=== PATIENT | female | born 1970 | race Caucasian/White ===

== ENCOUNTER → 2018-01-30 12:37 | Outpatient (CLI) | payer BC, SELFPAY ==
--- NOTE | 2018-01-30 12:37 | DT_ITS ---
This patient was seen during an EMR downtime January 27, 2018 - February 03, 2018. This patient may have a combination of paper and electronic documentation or all paper documentation. All documentation is viewable within the e-chart portion of [facility] for each patient visit.
--- NOTE | 2018-01-30 12:42 | BI_ITS ---
MAMMOGRAPHY - BILATERAL SCREENING REASON FOR EXAM: Female, 47 years old. Routine annual screening examination. PERTINENT HISTORY: Non-contributory. TECHNIQUE: Digital bilateral breast dayami (3D mammographic acquisition) in the CC and MLO projections. 2-D mediolateral oblique (MLO) and craniocaudad (CC) views of both breasts were obtained. CAD: Full Field Digital Mammography with Computer Added Detection was performed. COMPARISON: Comparison is made with prior examination dated July 10, 2014. FINDINGS: Breast Composition: The breasts are heterogeneously dense, which may obscure small masses. There are no dominant masses or suspicious calcifications. No other significant abnormalities are identified. There has been no significant change since the prior study. BI/SCREENING MAMM (CAD), BILAT IMPRESSION: Stable bilateral screening mammogram. Yearly follow-up mammogram recommended. (A) ASSESSMENT CATEGORY: BIRADS Category 2: Benign. A letter regarding these results will be sent to the patient by the facility within 30 days. Approximately 10% of breast cancers are not detected by mammography. A normal mammogram should not delay biopsy of a clinically suspicious abnormality. [id number] Electronically Signed: Curt Allan MD at 9:01 EDT Tel [phone], Service support ,
== END ==
PROVIDERS: Family Provider Internal Medicine; PCP Internal Medicine; Visit Provider Internal Medicine
DX: Z12.31 Encounter for screening mammogram for malignant neoplasm of breast (principal)
CPT/HCPCS: 77063; 77067

== ENCOUNTER 2019-02-01 21:21 | Emergency (ER) | payer MEDICAID, SELFPAY ==
[2019-02-01 21:22] VITALS: BP 107/68; PULSE 63; RESP 18; TEMP 36.7; O2SAT 99; BMI 25.2
--- NOTE | 2019-02-01 22:44 | ED.VISSUMM ---
- ER Visit Summary Date of Service: 02/01/19 Chief Complaint: Back pain History of Present Illness: The patient is a 48 F with back pain for 3 days she has a history of disc disease. She denies any bowel or bladder compromise there is no radiation. She is worried because she had prior disc disease. Physical Examination: Otherwise normal exam she is a soft nontender abdomen without any suprapubic mass. She has L3-L5 tenderness, she has loss of lordosis. She has a negative straight leg test 1+ equal bilateral patellar and Achilles reflexes. Normal plantar flexion of both feet normal dorsiflexion of both great toes Emergency Department Course and Treatment: Patient appears well, there are no red flags, I will treat symptomatically Discharge stable condition Impression: [Lumbar strain] This note was generated with [employer] dictation software. It may contain incorrect words, spelling, and punctuation that were not noted in review of the chart prior to signing ED Disposition - Plan for ED Patient: Disposition: Home or Assisted Living Instructions: ED Low Back Pain Injury Prescriptions: Naproxen [Naprosyn] 500 mg PO BID PRN #20 tab cycloBENZAPRine HCl [Flexeril] 10 mg PO TID PRN #20 tab PRN Reason: Muscle Spasm Referrals: nA Jc DO [Primary Care Provider] - 3-5 Days
[2019-02-01] MEDS: Ketorolac 30 MG/ML Syringe IM (22:56)
[2019-02-01] MEDS: Orphenadrine 60 MG/2 ML Ampul IM (22:56)
[2019-02-01 23:17] VITALS: PULSE 87; RESP 16
== END 2019-02-01 23:18 | disposition home or self-care (01) ==
PROVIDERS: Emergency Provider Emergency Medicine; Family Provider Internal Medicine; PCP Internal Medicine
DX: S39.012A Strain of muscle, fascia and tendon of lower back, initial encounter (principal); X58.XXXA Exposure to other specified factors, initial encounter; Y93.9 Activity, unspecified; Y92.9 Unspecified place or not applicable; Y99.9 Unspecified external cause status; Z79.899 Other long term (current) drug therapy
CPT/HCPCS: 96372; 99283

== ENCOUNTER → 2020-02-09 12:09 | Outpatient (CLI) | payer OTHER, MEDICAID, SELFPAY ==
--- NOTE | 2020-02-09 12:15 | BI_ITS ---
MAMMOGRAPHY - BILATERAL SCREENING REASON FOR EXAM: Female, 49 years old. Routine annual screening examination. PERTINENT HISTORY: Grandmother with breast cancer. TECHNIQUE: Digital bilateral breast alejandra (3D mammographic acquisition) in the CC and MLO projections. 2-D mediolateral oblique (MLO) and craniocaudad (CC) views of both breasts were obtained. CAD: Full Field Digital Mammography with Computer Added Detection was performed. COMPARISON: Comparison is made with prior study dated January 30, 2018 and July 10, 2014. FINDINGS: Breast Composition: The breasts are heterogeneously dense, which may obscure small masses. There are no dominant masses or suspicious calcifications. No other significant abnormalities are identified. There has been no significant change since the prior study. BI/SCREEN MAMM (CAD) W/ALEJANDRA BILAT IMPRESSION: Stable bilateral screening mammogram. Yearly follow-up mammogram recommended. (A) ASSESSMENT CATEGORY: BIRADS Category 1: Negative. A letter regarding these results will be sent to the patient by the facility within 30 days. Approximately 10% of breast cancers are not detected by mammography. A normal mammogram should not delay biopsy of a clinically suspicious abnormality. [id number] Electronically Signed: Curt Allan, at 13:46 EDT , Service support ,
== END ==
PROVIDERS: PCP Internal Medicine; Referring Provider Family Medicine; Visit Provider Family Medicine
DX: Z12.31 Encounter for screening mammogram for malignant neoplasm of breast (principal)
CPT/HCPCS: 77063; 77067

== ENCOUNTER → 2020-07-07 | Outpatient (CLI) | payer OTHER, MEDICAID, SELFPAY | END | disposition home or self-care (01) | LOC: LABSPEC 14:47 | PROVIDERS: PCP Family Medicine; Referring Provider Family Medicine; Visit Provider Family Medicine | DX: Z20.828 Contact with and (suspected) exposure to other viral communicable diseases (principal) | CPT/HCPCS: 87635; U0003 ==

== ENCOUNTER → 2020-10-27 11:58 | Outpatient (CLI) | payer OTHER, MEDICAID, SELFPAY ==
--- NOTE | 2020-10-27 12:05 | RAD_ITS ---
STUDY: X-RAY - RIGHT FOOT CLINICAL: Dorsal midfoot pain, unsure of specific injury. TECHNIQUE: 3 view(s) of the foot. COMPARISON: None. FINDINGS: Normal talus, calcaneus, and tarsal bones. Normal visualized subtalar, talonavicular, calcaneocuboid, tarsal and tarsometatarsal articulations. Normal metatarsi. Normal metatarsophalangeal joint of the great toe. Normal tibial and fibular sesamoid bones. Normal interphalangeal joint of the great toe. Normal phalanges of the great toe. Normal second through fifth metatarsophalangeal joints. Normal interphalangeal joints and phalanges of the lesser toes. The soft tissue structures are unremarkable. RAD/Foot min 3 Views IMPRESSION: Normal x-ray examination of the right foot. Electronically Signed: Maximilian De Leon MD at 12:30 EST Tel , Service support ,
== END ==
PROVIDERS: PCP Family Medicine; Referring Provider Family Medicine; Visit Provider Family Medicine
DX: M79.673 Pain in unspecified foot (principal)
CPT/HCPCS: 73630

== ENCOUNTER → 2021-01-05 14:10 | Outpatient (CLI) | payer OTHER, MEDICAID, SELFPAY ==
--- NOTE | 2021-01-05 14:16 | RAD_ITS ---
EXAM: XR CERVICAL SPINE, 4 OR 5 VIEWS : 1970 CLINICAL INDICATION: PAIN TECHNIQUE: Frontal, lateral and oblique views of the cervical spine. This report was created using [employer] report generation technology. COMPARISON: None. FINDINGS: VERTEBRAE: Unremarkable. Preserved vertebral body height. No acute fracture. No spondylolisthesis. Preservation of the normal cervical lordosis. No significant facet arthropathy. DISC SPACES: Unremarkable. Disc spaces are maintained. SOFT TISSUES: Unremarkable. No prevertebral soft tissue widening. LUNG APICES: Clear. OTHER FINDINGS: There are surgical clips in the right neck. RAD/Cerv Spine 4 or 5 Views IMPRESSION: No acute findings in the cervical spine. at 0939 Reported and signed by: Ruslan Macedo MD Electronically Signed: Ruslan Macedo MD at 9:38 EDT Tel , Service support ,
== END ==
PROVIDERS: PCP Family Medicine; Visit Provider Family Medicine
DX: M54.2 Cervicalgia (principal)
CPT/HCPCS: 72050

== ENCOUNTER 2021-03-14 13:00 | Outpatient (RCR) | payer OTHER, MEDICAID, SELFPAY ==
--- NOTE | 2021-01-16 09:47 | HP.PTEVAL ---
Patient's Visit Information KAREN BLAIR is a 50 year old F referred to Physical Therapy by Dr. Wing Johnson MD with a diagnosis of neck pain. Date of Evaluation: 01/16/21 Physical Therapist: Neil Rodriguez DPT, OCS, CSCS - Visit Plan Frequency: 2x /Week Duration: 4-6 Weeks Plan: 2x/week for 4-6 weeks for ... 1. manual mobs and A/PROM ext , postural focus and body mechanics. 2. remodelling neck streches adn strength posture adn c/s - Subjective H/o neck pain. has 5 weeks on insidious onset pain in neck. Last neck pain was 9-10 years ago. Pain is centrallya t base of necka dn sometimes to L shoulder blade. Can be worse with sitting and reading down to L elbow. No numbness ro tingling c/o. Pain is intermittent but hurts most of time. Better with sleeping and she is sleeping well. Worse with sitting and many activiites. Exercises in morning cardio and weights(ellpitcal and bike.) reads on the bike adn will get worse. 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 Not employed. Reading and it mcan make her worse. Had h/o bulging disc. - Pain neck Pain Intensity (Out of 10): 6 Pain Intensity Range: 0, 1, 10 - Objective Walks normal and moves well. I transfers. FW head posture, elevated scap. No tendernessin soft tissue of neck or shoulders. reflexes 2/3 bi adn tri B. Sensation UE WNL to gross light touch B. Strength UE 4/5 without myotomal problems. c/s ext painful at end range and 68, fexion OK, retraction with end range pain, SB and rotations fulla nd without pain.- c/s compression test. - HK, - neer. repeated protrusion. causes pain in neck. repeated retraction No pain and NE. repeated c/s ret/ext with OP: Better motion and no pain B - Goals Goal 1:: Full c/s AROM without pain. Goal Time Frame: 4-6 Weeks Goal 2:: Workout bike adn elliptical without increaed pain. Goal Time Frame: 4-6 Weeks Goal 3:: Pt feel 99% back to normal activities and pain. Goal Time Frame: 4-6 Weeks Goal 4:: I approp management of activity. Goal Time Frame: 4-6 Weeks Goal 5:: <3/10 neck oswestry Goal Time Frame: 4-6 Weeks - Rehabilitation Potential Physical Therapy Diagnosis: likely cervical derangement Rehabilitation Potential: Good - Anticipated Interventions Patient/Client Instruction: Educate patient on: Condition, Plan of Care For the Purpose of:: To decrease pain, To increase ROM, To improve muscle performance and motor function, To increase tolerance to activity/condition/position, To improve ability of physical actions for home/community/work/leisure Therapeutic Exercise to Include: Strength training, Postural training, Flexibilty training, Neuromotor development, Passive ROM, Active ROM For the Purpose of:: To decrease pain, To increase ROM, To improve muscle performance and motor function, To increase tolerance to activity/condition/position, To decrease level of supervision to perform tasks, To improve gait and locomotor functions Manual Therapy Techniques to Include: Mobilization, Passive ROM, Soft tissue mobilization For the Purpose of:: To increase ROM, To improve muscle performance and motor function, To increase tolerance to activity/condition/position Thank you for the opportunity to evaluate your patient. For Medicare and Medicare HMO plans, please review the plan of care and approve it. It will need to be FAXED BACK to us at [phone] for Medicare purposes. For Medicare only, by signing this I certify the plan of care. Please let me know if there are questions or concerns regarding this plan of care. Physician Signature: Date:
--- NOTE | 2021-02-15 13:55 | HP.PTREVAL ---
Dr. Wing Johnson MD, It has been my pleasure to treat KAREN BLAIR over the last 7 visits for neck pain. Please see the progress note below for an update on the physical therapy plan of care! Subjective: Generally in a lot less pain. I can get through workoutsbefore it starts to hurt. HEP: Posture bands and and retractions. Pain this week has been up to 7/10 transiently with activity. Did a lot of reading. 3/10 is a normal day and not constant like it used to be. Sleep is OK. Activities are normal. Objective/Function: Full cs ext but does not involve lower c/s until cued. R rotation 68 vs 78 L, no pain. Posture is still slouched adn FW head until cued. Overall patient much better. educated kelli voiding aggravating activities today as she tends to push through. Appropriate to cotninue 2 weeks toward goals with fair prognosis. Plan Plan: 2x/week for 2 weeks for. 1. Continue manual therapy especially lower c/s ext mobs, monitor HEP of home strengthening Goals Goal 1:: Full c/s AROM without pain. Goal Time Frame: 4-6 Weeks Goal Progress: Progressing Goal 2:: Workout bike adn elliptical without increaed pain. Goal Time Frame: 4-6 Weeks Goal Progress: Goal Met Goal 3:: Pt feel 99% back to normal activities and pain. Goal Time Frame: 4-6 Weeks Goal Progress: 80% Goal 4:: I approp management of activity. Goal Time Frame: 4-6 Weeks Goal Progress: Goal Met Goal 5:: <3/10 neck oswestry Goal Time Frame: 4-6 Weeks Goal Progress: Progressing Anticipated Interventions Patient/Client Instruction: Educate patient on: Condition, Plan of Care For the Purpose of:: To decrease pain, To increase ROM, To improve muscle performance and motor function, To increase tolerance to activity/condition/position, To improve ability of physical actions for home/community/work/leisure Therapeutic Exercise to Include: Strength training, Postural training, Flexibilty training, Neuromotor development, Passive ROM, Active ROM For the Purpose of:: To decrease pain, To increase ROM, To improve muscle performance and motor function, To increase tolerance to activity/condition/position, To decrease level of supervision to perform tasks, To improve gait and locomotor functions Manual Therapy Techniques to Include: Mobilization, Passive ROM, Soft tissue mobilization For the Purpose of:: To increase ROM, To improve muscle performance and motor function, To increase tolerance to activity/condition/position Please do not hesitate to contact me at [phone] by phone or if you have questions or concerns regarding this new plan of care! Sincerely, Neil Rodriguez, THAT, OCS, CSCS
--- NOTE | 2021-03-14 13:46 | HP.PTDCSUM ---
It has been my pleasure to treat KAREN BLAIR referred by Dr. Wing Johnson MD, with the diagnosis of neck pain for a total of 11 visit(s). Discharge Date: 03/14/21 Please see the following information for a summary of their discharge status. Subjective: A lot better. Does get achy at times. Sleep is OK. Activities are normal. Stretching adn strengthening. neck Pain Intensity (Out of 10): 0 % Improvement: 95 Objective/Function: Ful aROM c/s 75 rotation and 79 ext without pain. Full UE AROM with strength shoulders and elbows 4/5. Posture is improved but still tends head FW. Overall much better adn ready for d/c Goal 1:: Full c/s AROM without pain. Goal Progress: Goal Met Goal 2:: Workout bike adn elliptical without increaed pain. Goal Progress: Goal Met Goal 3:: Pt feel 99% back to normal activities and pain. Goal Progress: 95% Goal 4:: I approp management of activity. Goal Progress: Goal Met Goal 5:: <3/10 neck oswestry Goal Progress: Goal Met Plan: d/c to HEP If there are questions or concerns regarding this patient's physical therapy, please feel free to call me at [phone]. Thank you for the referral of this patient. Sincerely, Neil Rodriguez, DPT, OCS, CSCS
== END 2021-03-14 14:56 | disposition home or self-care (01) ==
LOC: PT 13:00
PROVIDERS: PCP Family Medicine; Referring Provider Family Medicine; Visit Provider Family Medicine
DX: M54.2 Cervicalgia (principal)
CPT/HCPCS: 97110; 97140; 97162; 97530

== ENCOUNTER → 2022-07-11 | Outpatient (CLI) | payer OTHER, BC, MEDICAID, SELFPAY ==
[2022-07-11 10:33] LABS: Vitamin D,25 Hydroxy 51.2 ng/mL
[2022-07-11 10:43] LABS: Anion Gap 5 (5-15); BUN 19 mg/dL (7-18); BUN/Creat Ratio 26.8 RATIO (10-20); Calcium,Total 9.5 mg/dL (8.5-10.1); Chloride 108 mmol/L (98-107); Cholesterol 188 mg/dL (200); Creatinine, Serum 0.71 mg/dL (0.55-1.02); EST Glomerular Filtration Rate 93 mL/min (>60); Est Glom Filt Rate - Afr Amer 113 mL/min (>60); Glucose 81 mg/dL (74-106); High Density Lipoprotein 84 mg/dL; Potassium 4.5 mmol/L (3.5-5.1); Sodium Level 142 mmol/L (136-145); T4 Free Direct 1.11 ng/dL (0.76-1.46); Thyroid Stim Hormone (TSH) 0.15 uIU/mL (0.358-3.74); Triglycerides 29 mg/dL; Very Low Density Lipoprotein 6 mg/dL (5-40)
== END | disposition home or self-care (01) ==
PROVIDERS: PCP Family Medicine; Referring Provider Family Medicine; Visit Provider Family Medicine
DX: E55.9 Vitamin D deficiency, unspecified (principal); Z13.1 Encounter for screening for diabetes mellitus; Z13.220 Encounter for screening for lipoid disorders; Z85.850 Personal history of malignant neoplasm of thyroid
CPT/HCPCS: 36415; 80048; 80061; 82306; 84439; 84443

== ENCOUNTER → 2022-07-23 | Outpatient (CLI) | payer BC, MEDICAID, SELFPAY ==
--- NOTE | 2022-07-23 15:27 | BI_ITS ---
MAMMOGRAPHY - BILATERAL SCREENING REASON FOR EXAM: Female, 51 years old. Routine annual screening examination. PERTINENT HISTORY: Aunt with breast cancer. TECHNIQUE: Digital bilateral breast alejandra (3D mammographic acquisition) in the CC and MLO projections. 2-D mediolateral oblique (MLO) and craniocaudad (CC) views of both breasts were obtained. CAD: Full Field Digital Mammography with Computer Added Detection was performed. COMPARISON: Comparison is made with prior examination dated 02/09/2020 and 01/30/2018. FINDINGS: Breast Composition: The breasts are extremely dense, which lowers the sensitivity of mammography. There are no dominant masses or suspicious calcifications. No other significant abnormalities are identified. There has been no significant change since the prior study. BI/SCRN MAMM (CAD)W/ALEJANDRA BILAT IMPRESSION: Stable bilateral screening mammogram. Yearly follow-up mammogram recommended. (A) ASSESSMENT CATEGORY: BIRADS Category 1: Negative. A letter regarding these results will be sent to the patient by the facility within 30 days. Approximately 10% of breast cancers are not detected by mammography. A normal mammogram should not delay biopsy of a clinically suspicious abnormality. [id number] Electronically Signed: Curt Allan MD at 8:33 EST ,
== END | disposition home or self-care (01) ==
LOC: OPBI 15:25
PROVIDERS: PCP Family Medicine; Visit Provider Family Medicine
DX: Z12.31 Encounter for screening mammogram for malignant neoplasm of breast (principal); Z80.3 Family history of malignant neoplasm of breast
CPT/HCPCS: 77063; 77067

== ENCOUNTER → 2023-07-24 | Outpatient (CLI) | payer OTHER, MEDICAID, SELFPAY ==
--- NOTE | 2023-07-24 11:52 | BI_ITS ---
MAMMOGRAPHY - BILATERAL SCREENING REASON FOR EXAM: Female, 52 years old. Routine annual screening examination. PERTINENT HISTORY: Aunt with breast cancer. TECHNIQUE: Digital bilateral breast alejandra (3D mammographic acquisition) in the CC and MLO projections. 2-D mediolateral oblique (MLO) and craniocaudad (CC) views of both breasts were obtained. CAD: Full Field Digital Mammography with Computer Added Detection was performed. COMPARISON: Comparison is made with prior study dated July 23, 2022 and February 09, 2020. FINDINGS: Breast Composition: The breasts are extremely dense, which lowers the sensitivity of mammography. There are no dominant masses or suspicious calcifications. No other significant abnormalities are identified. There has been no significant change since the prior study. BI/SCRN MAMM (CAD)W/ALEJANDRA BILAT IMPRESSION: Stable bilateral screening mammogram. Yearly follow-up mammogram recommended. (A) ASSESSMENT CATEGORY: BIRADS Category 1: Negative. A letter regarding these results will be sent to the patient by the facility within 30 days. Approximately 10% of breast cancers are not detected by mammography. A normal mammogram should not delay biopsy of a clinically suspicious abnormality. [id number] Electronically Signed: Curt Allan MD at 10:07 EST ,
== END | disposition home or self-care (01) ==
LOC: OPBI 11:51
PROVIDERS: PCP Family Medicine; Referring Provider Family Medicine; Visit Provider Family Medicine
DX: Z12.31 Encounter for screening mammogram for malignant neoplasm of breast (principal)
CPT/HCPCS: 77063; 77067

== ENCOUNTER → 2023-11-20 | Outpatient (CLI) | payer OTHER, SELFPAY ==
[2023-11-20 13:51] LABS: Absolute Lymphocyte Count 1.52 X10^3/uL (0.83-4.51); Absolute Neutrophil Count 2.9 X10^3/uL (2.0-7.7); Basophil# 0.06 X10^3/uL; Basophil% 1.3 % (0-1); Eosinophil# 0.07 X10^3/uL; Eosinophils% 1.5 % (0-5); Hematocrit 42.2 % (37-47); Hemoglobin 13.8 g/dL (12.0-15.0); Lymphocyte # 1.52 X10^3/ul (0.83-4.51); Lymphocyte % 32.1 % (19-41); Mean Corp Hgb Conc 32.7 g/dL (32-36); Mean Corpuscular Hgb 30.2 pg (27.0-32.0); Mean Corpuscular Volume 92.3 fL (81-99); Mean Platelet Vol. 10.8 fl (6.2-12.0); Monocyte# 0.21 X10^3/uL; Monocyte% 4.4 % (0-10); NRBC Flagged by Analyzer 0 % (0-5); Neutrophil # 2.87 X10^3/uL (2.7-7.7); Neutrophil % 60.5 % (47-70); Platelet Count 212 K/mm3 (150-450); RBC Distribution Width CV 11.9 % (11.6-14.6); RBC Distribution Width SD 40.4 fl (35.1-43.9); Red Blood Count 4.57 M/mm3 (4.2-5.4); White Blood Count 4.7 K/mm3 (4.4-11.0)
[2023-11-20 14:59] LABS: AST(SGOT) 25 U/L (15-37); Alanine Aminotransfer ALT/SGPT 33 U/L (13-56); Albumin, Serum 3.8 g/dL (3.2-5.0); Alkaline Phosphatase 79 U/L (45-117); Anion Gap 3 (5-15); BUN 16 mg/dL (7-18); BUN/Creat Ratio 18.9 RATIO (10-20); Chloride 109 mmol/L (98-107); Creatinine, Serum 0.85 mg/dL (0.55-1.02); EST Glomerular Filtration Rate 75 mL/min (>60); Est Glom Filt Rate - Afr Amer 91 mL/min (>60); Globulin 3.7 g/dL (2.2-4.2); Glucose 80 mg/dL (74-106); Potassium 3.6 mmol/L (3.5-5.1); Protein, Total 7.5 g/dL (6.4-8.2); Sodium Level 141 mmol/L (136-145); Thyroid Stim Hormone (TSH) 0.88 uIU/mL (0.358-3.74)
== END | disposition home or self-care (01) ==
PROVIDERS: PCP Family Medicine; Visit Provider Internal Medicine Cardiovascular Disease
DX: I47.19 Other supraventricular tachycardia (principal); R00.2 Palpitations
CPT/HCPCS: 36415; 80053; 83735; 84443; 85025

== ENCOUNTER → 2023-12-18 | Outpatient (CLI) | payer OTHER, SELFPAY ==
--- NOTE | 2023-12-18 14:51 | ECHOD_ITS ---
Reason For Study: Arrhythmia Procedure This was a 2D Doppler, Color Flow transthoracic echocardiogram. Exam performed in department. Left Ventricle Normal left ventricle. The left ventricular ejection fraction is 65 %. Normal diastololic function. Right Ventricle Normal right ventricle. A moderator band is seen in the right ventricle. Atria The left and right atria are normal. Mitral Valve Mild (1+) mitral valve insufficiency. Tricuspid Valve Mild tricuspid valve insufficiency. Right ventricular systolic pressure estimated to be 40 mmHg. Pulmonic Valve Trivial pulmonic valve insufficiency. Great Vessels Normal sized aortic root. Pericardium/Pleural No pericardial effusion. MMode/2D Measurements & Calculations LVIDd: 4.8 cm IVSd: 0.88 cm LA dimension: 3.6 cm LVIDs: 2.9 cm LVPWd: 0.78 cm RVDd: 4.2 cm FS: 38.7 % LAV(MOD-bp): 53.4 ml LVAd ap4: 28.7 cm2 SV(MOD-sp4): 58.6 ml LAV(MOD-bp) Indexed: 30.6 ml/m2 LVLd ap4: 7.5 cm LAV(MOD-sp2): 51.0 ml EDV(MOD-sp4): 88.9 ml LAV(MOD-sp4): 56.0 ml EDV(sp4-el): 92.8 ml LVAs ap4: 14.9 cm2 LVLs ap4: 5.9 cm ESV(MOD-sp4): 30.3 ml ESV(sp4-el): 31.9 ml EF(MOD-sp4): 65.9 % EF(sp4-el): 65.7 % SV(sp4-el): 60.9 ml LA A4 area: 20.0 cm2 RA A4 area: 22.3 cm2 TAPSE: 2.2 cm Time Measurements MV dec time: 0.14 sec Doppler Measurements & Calculations MV E max billy: 75.8 cm/sec Lat Peak E' Billy: 12.8 cm/sec Med Peak E' Billy: 13.0 cm/sec MV A max billy: 50.8 cm/sec E/E' lat: 5.9 E/E' med: 5.8 MV E/A: 1.5 MV V2 max: 97.6 cm/sec MV P1/2t max billy: 97.6 cm/sec Ao V2 max: 158.1 cm/sec MV max P.8 mmHg MV P1/2t: 54.0 msec Ao max P.0 mmHg MV V2 mean: 45.2 cm/sec MV dec slope: 529.6 cm/sec2 Ao V2 mean: 114.5 cm/sec MV mean P.0 mmHg Ao mean P.0 mmHg MV V2 VTI: 25.9 cm MVA(P1/2t): 4.1 cm2 Ao V2 VTI: 41.0 cm AV (velocity ratio): 0.81 LV V1 max: 143.3 cm/sec MR max billy: 459.1 cm/sec PA V2 max: 92.5 cm/sec LV V1 max P.2 mmHg MR max P.3 mmHg LV V1 mean P.5 mmHg LV V1 mean: 101.2 cm/sec LV V1 VTI: 33.2 cm TR max billy: 250.1 cm/sec TR max P.0 mmHg ECHO/Echo Complete Interpretation Summary The left ventricular ejection fraction is 65 %. Mild (1+) mitral valve insufficiency. Mild tricuspid valve insufficiency. Right ventricular systolic pressure estimated to be 40 mmHg. Ordering Physician: Linda Orr Referring Physician: Miguelito Johnson Performed By: Gordon Cornejo RCS
== END | disposition home or self-care (01) ==
PROVIDERS: PCP Family Medicine; Referring Provider Internal Medicine Cardiovascular Disease; Visit Provider Internal Medicine Cardiovascular Disease
DX: I47.19 Other supraventricular tachycardia (principal); R00.2 Palpitations
CPT/HCPCS: 93306

== ENCOUNTER 2024-03-03 19:52 | Emergency (ER) | payer OTHER, SELFPAY ==
[2024-03-03 19:53] VITALS: BP 138/83; PULSE 50; RESP 15; TEMP 36.1; O2SAT 100; BMI 26.8
--- NOTE | 2024-03-03 20:37 | EX.ED.UPPERE ---
HPI History of Present Illness HPI Narrative: 53-year-old female tripped and fell outside manage on concrete injuring her left hand primarily at the MCP of the left small and ring finger and hitting her left shoulder. No head injury. No LOC. She is not on blood thinners. She is right-hand dominant. No prior surgery to the left upper extremity. Chief Complaint: Upper Extremity Injury Informant: patient and spouse/S.O. Occured/Mechanism Mechanism/Context: Yes injury and Yes blunt trauma Onset/Context/Timing Onset: Today and Hours Context: Sudden Onset Timing: Continuous Quality of Pain: Sharp Current Severity: Moderate Maximum Severity: Moderate Associated Symptoms Associated Symptoms: Negative for Parasthesia, Weakness or Loss of Funtion Narrative Narrative: 53-year-old tripped and fell outside injuring her left hand and left shoulder. Prior similar symptoms: No Recent Illness/Hospitalization: No PFSH PFSH Medical History Cataracts, bilateral Atrial tachycardia Palpitations Home Medications ?Medication ?Instructions ?Recorded ?Last Taken ?Type levothyroxine 112 mcg tablet 100 mcg PO DAILY 07/21/15 07/26/15 History metoprolol tartrate 25 mg tablet 12.5 mg (1/2 x 25 mg) PO BID #45 12/16/23 Unknown Rx tabs flecainide 50 mg tablet 100 mg PO Q12H 03/03/24 Unknown History Allergy/AdvReac Type Severity Reaction Status Date / Time Sulfa (Sulfonamide Allergy Intermediate Rash Verified 03/03/24 19:53 Antibiotics) vancomycin Allergy RED MAN Verified 03/03/24 19:53 SYNDROME Family History Brother Heart disease aortic stenosois Father Hypertension Cancer Atrial fibrillation Mother Cancer Atrial fibrillation Surgical History S/P removal of left ovary (~2006) History of total hysterectomy History of dilation and curettage History of tubal ligation (~2001) History of thyroidectomy, total Social History Smoking Status: Never smoker alcohol intake: never substance use type: does not use caffeine: No ROS ROS ED ROS Narrative Denies recent illness. Review of Systems ROS Unobtainable: Denies due to encephalopathy Constitutional Constitutional ED: Denies chills or fever(s) Eyes Eyes: Denies blurry vision ENT ENT ED: Denies ear pain Cardiovascular Cardiovascular: Denies chest pain Respiratory/Chest Respiratory/Chest: Denies cough or dyspnea Gastrointestinal Gastrointestinal: Denies abdominal pain or constipation Genitourinary Genitourinary ED: Denies dysuria or hematuria Musculoskeletal Musculoskeletal: Denies back pain or myalgias Integumentary Denies abscess or Abrasions Neurologic Neurologic: Denies headache(s) or paresthesias Psychiatric Psychiatric: Denies anxiety or depression Endocrine Endocrinology: Denies cold intolerance Hematologic/Lymphatic Hematologic/Lymphatic: Denies easy bleeding Allergic/Immunologic Allergic/Immunologic ED: Denies mouth swelling EXAM Physical Exam Narrative Exam Narrative: Well-appearing 53-year-old female. Vital signs are stable afebrile. H EENT exam pupils round react light. Extra motions are intact. No signs of trauma to her face or scalp. Neck nontender. Trachea midline. Back and spine nontender no signs of trauma. Lungs clear. Heart regular rhythm rate about 50-60. No murmur. Chest wall and ribs nontender. Pelvic girdle intact nontender. Abdomen soft nontender. Moving all 4 extremities. She has abrasion of left shoulder but has normal range of motion left shoulder no deformity. Distal left humerus, elbow, forearm and wrist are completely nontender with normal flexion extension of the wrist. She has deformity and swelling of her left hand left small finger and ring finger MCP. She is unable to completely flex and extend her left ring and small fingers due to pain and swelling. Normal touch sensation. Skin intact and without abrasions. Right upper or lower extremities are unremarkable. She is awake alert. GCS of 15. Const Vital Signs: 03/03/24 19:53 Temperature 96.9 F L Temperature Source Temporal Pulse Rate 50 L Respiratory Rate 15 Blood Pressure 138/83 H Blood Pressure Mean 101 Pulse Ox 100 Oxygen Delivery Method Room Air Positive well nourished and well developed; Negative for obese, cachectic, contractures or unkempt General Appearance ED: well developed and NAD; Negative for unkempt, cachectic, contractures, cyanotic or diaphoretic Nutritional Appearance: Negative for cachectic or obese HEENT Reports moist mucous membranes normocephalic and atraumatic; Negative for trauma or tenderness Eyes PERRL and EOMs intact bilaterally General Eye ED: Negative for other Neck full ROM and supple General: Negative for tenderness Lymph Lymphatic: Negative for other Chest Wall inspection of chest normal and palpation of chest normal Chest: Negative for other Resp normal respiratory effort and clear to auscultation bilaterally Effort and Inspection: Negative for pain with movement Auscultation: Negative for rales, rhonchi or wheezes Cardio regular rhythm, S1 normal heart sound, S2 normal heart sound and no murmurs; Negative for regular rate Rate: bradycardia; Negative for tachycardic Rhythm: Negative for abnormal rhythm GI non-tender, non-distended and no masses Inspection: Negative for abdominal distention Auscultation: normoactive bowel sounds Palpation: soft; Negative for tender, guarding or rebound tenderness present Back/Spine no CVA tenderness General Back: Negative for CVA tenderness Cervical Spine: Negative for cervical spine tenderness Thoracic Spine / Upper Back: Negative for thoracic spinal tenderness Lumbar Spine / Lower Back: Negative for lumbar spinal tenderness Extremity Negative for normal to inspection or full ROM Extremity Narrative: Left hand tender along the left small and ring MCP with swelling. Decreased range of motion due to pain and swelling. Wrist is nontender. Left shoulder abrasion but full range of motion. General Extremety ED: Yes edema General Extremity: edema Neuro oriented x3, CN's II-XII intact bilaterally, moves all extremities and no focal motor deficits Sensorium / Orientation: alert, oriented to person, oriented to place and oriented to time; Negative for orientation impaired or lethargic Motor Exam: strength 5/5 throughout Psych mental status grossly normal Appearance: Negative for unkempt Attitude: No agitated Mood & Affect: Negative for depressed, anxious or tearful Skin Skin Narrative: Abrasions. General Skin Exam: Negative for petechiae Lesions: no lesions Rashes: no rashes Trauma: abrasion; Negative for laceration MDM MDM MDM Narrative Medical decision making narrative: 53-year-old female tripped and fell injuring her left hand x-rays to be taken in the hand and shoulder I think the shoulders finer than the contusion and bruising. The hand is concerning for fracture. She is already taken ibuprofen for pain and did not need any at this time. Repeat exam unchanged. We discussed the x-rays. She chose aluminum splints for both the left small and ring finger. Ice and elevate. Tylenol Motrin. Follow-up with orthopedics. History & Record Review Discussion w/independent historian: Patient and Family Radiography Diagnostic Testing: Left shoulder x-ray 2 views interpreted by myself shows no fracture or dislocation. Left hand 3 views interpreted by myself. Shows a proximal phalanx proximal end fracture of the left small finger and also the proximal end of the proximal phalanx left ring finger fracture. Nondisplaced. Soft tissue swelling. No dislocations. I went over all the films with the patient and her . Discharge Plan Triage Chief Complaint: Upper Extremity Injury ED Provider: Hussein Maharaj Dx/Rx/DC Orders Clinical Impression: Fracture of finger of left hand Instructions: ED Fracture, Finger, Closed Prescriptions: No Action levothyroxine 112 MCG tablet 100 mcg PO DAILY Patient Comments: 100mcg/daily Saturday-Saturday; 50mcg/Saturday flecainide 50 mg tablet 100 mg PO Q12H metoprolol tartrate 25 mg tablet 12.5 mg PO BID Qty: 45 3RF Primary Care Provider: Miguelito Johnson Referrals: Miguelito Johnson MD [Primary Care Provider] - Baldomero Haque MD [Med Staff - Active Staff] - As soon as possible Activity Restrictions/Additional Instructions: You have a broken left small finger and ring finger just past the knuckle. Ice and elevate. Motrin and Tylenol for pain and swelling. Keep splinted to immobilize the fingers so that will heal. Call and follow-up with orthopedics. Print Language: Bulgarian Disposition Disposition: Home, Self Care
--- NOTE | 2024-03-03 20:45 | RAD_ITS ---
STUDY: X-RAY - LEFT SHOULDER REASON FOR EXAM: Female, 53 years old. Trauma TECHNIQUE: 2 view(s) of the shoulder. COMPARISON: None. FINDINGS: Normal glenohumeral articulation. Normal acromioclavicular joint. Normal acromion. Normal humeral head and visualized proximal humerus. The soft tissue structures are unremarkable. There is no demonstrated fracture. Normal visualized pulmonary apex. RAD/Shoulder min 2 Views IMPRESSION: Normal x-ray examination of the shoulder. Electronically Signed: Lucian Monreal MD at 21:47 EDT ,
--- NOTE | 2024-03-03 20:45 | RAD_ITS ---
STUDY: X-RAY - LEFT HAND REASON FOR EXAM: Female, 53 years old. Trauma TECHNIQUE: 4 view(s) of the hand. COMPARISON: None. FINDINGS: Normal radiocarpal articulation. Normal distal radioulnar joint. Normal visualized carpal bones. Normal carpal articulations Normal carpometacarpal articulation of the thumb. Normal second through fifth carpometacarpal joints. Normal metacarpi. Normal metacarpophalangeal joint of the thumb. Normal interphalangeal joint of the thumb. Normal proximal and distal phalanges of the thumb. Normal metacarpophalangeal joints of the second through fifth fingers. Normal proximal and distal interphalangeal joints of the second through fifth fingers. There are acute fractures of the base of the fourth and fifth proximal phalanges. The soft tissue structures are unremarkable. RAD/Hand Min 3 Views IMPRESSION: Fractures of the fourth and fifth proximal phalanges. Electronically Signed: Lucian Monreal MD at 21:49 EDT ,
[2024-03-03 21:30] VITALS: BP 128/97; PULSE 54; RESP 16; TEMP 36.5; O2SAT 99
== END 2024-03-03 21:39 | disposition home or self-care (01) ==
PROVIDERS: Emergency Provider Emergency Medicine; PCP Family Medicine; Visit Provider Emergency Medicine
DX: S62.647A Nondisplaced fracture of proximal phalanx of left little finger, initial encounter for closed fracture (principal); S62.645A Nondisplaced fracture of proximal phalanx of left ring finger, initial encounter for closed fracture; S40.012A Contusion of left shoulder, initial encounter; W18.09XA Striking against other object with subsequent fall, initial encounter; Z79.899 Other long term (current) drug therapy
CPT/HCPCS: 73030; 73130; 99282

== ENCOUNTER 2024-04-23 15:00 | Outpatient (RCR) | payer OTHER, SELFPAY ==
--- NOTE | 2024-04-02 13:57 | HP.OTEVAL ---
Patient's Visit Information Visit Information Visit Information: KAREN BLAIR is a 53 year old F, referred to Occupational Therapy by Dr. Baldomero Haque MD, with a diagnosis of left 5th and 4th metacarpal fx.. Date of Evaluation: 04/02/24 Occupational Therapist: Siri Urbano, CHELSEY/Magda, CHT Subjective Subjective: This 53 year old female was seen for OT eval with dx of left fx of 4th and 5th proximal phalax fx at the base. Pt states DOI on March 03 2024. Pt states she went to ER and with positive findings of fx pt was splinted. Was able to see ortho about a week later - went to splints to [facility]. pt states she went back to her splint because she flet she was not comfortable being able to bend them pt states she would take of her brace from time to time. 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 pt would like to use left hand at her PLOF. Pain left hand: Current Pain Intensity: 0 Pain Intensity Range: 3 ROM MP: right LF 75 MF 85 Left LF 55 RF 40 PIP: Right LF 85 RF 100 left LF 30 RF 40 DIP: right LF 75 RF 80 left LF 20 RF 30 ROM Comments: pt demo with a decrease ability to form a composite fist. 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 Furnace Laborer: right 65# left 20# Lateral Pinch: right 14# left 12# Tripod Pinch: right 18# left 14# Strength Comments: pt demo with a decrease in left roof cement and paint maker strength Edema PIP: right MF 5.5 left 6.0 Sensation Sensation Comments: pt states she does have tingling on and off in left RF tip Quick DASH-Disab of Arm,Shoulder& Hand Quick DASH Score: 22.5000 Goals Goal:: pt will demo a increase in left roof cement and paint maker strength by 30# or greater to increase pts IND with ADLs and IADLs by d.c Goal:: pt will demo a increase in left MCP flexion by 30* PIP flexion by 60* to increase pts ability to form fist by d/c Goal:: pt will report no pain greater than 1/10 with use of left hand with ADls and IADls by d.c Rehabilitation General Assessment: pt demo with limited left LF and RF ROM increasing difficulty for pt to use left hand with bilateral daily tasks. pt would benefit from skilled OT services 2x week for 4 weeks to improve pt ROM and strength to return pt to her PLOF. Today therapist ed. pt on PROM /AROM and contrast bath pt demo understanding and agree to POC. Rehabilitation Potential: Good Anticipated Interventions Anticipated Interventions: A/AAROM/PROM, Strengthening, Modalities, Joint Protection/Energy Conservation, Ergonomic Education, Education re Diagnosis and Home Program Visit Plan Frequency: 1-2x /Week Duration: 6 Weeks General Plan: increase ROM strengthen TEXT: Thank you for the opportunity to evaluate your patient. For Medicare and Medicare HMO plans, please review the plan of care and approve it. It will need to be FAXED BACK to us at [phone] for Medicare purposes. Please let me know if there are questions or concerns regarding this plan of care. Physician Signature: Date:
--- NOTE | 2024-04-24 08:55 | HP.OTDCSUM_ITS ---
Discharge Summary D/C Summary: It has been my pleasure to treat KAREN BLAIR under orders from Dr. Baldomero Haque MD, for the diagnosis of left 5th and 4th metacarpal fx. for a total of 7 visit(s). Please see the following information for a summary of their discharge status. 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 pt would like to see her fingers straighter- therapist advised to cont. with PIP ext stretch with MCP in slight flexion- along with reverse blocking ec. pt demo understanding and agree to D/C. Goals Goal:: pt will demo a increase in left fabric cutter strength by 30# or greater to increase pts IND with ADLs and IADLs by d.c Goal:: pt will demo a increase in left MCP flexion by 30* PIP flexion by 60* to increase pts ability to form fist by d/c Goal:: pt will report no pain greater than 1/10 with use of left hand with ADls and IADls by d.c Plan Plan: pt to be discharged at this time D/C Information Discharge Comments: pt ready to be discharged at this time. pt has made significant gains and tolerated therapy well. pt to continue HEP and agrees to POC. d/c sentence: If there are questions or concerns regarding this patient's occupational therapy, please fell free to call me at [phone]. Thank you for the referral of this patient. Sincerely, Siri Urbano, OTR/L, CHT
== END 2024-04-23 19:00 | disposition home or self-care (01) ==
LOC: OT 15:00
PROVIDERS: PCP Family Medicine; Referring Provider Orthopaedic Surgery Sports Medicine; Visit Provider Orthopaedic Surgery Sports Medicine
DX: S62.645D Nondisplaced fracture of proximal phalanx of left ring finger, subsequent encounter for fracture with routine healing (principal)
CPT/HCPCS: 97110; 97140; 97166; 97530

== ENCOUNTER → 2024-06-08 | Outpatient (CLI) | payer OTHER, SELFPAY ==
--- NOTE | 2024-06-08 12:33 | RAD_ITS ---
STUDY: X-RAY - LEFT HAND REASON FOR EXAM: Female, 53 years old. Follow up fracture. 4th and 5th fingers. TECHNIQUE: 4 views of the left hand. COMPARISON: Left hand radiographs dated 03/03/2024 and 03/31/2024. FINDINGS: Normal radiocarpal articulation. Normal distal radioulnar joint. Normal visualized carpal bones. Normal carpal articulations. Normal carpometacarpal articulation of the thumb. Normal second through fifth carpometacarpal joints. Normal metacarpi. Normal metacarpophalangeal joint of the thumb. Normal interphalangeal joint of the thumb. Normal proximal and distal phalanges of the thumb. Normal metacarpophalangeal joints of the second through fifth fingers. Normal proximal and distal interphalangeal joints of the second through fifth fingers. Normal phalanges of the second and third fingers. There are healed fractures of the bases of the fourth and fifth proximal phalanges. The soft tissue structures are unremarkable. RAD/Hand Min 3 Views IMPRESSION: Healed fractures of the bases of the fourth and fifth proximal phalanges. Electronically Signed: Arsalan Saini MD at 13:39 EDT ,
== END | disposition home or self-care (01) ==
PROVIDERS: PCP Family Medicine; Referring Provider Family Medicine; Visit Provider Family Medicine
DX: S62.603A Fracture of unspecified phalanx of left middle finger, initial encounter for closed fracture (principal); S62.605A Fracture of unspecified phalanx of left ring finger, initial encounter for closed fracture
CPT/HCPCS: 73130

== ENCOUNTER 2024-07-08 13:00 | Outpatient (RCR) | payer OTHER, SELFPAY ==
--- NOTE | 2024-06-19 11:37 | HP.OTEVAL ---
Patient's Visit Information Visit Information Visit Information: KAREN BLAIR is a 53 year old F, referred to Occupational Therapy by Dr. Miguelito Johnson MD, with a diagnosis of 4th/5th left finger fx. Date of Evaluation: 06/18/24 Occupational Therapist: Siri Urbano, WILSONR/Magda, CHT Subjective Subjective: This 53 year old female was seen for OT eval with dx of a left 4th & 5th finger fx. Pts DOI was 03/03/24 and she has still not gained full ROM. pt was seen prior in this dept. and states she continues with her previous given ex. pt would like to know what more she can do to get better motion. Pain left hand: Current Pain Intensity: 3 Pain Intensity Range: 1 and 3 ROM MP: left RF +5/80 LF +15/70 right LF +10/85, RF 0/88 PIP: left RF -25/90, LF -25/85 right LF +15/95, RF +5/100 DIP: left RF +15/70 LF +5/85 right LF +10/75, RF +5/80 ROM Comments: right is WNL Strength Social Media Intern: right 60# left 50# Lateral Pinch: right 18# left 18# Tripod Pinch: right 18# left 16# Quick DASH-Disab of Arm,Shoulder& Hand Quick DASH Score: 23.3325 Goals Goal:: pt will demo increase in ROM of left RF and LF by 15* demo improved mobility extension decreasing look of curled fingers by d/c pt will demo increase in ROM of left RF/LF extension to place hand in pocket by d/c Rehabilitation General Assessment: pt demo with limited PIP ext on both left RF and LF. this is bothersome as pt feels she should have full motion. Pt would benefit from skilled OT services 2x week for 3 weeks to return pt to her PLOF. Today therapist ed.pt on DIP and PIP extension blocking ex. and use of LMB extension orthosis. pt demo understanding and agree to POC. Rehabilitation Potential: Good Anticipated Interventions Anticipated Interventions: A/AAROM/PROM, Modalities, Orthoses, Joint Protection/Energy Conservation, Ergonomic Education, Education re assistive Equipment, Education re Diagnosis and Home Program Visit Plan Frequency: 2x /Week Duration: 4 Weeks TEXT: Thank you for the opportunity to evaluate your patient. For Medicare and Medicare HMO plans, please review the plan of care and approve it. It will need to be FAXED BACK to us at [phone] for Medicare purposes. Please let me know if there are questions or concerns regarding this plan of care. Physician Signature: Date:
--- NOTE | 2024-11-04 13:27 | HP.OTDCNRP_ITS ---
Patient Information Patient Information: KARNE BLAIR was seen in my office for initial evaluation on 06/18/24. The following Plan of Care was established for this patient: POC Established Initial Frequency: 2x /Week Initial Duration: 4 Weeks Plan: make night splint Anticipated Interventions Anticipated Interventions: A/AAROM/PROM, Modalities, Orthoses, Joint Protecti on/Energy Conservation, Ergonomic Education, Education re assistive Equipment, Education re Diagnosis and Home Program Last Seen Last Seen: This patient was last seen in our office 07/08/24. Pertinent comments regarding their Occupational therapy will appear below: pt was seen for 6 OT sessions. pt was improving with ROM but continued to demo limited ROM. No further apts are scheduled and due to time lapse in services pt is d/c. At this point I will be discontinuing this patient from occupational therapy. I would be happy to see this patient again in the future if found appropriate by the physician. Thank you! Siri Urbano, OTR/L, CHT
== END 2024-07-08 19:00 | disposition home or self-care (01) ==
LOC: OT 13:00
PROVIDERS: PCP Family Medicine; Referring Provider Family Medicine; Visit Provider Family Medicine
DX: S62.608D Fracture of unspecified phalanx of other finger, subsequent encounter for fracture with routine healing (principal)
CPT/HCPCS: 97110; 97140; 97166; 97530; 97760

== ENCOUNTER → 2024-08-03 | Outpatient (CLI) | payer OTHER, SELFPAY ==
[2024-08-03 17:52] LABS: Anion Gap 5 (5-15); BUN 14 mg/dL (7-18); BUN/Creat Ratio 20.1 RATIO (10-20); Calcium,Total 9.7 mg/dL (8.5-10.1); Chloride 108 mmol/L (98-107); EST Glomerular Filtration Rate 94 mL/min (>60); Est Glom Filt Rate - Afr Amer 113 mL/min (>60); Glucose 74 mg/dL (74-106); Potassium 3.6 mmol/L (3.5-5.1); Sodium Level 142 mmol/L (136-145)
[2024-08-03 19:00] LABS: PTHIN 49.7 pg/mL (18.4-80.1)
== END | disposition home or self-care (01) ==
LOC: MTLAB 13:42
PROVIDERS: PCP Family Medicine; Referring Provider Internal Medicine Endocrinology, Diabetes & Metabolism; Visit Provider Internal Medicine Endocrinology, Diabetes & Metabolism
DX: M85.89 Other specified disorders of bone density and structure, multiple sites (principal)
CPT/HCPCS: 36415; 80048; 83970

== ENCOUNTER → 2024-08-07 | Outpatient (CLI) | payer OTHER, SELFPAY ==
--- NOTE | 2024-08-07 12:31 | BI_ITS ---
MAMMOGRAPHY - BILATERAL SCREENING REASON FOR EXAM: Female, 53 years old. Routine annual screening examination. PERTINENT HISTORY: Aunt with breast cancer. TECHNIQUE: Digital bilateral breast alejandra (3D mammographic acquisition) in the CC and MLO projections. 2-D mediolateral oblique (MLO) and craniocaudad (CC) views of both breasts were obtained. CAD: Full Field Digital Mammography with Computer Added Detection was performed. COMPARISON: Comparison is made with prior study of July 24, 2023 and July 23, 2022. FINDINGS: Breast Composition: The breasts are extremely dense, which lowers the sensitivity of mammography. There are no dominant masses or suspicious calcifications. No other significant abnormalities are identified. There has been no significant change since the prior study. BI/SCRN MAMM (CAD)W/ALEJANDRA BILAT IMPRESSION: Stable bilateral screening mammogram. Yearly follow-up mammogram recommended. (A) ASSESSMENT CATEGORY: BIRADS Category 1: Negative. A letter regarding these results will be sent to the patient by the facility within 30 days. Approximately 10% of breast cancers are not detected by mammography. A normal mammogram should not delay biopsy of a clinically suspicious abnormality. [id number] Electronically Signed: Curt Allan MD at 13:01 EST ,
== END | disposition home or self-care (01) ==
LOC: OPBI 12:30
PROVIDERS: PCP Family Medicine; Referring Provider Family Medicine; Visit Provider Family Medicine
DX: Z12.31 Encounter for screening mammogram for malignant neoplasm of breast (principal)
CPT/HCPCS: 77063; 77067

== ENCOUNTER 2025-08-18 11:34 | Outpatient (CLI) | payer BC, SELFPAY ==
--- OUTSIDE RECORDS SUMMARY | 2025-08-18 11:45 | XMS RPT_ITS | CCD ---
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 Wing Johnson Primary Care Provider [phone] Dr. Wing Johnson Referring Provider Dr. Linda Orr Attending Provider Dr. Marzena Johnson Primary Care Provider Dr. Marzena Johnson Referring Provider [phone] Group, [facility] Unavailable [phone] Linda Orr MD Unavailable Marzena Johnson MD Primary Care Provider Group, [facility] Unavailable Unavailable Puneet Shea MD Unavailable PUNEET SHEA Admitting Unavailable MARZENA JOHNSON Primary Care UnavailPUNEET Mcfarland Referring Unavailable PUNEET SHEA Attending Unavailable MARZENA JOHNSON Referring UnavailMARZENA Cardoso Primary Care Unavailabl e PUNEET SHEA Attending Unavailable MARZENA JOHNSON Primary Care UnavailLINDA Sánchez Referring Unavailable PUNEET SHEA Attending Unavailable Marzena Johnson Attending Unavailable Marzena Johnson Referring Unavailable Marzena Johnson Primary Care Unavailable Hussein Maharaj Attending Unavailable Ranney, Christopher Primary Care Unavailable Ranney, Christopher Attending Unavailable Ranney, Christopher Referring Unavailable Ranney, Christopher Primary Care Unavailable Ranney, Christopher Attending Unavailable Ranney, Christopher Referring Unavailable Ranney, Christopher Primary Care Unavailable Wietecha, Don Attending Unavailable Wietecha, Don Referring Unavailable Ranney, Christopher Primary Care Unavailable Mollison, Baldomero Attending Unavailable Ranney, Christopher Referring Unavailable Ranney, Christopher Primary Care Unavailable Glory, Iglesia Attending Unavailable Ranney, Christopher Primary Care Unavailable Ranney, Christopher Primary Care Unavailable Kirby, Linda Attending Unavailable Ranney, Christopher Primary Care Unavailable Duane Cherry Attending Unavailable Ranney, Christopher Referring Unavailable Ranney, Christopher Primary Care Unavailable Mollison, Baldomero Attending Unavailable Ranney, Christopher Referring Unavailable Ranney, Christopher Primary Care Unavailable Glory, Ceredo Attending Unavailable Ranney, Christopher Primary Care Unavailable Kirby, Linda Attending Unavailable Kirby, Linda Referring Unavailable Ranney, Christopher Primary Care Unavailable Mollison, Baldomero Attending Unavailable Mollison, Baldomero Referring Unavailable Ranney, Christopher Primary Care Unavailable Kirby, Linda Attending Unavailable Ranney, Christopher Referring Unavailable Ranney, Christopher Primary Care Unavailable Kirby, Linda Attending Unavailable Dr. Marzena Johnson MD Primary Care Provider Dr. Marzena Johnson MD Attending Provider [phone] Dr. Marzena Johnson MD Referring Provider Dr. Don Villafana DO Attending Provider Dr. Don Villafana DO Referring Provider Allergies Allergy Classification Reported Allergen(s) Allergy Type Date of Onset Reaction(s) Facility Glycopeptides (antibiotic) (1 source) Vancomycin Drug Allergy 01-02-20 24 Hives, Itching [facility] Sulfonamides (antibiotic) (1 source) Sulfonamides (Antibiotic) Drug Allergy 04-05-20 16 Rash [facility] (3 sources) Sulfamethoxazole / Trimethoprim; Translations: [Bactrim *ANTI-INFECTIVE AGENTS - MIS.*] Drug Allergy [facility] Work Phone: Comment on above: rash (7 sources) Sulfonamides (Antibiotic); Translations: [SULFA (SULFONAMIDE ANTIBIOTICS)] Allergy to substance 04-05-20 16 Rash [facility] (20 sources) Vancomycin; Translations: [VANCOMYCIN] Drug Allergy 02-02-20 19 Hives, Itching [facility] Comment on above: [employer] MAN SYNDROME (14 sources) Sulfonamides (Antibiotic) Drug Allergy 04-05-20 Rash [facility] (1 source) Sulfonamides (Antibiotic) Drug allergy (disorder) 04-23-20 [facility] (1 source) Vancomycin Drug Allergy 04-23-20 [facility] Medications Current Medications Medication Drug Class(es) Dates Sig (Normalized) Sig (Original) acetaminophen 500 mg oral tablet (1 source) Start: 09-18-2024 take 2 tablets by mouth every eight hours for pain acetaminophen (TYLENOL) 500 mg tablet TAKE 2 TABLETS BY MOUTH EVERY 8 HOURS FOR PAIN 09/18/2024 Active flecainide acetate 50 mg oral tablet (11 sources) Antiarrhythmic Start: 03-03-2024 take 2 tablets by mouth every twelve hours Flecainide 50 mg tablet Active 100 mg PO Q12H March 03, 2024 12:00am Start: 01-24-2024 End: 01-31-2024 take 1 tablet by mouth twice daily flecainide (TAMBOCOR) 100 mg tablet Indications: Paroxysmal atrial tachycardia (HCC) , Paroxysmal supraventricular tachycardia (HCC) , Palpitations Take one tablet by mouth twice daily 180 tablet 3 01/31/2024 Active Start: 01-10-2024 End: 01-24-2024 take 1 tablet by mouth every twelve hours flecainide (TAMBOCOR) 50 mg tablet Indications: Paroxysmal atrial tachycardia (HCC) , Paroxysmal supraventricular tachycardia (HCC) , Palpitations Take 1 tablet by mouth every 12 hours. 60 tablet 2 01/10/2024 01/24/2024 Discontinued levothyroxine sodium 0.1 mg oral tablet (20 sources) l-Thyroxine Start: 11-17-2023 take 1 tablet by mouth once daily before breakfast SYNTHROID 100 mcg tablet Take 100 mcg by mouth daily before breakfast. 11/17/2023 Active Start: 07-21-2015 Levothyroxine 112 MCG tablet Active 100 ug PO DAILY July 21, 2015 1:00am Start: 07-28-2013 take 112 ug by mouth once daily Levothyroxine Active 112 MCG PO DAILY July 21, 2015 1:00am End: 01-02-2024 Levothyroxine 112 mcg cap Ta ke by mouth once daily. 0 01/02/2024 Discontinued (Dosage adjustment) Comment on above: 1.5 sun 24 hr metoprolol succinate 25 mg extended release oral tablet (20 sources) beta-Adrenergic Foster Start: take 1 tablet by mouth once daily metoprolol succinate ER (TOPROL XL) 25 mg 24 hr tablet Indications: Paroxysmal supraventricular tachycardia (HCC) , Paroxysmal atrial tachycardia (HCC) , Palpitations Take 1 tablet by mouth once daily. 90 tablet 3 09/30/2024 Active Start: 04-02-2024 take 0.5 tablet by m outh twice daily metoprolol tartrate, short acting, (LOPRESSOR) 25 mg tablet Take 0.5 tablets by mouth two times a day. 90 tablet 3 04/02/2024 Active Start: 04-01-2024 End: 04-02-2024 take 1 tablet by mouth twice daily, then take 0.5 tablet by mouth twice daily metoprolol tartrate, short acting, (LOPRESSOR) 25 mg tablet Take 1 tablet by mouth two times a day. 1/2 TAB TWICE DAILY 90 tablet 2 04/01/2024 04/02/2024 Discontinued Start: 12-16-2023 Metoprolol Tar trate 25 mg tablet Active 12.5 mg PO TWICE A DAY December 16, 2023 2:56pm Start: 11-20-2023 End: 12-16-2023 Metoprolol Tartrate 25 mg ta blet Discontinued 12.5 mg PO TWICE A DAY November 20, 2023 12:00am November 20, 2023 12:36pm Start: 11-20-2023 End: 12-16-2023 take 12.5 mg by mouth twice daily Metoprolol Tartrate Active 12.5 MG PO TWICE A DAY December 16, 2023 2:56pm End: 03-31-2024 take 0.5 tablet by mouth twice daily metoprolol tartrate, short acting, (LOPRESSOR) 25 mg tablet Take 25 mg by mouth two times a day. 1/2 TAB TWICE DAILY 0 03/31/2024 Discontinued Completed/Discontinued Medications Medication Drug Class(es) Dates Sig (Normalized) Sig (Original) acetaminophen 325 mg / HYDROcodone bitartrate 5 mg oral tablet (3 sources) Opioid Agonist Start: 12-06-2016 End: 12-27-2017 take 1 tablet by mouth every six hours as needed for pain [place] 5-325 MG Oral Tablet 1 (one) Tablet q 6 hr prn pain for 0 days Quantity: 60 {Tablet} Refills: 0 Ordered: 27-Dec-2017 Poornima Goncalves RN Start : 06-Dec-2016 End : 27-Dec-2017 Inactive Comments: sixty Comment on above: sixty amoxicillin 500 mg oral capsule (1 source) Penicillin-class Antibacterial Start: 09-18-2024 End: 09-30-2024 take 1 capsule by mouth three times daily amoxicillin (AMOXIL) 500 mg capsule take 1 capsule by mouth three times daily until gone 09/18/2024 09/30/2024 Discontinued (Other) amoxicillin 875 mg / clavulanate 125 mg oral tablet (3 sources) Penicillin-class Antibacterial Start: 08-17-2015 End: 06-14-2016 take 1 tablet by mouth twice daily Augmentin 875-125 MG Oral Tablet 1 Tablet Tablet bid for 0 days Quantity: 20 {Tablet} Refills: 0 Ordered: 14-Jun-2016 Poornima Goncalves RN Start : 17-Aug-2015 End : 14-Jun-2016 Inactive cefdinir 300 mg oral capsule (3 sources) Cephalosporin Antibacterial Start: 06-14-2016 End: 06-19-2016 take 1 capsule by mouth twice daily Cefdinir 300 MG Oral Capsule 1 (one) Capsule bid for 5 days Quantity: 10 {Capsule} Refills: 0 Ordered: 14-Jun-2016 An Jc DO, DO, Kathleen Start : 14-Jun-2016 End : 19-Jun-2016 Inactive cephalexin 500 mg oral capsule (1 source) Cephalosporin Antibacterial Start: 03-10-2024 End: 03-31-2024 take 1 capsule by mouth every eight hours Cephalexin 500 mg capsule Discontinued 500 mg PO Q8H March 10, 2024 12:00am March 31, 2024 3:26pm cyclobenzaprine hydrochloride 10 mg oral tablet (9 sources) Muscle Relaxant Start: 02-01-2019 End: 11-18-2023 take 1 tablet by mouth three times daily as needed for muscle spasms Cyclobenzaprine 10 MG tablet Discontinued 10 mg PO THREE TIMES A DAY as needed for Muscle Spasm February 01, 2019 12:00am November 18, 2023 8:38am Start: 09-18-2011 End: 11-22-2011 take 1 tablet by mouth once at bedtime as needed FLEXERIL, 10MG (Oral Tablet) 1 (one) Tablet q hs prn for 0 days Quantity: 30 {Tablet} Refills: 0 Ordered: 22-Nov-2011 Poornima Goncalves RN Start : 18-Sep-2011 End : 22-Nov-2011 Inactive doxycycline monohydrate 100 mg oral capsule (3 sources) Tetracycline-class Drug Start: 07-26-2015 End: 08-02-2015 take 1 capsule by mouth twice daily DOXYCYCLINE MONOHYDRATE, 100MG (Oral Capsule) 1 (one) Capsule bid for 7 days Quantity: 20 {Capsule} Refills: 0 Ordered: 26-Jul-2015 Moises Concepcion MD Start : 26-Jul-2015 End : 02-Aug-2015 Inactive FLUoxetine 20 mg oral capsule (3 sources) Serotonin Reuptake Inhibitor Start: 08-31-2009 take 1 capsule by mouth once daily PROZAC, 20MG (Oral Capsule) 1 (one) Capsule Daily for 0 days Quantity: 30 {Capsule} Refills: 5 Ordered: 02-May-2010 Start : 31-Aug-2009 Inactive gabapentin 300 mg oral capsule (3 sources) Anti-epileptic Agent Start: 12-06-2016 End: 12-27-2017 Neurontin 300 MG Oral Capsule 1 (one) Capsule qhs for 5days then bid for 0 days Quantity: 60 {Capsule} Refills: 0 Ordered: 27-Dec-2017 Poornima Goncalves RN Start : 06-Dec-2016 End : 27-Dec-2017 Inactive ibuprofen 600 mg oral tablet (1 source) Nonsteroidal Anti-inflammatory Drug Start: 09-18-2024 End: 09-30-2024 take 1 tablet by mouth every eight hours for pain ibuprofen (MOTRIN) 600 mg tablet TAKE 1 TABLET BY MOUTH EVERY 8 HOURS FOR PAIN 09/18/2024 09/30/2024 Discontinued (Other) liothyronine sodium 0.005 mg oral tablet (6 sources) l-Triiodothyronine Start: 07-07-2014 End: 07-26-2015 take 1 tablet by mouth once daily LIOTHYRONINE SODIUM, 5MCG (Oral Tablet) 1 (one) Tablet qd for 30 days Refills: 0 Ordered: 26-Jul-2015 Nimco Neil RN Start : 07-Jul-2014 End : 26-Jul-2015 Inactive metroNIDAZOLE 500 mg oral tablet (3 sources) Nitroimidazole Antimicrobial Start: 07-27-2015 End: 08-03-2015 take 1 tablet by mouth three times daily FLAGYL, 500MG (Oral Tablet) 1 (one) Tablet three times daily for 7 days Refills: 0 Ordered: 27-Jul-2015 Moises Concepcion MD Start : 27-Jul-2015 End : 03-Aug-2015 Inactive mupirocin 0.02 mg/mg nasal ointment (3 sources) RNA Synthetase Inhibitor Antibacterial Start: 05-17-2014 End: 01-11-2015 BACTROBAN NASAL, 2% (Nasal Ointment) 1 (one) Ointment Ointment apply daily nasal, umbilicus and anus for 0 days Quantity: 1 {Tube} Refills: 0 Ordered: 11-Jan-2015 Mayela Godfrey CMA Start : 17-May-2014 End : 11-Jan-2015 Inactive naproxen 500 mg oral tablet (12 sources) Nonsteroidal Anti-inflammatory Drug Start: 06-14-2016 End: 06-19-2016 take 2 tablets by mouth twice daily at mealtime Aleve 220 MG Oral Tablet 2 (two) Tablet bid with food for 5 days Quantity: 10 {Tablet} Refills: 0 Ordered: 19-Jun-2016 An Jc DO, DO, Kathleen Start : 14-Jun-2016 End : 19-Jun-2016 Inactive Start: 04-10-2010 End: 11-18-2023 take 1 tablet by mouth twice daily as needed Naproxen 500 MG tablet Discontinued 500 mg PO TWICE DAILY NEEDED February 01, 2019 12:00am November 18, 2023 8:38am nebivolol 5 mg oral tablet (3 sources) Start: 08-11-2013 End: 08-11-2013 take 0.5 tablet by mouth once daily BYSTOLIC, 5MG (Oral Tablet) 1/2 Tablet qd for 0 days Quantity: 30 {Tablet} Refills: 0 Ordered: 11-Aug-2013 An Jc DO, DO, Kathleen Start : 11-Aug-2013 End : 11-Aug-2013 Discontinued PARoxetine hydrochloride 20 mg oral tablet (3 sources) Serotonin Reuptake Inhibitor Start: 08-31-2009 End: 08-31-2009 take 1 tablet by mouth once daily PAXIL, 20MG (Oral Tablet) 1 (one) Tablet Daily for 0 days Quantity: 30 {Tablet} Refills: 2 Ordered: 31-Aug-2009 Hosea An Hosea DOTY An Start : 31-Aug-2009 End : 31-Aug-2009 Discontinued predniSONE 20 mg oral tablet (3 sources) Start: 12-06-2016 End: 12-27-2017 PredniSONE 20 MG Oral Tablet 1 (one) Tablet bid for 3days then qd for 3days for 0 days Quantity: 9 {Tablet} Refills: 0 Ordered: 27-Dec-2017 Poornima Goncalves RN Start : 06-Dec-2016 End : 27-Dec-2017 Inactive sulfamethoxazole 800 mg / trimethoprim 160 mg oral tablet (3 sources) Dihydrofolate Reductase Inhibitor Antibacterial, Sulfonamide Antimicrobial Start: 05-13-2014 End: 05-24-2014 take 1 tablet by mouth twice daily BACTRIM DS, 800-160MG (Oral Tablet) 1 (one) Tablet bid for 0 days Quantity: 20 {Tablet} Refills: 0 Ordered: 24-May-2014 Xenia Darden Start : 13-May-2014 End : 24-May-2014 Discontinued Problems Active Problems Problem Classification Problem Date Documented Date Episodic/Chronic Anxiety disorders (20 sources) Obsessive-compulsive disorder; Translations: [Obsessive-compulsive disorder] 12-27-2017 Chronic Comment on above: controlled and manag ed on own Cancer of thyroid (15 sources) Papillary thyroid carcinoma; Translations: [Malignant neoplasm of thyroid gland] Onset: 04-05-2016 04-05-2016 Chronic Cardiac dysrhythmias (20 sources) Atrial tachycardia; Translations: [Atrial tachycardia] Onset: 01-01-2024 11-20-2023 Chronic Chronic ulcer of skin (3 sources) Chronic ulcer of skin; Translations: [Non-pressure chronic ulcer of skin of other sites with unspecified severity] 12-27-2017 Chronic Complications of surgical procedures or medical care (20 sources) Postoperative hypothyroidism; Translations: [Hypothyroidism, postop] Onset: 04-05-2016 12-27-2017 Chronic Comment on above: johana Olmedo History of total thy roidectomy for cancer. 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] 12-27-2017 Chronic Immunizations and screening for infectious disease (5 sources) Need for prophylactic vaccination and inoculation against influenza; Translations: [Needs influenza immunization] Resolved: 05-13-2014 05-31-2015 Episodic Lymphadenitis (20 sources) Lymphadenopathy; Translations: [Lymphadenopathy] Resolved: 12-27-2017 02-27-2018 Episodic Comment on above: axilla reactive nad improvi ng -- reassrrance given Nonspecific chest pain (12 sources) Chest pain; Translations: [Chest pain] Resolved: 08-11-2013 05-13-2014 Episodic Other bone disease and musculoskeletal deformities (1 source) Other specified disorders of bone density and structure, multiple sites; Translations: [Other specified disorders of bone density and structure, multiple sites] Onset: 09-01-2024 Episodic Other eye disorders (6 sources) Red eye; Translations: [Red eye] Resolved: 12-27-2017 12-27-2017 Episodic Other nutritional; endocrine; and metabolic disorders (6 sources) Body mass index 25-29 - overweight; Translations: [BMI 25.0-25.9,adult] 12-27-2017 Chronic Other nutritional; endocrine; and metabolic disorders (3 sources) Body mass index 25-29 - overweight; Translations: [BMI 25.0-25.9,adult] 12-27-2017 Episodic Other screening for suspected conditions (not mental disorders or infectious disease) (9 sources) Cardiac function test abnormal; Translations: [Breast neoplasm screening status] Onset: 10-09-2024 Resolved: 12-27-2017 02-27-2018 Episodic Comment on above: echo borderline for Pulm HTN -- RV pressures 39 -- she is young and i thought a little borderline for a young healthy female nonsmoker-- Other skin disorders (12 sources) Sebaceous cyst Episodic Other skin disorders (3 sources) Disorder of skin of lower limb; Translations: [Skin lesion of left leg] 12-27-2017 Episodic Comment on above: 7mm big -- biopsied 5mm Other skin disorders (3 sources) Other specified diseases of nail; Translations: [DISEASE, NAIL NEC] 12-27-2017 Episodic Comment on above: cut back nail all pa rts that lift up and see how grows back if good i think was truamatized it grows back with discoloration and lines again prob fungal or some other disorder can refer to derm or pod if doestn look classic fungal Other skin disorders (6 sources) Skin lesion; Translations: [Skin lesion] Resolved: 12-27-2017 12-27-2017 Episodic Other skin disorders (2 sources) Sebaceous cyst of skin; Translations: [Sebaceous cyst] Resolved: 12-27-2017 12-27-2017 Episodic Comment on above: bactrim sensitive mu ch better. only little clear yellow drainage. will continue atb if not all resolved in 7-10 day then follow up. MRSA. so will give bactroban tand hibclens to clean skin Pulmonary heart disease (6 sources) Pulmonary hypertension; Translations: [Pulmonary hypertension] Resolved: 06-14-2016 12-27-2017 Chronic Residual codes; unclassified (3 sources) Family history of other blood disorders; Translations: [HX, FAMILY, BLOOD DISORDERS NEC] 12-27-2017 Episodic Residual codes; unclassified (3 sources) Family history of cancer; Translations: [Family history of other specified malignant neoplasm (Renamed from Family history of malignant neoplasm of other organs or systems)] 12-27-2017 Episodic Residual codes; unclassified (3 sources) FH: Diabetes mellitus; Translations: [Family history of diabetes mellitus] 12-27-2017 Episodic Residual codes; unclassified (6 sources) Family history of diabetes mellitus Episodic Residual codes; unclassified (3 sources) Family history of other specified malignant neoplasm Episodic Residual codes; unclassified (1 source) Non-smoker; Translations: [Nonsmoker] 12-27-2017 Episodic Residual codes; unclassified (1 source) History of total thyroidectomy; Translations: [Other specified postprocedural states] 11-18-2023 Episodic Comment on above: Cancer 2012; Skin and subcutaneous tissue infections (1 source) Cellulitis; Translations: [Cellulitis, unspecified] 03-10-2024 Episodic Spondylosis; intervertebral disc disorders; other back problems (3 sources) Displacement of intervertebral disc, site unspecified, without myelopathy; Translations: [INTERVERTEBRAL DISC EXTRUSION, NOS] 12-27-2017 Chronic Spondylosis; intervertebral disc disorders; other back problems (3 sources) Low back pain; Translations: [Low back pain potentially associated with radiculopathy] 12-27-2017 Episodic Thyroid disorders (15 sources) Thyroid nodule; Translations: [Thyroid nodule] 12-27-2017 Chronic Unclassified (20 sources) Unclassified (10 sources) Patient encounter status; Translations: [Encounter for screening for lipid disorder] 12-27-2017 Unclassified (14 sources) Non-smoker; Translations: [Nonsmoker] 12-27-2017 Unclassified (3 sources) BMI 25.0-25.9,adult Unclassified (9 sources) Hypothyroidism, postop Unclassified (2 sources) MVP (mitral valve prolapse) Unclassified (3 sources) Encounter for screening mammogram for breast cancer (Renamed from Encounter for screening mammogram for malignant neoplasm of breast) Unclassified (1 source) Other supraventricular tachycardia; Translations: [Other supraventricular tachycardia] Onset: 12-24-2023 Past or Other Problems Problem Classification Problem Date Documented Date Episodic/Chronic Cardiac dysrhythmias (20 sources) Palpitations; Translations: [Palpitations] Onset: 11-20-2023 Resolved: 12-27-2017 12-27-2017 Episodic Comment on above: if too bothersome di scussed BB to suppress sxthyriod blood work done in oct by endocrine External cause codes: Natural/environment (3 sources) Dog bite Fracture of upper limb (3 sources) Fracture of unspecified phalanx of left middle finger, initial encounter for closed fracture; Translations: [Nondisplaced fracture of proximal phalanx of left ring finger, initial encounter for closed fracture] Onset: 04-23-2024 03-11-2024 Episodic Hemorrhoids (3 sources) Hemorrhoids; Translations: [Hemorrhoids] Resolved: 12-27-2017 12-27-2017 Episodic Neoplasms of unspecified nature or uncertain behavior (3 sources) Neoplasm of uncertain behavior of skin; Translations: [Atypical Spitz nevus] Resolved: 12-27-2017 12-27-2017 Episodic Open wounds of extremities (3 sources) Dog bite of hand; Translations: [Dog bite of hand, right, subsequent encounter] Resolved: 12-27-2017 12-27-2017 Episodic Comment on above: 1.Spoke to Dr Jewell (plastic surgeon) and he recommended to send her to the ED for I and D.2.CT scan of the head and neck to see extent of cellutis.3.IV vancomycin 1 gram in ambulatory.4.Follow up in 2 days.R hand and L maxillae - was seen in [facility] and given augmentin plus enough for 3 more and a tetanus shotNo fracture and no foreign body on dario of R hand.Patient reports being bit by a dog on gi(6 days ago) pt was bit on the face (left cheek) right hand.Pt went to the ED and was prescribed augmentin which she took till Saturday night.Pt was also given tetanus shot.Hand is significantly improved but the left face is still swollen. Open wounds of head; neck; and trunk (3 sources) Dog bite of face; Translations: [Dog bite of face, subsequent encounter] Resolved: 12-27-2017 12-27-2017 Episodic Other connective tissue disease (3 sources) Muscle pain; Translations: [Myalgia] Resolved: 12-27-2017 12-27-2017 Episodic Comment on above: thoracic strain Other connective tissue disease (3 sources) Pain in forearm; Translations: [Pain in forearm, unspecified laterality] Onset: 11-22-2011 Resolved: 12-27-2017 12-27-2017 Episodic Comment on above: mowing with steering - holding a book . washing dishes seemed to make it flare but its random -- talked abuout impingement or ms -- will cont to ice flares with nsaid and watch when ready or worse can do nxs/emg to e/v impingemnt but if ms then would tx flarews as above Other connective tissue disease (3 sources) Spasm of cervical paraspinous muscle; Translations: [Spasm of cervical paraspinous muscle] Resolved: 12-27-2017 12-27-2017 Episodic Other connective tissue disease (1 source) Pain of toe of left foot; Translations: [Pain of toe of left foot] Resolved: 12-27-2017 12-27-2017 Episodic Other connective tissue disease (1 source) Pain in left hand; Translations: [Pain in left hand] Onset: 03-31-2024 Episodic Other connective tissue disease (2 sources) Pain of toe of left foot; Translations: [Pain of toe of left foot] Resolved: 12-27-2017 12-27-2017 Other injuries and conditions due to external causes (1 source) Unspecified injury of left wrist, hand and finger(s), initial encounter; Translations: [Unspecified injury of left wrist, hand and finger(s), initial encounter] Onset: 03-16-2024 Episodic Other nutritional; endocrine; and metabolic disorders (3 sources) Weight gain; Translations: [Weight gain] Resolved: 12-27-2017 12-27-2017 Episodic Other nutritional; endocrine; and metabolic disorders (15 sources) H/O: thyroid disorder; Translations: [Personal history of other endocrine, nutritional and metabolic disease] Onset: 04-05-2016 04-05-2016 Episodic Other skin disorders (3 sources) Mass of axilla; Translations: [Lump of axilla] Resolved: 12-27-2017 12-27-2017 Episodic Comment on above: jay. material come o ut and infection. willdo hibclens and bactroban Residual codes; unclassified (2 sources) Needs influenza immunization; Translations: [Need for prophylactic vaccination and inoculation against influenza] Resolved: 05-13-2014 05-31-2015 Episodic Sprains and strains (3 sources) Strain of neck muscle; Translations: [Cervical strain] Resolved: 12-27-2017 02-27-2018 Episodic Tuberculosis (5 sources) Tuberculosis Unclassified (9 sources) Lump of axilla Unclassified (3 sources) Abortions/Miscarriage s; Translations: [Abortions/Miscarriag es] 12-27-2017 Comment on above: 4 Unclassified (6 sources) Weight gain (783.1) Unclassified (3 sources) Atypical Nevus(238.2) Unclassified (3 sources) Deliveries (Parity); Translations: [Deliveries (Parity)] 12-27-2017 Comment on above: 3 Unclassified (9 sources) Cervical strain (847.0) Unclassified (3 sources) Pregnancies (); Translations: [Pregnancies ()] 12-27-2017 Comment on above: 6 Unclassified (4 sources) Sebaceous cyst of skin; Translations: [Sebaceous cyst] Resolved: 12-27-2017 12-27-2017 Comment on above: bactrim sensitive mu ch better. only little clear yellow drainage. will continue atb if not all resolved in 7-10 day then follow up. MRSA. so will give bactroban tand hibclens to clean skin Unclassified (3 sources) INTERVERTEBRAL DISC EXTRUSION, NOS (722.2) Unclassified (3 sources) Cervical Spasm (728.85) Unclassified (12 sources) Unspecified Diagnosis 12-06-2016 Unclassified (3 sources) DISEASE, NAIL NEC (703.8) Unclassified (3 sources) HX, FAMILY, BLOOD DISORDERS NEC (V18.3) Unclassified (12 sources) Forearm Pain (719.43) Unclassified (3 sources) Myalgia, Unspecified(729.1) Unclassified (3 sources) Abnormal Cardiac Test (794.30) Unclassified (2 sources) Tuberculosis screening status; Translations: [Screening examination for pulmonary tuberculosis] Resolved: 05-13-2014 05-13-2014 Unclassified (6 sources) Tricuspid regurgitation (397.0) Unclassified (4 sources) MVP (mitral valve prolapse) (424.0) Unclassified (3 sources) BMI 27.0-27.9,adult Unclassified (3 sources) Low back pain potentially associated with radiculopathy Unclassified (3 sources) BMI 28.0-28.9,adult Unclassified (3 sources) Skin lesion of left leg Unclassified (3 sources) Pain of toe of left foot Unclassified (3 sources) Dog bite of hand, right, subsequent encounter Unclassified (3 sources) Dog bite of face, subsequent encounter Unclassified (6 sources) Dog bite, hand Unclassified (3 sources) Breast cancer screening Results Test Name Value Interpretation Reference Range Facility OT D/C of Non Returning Pton 11-04-2024 OT D/C of Non Returning Pt [facility] [address] [place] [address] / REHABILITATION SERVICES DISCHARGE SUMMARY MR#: [id number] Acct: [id number] Name: KAREN BLAIR Rep #: [id number] : 1970 54 From: Siri BARBOSA/Magda, CHT Referring Dr.: Dr. Marzena Johnson MD Status: REG RCR Eval Date: Discharge Date: Patient Information Patient Information: KAREN BLAIR was seen in my office for initial evaluation on 06/18/24. The following Plan of Care was established for this patient: POC Established Initial Frequency: 2x /Week Initial Duration: 4 Weeks Plan: make night splint Anticipated Interventions Anticipated Interventions: A/AAROM/PROM, Modalities, Orthoses, Joint Protection/Energy Conservation, Ergonomic Education, Education re assistive Equipment, Education re Diagnosis and Home Program Last Seen Last Seen: This patient was last seen in our office 07/08/24. Pertinent comments regarding their Occupational therapy will appear below: pt was seen for 6 OT sessions. pt was improving with ROM but continued to demo limited ROM. No further apts are scheduled and due to time lapse in services pt is d/c. At this point I will be discontinuing this patient from occupational therapy. I would be happy to see this patient again in the future if found appropriate by the physician. Thank you! Siri Urbano, OTR/L, CHT 11/04/24 1327 CC: Dr. Marzena Johnson MD Signed [facility] 09-30-2024 [facility] Office Visit (AGCARDPOB) KAREN BLAIR ([id number]) 1970 F Date Time Provider Department 09/30/24 3:20 PM PUNEET SHEA AGCARDPOB During your visit today, we recorded the following information about you: Pulse Blood pressure Weight 74/minute 142/86 69.9 kg Puneet Shea MD 09/30/2024 6:58 PM Signed PRIMARY CARE PHYSICIAN: Marzena Johnson (Angle) [address] [place] [address] Patient Care Team: Marzena Johnson MD as PCP - General (Family Medicine) Linda Orr MD as Specialty Box Coverer Hand (Cardiology) Puneet Shea MD as Specialty Box Coverer Hand (Cardiology) CHIEF COMPLAINT: Follow up for arrhythmia HISTORY OF PRESENT ILLNESS: Ms. Blair is a 54 year old female who presents today for a cardiovascular medicine follow-up visit. History copied from previous notes, edited as needed: Summary of previous notes: Ms. Blair has a history of symptomatic arrhythmia. First started having palpitations many years ago, but has changed over the years. She experiences palpitations every day, many times throughout the day. No obvious trigger. She avoids caffeine. A lot of the episodes are brief, a few minutes, she had an episode on 12/26/2023 that lasted over an hour, heart rates 190s - 200s bpm range. Another episode on 12/24/2023 with duration 30 minutes, heart rates 180s - 190s bpm range. Sometimes with episodes she has lightheadedness and her vision might change, might go all white or all colors. No syncope. Treated with metoprolol since beginning of November 2023, no improvement and possibly worse. IMPRESSION: Ms. Blair has symptomatic SVT, seems to be an atrial tachycardia. Quite frequently occurring, at times incessant even during this office visit. Medical therapy has not been ineffective. I had a discussion with Ms. Blair regarding SVT and management options. The atrial tachycardia might be challenging to treat from multiple perspectives. Discussed medical therapy and catheter ablation options. She could try an antiarrhythmic drug such as flecainide, even as short-term option. Catheter ablation could be quite effective if the atrial tachycardia can be provoked or induced at the time of EP study. This might be [facility] best [facility]. I recommend EP study with goal of curative catheter ablation, and in the meantime while awaiting scheduling of the procedure she can try antiarrhythmic drug flecainide. Interim History Dr. Shea 09/30/2024: Ms. Blair presents for follow-up evaluation for arrhythmia, accompanied by her . As noted above, she has history of different forms of SVT, some of which appears to be atrial tachycardia and others that might represent reentrant SVT. 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 Blair not tolerating the brake engineer levels of sedation required to avoid suppression of the SVT (particularly the atrial tachycardia). No consistent focal atrial tachycardia was demonstrated to target for ablation. She reports not having much improvement after the ablation procedure 07/2024. She continues to experience frequent palpitations. She underwent cardiac monitoring 08/31/2024 - : see Epic report --- this study reveals episodes of paroxysmal atrial tachycardia as well as at least one episode of very rapid SVT that might represent recurrence of the AVNRT as well. I did review the cardiac monitoring rhythm strips with Ms. Blair and her . On 08/31/2024 she had SVT at 198 bpm, appears to be consistent with AVNRT, she was seated at the time, after exercising. Another episode that is either sinus tachycardia or atrial tachycardia at 158 bpm, she states she was exercising, probably jogging or working out on the [employer] machine (so likely this was sinus tachycardia). She still feels bothersome symptoms. She feels hiccup and heart rate increases to 100s - 120s bpm range, sometimes 140s bpm or even as low as 90s bpm. Flecainide that she took prior to catheter ablation made her symptoms worse, she had more frequent episodes. So she is not very enthusiastic about taking flecainide again. I have confirmed and edited as necessary, the PFSH and ROS obtained by others. 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 Normal [facility] [place] 09-25-2024 [facility] Telephone (AGCARDHWG ) KAREN BLAIR ([id number]) 1970 F Date Time Provider Department 09/25/24 PUNEET SHEA AGCARDHWG During your visit today, we recorded the following information about you: Earline Montelongo MA 09/25/2024 2:48 PM Signed Karen M Edwin called and stated she would like to know results of heart monitor. Patient is aware she has follow-up appointment on 09/30/24. CRESENCIO Romero Robert A, MD 09/26/2024 12:04 PM Signed [facility] General Electrophysiology (EP) By the time you call her with my comments about the monitor it will be Saturday and as stated she has an appointment with me on Saturday09/30/2024! I will discuss the monitor results with her at the appointment. Puneet Shea MD September 26, 2024 12:04 PM Lady Dalton RN 09/28/2024 3:53 PM Signed I called Karen and gave the message that Dr. Shea will discuss results at her appt. Pt verbalized understanding. Lady Dalton RN Allergies As of Date: 09/25/2024 Noted Allergy Reaction SULFA (SULFONAMIDE ANTIBIOTICS) 04/05/2016 2 - Rash VANCOMYCIN 01/02/2024 9 - Itching Comments: Face got red Date Reviewed: 07/30/2024 Reviewed by: Tj Borges, RICKY - Fully Assessed Prescriptions as of 09/28/2024 - SYNTHROID 100 mcg tablet Take 100 mcg by mouth daily before breakfast. Problem List As Of Date 09/25/2024 Noted Resolved H/O Elizabeth thyroiditis [Z86.39] 04/05/2016 Papillary carcinoma of thyroid (HCC) [C73] 04/05/2016 H/O thyroidectomy 2011 [E89.0] 04/05/2016 Postoperative hypothyroidism [E89.0] 04/05/2016 Palpitations [R00.2] 01/01/2024 Paroxysmal supraventricular tachycardia (HCC) [*01/01/2024 Paroxysmal atrial tachycardia (HCC) [I47.19] 01/01/2024 Encounter Status:Closed by PUNEET SHEA on 09/26/24 [facility] [place] 09-22-2024 [facility] Telephone (AGCARDPOB ) KAREN BLAIR ([id number]) 1970 F Date Time Provider Department 09/22/24 PUNEET SHEA During your visit today, we recorded the following information about you: Severo Nicole 09/22/2024 11:05 AM Signed Called and spoke to patient to verify monitor was worn. Patient stated she wore it and mailed it in on 09/15 and said it was received on 09/17. Che Cueto, RN 09/23/2024 1:53 PM Signed Karen Blair returned call. She was told monitor has been received and asked for analysis of findings/recommendation s please. Thank you. Che Bender RN Allergies As of Date: 09/22/2024 Noted Allergy Reaction SULFA (SULFONAMIDE ANTIBIOTICS) 04/05/2016 2 - Rash VANCOMYCIN 01/02/2024 9 - Itching Comments: Face got red Date Reviewed: 07/30/2024 Reviewed by: Tj Borges, RICKY - Fully Assessed Reason for Visit: Patient Update [1234] Prescriptions as of 09/23/2024 - SYNTHROID 100 mcg tablet Take 100 mcg by mouth daily before breakfast. Problem List As Of Date 09/22/2024 Noted Resolved H/O Elizabeth thyroiditis [Z86.39] 04/05/2016 Papillary carcinoma of thyroid (HCC) [C73] 04/05/2016 H/O thyroidectomy 2011 [E89.0] 04/05/2016 Postoperative hypothyroidism [E89.0] 04/05/2016 Palpitations [R00.2] 01/01/2024 Paroxysmal supraventricular tachycardia (HCC) [*01/01/2024 Paroxysmal atrial tachycardia (HCC) [I47.19] 01/01/2024 Encounter Status:Closed by SEVERO NICOLE on 09/22/24 [facility] CNPN Telephone ([employer]) KAREN BLAIR ([id number]) 1970 F Date Time Provider Department 09/22/24 NIMCO PEÑA During your visit today, we recorded the following information about you: Allergies As of Date: 09/22/2024 Noted Allergy Reaction SULFA (SULFONAMIDE ANTIBIOTICS) 04/05/2016 2 - Rash VANCOMYCIN 01/02/2024 9 - Itching Comments: Face got red Date Reviewed: 07/30/2024 Reviewed by: Tj Borges, RICKY - Fully Assessed Prescriptions as of 09/22/2024 - SYNTHROID 100 mcg tablet Take 100 mcg by mouth daily before breakfast. Problem List As Of Date 09/22/2024 Noted Resolved H/O Elizabeth thyroiditis [Z86.39] 04/05/2016 Papillary carcinoma of thyroid (HCC) [C73] 04/05/2016 H/O thyroidectomy 2011 [E89.0] 04/05/2016 Postoperative hypothyroidism [E89.0] 04/05/2016 Palpitations [R00.2] 01/01/2024 Paroxysmal supraventricular tachycardia (HCC) [*01/01/2024 Paroxysmal atrial tachycardia (HCC) [I47.19] 01/01/2024 Encounter Status:Closed by NIMCO TERRY on 09/22/24 [facility] 08-12-2024 [facility]NP[facility] Telephone (AGCARDPOB ) KAREN BLAIR ([id number]) 1970 F Date Time Provider Department 08/12/24 PUNEET SHEA During your visit today, we recorded the following information about you: Yanick Whitney LPN 08/12/2024 10:28 AM Signed Ms. Blair states she had a recent heart rate over 200 beats per min on 08/07/2024 for approximately 10 minutes. Patient notes rest of the day for several hours she was in low 100's to 80's beats per minute. Patient notes then on 08/11/2024 patient had several runs of 122 beats per minute Patient notes she has been going back to exercising every day recently. But the numbers she is presenting with do not occur while exercising. Patient was not sure if she should be concerned with recently having her Ablation on 07/30/2024. CRESENCIO Salcedo Kimberly, APRN.GARRY 08/12/2024 3:04 PM Signed Covering for Jesus Cordova CNP, it is not unusual to have brief episodes the first month or so following ablation, she was instructed to wear a monitor after a month so we can see if she is still having episodes and what the arrhythmia is during the monitoring period. SEEMA Mcpherson Taylor, LPN 08/12/2024 3:20 PM Signed Spoke with Karen Ocasio Edwin on August 12, 2024. Informed of instructions as stated above. Patient voiced understanding at this time. Yanick Whitney LPN Allergies As of Date: 08/12/2024 Noted Allergy Reaction SULFA (SULFONAMIDE ANTIBIOTICS) 04/05/2016 2 - Rash VANCOMYCIN 01/02/2024 9 - Itching Comments: Face got red Date Reviewed: 07/30/2024 Reviewed by: Tj Borges, RICKY - Fully Assessed Reason for Visit: Patient Update [1234] Grey Inspector - Other [3602] Prescriptions as of 08/12/2024 - SYNTHROID 100 mcg tablet Take 100 mcg by mouth daily before breakfast. Problem List As Of Date 08/12/2024 Noted Resolved H/O Elizabeth thyroiditis [Z86.39] 04/05/2016 Papillary carcinoma of thyroid (HCC) [C73] 04/05/2016 H/O thyroidectomy 2011 [E89.0] 04/05/2016 Postoperative hypothyroidism [E89.0] 04/05/2016 Palpitations [R00.2] 01/01/2024 Paroxysmal supraventricular tachycardia (HCC) [*01/01/2024 Paroxysmal atrial tachycardia (HCC) [I47.19] 01/01/2024 Encounter Status:Closed by KIMBERLY SANCHEZ on 08/12/24 Normal [facility] SCRN MAMM (CAD)W/ALEJANDRA BILATo n 08-07-2024 SCRN MAMM (CAD)W/ALEJANDRA BILAT [facility] Imaging Services [address] [place] [address] SCRN MAMM (CAD)W/ALEJANDRA BILAT MR#: [id number] Acct: [id number] Name: KAREN BLAIR Rep #: [id number] : 1970 F 53 From: Curt arguelles MD PCP: Dr. Marzena Johnson MD Status: REG [facility] Study: SCRN MAMM (CAD)W/ALEJANDRA BILAT Date of Exam: 07/26 11/16 Exam# [id number] Ordering Dr: Marzena Johnson [id number] MAMMOGRAPHY - BILATERAL SCREENING REASON FOR EXAM: Female, 53 years old. Routine annual screening examination. PERTINENT HISTORY: Aunt with breast cancer. TECHNIQUE: Digital bilateral breast alejandra (3D mammographic acquisition) in the CC and MLO projections. 2-D mediolateral oblique (MLO) and craniocaudad (CC) views of both breasts were obtained. CAD: Full Field Digital Mammography with Computer Added Detection was performed. COMPARISON: Comparison is made with prior study of July 24, 2023 and July 23, 2022. FINDINGS: Breast Composition: The breasts are extremely dense, which lowers the sensitivity of mammography. There are no dominant masses or suspicious calcifications. No other significant abnormalities are identified. There has been no significant change since the prior study. BI/SCRN MAMM (CAD)W/ALEJANDRA BILAT IMPRESSION: Stable bilateral screening mammogram. Yearly follow-up mammogram recommended. (A) ASSESSMENT CATEGORY: BIRADS Category 1: Negative. A letter regarding these results will be sent to the patient by the facility within 30 days. Approximately 10% of breast cancers are not detected by mammography. A normal mammogram should not delay biopsy of a clinically suspicious abnormality. [id number] Electronically Signed: Curt Allan MD at 13:01 EST Reading Location ID and State: [facility] / [place] , Service support , CC: Dr. Marzena Johnson MD Parimutuel Clerk: Signed Normal [facility] Basic Metabolic Profile (BMP )on 08-03-2024 BUN/CRE 20.1 RATIO High 10-20 [facility] Comment on above: Performed By: #### L 500.2500, L509.1000 ####[facility] [address] [place], [address] CA,Total 9.7 mg/dL Normal 8.5-10.1 [facility] Comment on above: Performed By: #### L 500.2500, L509.1000 ####[facility] [address] [place], [address] Chloride [Moles/Vol] 108 mmol/L High 98-[address] [facility] Comment on above: Performed By: #### L 500.2500, L509.1000 ####[facility] [address] [place], [address] CO2 [Moles/Vol] 29.0 mmol/L Normal 21.0-32.0 [facility] Comment on above: Performed By: #### L 500.2500, L509.1000 ####[facility] [address] [place], [address] Creatinine [Mass/Vol] 0.70 mg/dL Normal 0.55-1.02 [facility] Comment on above: Result Comment: The validity of the calculated GFR GFRAA in patients over 70 years has not been determined. Clinical correlation is essential. Performed By: #### L 500.2500, L509.1000 ####[facility] [address] [place], [address] EST GFR - AA 113 mL/min Normal >60 [facility] Comment on above: Result Comment: Afri can [place] Islander GFR Calc Performed By: #### L 500.2500, L509.1000 ####[facility] [address] [place], [address] GAP 5 Normal 5-15 [facility] Comment on above: Performed By: #### L 500.2500, L509.1000 ####[facility] [address] [place], [address] GFR/1.73 sq M.predicted among non-blacks MDRD (S/P/Bld) [Vol rate/Area] 94 mL/min/{1.73_m2} Normal >60 [facility] Comment on above: Result Comment: Non- GFR Calc Performed By: #### L 500.2500, L509.1000 ####[facility] [address] [place], [address] Glucose [Mass/Vol] 74 mg/dL Normal 74-106 [facility] Comment on above: Performed By: #### L 500.2500, L509.1000 ####[facility] [address] [place], [address] Potassium [Moles/Vol] 3.6 mmol/L Normal 3.5-5.1 [facility] Comment on above: Performed By: #### L 500.2500, L509.1000 ####[facility] [address] [place], [address] Sodium [Moles/Vol] 142 mmol/L Normal 136-145 [facility] Comment on above: Performed By: #### L 500.2500, L509.1000 ####[facility] [address] [place], [address] Urea nitrogen [Mass/Vol] 14 mg/dL Normal 7-18 [facility] Comment on above: Performed By: #### L 500.2500, L509.1000 ####[facility] [address] [place], [address] Blood urea nitrogen (BUN)/cr eatinine ratioOrdered By: Don Villafana on 08-03-2024 Urea nitrogen/Creatinine [Mass ratio] 20.1 mg/mg High 10-20 [facility] Carbon dioxide measurementOr dered By: Don Villafana on 08-03-2024 CO2 [Moles/Vol] 29.0 mmol/L 21.0-32.0 [facility] Chloride measurementOrdered By: Don Villafana on 08-03-2024 Chloride [Moles/Vol] 108 mmol/L High 98-[address] [facility] Estimated glomerular filtrat ion rate (GFR) AmericanOrdered By: Don Villafana on 08-03-2024 Estimated GFR (MDRD) Amer 113 mL/min >60 [facility] Comment on above: GFR Calc Glomerular filtration rate ( GFR) estimationOrdered By: Don Villafana on 08-03-2024 Estimated GFR (MDRD) Non-Af Amer 94 mL/min >60 [facility] Comment on above: Non- GFR Calc Glucose measurementOrdered B y: Don Villafana on 08-03-2024 Glucose [Mass/Vol] 74 mg/dL 74-106 [facility] Intact parathyroid hormone ( iPTH) measurementOrdered By: Don Villafana on 08-03-2024 Parathyroid Hormone (Intact) 49.7 pg/mL 18.4-80.1 [facility] PTHINon 08-03-2024 PTH 49.7 pg/mL Normal 18.4-80.1 [facility] Comment on above: Performed By: #### L 500.2500, L509.1000 ####[facility] [address] [place], [place], [id number] Potassium measurementOrdered By: Don Villafana on 08-03-2024 Potassium [Moles/Vol] 3.6 mmol/L 3.5-5.1 [facility] Serum anion gap measurementO rdered By: Don Villafana on 08-03-2024 Anion gap [Moles/Vol] 5 mmol/L 5-15 [facility] Serum or plasma calcium coleen urement (mass/volume)Ordered By: Don Villafana on 08-03-2024 Calcium [Mass/Vol] 9.7 mg/dL 8.5-10.1 [facility] Serum or plasma creatinine m easurement (mass/volume)Ordered By: Don Villafana on 08-03-2024 Creatinine [Mass/Vol] 0.70 mg/dL 0.55-1.02 [facility] Comment on above: The validity of the calculated GFR & GFRAA in patients over 70 years has not been determined. Clinical correlation is essential. Serum or plasma urea nitroge n measurement (mass/volume)Ordered By: Don Villafana on 08-03-2024 Urea nitrogen [Mass/Vol] 14 mg/dL 7-18 [facility] Sodium levelOrdered By: Maury Villafana on 08-03-2024 Sodium [Moles/Vol] 142 mmol/L 136-145 [facility] Basic metabolic 2000 panelon 07-31-2024 Anion gap [Moles/Vol] 10 mmol/L Normal 8-15 [facility] Comment on above: Order Comment: Speci men Type: BLOOD SPECIMENOrdering Facility: [facility] Address: [address] [place] [address] Performed By: #### 2 4321-2 ####[facility] LABORATORYCLIA [id number] [place] [address] [place] Calcium [Mass/Vol] 9.3 mg/dL Normal 8.5-10.2 [facility] Comment on above: Order Comment: Speci men Type: BLOOD SPECIMENOrdering Facility: [facility] Address: [address] [place] [address] Performed By: #### 2 4321-2 ####[facility] LABORATORYCLIA [id number] [place] [address] [place] Chloride [Moles/Vol] 107 mmol/L Normal 98-107 [facility] Comment on above: Order Comment: Speci men Type: BLOOD SPECIMENOrdering Facility: [facility] Address: [address] [place] [address] Performed By: #### 2 4321-2 ####[facility]ORATORYCLIA [id number] [address] OF [place] CO2 [Moles/Vol] 26 mmol/L Normal 22-30 [facility] Comment on above: Order Comment: Oscari men Type: BLOOD SPECIMENOrdering Facility: [facility] Address: [address] [place] [address] Performed By: #### 2 4321-2 ####[facility]ATORYCLIA [id number] [address] OF [facility] Creatinine [Mass/Vol] 0.91 mg/dL Normal 0.58-0.96 [facility] Comment on above: Order Comment: Speci men Type: BLOOD SPECIMENOrdering Facility: [facility] Address: [address] [place] [address] Performed By: #### 2 4321-2 ####[facility]ATORYCLIA [id number] [address] Creatinine and Glomerular filtration rate.predicted panel (S/P/Bld) 77 mL/min/1.73m??? Normal >=60 [facility] Comment on above: Order Comment: Speci men Type: BLOOD SPECIMENOrdering Facility: [facility] Address: [address] [place] [address] Result Comment: Tara mated Glomerular Filtration Rate (eGFR) is calculated using the 2020 CKD-EPI creatinine equation. This equation utilizes serum creatinine, sex, and age as parameters. The creatinine assay has traceable calibration to isotope dilution-mass spectrometry. Refer to KDIGO guidelines for clinical interpretation. In patients with unstable renal function, e.g. those with acute kidney injury, the eGFR may not accurately reflect actual GFR. Performed By: #### 2 4321-2 ####[facility]ATORYCLIA [id number] [place] [address] [place] Glucose [Mass/Vol] 78 mg/dL Normal 74-99 [facility] Comment on above: Order Comment: Speci men Type: BLOOD SPECIMENOrdering Facility: [facility] Address: [address] [place] [address] Result Comment: The [place] Diabetes Association (ADA) provides guidance for cutoff values for fasting glucose and random glucose. The ADA defines fasting as no caloric intake for at least 8 hours. Fasting plasma glucose results between 100 to 125 mg/dL indicate increased risk for diabetes (prediabetes). Fasting plasma glucose results greater than or equal to 126 mg/dL meet the criteria for diagnosis of diabetes. In the absence of unequivocal hyperglycemia, results should be confirmed by repeat testing. In a patient with classic symptoms of hyperglycemia or hyperglycemic crisis, random plasma glucose results greater than or equal to 200 mg/dL meet the criteria for diagnosis of diabetes. Reference: Standards of Medical Care in Diabetes 2016, [place] [employer] Association. Diabetes Care. 2016.39(Suppl 1). Performed By: #### 2 4321-2 ####[facility]ATORYCLIA [id number] [place] [address] [place] Potassium [Moles/Vol] 4.1 mmol/L Normal 3.7-5.1 [facility] Comment on above: Order Comment: Speci men Type: BLOOD SPECIMENOrdering Facility: [facility] Address: [address] [place] [address] Performed By: #### 2 4321-2 ####[facility]ORYCLIA [id number] [place] [id number] [place] Sodium [Moles/Vol] 143 mmol/L Normal 136-144 [facility] Comment on above: Order Comment: Speci men Type: BLOOD SPECIMENOrdering Facility: [facility] Address: [address] [place] [address] Performed By: #### 2 4321-2 ####[facility]ORYCLIA [id number] [place] [address] [place] Urea nitrogen [Mass/Vol] 18 mg/dL Normal 7-21 [facility] Comment on above: Order Comment: Speci men Type: BLOOD SPECIMENOrdering Facility: [facility] Address: [address] [place] [address] Performed By: #### 2 4321-2 ####[facility]ORYCLIA [id number] [place] [address] [place] Anion gap [Moles/Vol] 7 mmol/L Low 8-15 [facility] Comment on above: Order Comment: Speci men Type: BLOOD SPECIMEN [facility] Address: [address] [place] [address] Performed By: #### 2 4321-2 #### [facility] CLIA [id number] [address] [place] [address] [place] Calcium [Mass/Vol] 9.4 mg/dL Normal 8.5-10.2 [facility] Comment on above: Order Comment: Speci men Type: BLOOD SPECIMEN [facility] Address: [address] [place] [address] Performed By: #### 2 4321-2 #### [facility] CLIA [id number] [address] [place] [address] [place] Chloride [Moles/Vol] 108 mmol/L High 98-107 [facility] Comment on above: Order Comment: Speci men Type: BLOOD SPECIMEN [facility] Address: [address] [place] [address] Performed By: #### 2 4321-2 #### [facility] CLIA [id number] 1 [place] [address] [place] CO2 [Moles/Vol] 28 mmol/L Normal 22-30 [facility] Comment on above: Order Comment: Speci men Type: BLOOD SPECIMEN [facility] Address: [address] [place] [address] Performed By: #### 2 4321-2 #### [facility] CLIA [id number] [address] [place] Creatinine [Mass/Vol] 1.00 mg/dL High 0.58-0.96 [facility] Comment on above: Order Comment: Agustina blanchard Type: BLOOD SPECIMEN [facility] Address: [address] [place] [address] Performed By: #### 2 4321-2 #### [facility] CLIA [id number] [address] [place] [address] Creatinine and Glomerular filtration rate.predicted panel (S/P/Bld) 68 mL/min/1.73m??? Normal >=60 [facility] Comment on above: Order Comment: Agustina blanchard Type: BLOOD SPECIMEN [facility] Address: [address] [place] [address] Result Comment: Tara mated Glomerular Filtration Rate (eGFR) is calculated using the 2020 CKD-EPI creatinine equation. This equation utilizes serum creatinine, sex, and age as parameters. The creatinine assay has traceable calibration to isotope dilution-mass spectrometry. Refer to KDIGO guidelines for clinical interpretation. In patients with unstable renal function, e.g. those with acute kidney injury, the eGFR may not accurately reflect actual GFR. Performed By: #### 2 4321-2 #### [facility] CLIA [id number] [address] [place] [address] [place] Glucose [Mass/Vol] 80 mg/dL Normal 74-99 [facility] Comment on above: Order Comment: Agustina blanchard Type: BLOOD SPECIMEN [facility] Address: [address] [place] [address] Result Comment: The [place] Diabetes Association (ADA) provides guidance for cutoff values for fasting glucose and random glucose. The ADA defines fasting as no caloric intake for at least 8 hours. Fasting plasma glucose results between 100 to 125 mg/dL indicate increased risk for diabetes (prediabetes). Fasting plasma glucose results greater than or equal to 126 mg/dL meet the criteria for diagnosis of diabetes. In the absence of unequivocal hyperglycemia, results should be confirmed by repeat testing. In a patient with classic symptoms of hyperglycemia or hyperglycemic crisis, random plasma glucose results greater than or equal to 200 mg/dL meet the criteria for diagnosis of diabetes. Reference: Standards of Medical Care in Diabetes 2016, [place] [employer]. Diabetes Care. 2016.39(Suppl 1). Performed By: #### 2 4321-2 #### [facility] CLIA [id number] [address] Potassium [Moles/Vol] 4.9 mmol/L Normal 3.7-5.1 [facility] Comment on above: Order Comment: Speci men Type: BLOOD SPECIMEN [facility] Address: [address] [place] [address] Performed By: #### 2 4321-2 #### [facility] CLIA [id number] [address] Sodium [Moles/Vol] 143 mmol/L Normal 136-144 [facility] Comment on above: Order Comment: Oscari men Type: BLOOD SPECIMEN [facility] Address: [address] [place] [address] Performed By: #### 2 4321-2 #### [facility] CLIA [id number] [address] Urea nitrogen [Mass/Vol] 19 mg/dL Normal 7-21 [facility] Comment on above: Order Comment: Oscari men Type: BLOOD SPECIMEN [facility] Address: [address] [place] [address] Performed By: #### 2 4321-2 #### [facility] CLIA [id number] [address] CBC panel Auto (Bld)on 07-31 Erythrocyte distribution width (RBC) [Ratio] 11.9 % Normal 11.5-15.0 [facility] Comment on above: Order Comment: Oscari men Type: BLOOD SPECIMENOrdering Facility: [facility] Address: [address] [place] [address] Performed By: #### 5 8410-2 ####[facility]ORYCLIA [id number] [address] Hematocrit (Bld) [Volume fraction] 41.3 % Normal 36.0-46.0 [facility] Comment on above: Order Comment: Speci men Type: BLOOD SPECIMENOrdering Facility: [facility] Address: [address] [place] [address] Performed By: #### 5 8410-2 ####[facility]ORYCLIA [id number] [address] STATES OF [facility] Hemoglobin (Bld) [Mass/Vol] 13.4 g/dL Normal 11.5-15.5 [facility] Comment on above: Order Comment: Speci men Type: BLOOD SPECIMENOrdering Facility: [facility] Address: [address] [place] [address] Performed By: #### 5 8410-2 ####[facility]ORYCLIA [id number] [address] STATES OF [facility] MCH (RBC) [Entitic mass] 31.0 pg Normal 26.0-34.0 [facility] Comment on above: Order Comment: Speci men Type: BLOOD SPECIMENOrdering Facility: [facility] Address: [address] [place] [address] Performed By: #### 5 8410-2 ####[facility]ORYCLIA [id number] [address] STATES OF [facility] MCHC (RBC) [Mass/Vol] 32.4 g/dL Normal 30.5-36.0 [facility] Comment on above: Order Comment: Speci men Type: BLOOD SPECIMENOrdering Facility: [facility] Address: [address] [place] [address] Performed By: #### 5 8410-2 ####[facility]ORYCLIA [id number] [address] [place] MCV (RBC) [Entitic vol] 95.6 fL Normal 80.0-100.0 [facility] Comment on above: Order Comment: Speci men Type: BLOOD SPECIMENOrdering Facility: [facility] Address: [address] [place] [address] Performed By: #### 5 8410-2 ####[facility]ORYCLIA [id number] [address] [place] Nucleated RBC (Bld) [#/Vol] 10*3/uL Normal <0.01 [facility] Comment on above: Order Comment: Speci men Type: BLOOD SPECIMENOrdering Facility: [facility] Address: [address] [place] [address] Performed By: #### 5 8410-2 ####[facility]ORYCLIA [id number] [address] [place] Platelet mean volume (Bld) [Entitic vol] 10.4 fL Normal 9.0-12.7 [facility] Comment on above: Order Comment: Speci men Type: BLOOD SPECIMENOrdering Facility: [facility] Address: [address] [place] [address] Performed By: #### 5 8410-2 ####[facility]ORYCLIA [id number] [address] [place] Platelets (Bld) [#/Vol] 159 10*3/uL Normal 150-400 [facility] Comment on above: Order Comment: Speci men Type: BLOOD SPECIMENOrdering Facility: [facility] Address: [address] [place] [address] Performed By: #### 5 8410-2 ####[facility]ORYCLIA [id number] [address] [place] RBC (Bld) [#/Vol] 4.32 10*6/uL Normal 3.90-5.20 [facility] Comment on above: Order Comment: Speci men Type: BLOOD SPECIMENOrdering Facility: [facility] Address: [address] [place] [address] Performed By: #### 5 8410-2 ####[facility]ORYCLIA [id number] [address] [place] WBC (Bld) [#/Vol] 4.56 10*3/uL Normal 3.70-11.00 [facility] Comment on above: Order Comment: Speci men Type: BLOOD SPECIMENOrdering Facility: [facility] Address: [address] [place] [address] Performed By: #### 5 8410-2 ####[facility]ATORYCLIA [id number] [place] [address] [facility] Shanika 07-31-2024 CN HNO ID: [id number] Author: PUNEET SHEA MD Service: Electrophysiology Author Type: Nurse Practitioner Type: Discharge Summary Filed: 07/31/2024 13:09 Note Text: Attestation signed by Puneet Shea MD at 07/31/2024 1:09 PM [facility] Electrophysiology (EP) EP Attending Reviewed case. Agree with evaluation and plan of care as outlined by the CARAMEL [employer]TER [employer], as we discussed. Puneet Shea MD July 31, 2024 1:09 PM DISCHARGE SUMMARY PATIENT NAME: Karen Blair Code Status: Not on file Highest Readmission Risk Score: 7 The 30 day readmissions risk score is derived from an internally validated risk model which evaluates patient level characteristics, utilization history, medication orders and lab results up until the day of discharge. Patients with a score of 40 or above are considered highest risk for readmission. Specific patient level drivers will be listed at the bottom of the summary. Admission Information Admission Information ADMIT DATE: 07/30/2024 DISCHARGE DATE: 07/31/2024 MY DOCTORS AND MEDICAL TEAM: My Main Hospital Doctor: Puneet Shea MD Primary Care Provider: Marzena Johnson MD My Medical Team Members: Treatment Team: Attending Provider: Puneet Shea MD MY CONDITION AT DISCHARGE: Good REASON I WAS IN THE HOSPITAL: 53-year-old female who underwent radiofrequency AVNRT ablation with Dr. Shea on 07/30/2024. Atrial tachycardia was not inducible. Patient tolerated procedure well and was discharged without issue on 07/31/2024. OTHER PROBLEMS/DIAGNOSIS: Principal Problem: Paroxysmal supraventricular tachycardia (HCC) Active Problems: Paroxysmal atrial tachycardia (HCC) Discharge Disposition Discharge Disposition: Home With Self Care Activity When You Leave the Hospital Do not sit for long periods of time with your arms or legs bent May drive 24 hours after discharge home. No lifting greater than 5-10 pounds for 5-7 days No sexual activity for: 1 week. No strenuous activity, exercise, or sports for 5-7 days, casual walking is fine No walking restrictions Take showers, not baths, until your wound is completely healed Diet Instructions Resume your pre-hospital diet For Pain When You Leave the Hospital Use acetaminophen (Tylenol) as recommended on the bottle Wound/Surgical Site Care Any bruising and bumps should disappear within 3-4 days Avoid lotions or powders Check your wound every day If the bruising expands or the bump enlarges please call your doctor Some bruising, soreness or a small bump under the skin at the inserion site is normal Wash your wound area with mild soap and water daily and gently pat dry with a towel Follow Up Appointments Follow-Up Appointment Dr. Shea's office will call to schedule the appointment. When: In: Comment - three months Patient/Parents to call for appointment?: No Puneet Shea MD [phone] [address] PCP Requested Referral Additional Provider to Provider Information: Principal Problem: Paroxysmal supraventricular tachycardia (HCC) (POA: Yes) Assessment AND Plan: Karen is a 53-year-old female with a past medical history of SVT who underwent radiofrequency AVNRT ablation with Dr. Shea on 07/30/2024. Despite extensive efforts atrial tachycardia was not inducible. Ablation proved to be quite challenging. Patient tolerated procedure well and there were no intra or postoperative complications. Postop day 1 labs revealed a sodium of 143. This was compared to prior to a level of 133. Discussed with attending. No changes at this time. I advised patient this was likely due to being n.p.o. and not eating or drinking much yesterday. We discussed that should self correct shortly. I advised her to have an electrolyte panel checked with her PCP in 1 week. Patient did verbalize frustration that the atrial tachycardia was not ablated. We discussed sometimes this happens. She feels she is having this more often than the rapid SVT episodes. We discussed she may be more sensitive to this in the short-term post ablation however this should improve. We did discuss the positives that we did successfully ablated the slow AV tre pathway which should prevent future rapid heart rate episodes. Patient mentioned she was very disappointed would not be interested in undergoing another ablation. I acknowledged her frustration. Lengthy discussion was had regarding post ablation discharge restrictions. Topics included no lifting over 10 pounds for 1 week, no strenuous activity for 1 week, no intercourse for 1 week, may drive 24 hours after discharge home, may shower but do not submerge groin sites underwater such as (more content not included)... Normal [facility] 07-31-2024 RAIZA Telephone (AGCARDPOB ) KAREN BLAIR ([id number]) 1970 F Date Time Provider Department 07/31/24 JESUS CORDOVA AGCCHARLINE During your visit today, we recorded the following information about you: Jesus Cordova APRN.LEGAL COORDINATOR 07/31/2024 12:41 PM Signed Patient underwent radiofrequency AVNRT ablation with Dr. Shea on 07/30/2024. As discussed with patient 14-day extended senior net web developer ordered to be hooked up in 1 month. Patient will need office visit with Dr. Shea or STEVE in 2 months and results will need to be available. 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 Facility-Administered Medications as of 07/31/2024 - levothyroxine 100 mcg tab(s) (SYNTHROID) - ondansetron orally disintegrating 4 mg tab(s) (ZOFRAN ODT) - ondansetron (PF) 4 mg injection (ZOFRAN) - metoclopramide HCl 5 mg (REGLAN) - metoclopramide HCl 5 mg injection (REGLAN) - acetaminophen 650 mg tab(s) (TYLENOL) - oxyCODONE-acetaminophen 5-325 mg 1 tablet (PERCOCET) Problem List As Of Date 07/31/2024 Noted Resolved H/O Elizabeth thyroiditis [Z86.39] 04/05/2016 Papillary carcinoma of thyroid (HCC) [C73] 04/05/2016 H/O thyroidectomy 2011 [E89.0] 04/05/2016 Postoperative hypothyroidism [E89.0] 04/05/2016 Palpitations [R00.2] 01/01/2024 Paroxysmal supraventricular tachycardia (HCC) [*01/01/2024 Paroxysmal atrial tachycardia (HCC) [I47.19] 01/01/2024 Encounter Status:Closed by JESUS CORDOVA on 07/31/24 [facility] EKGon 07-31-2024 Electrocardiogram Ventricular Rate : 5 6 BPM Atrial Rate : 56 BPM P-R Interval : 160 ms QRS Duration : 86 ms Q-T Interval : 444 ms QTC Calculation(Bazett) : 428 ms Calculated P Hinckley : 27 degrees Calculated R Hinckley : -5 degrees Calculated T Hinckley : 28 degrees SINUS BRADYCARDIA OTHERWISE NORMAL ECG NO PREVIOUS ECGS AVAILABLE Confirmed by MD DUARTE VINAYAK ([id number]) on 10/23/2024 9:34:52 AM NAME : KAREN BLAIR PID : [id number] : 1970 Gender : Female Race : ORD : Procedure Date : Jul 31 2024 09:09:06 Edit Date : Oct 23 2024 09:34:54 Diagnosis: SINUS BRADYCARDIA OTHERWISE NORMAL ECG NO PREVIOUS ECGS AVAILABLE Confirmed by MD DUARTE VINAYAK ([id number]) on 10/23/2024 9:34:52 AM Test Reason : 69821 Location : 103 : [facility] Overread By : MD DUARTE VINAYAK Edited By : MD DUARTE VINAYAK Referred By : PUNEET SHEA Acquired by : SELWYN ELENA [facility] ANES POSTPROC EVALon 024 ANES POSTPROC EVAL HNO ID: [id number] Author: PAPI DOZIER MD Service: Anesthesiology Author Type: Physician Type: Anesthesia Postprocedure Evaluation Filed: 07/30/2024 19:01 Note Text: POST ANESTHESIA EVALUATION NOTE : 1970 Procedure Summary Date: 07/30/24 Room / Location: [place] [address] / [facility] Anesthesia Start: 1336 Anesthesia Stop: 1750 Procedure: COMPLETE EPS W/SVT ABL W/WO 3D MAP LA PACE REC (Cardiac) Diagnosis: Paroxysmal atrial tachycardia (HCC) Paroxysmal supraventricular tachycardia (HCC) Palpitations (Paroxysmal atrial tachycardia (HCC) [I47.19]) (Paroxysmal supraventricular tachycardia (HCC) [I47.10]) (Palpitations [R00.2]) Surgeons: Puneet Shea MD Responsible Provider: Papi Dozier MD Anesthesia Type: MAC ASA Status: 2 Anesthesia Type: MAC Last Vitals Vitals Value Taken Time BP 115/83 07/30/24 1845 Temp 36.5 ?C (97.7 ?F) 07/30/24 1810 Pulse 60 07/30/24 1845 Resp 16 07/30/24 1810 SpO2 95 % 07/30/24 1810 Post Anesthesia Patient Status Anticipated Disposition: inpatient floor planned admission. Neurological Status: aware and responsive. Pulmonary Status: breathing comfortably on room air Airway Control: returned to baseline unsupported. Cardiovascular Status: stable. Pain Management: clinically adequate Postoperative Hydration: acceptable. Intraoperative Events: no significant anesthesia events Post Operative Nausea/Vomiting Status: no significant post operative nausea or vomiting Recommendation: continue current plan of care. Anesthesia Observations No Documentation SIGNATURE: Papi Dozier MD PATIENT NAME: Karen Blair DATE: July 30, 2024 TIME: 7:00 PM CSN: [id number] Normal [facility] ANES PRE-OPon 07-30-2024 ANES PRE-OP HNO ID: [id number] Author: DESHAWN SAUER DO Service: Anesthesiology Author Type: Anesthesiologist Type: Anesthesia Preprocedure Evaluation Filed: 07/30/2024 13:32 Note Text: ANESTHESIOLOGY DAY OF SURGERY NOTE : 1970 Procedure Information Date/Time: 07/30/24 1250 Procedure: COMPLETE EPS W/SVT ABL W/WO 3D MAP LA PACE REC (Cardiac) - atrial tachycardia catheter ablation. Might be long procedure. Will need Carto. Stereotaxis optional, not critically necessary. She will need to stop flecainide and metoprolol at least one week prior to procedure. No other medications that need to be stopped. NEEDS HANDP ROU Location: [facility] 01 / [place] [facility] Surgeons: Puneet Shea MD Estimated body mass index is 26.61 kg/m? as calculated from the following: Height as of this encounter: 162.6 cm (5' 4). Weight as of this encounter: 70.3 kg (155 lb). Most recent hematocrit and potassium results: Hematocrit 39.7 07/30/2024 Potassium 4.4 07/30/2024 Relevant Problems CARDIO (+) Paroxysmal atrial tachycardia (HCC) (+) Paroxysmal supraventricular tachycardia (HCC) ENDO (+) Postoperative hypothyroidism NEURO-PSYCH (+) H/O Elizabeth thyroiditis I - PHYSICAL EVALUATION AIRWAY Patient intubated: No. Tracheostomy tube not present Mallampati: II. TM distance: >3 FB. Neck ROM: full ROM without neurological symptoms. Mouth opening: adequate. Short neck: no. Thick neck: no DENTAL Dental findings: missing tooth/teeth. II - ANESTHESIA PLAN ASA Score: 2 Anesthetic Plan: MAC The patient is not a current smoker. NPO Status: adequate Beta Foster Monitoring Plan Monitoring plan: standard ASA. Post Procedure Analgesic Plan Postoperative analgesic plan: multimodal analgesia and parenteral or oral opioids. Informed Consent Anesthetic risks, benefits, alternatives, personnel and consent discussed: yes. Patient / Responsible Green Party agrees to proceed: yes Patient / Surrogate agrees to blood products: Yes DNR status not reviewed with patient and/or family prior to surgery. Significant changes in the patient condition since the History and Physical, not otherwise documented in primary service progress note: no. Potential Anesthesia issues that may suggest increased risk of complications or contraindication to planned procedure: none. Discussed the possibility of lip / dental damage: yes Vitals Value Taken Time BP 128/83 07/30/24 1206 Pulse 57 07/30/24 1206 Resp 12 07/30/24 1206 Temp SpO2 100 % 07/30/24 1206 No current facility-administered medications on file as of 07/30/2024. Outpatient Medications as of 07/30/2024 Medication Sig - SYNTHROID 100 mcg tablet Take 100 mcg by mouth daily before breakfast. I have interviewed and examined the patient. I have reviewed the medical record and/or the pre-anesthesia evaluation, pertinent labs, and test results. This contains updated information obtained within 48 hours of Surgery/Procedure. SIGNATURE: Deshawn Sauer DO PATIENT NAME: Karen Blair DATE: July 30, 2024 TIME: 1:26 PM CSN: [id number] Normal [facility] Basic metabolic 2000 panelon 07-30-2024 Anion gap [Moles/Vol] 10 mmol/L Normal 8-15 [facility] Comment on above: Order Comment: Agustina blanchard Type: BLOOD SPECIMEN [facility] Address: [address] [place] [address] Performed By: #### 2 4321-2 #### [facility] CLIA [id number] [address] [place] [address] [place] Calcium [Mass/Vol] 9.4 mg/dL Normal 8.5-10.2 [facility] Comment on above: Order Comment: Agustina blanchard Type: BLOOD SPECIMEN [facility] Address: [address] [place], [place] [address] Performed By: #### 2 4321-2 #### [facility] CLIA [id number] [address] [place] Chloride [Moles/Vol] 100 mmol/L Normal 98-107 [facility] Comment on above: Order Comment: Speci men Type: BLOOD SPECIMEN Ordering Facility: [facility] Address: [address] [place] [address] Performed By: #### 2 4321-2 #### [facility] CLIA [id number] [address] OF [facility] CO2 [Moles/Vol] 23 mmol/L Normal 22-30 [facility] Comment on above: Order Comment: Speci men Type: BLOOD SPECIMEN Ordering Facility: [facility] Address: [address] [place] [address] Performed By: #### 2 4321-2 #### [facility] CLIA [id number] [address] OF [facility] Creatinine [Mass/Vol] 0.77 mg/dL Normal 0.58-0.96 [facility] Comment on above: Order Comment: Speci men Type: BLOOD SPECIMEN Ordering Facility: [facility] Address: [address] [place] [address] Performed By: #### 2 4321-2 #### [facility] CLIA [id number] [address] Creatinine and Glomerular filtration rate.predicted panel (S/P/Bld) 94 mL/min/1.73m??? Normal >=60 [facility] Comment on above: Order Comment: Speci men Type: BLOOD SPECIMEN Ordering Facility: [facility] Address: [address] [place] [address] Result Comment: Tara mated Glomerular Filtration Rate (eGFR) is calculated using the 2020 CKD-EPI creatinine equation. This equation utilizes serum creatinine, sex, and age as parameters. The creatinine assay has traceable calibration to isotope dilution-mass spectrometry. Refer to KDIGO guidelines for clinical interpretation. In patients with unstable renal function, e.g. those with acute kidney injury, the eGFR may not accurately reflect actual GFR. Performed By: #### 2 4321-2 #### [facility] CLIA [id number] 1 [place] [address] [place] Glucose [Mass/Vol] 81 mg/dL Normal 74-99 [facility] Comment on above: Order Comment: Agustina blanchard Type: BLOOD SPECIMEN Ordering Facility: [facility] Address: [address] [place] [address] Result Comment: The [place] Diabetes Association (ADA) provides guidance for cutoff values for fasting glucose and random glucose. The ADA defines fasting as no caloric intake for at least 8 hours. Fasting plasma glucose results between 100 to 125 mg/dL indicate increased risk for diabetes (prediabetes). Fasting plasma glucose results greater than or equal to 126 mg/dL meet the criteria for diagnosis of diabetes. In the absence of unequivocal hyperglycemia, results should be confirmed by repeat testing. In a patient with classic symptoms of hyperglycemia or hyperglycemic crisis, random plasma glucose results greater than or equal to 200 mg/dL meet the criteria for diagnosis of diabetes. Reference: Standards of Medical Care in Diabetes 2016, [place] [employer] Association. Diabetes Care. 2016.39(Suppl 1). Performed By: #### 2 4321-2 #### [facility] CLIA [id number] 1 [place] [address] [place] Potassium [Moles/Vol] 4.4 mmol/L Normal 3.7-5.1 [facility] Comment on above: Order Comment: Agustina blanchard Type: BLOOD SPECIMEN Ordering Facility: [facility] Address: [address] [place] [address] Performed By: #### 2 4321-2 #### [facility] CLIA [id number] 1 [place] [address] [place] Sodium [Moles/Vol] 133 mmol/L Low 136-144 [facility] Comment on above: Order Comment: Agustina blanchard Type: BLOOD SPECIMEN Ordering Facility: [facility] Address: [address] [place] [address] Performed By: #### 2 4321-2 #### [facility] CLIA [id number] [address] STATES [facility] Urea nitrogen [Mass/Vol] 18 mg/dL Normal 7-21 [facility] Comment on above: Order Comment: Speci men Type: BLOOD SPECIMEN Ordering Facility: [facility] Address: [address] [place] [address] Performed By: #### 2 4321-2 #### [facility] CLIA [id number] [address] OF [place] CBC panel Auto (Bld)on 07-30 Erythrocyte distribution width (RBC) [Ratio] 11.9 % Normal 11.5-15.0 [facility] Comment on above: Order Comment: Speci men Type: BLOOD SPECIMEN Ordering Facility: [facility] Address: [address] [place] [address] Performed By: #### 5 8410-2 #### [facility] CLIA [id number] [address] OF [facility] Hematocrit (Bld) [Volume fraction] 39.7 % Normal 36.0-46.0 [facility] Comment on above: Order Comment: Speci men Type: BLOOD SPECIMEN Ordering Facility: [facility] Address: [address] [place] [address] Performed By: #### 5 8410-2 #### [facility] CLIA [id number] [address] OF [place] Hemoglobin (Bld) [Mass/Vol] 13.0 g/dL Normal 11.5-15.5 [facility] Comment on above: Order Comment: Speci men Type: BLOOD SPECIMEN Ordering Facility: [facility] Address: [address] [place] [address] Performed By: #### 5 8410-2 #### [facility] CLIA [id number] [address] STATES OF [facility] MCH (RBC) [Entitic mass] 30.7 pg Normal 26.0-34.0 [facility] Comment on above: Order Comment: Speci men Type: BLOOD SPECIMEN Ordering Facility: [facility] Address: [address] [place], [place] [address] Performed By: #### 5 8410-2 #### [facility] CLIA [id number] [address] MCHC (RBC) [Mass/Vol] 32.7 g/dL Normal 30.5-36.0 [facility] Comment on above: Order Comment: Speci men Type: BLOOD SPECIMEN Ordering Facility: [facility] Address: [address] [place] [address] Performed By: #### 5 8410-2 #### [facility] CLIA [id number] [address] OF [facility] MCV (RBC) [Entitic vol] 93.9 fL Normal 80.0-100.0 [facility] Comment on above: Order Comment: Speci men Type: BLOOD SPECIMEN Ordering Facility: [facility] Address: [address] [place] [address] Performed By: #### 5 8410-2 #### [facility] CLIA [id number] [address] OF [facility] Nucleated RBC (Bld) [#/Vol] 10*3/uL Normal <0.01 [facility] Comment on above: Order Comment: Speci men Type: BLOOD SPECIMEN Ordering Facility: [facility] Address: [address] [place] [address] Performed By: #### 5 8410-2 #### [facility] CLIA [id number] [address] [place] Platelet mean volume (Bld) [Entitic vol] 10.7 fL Normal 9.0-12.7 [facility] Comment on above: Order Comment: Speci men Type: BLOOD SPECIMEN Ordering Facility: [facility] Address: [address] [place] [address] Performed By: #### 5 8410-2 #### [facility] CLIA [id number] [address] [place] Platelets (Bld) [#/Vol] 177 10*3/uL Normal 150-400 [facility] Comment on above: Order Comment: Speci men Type: BLOOD SPECIMEN Ordering Facility: [facility] Address: [address] [place] [address] Performed By: #### 5 8410-2 #### [facility] CLIA [id number] [address] RBC (Bld) [#/Vol] 4.23 10*6/uL Normal 3.90-5.20 [facility] Comment on above: Order Comment: Speci men Type: BLOOD SPECIMEN Ordering Facility: [facility] Address: [address] [place] [address] Performed By: #### 5 8410-2 #### [facility] CLIA [id number] [address] WBC (Bld) [#/Vol] 4.67 10*3/uL Normal 3.70-11.00 [facility] Comment on above: Order Comment: Speci men Type: BLOOD SPECIMEN Ordering Facility: [facility] Address: [address] [place] [address] Performed By: #### 5 8410-2 #### [facility] CLIA [id number] [address] HISTORY PHYSICALon HISTORY PHYSICAL HNO ID: [id number] Author: JESUS CORDOVA APRN.LEGAL COORDINATOR Service: Electrophysiology Author Type: Nurse Practitioner Type: H&P Filed: 07/30/2024 12:57 Note Text: HISTORY AND PHYSICAL: ELECTROPHYSIOLOGY SERVICE SERVICE DATE: 07/30/2024 SERVICE TIME: 12:42 PM PCP: Marzena Johnson MD ATTENDING: Puneet Shea MD Subjective CHIEF COMPLAINT: Paroxysmal atrial tachycardia (HCC) [I47.19] Paroxysmal supraventricular tachycardia (HCC) [I47.10] Palpitations [R00.2] HISTORY OF PRESENT ILLNESS: Mrs. Blair is a pleasant 53 year old female who presents today for atrial tachycardia ablation with Dr. Shea. Patient continues to endorse episodes occurring several times per weeks. She was previously on flecainide and Lopressor however she stopped taking these 4 weeks ago she reports she felt worse on medications. Interestingly enough since stopping those medications about 4 weeks ago she reports SVT occurrences have decreased in frequency. Over the past week she indicates she has experienced 2 or 3 episodes which have been pretty brief in duration. She can typically bring herself out of this by lying down. She reports she does not have to use vagal maneuvers. Symptomology includes heart racing and palpitations. She denies experiencing any visual changes in quite some time. Patient had experienced episodes of lightheadedness and visual changes in the past where she reports seeing all white or all colors. Patient allergic to sulfa as well as vancomycin. Medical history as well as medications also reviewed. Most recent echo available in the medical record is from January 2016. At that time EF noted to be normal at 65%. Left atrium mildly dilated. Mild mitral valve prolapse. With mild to moderate 1-2+ tricuspid valve insufficiency. Patient reports she had an echo done a couple months ago at [facility]. I do not see any available reports for this under Care Everywhere. Patient has been n.p.o. since 2099 yesterday evening. She did take her Synthroid this morning with small sips of water. Lengthy discussion was had with patient and spouse regarding what to expect pre-/intra-/post procedure. Topics included SVT ablation overview, pathophysiology of AT, MAC, risk/benefits, overnight stay in [facility], post restrictions, and follow-up. Benefits being highly curative nature of ablation for prevention of future episodes. Low potential risk of bleeding, stroke, or . Patient and spouse indicated I had answered all of their questions and they have nothing further at this time. Agreeable to move forward with procedure. 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 bicuspid valve) Arrhythmia Brother SVT, had ablation performed No Known Problems Half-sister No Known Problems Half-sister Social History Tobacco Use Smoking status: Never Smokeless tobacco: Never Substance Use Topics Alcohol use: No Prior to Admission Medications Prescriptions Last Dose Informant Patient Reported? Taking? SYNTHROID 100 mcg tablet 07/30/2024 Yes Yes Sig: Take 100 mcg by mouth daily before breakfast. flecainide (TAMBOCOR) 100 mg tablet No No Sig: Take one tablet by mouth twice daily metoprolol tartrate, short acting, (LOPRESSOR) 25 mg tablet No No Sig: Take 0.5 tablets by mouth two times a day. Facility-Administered Medications: None No current facility-administered medications for this encounter. ALLERGIES Allergen Reactions Sulfa (Sulfonamide * Rash Vancomycin Hives, Itching Review of Systems Constitutional: Negative. HENT: Negative. Eyes: Negative. Respiratory: Negative. Cardiovascular: Positive for palpitations. + Heart racing Gastrointestinal: Negative. Genitourinary: Negative. Musculoskeletal: Negative. Skin: Negative. Neurological: Negative. Psychiatric/Behavioral: Negative. Objective PHYSICAL EXAM: Body mass index is 26.61 kg/m?. O2 Therapy: Room Air Patient Vitals for the past 24 hrs: BP Pulse Resp SpO2 Height Weight 07/30/24 1206 128/83 (!) 57 12 100 % 162.6 cm (5' 4) 70.3 kg (155 lb) Pleasant, comfortable, not in acute distress. SKIN: warm AND dry; normal color. HEENT: Normocephalic. NECK: Supple, no JVD, no carotid bruits auscultated. LUNGS: Clear to auscultation bilaterally. Respirations unlabored at rest. CARDIAC: Normal (more content not included)... Normal [facility] [place] 07-09-2024 [facility] Telephone (AGCARDPOB ) KAREN BLAIR ([id number]) 1970 F Date Time Provider Department 07/09/24 UPNEET SHEA During your visit today, we recorded the following information about you: Severo Nicole 07/09/2024 1:40 PM Signed Patient is scheduled for an SVT Ablation on 07/[address] Shea. The hospital will call the day before between 2-5pm with your arrival time. You should not eat or drink after midnight the day before the procedure. You will need a lifter/driver when released from the hospital and you will stay overnight for observation. You should continue to take medications as prescribed the morning of the procedure with just a sip of water but stop flecainide and metoprolol at least one week prior to procedure HANDP morning of Spoke with Karen Blair on July 09, 2024. Informed of instructions as stated above. Patient verbalized understanding. Cindi Clifford RN 07/09/2024 1:40 PM Signed Pt's name has been added to [facility] procedure board. Cindi Alvarado RN Allergies As of Date: 07/09/2024 Noted Allergy Reaction SULFA (SULFONAMIDE ANTIBIOTICS) 04/05/2016 2 - Rash VANCOMYCIN 01/02/2024 4 - Hives 9 - Itching Date Reviewed: 01/02/2024 Reviewed by: Puneet Shea MD - Fully Assessed Reason for Visit: Preparations For Procedures [899] Prescriptions as of 07/09/2024 - metoprolol tartrate, short acting, (LOPRESSOR) 25 mg tablet Take 0.5 tablets by mouth two times a day. - flecainide (TAMBOCOR) 100 mg tablet Take one tablet by mouth twice daily - SYNTHROID 100 mcg tablet Take 100 mcg by mouth daily before breakfast. Problem List As Of Date 07/09/2024 Noted Resolved H/O Elizabeth thyroiditis [Z86.39] 04/05/2016 Papillary carcinoma of thyroid (HCC) [C73] 04/05/2016 H/O thyroidectomy 2011 [E89.0] 04/05/2016 Postoperative hypothyroidism [E89.0] 04/05/2016 Palpitations [R00.2] 01/01/2024 Paroxysmal supraventricular tachycardia (HCC) [*01/01/2024 Paroxysmal atrial tachycardia (HCC) [I47.19] 01/01/2024 Encounter Status:Closed by SEVERO NICOLE on 07/09/24 [facility] OT General Evaluationon 10-2 4 OT General Evaluation [facility] [address] [facility] [place] [address] / REHABILITATION SERVICES INITIAL EVALUATION MR#: [id number] Acct: [id number] Name: KAREN BLAIR Rep #: [id number] : 1970 53 From: Siri BARBOSA/YSABEL ManT Referring Dr.: Dr. Marzena Johnson MD Status: REG RCR Insurance: [employer] [facility] Evpa Date: SELF PAY INSURANCE Patient's Visit Information Visit Information Visit Information: KAREN BLAIR is a 53 year old F, referred to Occupational Therapy by Dr. Marzena Johnson MD, with a diagnosis of 4th/5th left finger fx. Date of Evaluation: 06/18/24 Occupational Therapist: CHELSEY Rubin/Magda, YSABELT Subjective Subjective: This 53 year old female was seen for OT eval with dx of a left 4th 5th finger fx. Pts DOI was 03/03/24 and she has still not gained full ROM. pt was seen prior in this dept. and states she continues with her previous given ex. pt would like to know what more she can do to get better motion. Pain left hand: Current Pain Intensity: 3 Pain Intensity Range: 1 and 3 ROM MP: left RF +5/80 LF +15/70 right LF +10/85, RF 0/88 PIP: left RF -25/90, LF -25/85 right LF +15/95, RF +5/100 DIP: left RF +15/70 LF +5/85 right LF +10/75, RF +5/80 ROM Comments: right is WNL Strength Cardroom Attendant: right 60# left 50# Lateral Pinch: right 18# left 18# Tripod Pinch: right 18# left 16# Quick DASH-Disab of Arm,Shoulder Hand Quick DASH Score: 23.3325 Goals Goal:: pt will demo increase in ROM of left RF and LF by 15* demo improved mobility extension decreasing look of curled fingers by d/c pt will demo increase in ROM of left RF/LF extension to place hand in pocket by d/c Rehabilitation General Assessment: pt demo with limited PIP ext on both left RF and LF. this is bothersome as pt feels she should have full motion. Pt would benefit from skilled OT services 2x week for 3 weeks to return pt to her PLOF. Today therapist ed.pt on DIP and PIP extension blocking ex. and use of LMB extension orthosis. pt demo understanding and agree to POC. Rehabilitation Potential: Good Anticipated Interventions Anticipated Interventions: A/AAROM/PROM, Modalities, Orthoses, Joint Protection/Energy Conservation, Ergonomic Education, Education re assistive Equipment, Education re Diagnosis and Home Program Visit Plan Frequency: 2x /Week Duration: 4 Weeks TEXT: Thank you for the opportunity to evaluate your patient. For Medicare and Medicare HMO plans, please review the plan of care and approve it. It will need to be FAXED BACK to us at [phone] for Medicare purposes. Please let me know if there are questions or concerns regarding this plan of care. Physician Signature: Date: 06/19/24 1137 CC: Dr. Marzena Johnson MD MK Signed For Medicare only, by signing this I certify the plan of care. Physicians Signature Date Normal [facility] Hand Min 3 Viewson 4 Hand Min 3 Views [facility] Services [address] [place], [place] [id number] Hand Min 3 Views MR#: [id number] Acct: [id number] Name: KAREN BLAIR Rep #: [id number] : 1970 F 53 From: Arsalan Saini MD PCP: Dr. Marzena Johnson MD Status: REG CLI Study: Hand Min 3 Views Date of Exam: 06/08/24 Exam# [id number] Ordering Dr: Marzena Johnson [id number] STUDY: X-RAY - LEFT HAND REASON FOR EXAM: Female, 53 years old. Follow up fracture. 4th and 5th fingers. TECHNIQUE: 4 views of the left hand. COMPARISON: Left hand radiographs dated 03/03/2024 and 03/31/2024. FINDINGS: Normal radiocarpal articulation. Normal distal radioulnar joint. Normal visualized carpal bones. Normal carpal articulations. Normal carpometacarpal articulation of the thumb. Normal second through fifth carpometacarpal joints. Normal metacarpi. Normal metacarpophalangeal joint of the thumb. Normal interphalangeal joint of the thumb. Normal proximal and distal phalanges of the thumb. Normal metacarpophalangeal joints of the second through fifth fingers. Normal proximal and distal interphalangeal joints of the second through fifth fingers. Normal phalanges of the second and third fingers. There are healed fractures of the bases of the fourth and fifth proximal phalanges. The soft tissue structures are unremarkable. RAD/Hand Min 3 Views IMPRESSION: Healed fractures of the bases of the fourth and fifth proximal phalanges. Electronically Signed: Arsalan Saini MD at 13:39 EDT , CC: Dr. Marzena Johnson MD Parimutuel Clerk: [facility] Telephone (AGCARDPOB ) KAREN BLAIR ([id number]) 1970 F Date Time Provider Department 05/15/24 PUNEET SHEA AGCARDPOB During your visit today, we recorded the following information about you: Yanick Whitney LPN 05/15/2024 11:46 AM Signed Ms. Blair is calling in about her possible ablation date in the future. Patient voiced that she will only do the ablation if its done by July. Patient states if she is scheduled for anything later then this she will not do the ablation. CRESENCIO Salcedo Linda S, RN 06/24/2024 11:37 AM Signed Karen Blair called in to check on the status of scheduling her ablation. Pt expressed frustration and states she wants to stop taking her medications flecainide and metoprolol because she doesn't think they are helping. She states that if she can't have ablation by the end of the year, she doesn't want to have it. She also asked that Dr. Shea be notified that the frequency of her tachycardic episodes has increased. She is having episodes of heart rates where HR periodically jumps to 130-150, occurring multiple times per day. She states she previously only had episodes a couple times per month. RICKY Vargas Linda S, RN 06/29/2024 3:07 PM Addendum Karen Blair called in to check on the status of scheduling her ablation. She expressed frustration in how long it is taking to have ablation. Emotional support offered, and assured pt it is in process of being scheduled. She believes the medications are making her condition worse. She states on Saturday this week, I will be stopping my medications if I do not hear from Dr. Shea. She asked for guidance on how to stop the medication. She also states due to change in insurance, she will not be able to have procedure at [facility] if it is not scheduled by the end of the year. RICKY Vargas Taylor, LPN 07/01/2024 4:45 PM Signed Ms. Blair is calling in asking if Dr. Shea can review previous notes and advise at this time. CRESENCIO Salcedo Robert A, MD 07/02/2024 1:53 PM Signed [facility] General Electrophysiology (EP) She can stop the flecainide and the metoprolol. The metoprolol only needs to be tapered if the dose is high, and she is on a very low dosage. So no tapering required. Puneet Shea MD July 02, 2024 1:53 PM Yanick Whitney LPN 07/03/2024 10:01 AM Signed Left message for Ms. Blair to call [facility] for recommendations. [facility] phone number provided. Cindi Alvarado RN 07/03/2024 12:59 PM Signed Spoke with pt. Notified of Dr Shea's recommendations. Pt voices understanding to stop flecainide and metoprolol. Cindi Alvarado RN Allergies As of Date: 05/15/2024 Noted Allergy Reaction SULFA (SULFONAMIDE ANTIBIOTICS) 04/05/2016 2 - Rash VANCOMYCIN 01/02/2024 4 - Hives 9 - Itching Date Reviewed: 01/02/2024 Reviewed by: Puneet Shea MD - Fully Assessed Reason for Visit: Medication Problem [65] Appointment [186] Grey Inspector - Other [3602] Prescriptions as of 07/03/2024 - metoprolol tartrate, short acting, (LOPRESSOR) 25 mg tablet Take 0.5 tablets by mouth two times a day. - flecainide (TAMBOCOR) 100 mg tablet Take one tablet by mouth twice daily - SYNTHROID 100 mcg tablet Take 100 mcg by mouth daily before breakfast. Problem List As Of Date 05/15/2024 Noted Resolved H/O Elizabeth thyroiditis [Z86.39] 04/05/2016 Papillary carcinoma of thyroid (HCC) [C73] 04/05/2016 H/O thyroidectomy 2011 [E89.0] 04/05/2016 Postoperative hypothyroidism [E89.0] 04/05/2016 Palpitations [R00.2] 01/01/2024 Paroxysmal supraventricular tachycardia (HCC) [*01/01/2024 Paroxysmal atrial tachycardia (HCC) [I47.19] 01/01/2024 Encounter Status:Closed by YANICK WHITNEY on 05/26/24 Normal [facility] OT D/C Summaryon 04-24-2024 OT D/C Summary [facility] [address] [place] [address] / REHABILITATION SERVICES DISCHARGE SUMMARY MR#: [id number] Acct: [id number] Name: KAREN BLAIR Rep #: [id number] : 1970 53 From: Siri Urbano OTR/L, CHT Referring Dr.: Dr. Baldomero Haque MD Status: R EG RCR Eval Date: Discharge Date: Discharge Summary D/C Summary: It has been my pleasure to treat KAREN BLAIR under orders from Dr. Baldomero Haque MD, for the diagnosis of left 5th and 4th metacarpal fx. for a total of 7 visit(s). Please see the following information for a summary of their discharge status. Overall Improvement % Improvement: 85 Objective Objective/Function: RF PIP -20/85 LF PIP -10/82 L product support representative 55# L lateral pinch 10# L tripod pinch 16# pt demo the ability to form a composite fist and is using her hand for daily tasks and cleaning. pt would like to see her fingers straighter- therapist advised to cont. with PIP ext stretch with MCP in slight flexion- along with reverse blocking ec. pt demo understanding and agree to D/C. Goals Goal:: pt will demo a increase in left product support representative strength by 30# or greater to increase pts IND with ADLs and IADLs by d.c Goal:: pt will demo a increase in left MCP flexion by 30* PIP flexion by 60* to increase pts ability to form fist by d/c Goal:: pt will report no pain greater than 1/10 with use of left hand with ADls and IADls by d.c Plan Plan: pt to be discharged at this time D/C Information Discharge Comments: pt ready to be discharged at this time. pt has made significant gains and tolerated therapy well. pt to continue HEP and agrees to POC. d/c sentence: If there are questions or concerns regarding this patient's occupational therapy, please fell free to call me at [phone]. Thank you for the referral of this patient. Sincerely, Siri Urbano, CHELSEY/Magda, CHT 04/24/24 0855 CC: Dr. Marzena Johnson MD; Dr. Baldomero Haque MD MK Signed [facility] Hand Min 3 Viewson 4 Hand Min 3 Views [facility] [address] [place] [address] Hand Min 3 Views MR#: [id number] Acct: [id number] Name: KAREN BLAIR Rep #: [id number] : 1970 F 53 From: Ruslan Macedo MD PCP: Dr. Marzena Johnson MD Status: DEP AMB Study: Hand Min 3 Views Date of Exam: 04/23/24 Exam# [id number] Ordering Dr: [place] [id number] EXAM: XR LEFT HAND COMPLETE, 3 OR MORE VIEWS CLINICAL INDICATION: fu TECHNIQUE: Frontal, lateral and oblique views of the left hand. COMPARISON: 03/31/2024 FINDINGS: BONES/JOINTS: There is further healing of fractures of the bases of the fourth and fifth phalanges. Preservation of the joint space. No sclerotic or destructive changes observed. SOFT TISSUES: Unremarkable. No soft tissue swelling or gas. No radiopaque foreign body. RAD/Hand Min 3 Views IMPRESSION: Further healing of fractures of the bases of the fourth and fifth phalanges. Electronically Signed: Ruslan Macedo MD at 16:17 EDT , CC: Dr. Marzena Johnson MD; Dr. Baldomero Haque MD Parimutuel Clerk: Signed [facility] Orthopedic Visit Reporton Orthopedic Visit Report [facility] [address] [place] [address] [address] [place] [address] OFFICE VISIT Date of Service: 04/23/24 MR#: [id number] Acct: [id number] Name: KAREN BLAIR Rep #: [id number] : 1970 Provider: Dr. Baldomero chavarria MD Age/Sex: 53/F Location: [facility] [place] Status: Signed Intake Vital Signs 03/03/24 19:53 Height 5 ft 4 in Intake Visit Reasons: LEFT HAND Chief Complaint: Left Hand Follow-Up Accompanied by: Self Is patient in pain?: Yes Allergies Sulfa (Sulfonamide Antibiotics) Allergy (Intermediate, Verified 04/23/24 13:45) Rash vancomycin Allergy (Verified 04/23/24 13:45) RED MAN SYNDROME Medications ???Medication ???Instructions ???Recorded ???Confirmed ???Type levothyroxine 112 mcg tablet 100 mcg PO DAILY 07/21/15 04/23/24 History metoprolol tartrate 25 mg tablet 12.5 mg (1/2 x 25 mg) PO BID #45 12/16/23 04/23/24 Rx tabs flecainide 50 mg tablet 100 mg PO Q12H 03/03/24 04/23/24 History PFSH Medical History Cataracts, bilateral Atrial tachycardia Palpitations Surgical History S/P removal of left ovary ( 2006) History of total hysterectomy History of dilation and curettage History of tubal ligation ( 2001) History of thyroidectomy, total Family History Brother Heart disease aortic stenosois Father Hypertension Cancer Atrial fibrillation Mother Cancer Atrial fibrillation Social History Smoking Status: Never smoker alcohol intake: never substance use type: does not use caffeine: No HPI LEFT HAND Details: This documentation accurately reflects the service provided and the decisions made by me, Dr. Baldomero Haque MD 04/23/24 0845. Part of today???s visit was documented by [ ], acting as scribe. KAREN BLAIR is a 53 year old F here today for 8 weeks follow-up left hand fractures of the fourth and fifth proximal phalanges./Patient doing well overall much improved from last visit. Still has some minor discomfort in the hand with doing a lot of activities with the hand. Doing hand therapy working on stretching of the fingers. Supplemental Info 3 views x-rays of the hand are obtained today show no change the alignment of the base of proximal phalanx fourth and fifth digits Coding Level of Care Code Off vis,est,level 3 Diagnoses Closed nondisplaced fracture of proximal phalanx of left ring finger, initial encounter S62.645A Encounter type: initial encounter Finger: ring finger Fracture alignment: nondisplaced Fracture type: closed Phalanx: proximal Assessment and Plan Assessment and Plan (1) Fracture of finger of left hand: Status: Inactive Qualifiers: Encounter type: initial encounter Finger: ring finger Fracture alignment: nondisplaced Fracture type: closed Phalanx: proximal Qualified Code(s): S62.645A - Nondisplaced fracture of proximal phalanx of left ring finger, initial encounter for closed fracture Plan: 53 year old F here today for 8 weeks follow-up left hand fractures of the fourth and fifth proximal phalanges. Patient doing well has gained significant in terms of range of motion minimal discomfort of the hand. Fractures appear nearly completely healed. They are seeing physical therapy/OT for repeat assessment within the next 2 days and I think it is reasonable to discontinue that and follow-up as needed and keep working on the stretching of the hand independently and follow-up as needed the patient understood no further questions or concerns. Orders: Orders Hand Min 3 Views Today S62.645A - Nondisplaced fracture of proximal phalanx of left ring finger, initial encounter for closed fracture Ortho Exam General General: Yes no acute distress Neurologic: Yes alert and Yes oriented x3 Psychologic: Yes reasonable and appropriate Right Wrist/Hand Skin/Wound: No Swelling and No Ecchymosis Left Wrist/Hand Skin/Wound: Yes CDI, No Swelling, No Ecchymosis, Yes nail intact, Yes capillary refill normal and No erythema Left Wrist: No TTP Fracture site Motor: EPL: 5, FDP-2: 5, 1st Dorsal Interosseous: 5 and APB: 5 Sensation: Radial: I, Ulnar: I and Median: I WRIST: Nearly able to make a full fist. Still some very minor stiffness at the fourth digit. 04/23/24 1359 Date Baldomero Haque MD Cosigner Signature: Date (if applicable) CC: [facility] OT General Evaluationon 08-0 OT General Evaluation [facility] [address] [place] [address] / REHABILITATION SERVICES INITIAL EVALUATION MR#: [id number] Acct: [id number] Name: KAREN BLAIR Rep #: [id number] : 1970 53 From: Siri BARBOSA/OTTO Man Referring Dr.: Dr. Baldomero Haque MD Status: R EG R Insurance: [facility] Date: SELF PAY INSURANCE Patient's Visit Information Visit Information Visit Information: KAREN BLAIR is a 53 year old F, referred to Occupational Therapy by Dr. Baldomero Haque MD, with a diagnosis of left 5th and 4th metacarpal fx.. Date of Evaluation: 04/02/24 Occupational Therapist: CHELSEY Rubin/OTTO Man Subjective Subjective: This 53 year old female was seen for OT eval with dx of left fx of 4th and 5th proximal phalax fx at the base. Pt states DOI on March 03 2024. Pt states she went to ER and with positive findings of fx pt was splinted. Was able to see ortho about a week later - went to splints to [facility]. pt states she went back to her splint because she flet she was not comfortable being able to bend them pt states she would take of her brace from time to time. 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 pt would like to use left hand at her PLOF. Pain left hand: Current Pain Intensity: 0 Pain Intensity Range: 3 ROM MP: right LF 75 MF 85 Left LF 55 RF 40 PIP: Right LF 85 RF 100 left LF 30 RF 40 DIP: right LF 75 RF 80 left LF 20 RF 30 ROM Comments: pt demo with a decrease ability to form a composite fist. Strength Cardroom Attendant: right 65# left 20# Lateral Pinch: right 14# left 12# Tripod Pinch: right 18# left 14# Strength Comments: pt demo with a decrease in left product support representative strength Edema PIP: right MF 5.5 left 6.0 Sensation Sensation Comments: pt states she does have tingling on and off in left RF tip Quick DASH-Disab of Arm,Shoulder Hand Quick DASH Score: 22.5000 Goals Goal:: pt will demo a increase in left product support representative strength by 30# or greater to increase pts IND with ADLs and IADLs by d.c Goal:: pt will demo a increase in left MCP flexion by 30* PIP flexion by 60* to increase pts ability to form fist by d/c Goal:: pt will report no pain greater than 1/10 with use of left hand with ADls and IADls by d.c Rehabilitation General Assessment: pt demo with limited left LF and RF ROM increasing difficulty for pt to use left hand with bilateral daily tasks. pt would benefit from skilled OT services 2x week for 4 weeks to improve pt ROM and strength to return pt to her PLOF. Today therapist ed. pt on PROM /AROM and contrast bath pt demo understanding and agree to POC. Rehabilitation Potential: Good Anticipated Interventions Anticipated Interventions: A/AAROM/PROM, Strengthening, Modalities, Joint Protection/Energy Conservation, Ergonomic Education, Education re Diagnosis and Home Program Visit Plan Frequency: 1-2x /Week Duration: 6 Weeks General Plan: increase ROM strengthen TEXT: Thank you for the opportunity to evaluate your patient. For Medicare and Medicare HMO plans, please review the plan of care and approve it. It will need to be FAXED BACK to us at [phone] for Medicare purposes. Please let me know if there are questions or concerns regarding this plan of care. Physician Signature: Date: 04/02/24 1357 CC: Dr. Marzena Johnson MD; Dr. Baldomero Haque MD MK Signed For Medicare only, by signing this I certify the plan of care. Physicians Signature Date [facility] Hand Min 3 Viewson 4 Hand Min 3 Views [facility] [address] [address] Hand Min 3 Views MR#: [id number] Acct: [id number] Name: KAREN BLAIR Rep #: [id number] : 1970 F 53 From: Viral White PCP: Dr. Marzena Johnson MD Status: DEP AMB Study: Hand Min 3 Views Date of Exam: 03/31/24 Exam# [id number] Ordering Dr: [place] [id number] EXAM: XR LEFT HAND COMPLETE, 3 OR MORE VIEWS CLINICAL INDICATION: Pain TECHNIQUE: Frontal, lateral and oblique views of the left hand. COMPARISON: 03/13/2024. FINDINGS: BONES/JOINTS: Healing fractures of the bases of the proximal phalanges of the 4th and 5th fingers. Preservation of the joint space. No sclerotic or destructive changes observed. SOFT TISSUES: Unremarkable. No soft tissue swelling or gas. No radiopaque foreign body. RAD/Hand Min 3 Views IMPRESSION: Healing fractures of the bases of the proximal phalanges of the 4th and 5th fingers. Electronically Signed: iVral Rodriguez MD at 1:10 EDT , CC: Dr. Marzena Johnson MD; Dr. Baldomero Haque MD Parimutuel Clerk: Signed [facility] Orthopedic Visit Reporton Orthopedic Visit Report [facility] [address] [place] [address] [address] [place] [address] OFFICE VISIT Date of Service: 03/31/24 MR#: [id number] Acct: [id number] Name: KAREN BLAIR Rep #: [id number] : 1970 Provider: Dr. Baldomero chavarria MD Age/Sex: 53/F Location: [facility] [place] Status: Signed Intake Vital Signs 03/03/24 19:53 Height 5 ft 4 in Weight: 156 lb 4.924 oz BMI 26.8 BP 138/83 H Respiration 15 Pulse 50 L Temp 96.9 F L Temp Source Temporal Pulse Oximetry (%) 100 Intake Visit Reasons: LEFT HAND Chief Complaint: Left Hand Follow-Up Accompanied by: Self Is patient in pain?: No Allergies Sulfa (Sulfonamide Antibiotics) Allergy (Intermediate, Verified 03/31/24 15:25) Rash vancomycin Allergy (Verified 03/31/24 15:25) RED MAN SYNDROME Medications ???Medication ???Instructions ???Recorded ???Confirmed ???Type levothyroxine 112 mcg tablet 100 mcg PO DAILY 07/21/15 03/31/24 History metoprolol tartrate 25 mg tablet 12.5 mg (1/2 x 25 mg) PO BID #45 12/16/23 03/31/24 Rx tabs flecainide 50 mg tablet 100 mg PO Q12H 03/03/24 03/31/24 History PFSH Medical History Cataracts, bilateral Atrial tachycardia Palpitations Surgical History S/P removal of left ovary ( 2006) History of total hysterectomy History of dilation and curettage History of tubal ligation ( 2001) History of thyroidectomy, total Family History Brother Heart disease aortic stenosois Father Hypertension Cancer Atrial fibrillation Mother Cancer Atrial fibrillation Social History Smoking Status: Never smoker alcohol intake: never substance use type: does not use caffeine: No HPI LEFT HAND Details: This documentation accurately reflects the service provided and the decisions made by me, Dr. Baldomero Haque MD 03/31/24 8168. Part of today???s visit was documented by [ ], acting as scribe. KAREN BLAIR is a 53 year old F here today for 3 weeks follow-up left hand fractures of the fourth and fifth proximal phalanges. non op mgt. patient is now about 4 weeks out from the original injury. They have been splinted for 4 weeks total now. The fingers feel stiff. Has not done any range of motion with the digits yet. Ortho Exam General General: Yes no acute distress Neurologic: Yes alert and Yes oriented x3 Psychologic: Yes reasonable and appropriate Right Wrist/Hand Skin/Wound: No Swelling and No Ecchymosis Left Wrist/Hand Skin/Wound: Yes CDI, No Swelling, No Ecchymosis, Yes nail intact, Yes capillary refill normal and No erythema Motor: EPL: 4, FDP-2: 4, 1st Dorsal Interosseous: 4 and APB: 4 Sensation: Radial: I, Ulnar: I and Median: I WRIST: The digits are very stiff at the fourth and fifth digits the patient really only has about 0 to 10 degrees of range of motion at each of the PIP MCP and DIP joints. No pain at the fracture sites. Supplemental Info [facility] [address] [place], [place] [id number] Hand Min 3 Views MR#: [id number] Acct: [id number] Name: KAREN BLAIR Rep #: [id number] : 1970 F 53 From: Lucian Monreal MD PCP: Dr. Marzena Johnson MD Status: DEP ER Study: Hand Min 3 Views Date of Exam: 03/03/24 Exam# [id number] Ordering Dr: [place] [id number] STUDY: X-RAY - LEFT HAND REASON FOR EXAM: Female, 53 years old. Trauma TECHNIQUE: 4 view(s) of the hand. COMPARISON: None. FINDINGS: Normal radiocarpal articulation. Normal distal radioulnar joint. Normal visualized carpal bones. Normal carpal articulations Normal carpometacarpal articulation of the thumb. Normal second through fifth carpometacarpal joints. Normal metacarpi. Normal metacarpophalangeal joint of the thumb. Normal interphalangeal joint of the thumb. Normal proximal and distal phalanges of the thumb. Normal metacarpophalangeal joints of the second through fifth fingers. Normal proximal and distal interphalangeal joints of the second through fifth fingers. There are acute fractures of the base of the fourth and fifth proximal phalanges. The soft tissue structures are unremarkable. RAD/Hand Min 3 Views IMPRESSION: Fractures of the fourth and fifth proximal phalanges. Electronically Signed: Lucian Monreal MD at 21:49 EDT Reading Location ID and State: 43 / [place] , Se (more content not included)... [facility] Orthopedic Visit Reporton Orthopedic Visit Report [facility] [address] [place] [address] OFFICE VISIT Date of Service: 03/10/24 MR#: [id number] Acct: [id number] Name: KAREN BLAIR Rep #: [id number] : 1970 Provider: Dr. Duane Cherry MD Age/Sex: 53/F Location: [facility] [place] Status: Signed Intake Vital Signs 03/03/24 19:53 Height 5 ft 4 in Intake Visit Reasons: LEFT HAND Chief Complaint: Left Hand Er Follow-Up Accompanied by: Self Is patient in pain?: Yes Pain scale (1-10): 1 Allergies Sulfa (Sulfonamide Antibiotics) Allergy (Intermediate, Verified 03/10/24 10:28) Rash vancomycin Allergy (Verified 03/10/24 10:28) RED MAN SYNDROME Medications ???Medication ???Instructions ???Recorded ???Confirmed ???Type levothyroxine 112 mcg tablet 100 mcg PO DAILY 07/21/15 03/10/24 History metoprolol tartrate 25 mg tablet 12.5 mg (1/2 x 25 mg) PO BID #45 12/16/23 03/10/24 Rx tabs flecainide 50 mg tablet 100 mg PO Q12H 03/03/24 03/10/24 History cephalexin 500 mg capsule 500 mg PO Q8H #21 caps 03/10/24 03/10/24 Rx PFSH Medical History Cataracts, bilateral Atrial tachycardia Palpitations Surgical History S/P removal of left ovary ( 2006) History of total hysterectomy History of dilation and curettage History of tubal ligation ( 2001) History of thyroidectomy, total Family History Brother Heart disease aortic stenosois Father Hypertension Cancer Atrial fibrillation Mother Cancer Atrial fibrillation Social History Smoking Status: Never smoker alcohol intake: never substance use type: does not use caffeine: No HPI LEFT HAND Details: This documentation accurately reflects the service provided and the decisions made by me, Dr. Duane Cherry MD 03/10/24 1024. Part of today???s visit was documented by Arianna Isabel ATC, acting as scribe. KAREN BLAIR is a 53 year old F here today for left hand ER follow-up for pinky and ring fingers. Patient was seen in [facility] ER last Saturday03/03/2024 and patient states that is when the injury occurred. Patient states she tripped and fell and that is how she hurt herself. Patient states she thinks she fell due to wearing glasses as she normally wears contacts but she is unable to right now due to a cataract surgery coming up. Patient describes most of the pain towards the bases of the fingers and she states she does have pain into the hand. She has them splinted today. Patient denies taking any pain medication for the pain. She states she took Motrin when the injury occurred but nothing since. Karen fell about a week ago and landed on her left hand and injured her ring and little finger. She went to the emergency room and was found to have subtle fractures of the proximal phalanx and was placed in 2 finger splints taped together. Her pain and swelling has improved since then. She feels that the splint is too cumbersome and affects her ability to do certain things with her left hand. She also mentions that she got stung by bee about 2 days ago and has developed redness and swelling on the right leg. She had a similar bout of cellulitis which improved with oral antibiotics about a year or 2 ago. Ortho Exam General General: Yes no acute distress Neurologic: Yes alert and Yes oriented x3 Left Wrist/Hand WRIST: Examination left hand shows tenderness in the area of the base of the fourth and fifth proximal phalanx. Slight movement restricted by pain is possible at the MCP as well as the IP joints. All of the fingers are showing full painless ROM. Wrist also shows full ROM. She also had left shoulder bruise from the fall and denies any pain today. She has full range of shoulder movement as well. Right Foot/Ankle ANKLE: Examination of the right leg shows an area of erythema over the posterior aspect of the distal half of the leg. There is redness warmth and induration over large area over the posterior aspect. Range of motion of ankle near full. Small area shows serous discharge likely in the area of the sting. Coding Level of Care Code Off vis,new,level 4 Diagnoses Closed nondisplaced fracture of proximal phalanx of left ring finger, initial encounter S62.645A Encounter type: initial encounter Finger: ring finger Fracture type: closed Phalanx: proximal Fracture alignment: nondisplaced Cellulitis of right lower extremity L03.115 Site of cellulitis: extremity Site of cellulitis of extremity: lower extremity Laterality: right Time Spent (min) 45 Assessment and Plan Assessment and Plan (1) Fracture of finger of left hand: Status: Acute Qualifiers: Encounter t (more content not included)... [facility] Emergency Department Summary on 03-03-2024 Emergency Department Summary [facility] Medical Records Department [address] [place] [address] Emergency Department Summary 03/03/24 MR#: [id number] Acct: [id number] Name: KAREN BLAIR Rep #: [id number] : 1970 53 From: Hussein Maharaj MD PCP: Dr. Marzena Johnson MD Status:REG ER Location: ED HPI History of Present Illness HPI Narrative: 53-year-old female tripped and fell outside manage on concrete injuring her left hand primarily at the MCP of the left small and ring finger and hitting her left shoulder. No head injury. No LOC. She is not on blood thinners. She is right-hand dominant. No prior surgery to the left upper extremity. Chief Complaint: Upper Extremity Injury Informant: patient and spouse/S.O. Occured/Mechanism Mechanism/Context: Yes injury and Yes blunt trauma Onset/Context/Timing Onset: Today and Hours Context: Sudden Onset Timing: Continuous Quality of Pain: Sharp Current Severity: Moderate Maximum Severity: Moderate Associated Symptoms Associated Symptoms: Negative for Parasthesia, Weakness or Loss of Funtion Narrative Narrative: 53-year-old tripped and fell outside injuring her left hand and left shoulder. Prior similar symptoms: No Recent Illness/Hospitalization : No PFSH PFSH Medical History Cataracts, bilateral Atrial tachycardia Palpitations Home Medications ???Medication ???Instructions ???Recorded ???Last Taken ???Type levothyroxine 112 mcg tablet 100 mcg PO DAILY 07/21/15 07/26/15 History metoprolol tartrate 25 mg tablet 12.5 mg (1/2 x 25 mg) PO BID #45 12/16/23 Unknown Rx tabs flecainide 50 mg tablet 100 mg PO Q12H 03/03/24 Unknown History Allergy/AdvReac Type Severity Reaction Status Date / Time Sulfa (Sulfonamide Allergy Intermediate Rash Verified 03/03/24 19:53 Antibiotics) vancomycin Allergy RED MAN Verified 03/03/24 19:53 SYNDROME Family History Brother Heart disease aortic stenosois Father Hypertension Cancer Atrial fibrillation Mother Cancer Atrial fibrillation Surgical History S/P removal of left ovary ( 2006) History of total hysterectomy History of dilation and curettage History of tubal ligation ( 2001) History of thyroidectomy, total Social History Smoking Status: Never smoker alcohol intake: never substance use type: does not use caffeine: No ROS ROS ED ROS Narrative Denies recent illness. Review of Systems ROS Unobtainable: Denies due to encephalopathy Constitutional Constitutional ED: Denies chills or fever(s) Eyes Eyes: Denies blurry vision ENT ENT ED: Denies ear pain Cardiovascular Cardiovascular: Denies chest pain Respiratory/Chest Respiratory/Chest: Denies cough or dyspnea Gastrointestinal Gastrointestinal: Denies abdominal pain or constipation Genitourinary Genitourinary ED: Denies dysuria or hematuria Musculoskeletal Musculoskeletal: Denies back pain or myalgias Integumentary Denies abscess or Abrasions Neurologic Neurologic: Denies headache(s) or paresthesias Psychiatric Psychiatric: Denies anxiety or depression Endocrine Endocrinology: Denies cold intolerance Hematologic/Lymphatic Hematologic/Lymphatic: Denies easy bleeding Allergic/Immunologic Allergic/Immunologic ED: Denies mouth swelling EXAM Physical Exam Narrative Exam Narrative: Well-appearing 53-year-old female. Vital signs are stable afebrile. H EENT exam pupils round react light. Extra motions are intact. No signs of trauma to her face or scalp. Neck nontender. T rachea midline. Back and spine nontender no signs of trauma. Lungs clear. Heart regular rhythm rate about 50-60. No murmur. Chest wall and ribs nontender. Pelvic girdle intact nontender. Abdomen soft nontender. Moving all 4 extremities. She has abrasion of left shoulder but has normal range of motion left shoulder no deformity. Distal left humerus, elbow, forearm and wrist are completely nontender with normal flexion extension of the wrist. She has deformity and swelling of her left hand left small finger and ring finger MCP. She is unable to completely flex and extend her left ring and small fingers due to pain and swelling. Normal touch sensation. Skin intact and without abrasions. Right upper or lower extremities are unremarkable. She is awake alert. GCS of 15. Const Vital Signs: 03/03/24 19:53 Temperature 96.9 F L Temperature Source Temporal Pulse Rate 50 L Respiratory Rate 15 Blood Pressure 138/83 H Blood Pressure Mean 101 Pulse Ox 100 Oxygen Delivery Method Room Air Positive well nourished and well developed; Negative for obese, cachectic, contra (more content not included)... Normal [facility] Hand Min 3 Viewson 4 Hand Min 3 Views [facility] Imaging Services [address] [place], [place] [id number] Hand Min 3 Views MR#: [id number] Acct: [id number] Name: KAREN BLAIR Rep #: [id number] : 1970 F 53 From: Lucian Monreal MD PCP: Dr. Marzena Johnson MD Status: DEP ER Study: Hand Min 3 Views Date of Exam: 03/03/24 Exam# [id number] Ordering [place]: [place] [id number] STUDY: X-RAY - LEFT HAND REASON FOR EXAM: Female, 53 years old. Trauma TECHNIQUE: 4 view(s) of the hand. COMPARISON: None. FINDINGS: Normal radiocarpal articulation. Normal distal radioulnar joint. Normal visualized carpal bones. Normal carpal articulations Normal carpometacarpal articulation of the thumb. Normal second through fifth carpometacarpal joints. Normal metacarpi. Normal metacarpophalangeal joint of the thumb. Normal interphalangeal joint of the thumb. Normal proximal and distal phalanges of the thumb. Normal metacarpophalangeal joints of the second through fifth fingers. Normal proximal and distal interphalangeal joints of the second through fifth fingers. There are acute fractures of the base of the fourth and fifth proximal phalanges. The soft tissue structures are unremarkable. RAD/Hand Min 3 Views IMPRESSION: Fractures of the fourth and fifth proximal phalanges. Electronically Signed: Lucian Monreal MD at 21:49 EDT Reading Location ID and State: [address] [place] [address] , Service support , CC: Dr. Marzena Johnson MD; Dr. Hussein Maharaj MD Parimutuel Clerk: Signed Normal [facility] Shoulder min 2 Viewson 03-03 Shoulder min 2 Views [facility] Imaging Services [address] [place] [id number] Shoulder min 2 Views MR#: [id number] Acct: [id number] Name: KAREN BLAIR Rep #: [id number] : 1970 F 53 From: Lucian Monreal MD PCP: Dr. Marzena Johnson MD Status: DEP ER Study: Shoulder min 2 Views Date of Exam: 03/03/24 Exam# [id number] Ordering Dr: [place] [id number] STUDY: X-RAY - LEFT SHOULDER REASON FOR EXAM: Female, 53 years old. Trauma TECHNIQUE: 2 view(s) of the shoulder. COMPARISON: None. FINDINGS: Normal glenohumeral articulation. Normal acromioclavicular joint. Normal acromion. Normal humeral head and visualized proximal humerus. The soft tissue structures are unremarkable. There is no demonstrated fracture. Normal visualized pulmonary apex. RAD/Shoulder min 2 Views IMPRESSION: Normal x-ray examination of the shoulder. Electronically Signed: Lucian Monreal MD at 21:47 EDT , CC: Dr. Marzena Johnson MD; Dr. Hussein Maharaj MD Parimutuel Clerk: Signed [facility] 01-17-2024 [facility] Telephone (FIDELINA) KAREN BLAIR ([id number]) 1970 F Date Time Provider Department 01/17/24 PUNEET SHEA During your visit today, we recorded the following information about you: Xenia Nino LPN 01/17/2024 9:43 AM Signed Patient called [facility] to report since starting Flecainide 50 mg BID on 01/13 she has experienced more frequent episodes throughout the day of fast/rapid HR. HR ranging 60-190 bpm at least 6 times a day, along with shortness of breath. Before starting Flecainide episodes of fast/rapid HR would be infrequent- not daily like it is now. CRESENCIO Munson Jennifer, LPN 01/17/2024 10:20 AM Signed Puneet Shea MD You22 minutes ago (9:57 AM) Sometimes this occurs with an in-between starting dose, she should try 100 mg twice daily Puneet Shea MD January 17, 2024 9:57 AM Xenia Nino LPN 01/17/2024 10:22 AM Signed Spoke with patient about recommendation to increase Flecainide to 100 mg twice daily. Patient verbalizes understanding and is agreeable. Xenia Nino LPN Allergies As of Date: 01/17/2024 Noted Allergy Reaction SULFA (SULFONAMIDE ANTIBIOTICS) 04/05/2016 2 - Rash VANCOMYCIN 01/02/2024 4 - Hives 9 - Itching Date Reviewed: 01/02/2024 Reviewed by: Puneet Shea MD - Fully Assessed Reason for Visit: Patient Update [1234] Prescriptions as of 01/17/2024 - flecainide (TAMBOCOR) 50 mg tablet Take 1 tablet by mouth every 12 hours. - metoprolol tartrate, short acting, (LOPRESSOR) 25 mg tablet Take 25 mg by mouth two times a day. 1/2 TAB TWICE DAILY - SYNTHROID 100 mcg tablet Take 100 mcg by mouth daily before breakfast. Problem List As Of Date 01/17/2024 Noted Resolved H/O Elizabeth thyroiditis [Z86.39] 04/05/2016 Papillary carcinoma of thyroid (HCC) [C73] 04/05/2016 H/O thyroidectomy 2011 [E89.0] 04/05/2016 Postoperative hypothyroidism [E89.0] 04/05/2016 Palpitations [R00.2] 01/01/2024 Paroxysmal supraventricular tachycardia (HCC) [*01/01/2024 Paroxysmal atrial tachycardia (HCC) [I47.19] 01/01/2024 Encounter Status:Closed by XENIA NINO on 01/17/24 [facility] KAREN BLAIR ([id number]) 1970 F Date Time Provider Department 01/10/24 PUNEET SHEA During your visit today, we recorded the following information about you: Deni Oropeza LPN 01/10/2024 3:38 PM Signed Pt called in reports she was to starton a new medication. Per chart review. It appears the rx did not go through. Please review sign and send if appropriate. Patient's request for medication is as follows: Requested Prescriptions Pending Prescriptions Disp Refills flecainide (TAMBOCOR) 50 mg tablet 60 tablet 2 Sig: Take 1 tablet by mouth every 12 hours. Last seen 01/02/2024 Prescription(s) as above. Please process accordingly. Deni Oropeza LPN Allergies As of Date: 01/10/2024 Noted Allergy Reaction SULFA (SULFONAMIDE ANTIBIOTICS) 04/05/2016 2 - Rash VANCOMYCIN 01/02/2024 4 - Hives 9 - Itching Date Reviewed: 01/02/2024 Reviewed by: Puneet Shea MD - Fully Assessed Reason for Visit: Orders [681] Primary Visit Diagnosis:Paroxysmal atrial tachycardia (HCC) [I47.19] Other Visit Diagnoses:Paroxysmal supraventricular tachycardia (HCC) [I47.10] Palpitations [R00.2] Order(s):flecainide (TAMBOCOR) 50 mg tabletTake 1 tablet by mouth every 12 hours.Disp: 60 tabletRfl: 2 Prescriptions as of 01/10/2024 - flecainide (TAMBOCOR) 50 mg tablet Take 1 tablet by mouth every 12 hours. - metoprolol tartrate, short acting, (LOPRESSOR) 25 mg tablet Take 25 mg by mouth two times a day. 1/2 TAB TWICE DAILY - SYNTHROID 100 mcg tablet Take 100 mcg by mouth daily before breakfast. 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 Encounter Status:Closed by PUNEET SHEA on 01/10/24 [facility] 01-02-2024 [facility] Office Visit (AGCARDPOB) KAREN BLAIR ([id number]) 1970 F Date Time Provider Department 01/02/24 2:20 PM PUNEET SHEA AGCARDPOB During your visit today, we recorded the following information about you: Pulse Blood pressure Weight Height 98/minute 103/68 70.3 kg 1.626 m Thalia Garcia MA 01/02/2024 2:20 PM Signed Patient denies cardiac complaints or symptoms. Puneet Shea MD 01/11/2024 10:32 PM Signed PRIMARY CARE PHYSICIAN: Marzena Johnson ([facility]) [address] [place] [address] REFERRING PHYSICIAN: Linda Orr [address] [address] Patient Care Team: Marzena Johnson MD as PCP - General (Family Medicine) Group, [facility] as Specialty Box Coverer Hand (Cardiology) Linda Orr MD as Specialty Box Coverer Hand (Cardiology) CHIEF COMPLAINT: Evaluation of arrhythmia HISTORY OF PRESENT ILLNESS: Ms. Blair is a 53 year old female who presents today for evaluation of arrhythmia. She is accompanied by her . First started having palpitations many years ago, but has changed over the years. She experiences palpitations every day, many times throughout the day. No obvious trigger. She avoids caffeine. A lot of the episodes are brief, a few minutes, she had an episode on 12/26/2023 that lasted over an hour, heart rates 190s - 200s bpm range. Another episode on 12/24/2023 with duration 30 minutes, heart rates 180s - 190s bpm range. Sometimes with episodes she has lightheadedness and her vision might change, might go all white or all colors. No syncope. Metoprolol since beginning of November, no improvement and possibly worse. I have confirmed and edited as necessary, the PFSH and ROS obtained by others. 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 Palpitations 01/01/2024 Papillary thyroid carcinoma (HCC) Paroxysmal atrial tachycardia (HCC) 01/01/2024 Paroxysmal supraventricular tachycardia (HCC) 01/01/2024 PAST SURGICAL HISTORY Procedure Laterality Date THYROIDECTOMY TOTAL/COMPLETE TOTAL ABDOMINAL HYSTERECT W/WO RMVL TUBE OVARY TUBAL LIGATION HX SOCIAL HISTORY Social History Tobacco Use Smoking status: Never Smokeless tobacco: Never Substance Use Topics Alcohol use: No FAMILY HISTORY Problem Relation Age of Onset Arrhythmia Mother atrial fibrillation Lymphoma Mother Diabetes Mother Arrhythmia Father atrial fibrillation Hypertension Father Parkinson?s Disease Father Heart Brother congenital aortic stenosis (? bicuspid valve) Arrhythmia Brother SVT, had ablation performed No Known Problems Half-sister No Known Problems Half-sister ALLERGIES: ALLERGIES Allergen Reactions Sulfa (Sulfonamide * Rash Vancomycin Hives, Itching MEDICATIONS: metoprolol tartrate, short acting, (LOPRESSOR) 25 mg tablet Take 25 mg by mouth two times a day. 1/2 TAB TWICE DAILY SYNTHROID 100 mcg tablet Take 100 mcg by mouth daily before breakfast. flecainide (TAMBOCOR) 50 mg tablet Take 1 tablet by mouth every 12 hours. REVIEW OF SYSTEMS: Review of Systems Constitutional: Negative for chills, fever and weight loss. Respiratory: Negative for cough, hemoptysis, sputum production and shortness of breath. Cardiovascular: Positive for palpitations. Negative for chest pain, orthopnea and PND. Gastrointestinal: Negative for abdominal pain, blood in stool, melena, nausea and vomiting. Genitourinary: Negative for dysuria and hematuria. Skin: Negative for rash. Neurological: Negative for focal weakness, seizures and loss of consciousness. PHYSICAL EXAMINATION: BP 103/68 Pulse 98 Ht 5' 4 (1.63m) Wt 155 lb (70.3kg) SpO2 100% BMI 26.59 kg/(m2). Physical Exam Vitals reviewed. Constitutional: General: She is not in acute distress. Appearance: Normal appearance. HENT: Head: Normocephalic and atraumatic. Cardiovascular: Rate and Rhythm: Normal rate and regular rhythm. Frequent Extrasystoles are present. Heart sounds: S1 normal and S2 normal. No murmur heard. No friction rub. Pulmonary: Effort: Pulmonary effort is normal. No respiratory distress. Breath sounds: Normal breath sounds. No wheezing, rhonchi or rales. Neurological: General: No focal deficit present. Mental Status: She is alert and oriented to person, place, and time. Psychiatric: Mood and Affect: Mood normal. Behavior: Behavior normal. Thought Content: Thought content normal. CARDIOVASCULAR MEDICINE TESTING: Electrocardiogram: Sinus rhythm with paroxysmal atrial tachycardia; incomplete right bundle branch block (QRS 102 ms); QTc 442 ms I have personally reviewed the Electrocardiogram. 1. Paroxysmal atrial tachycardia (HCC) - ICD9: 427.0, ICD10: I47.19 (primary diagnosis) (more content not included)... Normal [facility] ECG B/O W INTERP (MED OFFICE )on 01-02-2024 Interpretation and review of laboratory results Abnormal [facility] Sinus rhythm with paroxysmal atrial tachycardia; incomplete right bundle branch block (QRS 102 ms); QTc 442 ms [facility] Echo Completeon 12-18-2023 Echo Complete [facility] [address] [place] [address] Echo Complete 12/18/23 1514 MR#: [id number] Acct: [id number] Name: KAREN BLAIR Rep #: [id number] : 1970 53 From: Linda Orr MD Attending Dr: Dr. Linda Orr MD Status: REG CLI Ordering Dr: Linda Orr MD Date: 12/18/23 Location: [facility] Sex: F C Admitted: Reason For Study: Arrhythmia Procedure This was a 2D Doppler, Color Flow transthoracic echocardiogram. Exam performed in department. Left Ventricle Normal left ventricle. The left ventricular ejection fraction is 65 %. Normal diastololic function. Right Ventricle Normal right ventricle. A moderator band is seen in the right ventricle. Atria The left and right atria are normal. Mitral Valve Mild (1+) mitral valve insufficiency. Tricuspid Valve Mild tricuspid valve insufficiency. Right ventricular systolic pressure estimated to be 40 mmHg. Pulmonic Valve Trivial pulmonic valve insufficiency. Great Vessels Normal sized aortic root. Pericardium/Pleural No pericardial effusion. MMode/2D Measurements Calculations LVIDd: 4.8 cm IVSd: 0.88 cm LA dimension: 3.6 cm LVIDs: 2.9 cm LVPWd: 0.78 cm RVDd: 4.2 cm FS: 38.7 % LAV(MOD-bp): 53.4 ml LVAd ap4: 28.7 cm2 SV(MOD-sp4): 58.6 ml LAV(MOD-bp) Indexed: 30.6 ml/m2 LVLd ap4: 7.5 cm LAV(MOD-sp2): 51.0 ml EDV(MOD-sp4): 88.9 ml LAV(MOD-sp4): 56.0 ml EDV(sp4-el): 92.8 ml LVAs ap4: 14.9 cm2 LVLs ap4: 5.9 cm ESV(MOD-sp4): 30.3 ml ESV(sp4-el): 31.9 ml EF(MOD-sp4): 65.9 % EF(sp4-el): 65.7 % SV(sp4-el): 60.9 ml LA A4 area: 20.0 cm2 RA A4 area: 22.3 cm2 TAPSE: 2.2 cm Time Measurements MV dec time: 0.14 sec Doppler Measurements Calculations MV E max cortes: 75.8 cm/sec Lat Peak E' Cortes: 12.8 cm/sec Med Peak E' Cortes: 13.0 cm/sec MV A max cortes: 50.8 cm/sec E/E' lat: 5.9 E/E' med: 5.8 MV E/A: 1.5 MV V2 max: 97.6 cm/sec MV P1/2t max cortes: 97.6 cm/sec Ao V2 max: 158.1 cm/sec MV max P.8 mmHg MV P1/2t: 54.0 msec Ao max P.0 mmHg MV V2 mean: 45.2 cm/sec MV dec slope: 529.6 cm/sec2 Ao V2 mean: 114.5 cm/sec MV mean P.0 mmHg Ao mean P.0 mmHg MV V2 VTI: 25.9 cm MVA(P1/2t): 4.1 cm2 Ao V2 VTI: 41.0 cm AV (velocity ratio): 0.81 LV V1 max: 143.3 cm/sec MR max cortes: 459.1 cm/sec PA V2 max: 92.5 cm/sec LV V1 max P.2 mmHg MR max P.3 mmHg LV V1 mean P.5 mmHg LV V1 mean: 101.2 cm/sec LV V1 VTI: 33.2 cm TR max cortes: 250.1 cm/sec TR max P.0 mmHg ECHO/Echo Complete Interpretation Summary The left ventricular ejection fraction is 65 %. Mild (1+) mitral valve insufficiency. Mild tricuspid valve insufficiency. Right ventricular systolic pressure estimated to be 40 mmHg. Ordering Physician: Linda Orr Referring Physician: Marzena Johnson Performed By: Gordon Cornejo RCS 12/19/23 1221 Date Linda Orr MD CC: Dr. Linda Orr MD; Dr. Marzena Johnson MD Date Dictated: 12/18/231513 Date Transcribed: 12/19/23 1221 Parimutuel Clerk: Signed Normal [facility] Absolute lymphocyte countOrd ered By: Linda Orr on 11-20-2023 Lymphocytes Auto (Unsp spec) [#/Vol] 1.52 10*3/uL 0.83-4.51 [facility] Automated lymphocyte count a s percentage of total leukocytesOrdered By: Linda Orr on 11-20-2023 Lymphocytes/100 WBC Auto (Unsp spec) 32.1 % 19-41 [facility] Basophil percentageOrdered B y: Linda Orr on 11-20-2023 Basophils/100 WBC (Bld) 1.3 % 0-1 [facility] Bilirubin [Mass/Vol] 0.50 mg/dL 0.20-1.[address] [facility] Comment on above: For patients on eltr ombopag therapy, use of Dimension [place] TBIL is not recommended. Chloride [Moles/Vol] 109 mmol/L 98-[address] [facility] Eosinophils/100 WBC (Bld) 1.5 % 0-5 [facility] Glucose [Mass/Vol] 80 mg/dL 74-106 [facility] Hemoglobin (Bld) [Mass/Vol] 13.8 g/dL 12.0-15.0 [facility] Monocytes/100 WBC (Bld) 4.4 % 0-10 [facility] Neutrophils (Bld) [#/Vol] 2.9 10*3/uL 2.0-7.7 [facility] Neutrophils/100 WBC (Bld) 60.5 % 47-70 [facility] Potassium [Moles/Vol] 3.6 mmol/L 3.5-5.1 [facility] Protein [Mass/Vol] 7.5 g/dL 6.4-8.2 [facility] Sodium [Moles/Vol] 141 mmol/L 136-145 [facility] WBC (Bld) [#/Vol] 4.7 10*3/uL 4.4-11.0 [facility] CBC W/Diff, Automatedon 10-25 Absolute Lymph 1.52 X10 3/uL Normal 0.83-4.51 [facility] Comment on above: Performed By: #### L 501.9520, L100.0100, L501.5200, L500.4050 ####[facility] [address] [place], [address] Absolute Neut 2.9 X10 3/uL Normal 2.0-7.7 [facility] Comment on above: Performed By: #### L 501.9520, L100.0100, L501.5200, L500.4050 ####[facility] [address] [place], [address] Basophils/100 WBC (Bld) 1.3 % High 0-1 [facility] Comment on above: Performed By: #### L 501.9520, L100.0100, L501.5200, L500.4050 ####[facility] [address] [place], [address] Eosinophils/100 WBC (Bld) 1.5 % Normal 0-5 [facility] Comment on above: Performed By: #### L 501.9520, L100.0100, L501.5200, L500.4050 ####[facility] [address] [place], [address] Erythrocyte distribution width (RBC) [Ratio] 11.9 % Normal 11.6-14.6 [facility] Comment on above: Performed By: #### L 501.9520, L100.0100, L501.5200, L500.4050 ####[facility] [address] [place], [address] Hematocrit (Bld) [Volume fraction] 42.2 % Normal 37-47 [facility] Comment on above: Performed By: #### L 501.9520, L100.0100, L501.5200, L500.4050 ####[facility] [address] [place], [address] Hemoglobin (Bld) [Mass/Vol] 13.8 g/dL Normal 12.0-15.0 [facility] Comment on above: Performed By: #### L 501.9520, L100.0100, L501.5200, L500.4050 ####[facility] [address] [place], [address] IG% 0.200 Normal 0.0-0.9 [facility] Comment on above: Result Comment: IG% - Immature Granulocytes (promyelocytes, myelocytes and metamyelocytes) > 1% indicates that a LEFT SHIFT is Present. Performed By: #### L 501.9520, L100.0100, L501.5200, L500.4050 ####[facility] [address] [place], [address] Lymphocytes/100 WBC (Bld) 32.1 % Normal 19-41 [facility] Comment on above: Performed By: #### L 501.9520, L100.0100, L501.5200, L500.4050 ####[facility] [address] [place], [address] MCH (RBC) [Entitic mass] 30.2 pg Normal 27.0-32.0 [facility] Comment on above: Performed By: #### L 501.9520, L100.0100, L501.5200, L500.4050 ####[facility] [address] [place], [address] MCHC (RBC) [Mass/Vol] 32.7 g/dL Normal 32-36 [facility] Comment on above: Performed By: #### L 501.9520, L100.0100, L501.5200, L500.4050 ####[facility] [address] [place], [address] MCV (RBC) [Entitic vol] 92.3 fL Normal 81-99 [facility] Comment on above: Performed By: #### L 501.9520, L100.0100, L501.5200, L500.4050 ####[facility] [address] [place], [address] Monocytes/100 WBC (Bld) 4.4 % Normal 0-10 [facility] Comment on above: Performed By: #### L 501.9520, L100.0100, L501.5200, L500.4050 ####[facility] [address] [place], [address] Neutrophils/100 WBC (Bld) 60.5 % Normal 47-70 [facility] Comment on above: Performed By: #### L 501.9520, L100.0100, L501.5200, L500.4050 ####[facility] [address] [place], [address] Nucleated RBC (Bld) [#/Vol] 0 10*3/uL Normal 0-5 [facility] Comment on above: Performed By: #### L 501.9520, L100.0100, L501.5200, L500.4050 ####[facility] [address] [place], [address] Platelet mean volume (Bld) [Entitic vol] 10.8 fL Normal 6.2-12.0 [facility] Comment on above: Performed By: #### L 501.9520, L100.0100, L501.5200, L500.4050 ####[facility] [address] [place], [address] Platelets (Bld) [#/Vol] 212 10*3/uL Normal 150-450 [facility] Comment on above: Performed By: #### L 501.9520, L100.0100, L501.5200, L500.4050 ####[facility] [address] [place], [address] RBC (Bld) [#/Vol] 4.57 10*6/uL Normal 4.2-5.4 [facility] Comment on above: Performed By: #### L 501.9520, L100.0100, L501.5200, L500.4050 ####[facility] [address] [place], [address] RDW SD 40.4 fl Normal 35.1-43.9 [facility] Comment on above: Performed By: #### L 501.9520, L100.0100, L501.5200, L500.4050 ####[facility] [address] [place], [address] WBC (Bld) [#/Vol] 4.7 10*3/uL Normal 4.4-11.0 [facility] Comment on above: Performed By: #### L 501.9520, L100.0100, L501.5200, L500.4050 ####[facility] [address] [place], [address] Cardiology Visit Reporton Cardiology Visit Report [facility] [address] [place] [address] OFFICE VISIT Date of Service: 11/20/23 MR#: [id number] Acct: [id number] Name: KAREN BLAIR Rep #: [id number] : 1970 Provider: Dr. Linda Orr MD Age/Sex: 53/F Location[place] [facility] [place] Status: Signed [facility] History of Present Illness Details: This lady has a past medical history significant for palpitations. According to her, she has been having palpitations for many years now however recently she has noted them to get worse. She gets these episodes several times a day. Last for a few seconds to less than a minute. Rare lightheadedness associated with that. According to her, if her heart rate goes too fast with it, she does feel some shortness of breath. No chest pain. No associated flushing. No syncope or presyncope. She is going through menopause and has been having intermittent hot flashes but these are not typically associated with her palpitations. Patient recently had Holter monitoring ordered by her primary care physician. It is reported as showing runs of atrial tachycardia. EKG done at the primary care physician's office was unremarkable. Denies any chest pains or shortness of breath with exertion. No orthopnea. No PND. No ankle edema. Denies any excessive caffeine intake. No energy drinks. No illicit substance abuse. No EtOH abuse. 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 Accompanied by: Is patient in pain?: No Allergies Sulfa (Sulfonamide Antibiotics) Allergy (Intermediate, Verified 11/20/23 11:55) Rash vancomycin Allergy (Verified 11/20/23 11:55) RED MAN SYNDROME Medications levothyroxine 112 mcg tablet 112 mcg PO DAILY 07/21/15 [History Confirmed 11/20/23] PFSH Medical History Atrial tachycardia Palpitations Surgical History History of dilation and curettage History of thyroidectomy, total History of total hysterectomy History of tubal ligation ( 2001) S/P removal of left ovary ( 2006) Family History (Updated 11/20/23 @ 11:57 by Ama Sanchez RN) Brother Heart disease aortic stenosois Father Hypertension Cancer Atrial fibrillation Mother Cancer Atrial fibrillation Social History (Updated 11/20/23 @ 11:56 by Ama Sanchez RN) Smoking Status: Never smoker alcohol intake: never substance use type: does not use caffeine: No ROS Const Const: Negative for fatigue or weakness ENT ENT: Negative for dizziness or balance problems Cardio Chest Pain: No Palpitations: No Edema: None Muscle aches with walking: None Resp Respiratory: Negative for SOB with activity, SOB at rest or SOB orthopnea SOB lying down GI GI: Negative nausea, vomiting or heartburn Musc Musc: Negative for muscle weakness or balance problems Neuro Neuro: Negative for dizziness, lightheadedness, near syncope, syncope or weakness Endo Endo: Negative for fatigue Cardiology Exam Const Appearance: comfortable and no acute distress Nutritional Appearance: well nourished Neck Neck: no JVD Carotids: Negative bruit Chest Auscultation: Bilateral: Clear to Auscultation Cardio Rate: regular rate Rhythm: regular rhythm Heart sounds: S1 normal and S2 normal Neuro General: patient alert, patient awake and patient oriented x3 Extremities Lower Extremity Edema: None: Bilateral Supplemental Info Supplemental Information Right heart catheterization from 04/12/2016: Conclusions: 1. Normal right heart filling pressures. No evidence of pulmonary hypertension. 2. Normal pulmonary capillary wedge pressure. 3. Normal cardiac output and index. 4. No evidence of left to right shunting. 5. Normal pulmonary vascular resistance. Echocardiogram from 01/24/2015: Interpretation Summary Left ventricular systolic function is normal. The estimated ejection fraction is 65%. Apical false tendon noted. The left atrium is mildly enlarged. Mild mitral valve prolapse. Mild diffuse mitral valve thickening. Mild (1+) mitral valve insufficiency. Moderate (2+) tricuspid valve insufficiency. Right ventricular systolic pressure estimated to be 46 mmHg. Bubble contrast study negative for rqeuc-gc-cfsf interatrial shunt Assessment and Plan Assessment and Plan (1) Atrial tachycardia: Status: Chronic Plan: Started on metoprolol 12.5 mg twice daily. As the patient's baseline heart rate is on the slower side, I doubt if he will be able to escalate the beta-foster dose. I will re (more content not included)... Normal [facility] Comprehensive Metabolic Prof ilon 11-20-2023 Albumin [Mass/Vol] 3.8 g/dL Normal 3.2-5.0 [facility] Comment on above: Performed By: #### L 501.9520, L100.0100, L501.5200, L500.4050 ####[facility] [address] [place], [place], [id number] Albumin/Globulin [Mass ratio] 1.0 {ratio} Normal 0.9-2.4 [facility] Comment on above: Performed By: #### L 501.9520, L100.0100, L501.5200, L500.4050 ####[facility] [address] [place], [address] ALK P 79 U/L Normal 45-117 [facility] Comment on above: Performed By: #### L 501.9520, L100.0100, L501.5200, L500.4050 ####[facility] [address] [place], [address] ALT [Catalytic activity/Vol] 33 U/L Normal 13-56 [facility] Comment on above: Performed By: #### L 501.9520, L100.0100, L501.5200, L500.4050 ####[facility] [address] [place], [address] AST [Catalytic activity/Vol] 25 U/L Normal 15-37 [facility] Comment on above: Performed By: #### L 501.9520, L100.0100, L501.5200, L500.4050 ####[facility] [address] [place], [address] Bilirubin [Mass/Vol] 0.50 mg/dL Normal 0.20-1.[address] [facility] Comment on above: Result Comment: For patients on eltrombopag therapy, use of Dimension [place] TBIL is not recommended. Performed By: #### L 501.9520, L100.0100, L501.5200, L500.4050 ####[facility] [address] [place], [address] BUN/CRE 18.9 RATIO Normal 10-20 [facility] Comment on above: Performed By: #### L 501.9520, L100.0100, L501.5200, L500.4050 ####[facility] [address] [place], [address] CA,Total 9.0 mg/dL Normal 8.5-10.1 [facility] Comment on above: Performed By: #### L 501.9520, L100.0100, L501.5200, L500.4050 ####[facility] [address] [place], [address] Chloride [Moles/Vol] 109 mmol/L High 98-[address] [facility] Comment on above: Performed By: #### L 501.9520, L100.0100, L501.5200, L500.4050 ####[facility] [address] [place], [address] CO2 [Moles/Vol] 29.0 mmol/L Normal 21.0-32.0 [facility] Comment on above: Performed By: #### L 501.9520, L100.0100, L501.5200, L500.4050 ####[facility] [address] [place], [address] Creatinine [Mass/Vol] 0.85 mg/dL Normal 0.55-1.02 [facility] Comment on above: Result Comment: The validity of the calculated GFR GFRAA in patients over 70 years has not been determined. Clinical correlation is essential. Performed By: #### L 501.9520, L100.0100, L501.5200, L500.4050 ####[facility] [address] [place], [address] EST GFR - AA 91 mL/min Normal >60 [facility] Comment on above: Result Comment: Afri can Cook Islander GFR Calc Performed By: #### L 501.9520, L100.0100, L501.5200, L500.4050 ####[facility] [address] [place], [address] GAP 3 Low 5-15 [facility] Comment on above: Performed By: #### L 501.9520, L100.0100, L501.5200, L500.4050 ####[facility] [address] [place], [address] GFR/1.73 sq M.predicted among non-blacks MDRD (S/P/Bld) [Vol rate/Area] 75 mL/min/{1.73_m2} Normal >60 [facility] Comment on above: Result Comment: Non- GFR Calc Performed By: #### L 501.9520, L100.0100, L501.5200, L500.4050 ####[facility] [address] [place], [address] Globulin (S) [Mass/Vol] 3.7 g/dL Normal 2.2-4.2 [facility] Comment on above: Performed By: #### L 501.9520, L100.0100, L501.5200, L500.4050 ####[facility] [address] [place], [address] Glucose [Mass/Vol] 80 mg/dL Normal 74-106 [facility] Comment on above: Performed By: #### L 501.9520, L100.0100, L501.5200, L500.4050 ####[facility] [address] [place], [address] Potassium [Moles/Vol] 3.6 mmol/L Normal 3.5-5.1 [facility] Comment on above: Performed By: #### L 501.9520, L100.0100, L501.5200, L500.4050 ####[facility] [address] [place], [address] Sodium [Moles/Vol] 141 mmol/L Normal 136-145 [facility] Comment on above: Performed By: #### L 501.9520, L100.0100, L501.5200, L500.4050 ####[facility] [address] [place], [address] T PROT 7.5 g/dL Normal 6.4-8.2 [facility] Comment on above: Performed By: #### L 501.9520, L100.0100, L501.5200, L500.4050 ####[facility] [address] [place], [address] Urea nitrogen [Mass/Vol] 16 mg/dL Normal 7-18 [facility] Comment on above: Performed By: #### L 501.9520, L100.0100, L501.5200, L500.4050 ####[facility] [address] [place], [address] Determination of erythrocyte mean corpuscular volume (MCV)Ordered By: Linda Orr on 11-20-2023 MCV (RBC) [Entitic vol] 92.3 fL 81-99 [facility] Erythrocyte distribution wid th ratioOrdered By: Linda Kirby on 11-20-2023 Erythrocyte distribution width (RBC) [Ratio] 11.9 % 11.6-14.6 [facility] Erythrocyte distribution wid th standard deviationOrdered By: Lindagoyo Orr on 11-20-2023 Erythrocyte distribution width (RBC) [Entitic vol] 40.4 fL 35.1-43.9 [facility] Hematocrit Auto (Bld) [Volum e fraction]Ordered By: Linda Kirby on 11-20-2023 Hematocrit (Bld) [Volume fraction] 42.2 % 37-47 [facility] Immature granulocytes/100 WB C Auto (Bld)Ordered By: Lindagoyo Orr on 11-20-2023 Immature granulocytes/100 WBC (Bld) 0.200 % 0.0-0.9 [facility] Comment on above: IG% - Immature Granu locytes (promyelocytes, myelocytes and metamyelocytes) > 1% indicates that a LEFT SHIFT is Present. Laboratory - Chemistry and C hemistry - challengeOrdered By: Linda Orr on 11-20-2023 Albumin/Globulin [Mass ratio] 1.0 {ratio} 0.9-2.4 [facility] ALP [Catalytic activity/Vol] 79 U/L 45-117 [facility] ALT [Catalytic activity/Vol] 33 U/L 13-56 [facility] CO2 [Moles/Vol] 29.0 mmol/L 21.0-32.0 [facility] Globulin (S) [Mass/Vol] 3.7 g/dL 2.2-4.2 [facility] Magnesium [Mass/Vol] 2.0 mg/dL 1.6-2.[address] [facility] Urea nitrogen/Creatinine [Mass ratio] 18.9 mg/mg 10-20 [facility] Laboratory - Hematology and Cell countsOrdered By: Linda Orr on 11-20-2023 MCH (RBC) [Entitic mass] 30.2 pg 27.0-32.0 [facility] MCHC (RBC) [Mass/Vol] 32.7 g/dL 32-36 [facility] Nucleated RBC/100 WBC (Bld) [Ratio] 0 % 0-5 [facility] Platelet mean volume (Bld) [Entitic vol] 10.8 fL 6.2-12.0 [facility] Platelets (Bld) [#/Vol] 212 10*3/uL 150-450 [facility] Magnesiumon 11-20-2023 Magnesium [Mass/Vol] 2.0 mg/dL Normal 1.6-2.[address] [facility] Comment on above: Performed By: #### L 501.9520, L100.0100, L501.5200, L500.4050 ####[facility] [address] [place], [address] No Panel InformationOrdered By: Linda Orr on 11-20-2023 Estimated GFR (MDRD) Amer 91 mL/min >60 [facility] Comment on above: GFR Calc Estimated GFR (MDRD) Non-Af Amer 75 mL/min >60 [facility] Comment on above: Non- GFR Calc RBC Auto (Bld) [#/Vol]Ordere d By: Linda Orr on 11-20-2023 RBC (Bld) [#/Vol] 4.57 10*6/uL 4.2-5.4 [facility] Serum or plasma calcium coleen urement (mass/volume)Ordered By: Linda Orr on 11-20-2023 Calcium [Mass/Vol] 9.0 mg/dL 8.5-10.1 [facility] Serum or plasma creatinine m easurement (mass/volume)Ordered By: Linda Orr on 11-20-2023 Creatinine [Mass/Vol] 0.85 mg/dL 0.55-1.02 [facility] Comment on above: The validity of the calculated GFR & GFRAA in patients over 70 years has not been determined. Clinical correlation is essential. Serum or plasma thyroid stim ulating hormone (TSH) measurement (units/volume)Ordered By: Linda Orr on 11-20-2023 TSH Qn 0.88 uIU/mL 0.358-3.74 [facility] Serum or plasma urea nitroge n measurement (mass/volume)Ordered By: Linda Orr on 11-20-2023 Urea nitrogen [Mass/Vol] 16 mg/dL 7-18 [facility] Thin prep Papanicolaou smear with manual screeningOrdered By: Linda Orr on 11-20-2023 Thin prep Papanicolaou smear with manual screening 3.8 g/dL 3.2-5.0 [facility] Thin prep Papanicolaou smear with manual screening 25 U/L 15-37 [facility] Thin prep Papanicolaou smear with manual screening 3 5-15 [facility] Thyroid Stim Hormone (TSH)on 11-20-2023 TSH 0.88 uIU/mL Normal 0.358-3.74 [facility] Comment on above: Performed By: #### L 501.9520, L100.0100, L501.5200, L500.4050 ####[facility] [address] [place], [place], [address] Basophil percentageon 2021 Chloride [Moles/Vol] 108 mmol/L 98-[address] [facility] Work Phone: Cholesterol [Mass/Vol] 188 mg/dL <200 [facility] Work Phone: Comment on above: <200 mg/dL Desirable 200-240 mg/dL Borderline >240 mg/dL High Risk Glucose [Mass/Vol] 81 mg/dL 74-106 [facility] Work Phone: Potassium [Moles/Vol] 4.5 mmol/L 3.5-5.1 [facility] Work Phone: Sodium [Moles/Vol] 142 mmol/L 136-145 [facility] Work Phone: Triglyceride [Mass/Vol] 29 mg/dL <199 [facility] Work Phone: Comment on above: The drugs N-Acetylcy steine and Metamizole may falsely depress this assay.Serum Triglycerides Reference Interval Normal <150 mg/dL Borderline high 150 - 199 mg/dL High 200 - 499 mg/dL Very High > or = 500 mg/dL Laboratory - Chemistry and C hemistry - challengeon 07-11-2022 CO2 [Moles/Vol] 29.0 mmol/L 21.0-32.0 [facility] Work Phone: Free T4 [Mass/Vol] 1.11 ng/dL 0.76-1.46 [facility] Work Phone: Urea nitrogen/Creatinine [Mass ratio] 26.8 mg/mg 10-20 [facility] Work Phone: No Panel Informationon 07-11 Estimated GFR (MDRD) Amer 113 mL/min >60 [facility] Work Phone: Comment on above: GFR Calc Estimated GFR (MDRD) Non-Af Amer 93 mL/min >60 [facility] Work Phone: Comment on above: Non- GFR Calc Thyroid Stimulating Hormone (TSH) 0.15 uIU/mL 0.358-3.74 [facility] Work Phone: Vitamin D 25-Hydroxy 51.2 ng/mL [facility] Work Phone: Comment on above: Vitamin D 25(OH) Sta tus Range Deficiency <20 ng/mL (50nmol/L) Insufficiency 20 - 30 ng/mL (50 - 75 nmol/L) Sufficiency 30 - 100 ng/mL (75 - 250 nmol/L) Toxicity >100 ng/mL (>250 nmol/L) Serum or plasma calcium coleen urement (mass/volume)on 07-11-2022 Calcium [Mass/Vol] 9.5 mg/dL 8.5-10.1 [facility] Work Phone: Serum or plasma cholesterol in HDL measurement (mass/volume)on 07-11-2022 Cholesterol in HDL [Mass/Vol] 84 mg/dL >40 [facility] Work Phone: Comment on above: The drugs N-Acetylcy steine and Metamizole may falsely depress this assay. Reference Range HDL <40 mg/dL Low HDL Cholesterol HDL >or= 60 mg/dL High HDL Cholesterol Serum or plasma cholesterol in VLDL measurement (mass/volume)on 07-11-2022 Cholesterol in VLDL [Mass/Vol] 6 mg/dL 5-40 [facility] Work Phone: Serum or plasma creatinine m easurement (mass/volume)on 07-11-2022 Creatinine [Mass/Vol] 0.71 mg/dL 0.55-1.02 [facility] Work Phone: Comment on above: The validity of the calculated GFR & GFRAA in patients over 70 years has not been determined. Clinical correlation is essential. Serum or plasma low density lipoprotein (LDL) cholesterol measurement (mass/volume)on 07-11-2022 Cholesterol in LDL [Mass/Vol] 98 mg/dL 0-130 [facility] Work Phone: Serum or plasma urea nitroge n measurement (mass/volume)on 07-11-2022 Urea nitrogen [Mass/Vol] 19 mg/dL 7-18 [facility] Work Phone: Thin prep Papanicolaou smear with manual screeningon 07-11-2022 Thin prep Papanicolaou smear with manual screening 5 5-15 [facility] Work Phone: LIPID PANEL ([id number])Ordered B y: Revenue Cycle Specialist on 06-20-2016 Cholesterol [Mass/Vol] 197 mg/dL Normal 100-199 [facility] Work Phone: Comment on above: PATIENT WAS FASTINGP ERFORMED BY: [facility] [id number] Cholesterol in HDL [Mass/Vol] 79 mg/dL Normal [facility] Work Phone: Comment on above: According to ATP-III Guidelines, HDL-C >59 mg/dL is considered anegative risk factor for CHD. PATIENT WAS FASTINGP ERFORMED BY: SOPHIE [facility] [address] [place] [id number] Cholesterol in LDL [Mass/Vol] 110 mg/dL Abnormal 0-99 [facility] Work Phone: Comment on above: PATIENT WAS FASTINGP ERFORMED BY: SOPHIE [facility] [address]odb[address] [facility] [id number] Cholesterol in LDL/Cholesterol in HDL [Mass ratio] 1.4 {ratio_units} Normal 0.0-3.2 [facility] Work Phone: Comment on above: LDL/HDL Ratio Men Wo men 1/2 Avg.Risk 1.0 1.5 Avg.Risk 3.6 3.2 2X Avg.Risk 6.2 5.0 3X Avg.Risk 8.0 6.1 PATIENT WAS FASTINGP ERFORMED BY: SOPHIE [facility] [address] [facility] [id number] Cholesterol in VLDL [Mass/Vol] 8 mg/dL Normal 5-40 [facility] Work Phone: Comment on above: PATIENT WAS FASTINGP ERFORMED BY: SOPHIE [facility] [address] [facility] [id number] Triglyceride [Mass/Vol] 39 mg/dL Normal 0-149 [facility] Work Phone: Comment on above: PATIENT WAS FASTINGP ERFORMED BY: SOPHIE [facility] [address] [facility] [place] [id number] MELCHOR (ANTINUCLEAR ANTIBODY) ( [id number])Ordered By: Revenue Cycle Specialist on 07-07-2014 Nuclear Ab Ql (S) Negative Normal [facility] Work Phone: Comment on above: PATIENT NOT FASTINGP ERFORMED BY: SOPHIE [facility] Nex[address]zz[address] [facility] [place] [id number] Nuclear Ab Ql (S) Negative Normal Compreh ensive [facility]; [facility] Work Phone: Comment on above: PATIENT NOT FASTINGP ERFORMED BY: SOPHIE [employer] Mdbumh[address] [facility] [id number] C-REACTIVE PROTEIN ([id number])Or dered By: Revenue Cycle Specialist on 07-07-2014 CRP [Mass/Vol] 0.9 mg/L Normal 0.0-4.9 Comprehens karime [facility] Work Phone: Comment on above: PATIENT NOT FASTINGP ERFORMED BY: SOPHIE [employer] CorpKatelyn [place] [id number] [facility] [id number] CMV ANTIBODY ([id number])Ordered By: Revenue Cycle Specialist on 07-07-2014 CMV IgG IA Qn <0.60 Normal 0.00-0.59 Comprehensi ve [facility] Work Phone: Comment on above: Negative <0.60 Equiv ocal 0.60 - 0.69 Positive >0.69 PATIENT NOT FASTINGP ERFORMED BY: SOPHIE [employer] CorpRutgers - University Behavioral HealthCareWrdxco3125 [facility] [id number] CMV IGM ANTBDY ([id number])Ordere d By: Revenue Cycle Specialist on 07-07-2014 CMV IgM IA Qn <30.0 Normal 0.0-29.9 Compre[facility]si ve [facility] Work Phone: Comment on above: Negative <30.0 Equiv ocal 30.0 - 34.9 Positive >34.9 A positive result is generally indicative of acute infection, reactivation or persistent IgM production. PATIENT NOT FASTINGP ERFORMED BY: SOPHIE [employer] CorpRutgers - University Behavioral HealthCareOhkxpd5436 [facility] [id number] EB ANTIBODY VIRAL CAPSID ([id number]) Q4Zqjlmtl By: Revenue Cycle Specialist on 07-07-2014 EBV capsid IgG IA Qn (S) >600.0 Abnormal 0.0-17.9 [facility] Work Phone: Comment on above: Negative <18.0 Equiv ocal 18.0 - 21.9 Positive >21.9 PATIENT NOT FASTINGP ERFORMED BY: SOPHIE [employer] CorpKatelyn [place] [id number] [facility] [id number] EBV capsid IgM IA Qn (S) <36.0 Normal 0.0-35.9 [facility] Work Phone: Comment on above: Negative <36.0 Equiv ocal 36.0 - 43.9 Positive >43.9 PATIENT NOT FASTINGP ERFORMED BY: [employer]70 [facility]Allegh[facility] [id number] EBV early IgG Qn (S) 102.0 U/mL Abnormal 0.0-8.9 [facility] Work Phone: Comment on above: Hepatitis A, Hepatit is C and HIV antibodies may cross- reactwith this assay. Negative < 9.0 Equivocal 9.0 - 10.9 Positive >10.9 PATIENT NOT FASTINGP ERFORMED BY: [employer]70 [facility] [id number] EBV nuclear IgG IA Qn (S) 142.0 U/mL Abnormal 0.0-17.9 [facility] Work Phone: Comment on above: Negative <18.0 Equiv ocal 18.0 - 21.9 Positive >21.9 PATIENT NOT FASTINGP ERFORMED BY: MintigoAlleghany Health [id number] EB ANTIBODY VIRAL CAPSID ([id number]) X2 SPRCS Normal [facility] Work Phone: Comment on above: EBV Interpretation C deras . Interpretation EBV-IgM VCA-IgG EBNA-IgG EA(D)-IgG . EBV Seronegative - - - - Early Phase + - - - Acute Primary + + - +or- Infection Convalescence/Past - + + +or- Infection Reactivated +or- + + + Infection + Antibody Present - Antibody Absent PATIENT NOT FASTINGP ERFORMED BY: Rockpack6370 [facility] [id number] LDH (LD) (LACTATE DEHYDROGEN ASE) ([id number])Ordered By: Revenue Cycle Specialist on 07-07-2014 LDH [Catalytic activity/Vol] 184 [iU]/L Normal 119-226 [facility] Work Phone: Comment on above: Please note refere nce interval change PATIENT NOT FASTINGP ERFORMED BY: [facility] [address] RoadDublin [place] [id number] LDH [Catalytic activity/Vol] 184 U/L Normal 119-226 [facility]; [facility] Work Phone: Comment on above: Please note refere nce interval change PATIENT NOT FASTINGP ERFORMED BY: CB [facility] Ruwefq[address] RoadDublin [place] [id number] METABOLIC PANEL, COMPREHENSI VE ([id number])Ordered By: Revenue Cycle Specialist on 07-07-2014 Albumin [Mass/Vol] 4.6 g/dL Normal 3.5-5.5 [facility] Work Phone: Comment on above: PATIENT NOT FASTINGP ERFORMED BY: SOPHIE [facility] Wixviz[address] RoadDublin [place] [id number] Information: [id number] Albumin/Globulin [Mass ratio] 1.5 {ratio} Normal 1.1-2.5 [facility] Work Phone: Comment on above: PATIENT NOT FASTINGP ERFORMED BY: CB [facility] Sofcpv[address] RoadDublin [place] [id number] Information: [id number] ALP [Catalytic activity/Vol] 73 [iU]/L Normal 39-117 [facility] Work Phone: Comment on above: PATIENT NOT FASTINGP ERFORMED BY: CB [facility] [address]weyx[address] Road[address]ublin [place] [id number] Information: [id number] ALP [Catalytic activity/Vol] 73 U/L Normal 39-117 [facility]; [facility] Work Phone: Comment on above: PATIENT NOT FASTINGP ERFORMED BY: CB [facility] [address]ak[address] RoadDublin [place] [id number] Information: [id number] ALT [Catalytic activity/Vol] 18 [iU]/L Normal 0-32 [facility] Work Phone: Comment on above: PATIENT NOT FASTINGP ERFORMED BY: CB [facility] Z[address]so[address] [facility] [place] [id number] Information: [id number] ALT [Catalytic activity/Vol] 18 U/L Normal 0-32 [facility]; [facility] Work Phone: Comment on above: PATIENT NOT FASTINGP ERFORMED BY: SOPHIE [facility] Tztruo[address] [facility] [place] [id number] Information: [id number] AST [Catalytic activity/Vol] 25 [iU]/L Normal 0-40 [facility] Work Phone: Comment on above: PATIENT NOT FASTINGP ERFORMED BY: SOPHIE [facility] H[address]es[address] [facility] Hospital[facility] [place] [id number] Information: [id number] AST [Catalytic activity/Vol] 25 U/L Normal 0-40 [facility]; [facility] Work Phone: Comment on above: PATIENT NOT FASTINGP ERFORMED BY: SOPHIE [facility] Zjlald[address] [facility] [place] [id number] Information: [id number] Bilirubin [Mass/Vol] 0.3 mg/dL Normal 0.0-1.2 [facility] Work Phone: Comment on above: PATIENT NOT FASTINGP ERFORMED BY: SOPHIE [facility] [address]jiewe[address] [facility] [id number] Information: [id number] Calcium [Mass/Vol] 9.7 mg/dL Normal 8.7-10.2 [facility] Work Phone: Comment on above: PATIENT NOT FASTINGP ERFORMED BY: CB [facility] Zxjrzl[address] Road[address]ublin [place] [id number] Information: [id number] Chloride [Moles/Vol] 103 mmol/L Normal 97-108 [facility] Work Phone: Comment on above: PATIENT NOT FASTINGP ERFORMED BY: CB [facility] Vg[address]al[address] Road[address] [place] [id number] Information: [id number] CO2 [Moles/Vol] 20 mmol/L Normal 18-29 [facility] Work Phone: Comment on above: PATIENT NOT FASTINGP ERFORMED BY: CB [facility] Fboasv5708 [facility] [id number] Information: [id number] Creatinine [Mass/Vol] 0.77 mg/dL Normal 0.57-1.00 [facility] Work Phone: Comment on above: PATIENT NOT FASTINGP ERFORMED BY: LabCoKatelyn Ville [id number] [facility] [id number] Information: [id number] GFR/1.73 sq M predicted among blacks CKD-EPI (S/P/Bld) [Vol rate/Area] 111 mL/min/1.73 Normal [facility] Work Phone: Comment on above: PATIENT NOT FASTINGP ERFORMED BY: LabCoRutgers - University Behavioral HealthCareKnvnra8349 [facility] [id number] Information: [id number] GFR/1.73 sq M predicted among non-blacks CKD-EPI (S/P/Bld) [Vol rate/Area] 96 mL/min/1.73 Normal [facility] Work Phone: Comment on above: PATIENT NOT FASTINGP ERFORMED BY: [facility] Zmdavt3946 [facility] [id number] Information: [id number] Globulin (S) [Mass/Vol] 3.0 g/dL Normal 1.5-4.5 [facility] Work Phone: Comment on above: PATIENT NOT FASTINGP ERFORMED BY: [facility] Xuixkh2375 [facility] [id number] Information: [id number] Glucose [Mass/Vol] 83 mg/dL Normal 65-99 [facility] Work Phone: Comment on above: PATIENT NOT FASTINGP ERFORMED BY: CB LabCoRutgers - University Behavioral HealthCareSbkbhp6206 [facility] [id number] Information: [id number] Potassium [Moles/Vol] 4.2 mmol/L Normal 3.5-5.2 [facility] Internal Medicine Work Phone: Comment on above: PATIENT NOT FASTINGP ERFORMED BY: SOPHIE LabCo Yyxjjf0761 [facility] [id number] Information: [id number] Protein [Mass/Vol] 7.6 g/dL Normal 6.0-8.5 [facility] Internal Medicine Work Phone: Comment on above: PATIENT NOT FASTINGP ERFORMED BY: SOPHIE LabCo Abtvvg5470 [facility] [id number] Information: [id number] Sodium [Moles/Vol] 141 mmol/L Normal 134-144 [facility] Internal Medicine Work Phone: Comment on above: PATIENT NOT FASTINGP ERFORMED BY: LabCo Aozwqd0493 [facility] [id number] Information: [id number] Urea nitrogen [Mass/Vol] 16 mg/dL Normal 6-24 [facility] Internal Medicine Work Phone: Comment on above: PATIENT NOT FASTINGP ERFORMED BY: SOPHIE ButtCo Celptm9844 [facility] [id number] Information: [id number] Urea nitrogen/Creatinine [Mass ratio] 21 mg/mg Normal 9-23 [facility] Internal Medicine Work Phone: Comment on above: PATIENT NOT FASTINGP ERFORMED BY: LabCo Prsgpz9931 [facility] [id number] Information: [id number] RHEUMATOID FACTOR-QUANT (006 80)Ordered By: Revenue Cycle Specialist on 07-07-2014 Rheumatoid factor Qn 12.1 {IU/mL} Normal 0.0-13.9 [facility] Internal Medicine Work Phone: Comment on above: PATIENT NOT FASTINGP ERFORMED BY: [facility]6370 [facility] [id number] Rheumatoid factor Qn 12.1 [IU]/mL Normal 0.0-13.9 [facility] Internal Medicine; [facility] Work Phone: Comment on above: PATIENT NOT FASTINGP ERFORMED BY: [facility]6370 [facility] [id number] SED RATE ERYTHROCYTE (67423) Ordered By: Revenue Cycle Specialist on 07-07-2014 ESR (Bld) [Velocity] 5 mm/h Normal 0-32 [facility] Internal Medicine Work Phone: Comment on above: PATIENT NOT FASTINGP ERFORMED BY: [facility]6370 [facility] [id number] ALT (SGPT) (ALANINE AMINO TR ANSFERASE) (27438)Ordered By: Revenue Cycle Specialist on 03-31-2014 ALT [Catalytic activity/Vol] 21 [iU]/L Normal 0-32 [facility] Work Phone: Comment on above: PATIENT NOT FASTINGP ERFORMED BY: [facility]6370 [facility] [id number] ALT [Catalytic activity/Vol] 21 U/L Normal 0-32 [facility]; [facility] Work Phone: Comment on above: PATIENT NOT FASTINGP ERFORMED BY: [facility]6370 [place] [facility] [id number] AST (SGOT) (ASPART AMINO TRA NSFERASE) (24330)Ordered By: Revenue Cycle Specialist on 03-31-2014 AST [Catalytic activity/Vol] 24 [iU]/L Normal 0-40 [facility] Work Phone: Comment on above: PATIENT NOT FASTINGP ERFORMED BY: LabCoRutgers - University Behavioral HealthCareCsacms1418 [facility] [id number] AST [Catalytic activity/Vol] 24 U/L Normal 0-40 [facility]; [facility] Work Phone: Comment on above: PATIENT NOT FASTINGP ERFORMED BY: [facility]Tr[facility]6370 [facility] [id number] METABOLIC PANEL, BASIC (8004 8)Ordered By: Revenue Cycle Specialist on 03-31-2014 Calcium [Mass/Vol] 9.2 mg/dL Normal 8.7-10.2 [facility] Internal Medicine Work Phone: Comment on above: PATIENT NOT FASTINGP ERFORMED BY: SOPHIE [facility] Fkyjnr8572 [facility] [id number] Information: ADD [id number] AND DRAW FEE 99 6660 PLEASE FAX RESULTS TO Chloride [Moles/Vol] 103 mmol/L Normal 97-108 [facility] Internal Medicine Work Phone: Comment on above: PATIENT NOT FASTINGP ERFORMED BY: SOPHIE LabMarie Sood6370 [facility] [id number] Information: ADD [id number] AND DRAW FEE 99 6660 PLEASE FAX RESULTS TO CO2 [Moles/Vol] 23 mmol/L Normal 18-29 [facility] Internal Medicine Work Phone: Comment on above: PATIENT NOT FASTINGP ERFORMED BY: SOPHIE Sood6370 [facility] [id number] Information: ADD [id number] AND DRAW FEE 99 6660 PLEASE FAX RESULTS TO Creatinine [Mass/Vol] 0.82 mg/dL Normal 0.57-1.00 [facility] Internal Medicine Work Phone: Comment on above: PATIENT NOT FASTINGP ERFORMED BY: SOPHIE LabMarie ArcosBqsodt3477 [facility] [id number] Information: ADD [id number] AND DRAW FEE 99 6660 PLEASE FAX RESULTS TO GFR/1.73 sq M predicted among blacks CKD-EPI (S/P/Bld) [Vol rate/Area] 103 mL/min/1.73 Normal [facility] Work Phone: Comment on above: PATIENT NOT FASTINGP ERFORMED BY: SOPHIE Arcoslin6370 [facility] [id number] Information: ADD [id number] AND DRAW FEE 99 6660 PLEASE FAX RESULTS TO GFR/1.73 sq M predicted among non-blacks CKD-EPI (S/P/Bld) [Vol rate/Area] 89 mL/min/1.73 Normal [facility] Internal Medicine Work Phone: Comment on above: PATIENT NOT FASTINGP ERFORMED BY: SOPHIE Sood6370 [place] [id number] Information: ADD [id number] AND DRAW FEE 99 6660 PLEASE FAX RESULTS TO Glucose [Mass/Vol] 79 mg/dL Normal 65-99 [facility] Internal Medicine Work Phone: Comment on above: PATIENT NOT FASTINGP ERFORMED BY: SOPHIE [facility] Gwogmm5261 [place] [facility]At[facility] [id number] Information: ADD [id number] AND DRAW FEE 99 6660 PLEASE FAX RESULTS TO Potassium [Moles/Vol] 4.3 mmol/L Normal 3.5-5.2 [facility] Internal Medicine Work Phone: Comment on above: PATIENT NOT FASTINGP ERFORMED BY: SOPHIE LabMarie ArcosFkxopy2035 [place] [facility]acTiAt[facility] [id number] Information: ADD [id number] AND DRAW FEE 99 6660 PLEASE FAX RESULTS TO Sodium [Moles/Vol] 141 mmol/L Normal 134-144 [facility] Internal Medicine Work Phone: Comment on above: PATIENT NOT FASTINGP ERFORMED BY: SOPHIE RockpackMarie Sood6370 [place] [facility]TiAt[facility] [id number] Information: ADD Z66591 AND DRAW FEE 99 6660 PLEASE FAX RESULTS TO Urea nitrogen [Mass/Vol] 14 mg/dL Normal 6-24 [facility] Internal Medicine Work Phone: Comment on above: PATIENT NOT FASTINGP ERFORMED BY: SOPHIE [facility] Mnvbju5461 [place] [facility]acTiAt[facility] [id number] Information: ADD H02488 AND DRAW FEE 99 6660 PLEASE FAX RESULTS TO Urea nitrogen/Creatinine [Mass ratio] 17 mg/mg Normal 9-23 [facility] Internal Medicine Work Phone: Comment on above: PATIENT NOT FASTINGP ERFORMED BY: SOPHIE Schulte Pcntny1121 [facility] [id number] Information: ADD W26060 AND DRAW FEE 99 3711 PLEASE FAX RESULTS TO THYROGLOBULIN ANTIBODY (8606 0)Ordered By: Revenue Cycle Specialist on 03-31-2014 Thyroglobulin Ab Qn [IU]/mL Normal 0.0-0.9 [facility] Internal Medicine Work Phone: Comment on above: Low positive Thyrogl obulin antibodies are seen in a portion of theasymptomatic populations.Antithyroglobulin antibodies measured by [employer] PATIENT NOT FASTINGP ERFORMED BY: [employer] Alprdc3629 [facility] [id number] Thyroglobulin Ab Qn [IU]/mL Normal 0.0-0.9 [facility] Internal Medicine; [facility] Work Phone: Comment on above: Low positive Thyrogl obulin antibodies are seen in a portion of theasymptomatic populations.Antithyroglobulin antibodies measured by [employer] PATIENT NOT FASTINGP ERFORMED BY: [employer]6370 [facility] [id number] TSH (THYROID STIMULATING HOR JACQUELIN) (78502)Ordered By: Revenue Cycle Specialist on 03-31-2014 TSH Qn 0.057 {uIU/mL} Abnormal 0.450-4.500 [facility] Internal Medicine Work Phone: Comment on above: PATIENT NOT FASTINGP ERFORMED BY: Providajoblin6370 [facility] [id number] CBC WITH MANUAL DIFF (95102) Ordered By: Revenue Cycle Specialist on 07-28-2013 Basophils (Bld) [#/Vol] 0.0 {x10E3/uL} Normal 0.0-0.2 [facility] Internal Medicine Work Phone: Comment on above: PATIENT NOT FASTINGP ERFORMED BY: Minded Nfqpvl0554 [facility] [id number] Information: [id number] Basophils (Bld) [#/Vol] 0.0 10*3/uL Normal 0.0-0.2 [facility]; [facility] Work Phone: Comment on above: PATIENT NOT FASTINGP ERFORMED BY: SOPHIE Palafox70 [facility] [id number] Information: [id number],[id number] Basophils/100 WBC (Bld) 1 % Normal 0-3 [facility] Work Phone: Comment on above: PATIENT NOT FASTINGP ERFORMED BY: SOPHIE Patel Pclfyd[address] [id number] Information: [id number] Eosinophils (Bld) [#/Vol] 0.1 {x10E3/uL} Normal 0.0-0.4 [facility] Work Phone: Comment on above: PATIENT NOT FASTINGP ERFORMED BY: SOPHIE Patel Ddlamz4682 [facility] [id number] Information: 107718,[id number] Eosinophils (Bld) [#/Vol] 0.1 10*3/uL Normal 0.0-0.4 [facility]; [facility] Work Phone: Comment on above: PATIENT NOT FASTINGP ERFORMED BY: SOPHIE Arcoslin6370 [facility] [id number] Information: 111526,[id number] Eosinophils/100 WBC (Bld) 2 % Normal 0-5 [facility] Work Phone: Comment on above: PATIENT NOT FASTINGP ERFORMED BY: SOPHIE Patel Swywif69[address] [id number] Information: [id number] Erythrocyte distribution width (RBC) [Ratio] 13.2 % Normal 12.3-15.4 [facility] Work Phone: Comment on above: PATIENT NOT FASTINGP ERFORMED BY: SOPHIE Patel Vajmsb6080 [facility] [id number] Information: [id number],[id number] Hematocrit (Bld) [Volume fraction] 36.1 % Normal 34.0-46.6 [facility] Work Phone: Comment on above: PATIENT NOT FASTINGP ERFORMED BY: SOPHIE Sood6370 [facility] [id number] Information: [id number] Hemoglobin (Bld) [Mass/Vol] 12.0 g/dL Normal 11.1-15.9 [facility] Work Phone: Comment on above: PATIENT NOT FASTINGP ERFORMED BY: Jorge Cihkec49[address] [id number] Information: 255748,G11623 Immature granulocytes (Bld) [#/Vol] 0.0 {x10E3/uL} Normal 0.0-0.1 [facility] Work Phone: Comment on above: PATIENT NOT FASTINGP ERFORMED BY: SOPHIE Patel Rvudja9[address] [id number] Information: [id number] Immature granulocytes (Bld) [#/Vol] 0.0 10*3/uL Normal 0.0-0.1 [facility]; [facility] Work Phone: Comment on above: PATIENT NOT FASTINGP ERFORMED BY: SOPHIE Patel Siujrv03[address] [id number] Information: 163360,H16382 Immature granulocytes/100 WBC (Bld) 0 % Normal 0-2 [facility] Work Phone: Comment on above: PATIENT NOT FASTINGP ERFORMED BY: Daquan[address] [id number] Information: 253453,[id number] Lymphocytes (Bld) [#/Vol] 1.4 {x10E3/uL} Normal 0.7-3.1 [facility] Work Phone: Comment on above: PATIENT NOT FASTINGP ERFORMED BY: SOPHIE [place]tKrystal [place] 5798570 [facility] [id number] Information: [id number] Lymphocytes (Bld) [#/Vol] 1.4 10*3/uL Normal 0.7-3.1 [facility]; [facility] Work Phone: Comment on above: PATIENT NOT FASTINGP ERFORMED BY: SOPHIE Sood6370 [facility] [id number] Information: [id number] Lymphocytes/100 WBC (Bld) 26 % Normal 14-46 [facility] Work Phone: Comment on above: PATIENT NOT FASTINGP ERFORMED BY: SOPHIE Butt[address] [id number] Information: 507659,[id number] MCH (RBC) [Entitic mass] 29.3 pg Normal 26.6-33.0 [facility] Internal Medicine Work Phone: Comment on above: PATIENT NOT FASTINGP ERFORMED BY: [address] [id number] Information: [id number] MCHC (RBC) [Mass/Vol] 33.2 g/dL Normal 31.5-35.7 [facility] Internal Medicine Work Phone: Comment on above: PATIENT NOT FASTINGP ERFORMED BY: SOPHIE Patel[address] [id number] Information: 506925,[id number] MCV (RBC) [Entitic vol] 88 fL Normal 79-97 [facility] Internal Medicine Work Phone: Comment on above: PATIENT NOT FASTINGP ERFORMED BY: SOPHIE [address] [id number] Information: [id number] Monocytes (Bld) [#/Vol] 0.3 {x10E3/uL} Normal 0.1-0.9 [facility] Internal Medicine Work Phone: Comment on above: PATIENT NOT FASTINGP ERFORMED BY: SOPHIE [address] [id number] Information: [id number] Monocytes (Bld) [#/Vol] 0.3 10*3/uL Normal 0.1-0.9 [facility]; [facility] Work Phone: Comment on above: PATIENT NOT FASTINGP ERFORMED BY: SOPHIE [facility] HospitalJesúsAlleghany Health [id number] Information: 212896,[id number] Monocytes/100 WBC (Bld) 6 % Normal 4-12 [facility] Work Phone: Comment on above: PATIENT NOT FASTINGP ERFORMED BY: SOPHIE Sood6370 [place] [facility] [id number] Information: 155705,[id number] Neutrophils (Bld) [#/Vol] 3.4 {x10E3/uL} Normal 1.4-7.0 [facility] Work Phone: Comment on above: PATIENT NOT FASTINGP ERFORMED BY: SOPHIE oSod6370 [facility] [id number] Information: [id number],[id number] Neutrophils (Bld) [#/Vol] 3.4 10*3/uL Normal 1.4-7.0 [facility]; [facility] Work Phone: Comment on above: PATIENT NOT FASTINGP ERFORMED BY: SOPHIE Sood6370 [facility] [id number] Information: 797032,[id number] Neutrophils/100 WBC (Bld) 65 % Normal 40-74 [facility] Work Phone: Comment on above: PATIENT NOT FASTINGP ERFORMED BY: SOPHIE Arcoslin6370 [facility] [id number] Information: [id number] Platelets (Bld) [#/Vol] 213 {x10E3/uL} Normal 155-379 [facility] Work Phone: Comment on above: PATIENT NOT FASTINGP ERFORMED BY: SOPHIE LabComark ArcosEyeyog5353 [facility] [id number] Information: [id number] Platelets (Bld) [#/Vol] 213 10*3/uL Normal 155-379 [facility]; [facility] Internal Medicine Work Phone: Comment on above: PATIENT NOT FASTINGP ERFORMED BY: SOPHIE Sood6370 [place] [facility] [id number] Information: [id number] RBC (Bld) [#/Vol] 4.10 {x10E6/uL} Normal 3.77-5.28 [facility] Internal Medicine Work Phone: Comment on above: PATIENT NOT FASTINGP ERFORMED BY: SOPHIE [facility] Cqverx7767 [facility] [id number] Information: 658850,[id number] RBC (Bld) [#/Vol] 4.10 10*6/uL Normal 3.77-5.28 [facility] Internal Medicine; [facility] Work Phone: Comment on above: PATIENT NOT FASTINGP ERFORMED BY: SOPHIE Sood6370 [facility] [id number] Information: [id number],[id number] WBC (Bld) [#/Vol] 5.2 {x10E3/uL} Normal 3.4-10.8 [facility] Internal Medicine Work Phone: Comment on above: PATIENT NOT FASTINGP ERFORMED BY: SOPHIE Sood6370 [facility] [id number] Information: 622729,H69584 WBC (Bld) [#/Vol] 5.2 10*3/uL Normal 3.4-10.8 [facility] Internal Medicine; [facility] Work Phone: Comment on above: PATIENT NOT FASTINGP ERFORMED BY: SOPHIE [facility] Ynbqfo7266 [facility] [id number] Information: [id number] METABOLIC PANEL, COMPREHENSI VE (51994)Ordered By: Revenue Cycle Specialist on 07-28-2013 Albumin [Mass/Vol] 4.2 g/dL Normal 3.5-5.5 [facility] Internal Medicine Work Phone: Comment on above: PATIENT NOT FASTINGP ERFORMED BY: SOPHIE [facility] Iwegxj6202 [address] Leon RoadDublin [place] [id number] Albumin/Globulin [Mass ratio] 1.6 {ratio} Normal 1.1-2.5 [facility] Work Phone: Comment on above: PATIENT NOT FASTINGP ERFORMED BY: CB [facility] Biggvu1875 [address] Leon RoadDublin [place] [id number] ALP [Catalytic activity/Vol] 51 [iU]/L Normal 39-117 [facility] Work Phone: Comment on above: PATIENT NOT FASTINGP ERFORMED BY: CB [facility] Uvvskh1067 [address] Leon RoadDublin [place] [id number] ALP [Catalytic activity/Vol] 51 U/L Normal 39-117 [facility]; [facility] Work Phone: Comment on above: PATIENT NOT FASTINGP ERFORMED BY: CB [facility] Bfqnrx8455 [address] [place] RoadDublin [place] [id number] ALT [Catalytic activity/Vol] 18 [iU]/L Normal 0-32 [facility] Work Phone: Comment on above: PATIENT NOT FASTINGP ERFORMED BY: CB [facility] Rgtwhf3858 [address] [place] RoadDublin [place] [id number] ALT [Catalytic activity/Vol] 18 U/L Normal 0-32 [facility]; [facility] Work Phone: Comment on above: PATIENT NOT FASTINGP ERFORMED BY: CB [facility] Qphzbu2766 [address] [place] RoadDublin [place] [id number] AST [Catalytic activity/Vol] 20 [iU]/L Normal 0-40 [facility] Work Phone: Comment on above: PATIENT NOT FASTINGP ERFORMED BY: CB [facility] Fcgvjf7485 [address] [place] RoadDublin [place] [id number] AST [Catalytic activity/Vol] 20 U/L Normal 0-40 [facility]; [facility] Work Phone: Comment on above: PATIENT NOT FASTINGP ERFORMED BY: CB [facility] Iaymxh3039 [address] [place] RoadDublin [place] [id number] Bilirubin [Mass/Vol] 0.4 mg/dL Normal 0.0-1.2 [facility]: Comment on above: PATIENT NOT FASTINGP ERFORMED BY: CB [facility] Vfkbvl9217 [address] RoadDublin [place] [id number] Calcium [Mass/Vol] 9.2 mg/dL Normal 8.7-10.2 [facility] Internal Medicine Work Phone: Comment on above: PATIENT NOT FASTINGP ERFORMED BY: CB [facility] Droara8863 [address] RoadDublin [place] [id number] Chloride [Moles/Vol] 106 mmol/L Normal 97-108 [facility] Work Phone: Comment on above: PATIENT NOT FASTINGP ERFORMED BY: CB [facility] Yvhrhk7174 [address] E[address] RoadDublin [place] [id number] CO2 [Moles/Vol] 24 mmol/L Normal 19-28 [facility] Internal Medicine Work Phone: Comment on above: PATIENT NOT FASTINGP ERFORMED BY: CB [facility] Moknsv3453 [address] RoadDublin [place] [id number] Creatinine [Mass/Vol] 0.80 mg/dL Normal 0.57-1.00 [facility] Internal Medicine Work Phone: Comment on above: PATIENT NOT FASTINGP ERFORMED BY: CB [facility] Gqjrgf9044 [address] [place] RoadDublin [place] [id number] GFR/1.73 sq M predicted among blacks CKD-EPI (S/P/Bld) [Vol rate/Area] 107 mL/min/1.73 Normal [facility] Work Phone: Comment on above: PATIENT NOT FASTINGP ERFORMED BY: CB [facility] Gysmxj4005 [address] [place] RoadDublin [place] [id number] GFR/1.73 sq M predicted among non-blacks CKD-EPI (S/P/Bld) [Vol rate/Area] 93 mL/min/1.73 Normal [facility] Work Phone: Comment on above: PATIENT NOT FASTINGP ERFORMED BY: SOPHIE [facility] Axcsqq2623 [address] RoadDublin [place] [id number] Globulin (S) [Mass/Vol] 2.6 g/dL Normal 1.5-4.5 [facility] Internal Medicine Work Phone: Comment on above: PATIENT NOT FASTINGP ERFORMED BY: CB [facility] Tjhlph1852 [address] RoadDublin [place] [id number] Glucose [Mass/Vol] 84 mg/dL Normal 65-99 [facility] Internal Medicine Work Phone: Comment on above: PATIENT NOT FASTINGP ERFORMED BY: CB [facility] Cfdswi5205 [address] [place] RoadDublin [place] [id number] Potassium [Moles/Vol] 3.9 mmol/L Normal 3.5-5.2 [facility] Internal Medicine Work Phone: Comment on above: PATIENT NOT FASTINGP ERFORMED BY: SOPHIE [facility] Vnghtd2768 [address] [place] RoadDublin [place] [id number] Protein [Mass/Vol] 6.8 g/dL Normal 6.0-8.5 [facility] Internal Medicine Work Phone: Comment on above: PATIENT NOT FASTINGP ERFORMED BY: SOPHIE [facility] Bjgtfn4781 [address] [place] RoadDublin [place] [id number] Sodium [Moles/Vol] 140 mmol/L Normal 134-144 [facility] Internal Medicine Work Phone: Comment on above: PATIENT NOT FASTINGP ERFORMED BY: SOPHIE [facility] Dgnsbq4005 [address] [place] RoadDublin [place] [id number] Urea nitrogen [Mass/Vol] 17 mg/dL Normal 6-24 [facility] Internal Medicine Work Phone: Comment on above: PATIENT NOT FASTINGP ERFORMED BY: CB [facility] Ygiaav9987 [address] [place] RoadDublin [place] [id number] Urea nitrogen/Creatinine [Mass ratio] 21 mg/mg Normal 9-23 [facility] Internal Medicine Work Phone: Comment on above: PATIENT NOT FASTINGP ERFORMED BY: SOPHIE [facility] Mclpnp4640 [address] RoadDublin [place] [id number] C-REACTIVE PROTEIN ([id number])Or dered By: Revenue Cycle Specialist on 11-27-2011 CRP [Mass/Vol] 0.5 mg/L Normal 0.0-4.9 [facility] Internal Medicine Work Phone: Comment on above: PATIENT NOT FASTINGP ERFORMED BY: SOPHIE LabCoRutgers - University Behavioral HealthCareIgftci7630 [facility] [id number] CBC (AUTO) ([id number])Ordered By : Revenue Cycle Specialist on 11-27-2011 Erythrocyte distribution width (RBC) [Ratio] 16.3 % Abnormal 11.7-15.0 [facility] Internal Medicine Work Phone: Comment on above: PATIENT NOT FASTINGP ERFORMED BY: SOPHIE LabCoRutgers - University Behavioral HealthCareEmyphm7315 [facility] [id number] Hematocrit (Bld) [Volume fraction] 38.8 % Normal 34.0-44.0 [facility] Internal Medicine Work Phone: Comment on above: PATIENT NOT FASTINGP ERFORMED BY: SOPHIE LabCoRutgers - University Behavioral HealthCareIfedab5593 [facility] [id number] Hemoglobin (Bld) [Mass/Vol] 12.5 g/dL Normal 11.5-15.0 [facility] Internal Medicine Work Phone: Comment on above: PATIENT NOT FASTINGP ERFORMED BY: SOPHIE [facility] Yevbtl8206 [facility] [id number] MCH (RBC) [Entitic mass] 26.7 pg Abnormal 27.0-34.0 [facility] Internal Medicine Work Phone: Comment on above: PATIENT NOT FASTINGP ERFORMED BY: LabCo Xpwawx8611 [facility] [id number] MCHC (RBC) [Mass/Vol] 32.2 g/dL Normal 32.0-36.0 [facility] Internal Medicine Work Phone: Comment on above: PATIENT NOT FASTINGP ERFORMED BY: SOPHIE LabCo Qtlpwi7122 [facility] [id number] MCV (RBC) [Entitic vol] 83 fL Normal 80-98 [facility] Work Phone: Comment on above: PATIENT NOT FASTINGP ERFORMED BY: CB [facility] Pistou2627 [address] RoadDublin [place] [id number] Platelets (Bld) [#/Vol] 219 {x10E3/uL} Normal 140-415 [facility] Work Phone: Comment on above: PATIENT NOT FASTINGP ERFORMED BY: CB [facility] Imfvha2565 [address] [place] RoadDublin [place] [id number] Platelets (Bld) [#/Vol] 219 10*3/uL Normal 140-415 [facility]; [facility] Work Phone: Comment on above: PATIENT NOT FASTINGP ERFORMED BY: CB [facility] Tgczbk7795 [address] RoadDublin [place] [id number] RBC (Bld) [#/Vol] 4.69 {x10E6/uL} Normal 3.80-5.10 [facility] Internal Medicine Work Phone: Comment on above: PATIENT NOT FASTINGP ERFORMED BY: CB [facility] Itqjjj3182 [address] RoadDublin [place] [id number] RBC (Bld) [#/Vol] 4.69 10*6/uL Normal 3.80-5.10 [facility]; [facility] Work Phone: Comment on above: PATIENT NOT FASTINGP ERFORMED BY: CB [facility] Sqhmeq7088 [address] Leon RoadDublin [place] [id number] WBC (Bld) [#/Vol] 4.6 {x10E3/uL} Normal 4.0-10.5 [facility] Internal Medicine Work Phone: Comment on above: PATIENT NOT FASTINGP ERFORMED BY: CB [facility] Vvyhzx0550 [address] Leon RoadDublin [place] [id number] WBC (Bld) [#/Vol] 4.6 10*3/uL Normal 4.0-10.5 [facility] Internal Medicine; [facility] Work Phone: Comment on above: PATIENT NOT FASTINGP ERFORMED BY: CB [facility] Onqzmq7714 [address] Leon RoadDublin [place] [id number] METABOLIC PANEL, COMPREHENSI VE ([id number])Ordered By: Revenue Cycle Specialist on 11-27-2011 Albumin [Mass/Vol] 4.5 g/dL Normal 3.5-5.5 [facility] Internal Medicine Work Phone: Comment on above: PATIENT NOT FASTINGP ERFORMED BY: CB [facility] Lhvwsx9960 [address] RoadDublin [place] [id number] Albumin/Globulin [Mass ratio] 1.6 {ratio} Normal 1.1-2.5 [facility] Work Phone: Comment on above: PATIENT NOT FASTINGP ERFORMED BY: CB [facility] Kqarai4397 [address] RoadDublin [place] [id number] ALP [Catalytic activity/Vol] 65 [iU]/L Normal 25-150 [facility] Work Phone: Comment on above: PATIENT NOT FASTINGP ERFORMED BY: CB [facility] Zuyutt7316 [address] RoadDublin [place] [id number] ALP [Catalytic activity/Vol] 65 U/L Normal 25-150 [facility]; [facility] Work Phone: Comment on above: PATIENT NOT FASTINGP ERFORMED BY: CB [facility] Wecodv0683 [address] RoadDublin [place] [id number] ALT [Catalytic activity/Vol] 21 [iU]/L Normal 0-40 [facility] Work Phone: Comment on above: PATIENT NOT FASTINGP ERFORMED BY: CB [facility] Cpsspz0236 [address] RoadDublin [place] [id number] ALT [Catalytic activity/Vol] 21 U/L Normal 0-40 [facility]; [facility] Work Phone: Comment on above: PATIENT NOT FASTINGP ERFORMED BY: CB [facility] Lennhh9557 [address] RoadDublin [place] [id number] AST [Catalytic activity/Vol] 26 [iU]/L Normal 0-40 [facility] Work Phone: Comment on above: PATIENT NOT FASTINGP ERFORMED BY: CB [facility] Pamhzj2614 [address] RoadDublin [place] [id number] AST [Catalytic activity/Vol] 26 U/L Normal 0-40 [facility]; [facility] Work Phone: Comment on above: PATIENT NOT FASTINGP ERFORMED BY: SOPHIE [facility] Fjnzvf4973 [address] RoadDublin [place] [id number] Bilirubin [Mass/Vol] 0.5 mg/dL Normal 0.0-1.2 Comp rehensive Internal Medicine Work Phone: Comment on above: PATIENT NOT FASTINGP ERFORMED BY: CB [facility] Tpcdys7729 [address] RoadDublin [place] [id number] Calcium [Mass/Vol] 9.7 mg/dL Normal 8.7-10.2 [facility] Work Phone: Comment on above: PATIENT NOT FASTINGP ERFORMED BY: [facility] Olliee[address] [facility] [id number] Chloride [Moles/Vol] 107 mmol/L Normal 97-108 Comp rehensive Internal Medicine Work Phone: Comment on above: PATIENT NOT FASTINGP ERFORMED BY: [facility] Mxwfsm4863 [address] [facility] [place] [id number] CO2 [Moles/Vol] 21 mmol/L Normal 20-32 [facility] Work Phone: Comment on above: PATIENT NOT FASTINGP ERFORMED BY: [facility] Dsdmhc4631 [address] [facility] [id number] Creatinine [Mass/Vol] 0.93 mg/dL Normal 0.57-1.00 [facility] Work Phone: Comment on above: PATIENT NOT FASTINGP ERFORMED BY: CB [facility] Qypxvn3363 [address] [facility] [place] [id number] GFR/1.73 sq M predicted among blacks MDRD (S/P/Bld) [Vol rate/Area] 90 mL/min/{1.73_m2} Normal Comprehensiv e Internal Medicine Work Phone: Comment on above: Note: A persistent e GFR <60 mL/min/1.73 m2 (3 months or more) mayindicate chronic kidney disease. An eGFR >59 mL/min/1.73 m2 with anelevated urine protein also may indicate chronic kidney disease.Calculated using CKD-EPI formula. PATIENT NOT FASTINGP ERFORMED BY: CB [facility] Yvqoxf9410 [address] Leon RoadDublin [place] [id number] GFR/1.73 sq M predicted among non-blacks CKD-EPI (S/P/Bld) [Vol rate/Area] 78 mL/min/1.73 Normal [facility] Internal Medicine Work Phone: Comment on above: PATIENT NOT FASTINGP ERFORMED BY: CB [facility] Ymfwax6791 [address] RoadAshe [facility] Hospitalin [place] [id number] Globulin (S) [Mass/Vol] 2.9 g/dL Normal 1.5-4.5 [facility] Internal Medicine Work Phone: Comment on above: PATIENT NOT FASTINGP ERFORMED BY: CB [facility] Lqogkt5088 [address] [facility] [id number] Glucose [Mass/Vol] 81 mg/dL Normal 65-99 [facility] Internal Medicine Work Phone: Comment on above: PATIENT NOT FASTINGP ERFORMED BY: CB [facility] Qgquav6060 [address] [facility] [id number] Potassium [Moles/Vol] 4.1 mmol/L Normal 3.5-5.2 [facility] Internal Medicine Work Phone: Comment on above: PATIENT NOT FASTINGP ERFORMED BY: CB [facility] Ugnaug7688 [address] [facility] [place] [id number] Protein [Mass/Vol] 7.4 g/dL Normal 6.0-8.5 [facility] Internal Medicine Work Phone: Comment on above: PATIENT NOT FASTINGP ERFORMED BY: CB [facility] Xqtvgu5317 [address] [facility]in [place] [id number] Sodium [Moles/Vol] 141 mmol/L Normal 134-144 [facility] Internal Medicine Work Phone: Comment on above: PATIENT NOT FASTINGP ERFORMED BY: CB [facility] Wiptsj9220 [address] [facility] [place] [id number] Urea nitrogen [Mass/Vol] 18 mg/dL Normal 6-20 [facility] Work Phone: Comment on above: PATIENT NOT FASTINGP ERFORMED BY: [facility] [facility] [id number] Urea nitrogen/Creatinine [Mass ratio] 19 mg/mg Normal 8-20 [facility] Work Phone: Comment on above: PATIENT NOT FASTINGP ERFORMED BY: [facility] [facility] [id number] PPD ([id number])Ordered By: Nimco Neil on 11-27-2011 PPD ([id number]) Negative Normal [facility] Work Phone: Comment on above: Lot #[id number] .14Site- L forearmDose 0.1mlgiven by:CRESENCIO Sharp PPD ([id number]) Negative Normal [facility]; [facility] Work Phone: Comment on above: Lot #[id number] .14Site- L forearmDose 0.1mlgiven by:CRESENCIO Sharp SED RATE ERYTHROCYTE ([id number]) Ordered By: Revenue Cycle Specialist on 11-27-2011 ESR (Bld) [Velocity] 4 mm/h Normal 0-32 Comp rehensive Internal Medicine Work Phone: Comment on above: PATIENT NOT FASTINGP ERFORMED BY: [facility] [facility] [id number] TSH ([id number])Ordered By: Syste m Screening Technician on 11-27-2011 TSH Qn 0.953 {uIU/mL} Normal 0.450-4.500 Comprehen sive Internal Medicine Work Phone: Comment on above: PATIENT NOT FASTINGP ERFORMED BY: [facility] [facility] [id number] Factor V Leiden ([id number])Order ed By: Revenue Cycle Specialist on 01-05-2011 F5 gene targeted mutation analysis Mol[employer] Nom (Bld/Tiss) [id number] Normal Comprehens karime Internal Medicine Work Phone: Comment on above: Result: Negative (no mutation found) .Factor V Leiden is a specific mutation ([id number]) in the factorV gene that is associated with an increased risk of venousthrombosis. Factor V Leiden is more resistant toinactivation by activated protein C. As a result, factor Vpersists in the circulation leading to a mild hyper-coagulable state. The Leiden mutation accounts for 90% -95% of APC resistance. Factor V Leiden has been reported inpatients with deep vein thrombosis, pulmonary embolus,central retinal vein occlusion, cerebral sinus thrombosisand hepatic vein thrombosis. Other risk factors to beconsidered in the workup for venous thrombosis include [id number] mutation in the factor II (prothrombin) gene,protein S and C deficiency, and antithrombin deficiencies.Anticardiolipin antibody and lupus anticoagulant analysismay be appropriate for certain patients, as well ashomocysteine levels. .Contact your local [facility] for information on how to orderadditional testing if desired. .Genetic counselors are available for health care providers to discuss results at [phone]. .Methodology:DNA analysis of the Factor V gene was performed by allele-specific PCR followed by gel electrophoresis. The diagnosticsensitivity and specificity is >99% for both. Molecular-based testing is highly accurate, but as in any laboratorytest, diagnostic errors may occur. All test results must becombined with clinical information for the most accurateinterpretation. .References:Taylor Guzman (1996). Clin Lab Med 16:169-186. .Artem Sanchez, Ph.D.Esther Alegria, Ph.D.Cici Oswald, Ph.D.Jeniffer Henry, Ph.D.Felicia Pickard, Ph.D.Puja Ambrosio M.D.Johanny Tang, Ph.D. . PATIENT NOT FASTINGP ERFORMED BY: [facility] [id number] [address] [place] [id number] Information: [id number] Glucose, PP/2 Hour ([id number])Or dered By: An Jc on 06-02-2009 Glucose 2 Hr post meal [Mass/Vol] 96 mg/dL Normal 65-139 [facility] Work Phone: Comment on above: PATIENT WAS FASTINGP ERFORMED BY: SOPHIE Lab[facility]URI[facility] [employer] Zeaceb6246 [facility] [id number] IRON ([id number])Ordered By: Laura Jc on 06-02-2009 Iron [Mass/Vol] 41 ug/dL Normal 35-155 [facility] Internal Medicine Work Phone: Comment on above: PATIENT WAS FASTINGP ERFORMED BY: SOPHIE [facility] Lyiehz2487 [facility] [id number] LIPID PANEL ([id number])Ordered B y: An Jc on 06-02-2009 Cholesterol [Mass/Vol] 182 mg/dL Normal 100-199 [facility] Work Phone: Comment on above: PATIENT WAS FASTINGC linical Information: [id number] 75G DRAWN@1 045AM PERFORMED BY: SOPHIE [employer] SoodOyzove0890 [facility] [id number] Cholesterol in HDL [Mass/Vol] 66 mg/dL Normal [facility] Work Phone: Comment on above: According to ATP-III Guidelines, HDL-C >59 mg/dL is considered anegative risk factor for CHD. PATIENT WAS FASTINGC linical Information: [id number] 75G DRAWN@1 045AM PERFORMED BY: SOPHIE [employer] SoodTuqehh[address] [facility]TiAt[facility] [id number] Cholesterol in LDL [Mass/Vol] 109 mg/dL Abnormal 0-99 [facility] Work Phone: Comment on above: PATIENT WAS FASTINGC linical Information: [id number] 75G DRAWN@1 045AM PERFORMED BY: SOPHIE LabQURIUM [employer] ArcosEbpxkg3172 [facility] [id number] Cholesterol in LDL/Cholesterol in HDL [Mass ratio] 1.7 {ratio_units} Normal 0.0-3.2 [facility] Work Phone: Comment on above: PATIENT WAS FASTINGC linical Information: [id number] 75G DRAWN@1 045AM PERFORMED BY: SOPHIE [employer] Ksxydy[address] [place] [id number] Cholesterol in VLDL [Mass/Vol] 7 mg/dL Normal 5-40 [facility] Work Phone: Comment on above: PATIENT WAS FASTINGC linical Information: [id number] 75G DRAWN@1 045AM PERFORMED BY: CB [facility] Lgqkjy8329 [address] [place] [id number] Triglyceride [Mass/Vol] 34 mg/dL Normal 0-149 [facility] Work Phone: Comment on above: PATIENT WAS FASTINGC linical Information: [id number] 75G DRAWN@1 045AM PERFORMED BY: [employer] LabARTENCY.COM[address] [place] [id number] TSH ([id number])Ordered By: Mckay Jc on 06-02-2009 TSH Qn 3.180 {uIU/mL} Normal 0.450-4.500 [facility] Internal Medicine Work Phone: Comment on above: PATIENT WAS FASTINGP ERFORMED BY: [employer] [facility] Mxqjqx3378 [address] [place] [id number] Vital Signs Date Time Vital Sign Value Performing Clinician Facility 09-30-2024 15:05-0500 Body mass index (BMI) [Ratio] 26.43 kg/m2 Puneet Shea MD Work Phone: [facility] 09-30-2024 15:05-0500 Body weight 69.85 kg Puneet Shea MD Work Phone: [facility] 09-30-2024 15:05-0500 Diastolic blood pressure 86 mm[Hg] Puneet Shea MD Work Phone: [facility] 09-30-2024 15:05-0500 Heart rate 74 /min Puneet Shea MD Work Phone: [facility] 09-30-2024 15:05-0500 SaO2% (BldA) [Mass fraction] 100 % Puneet Shea MD Work Phone: [facility] 09-30-2024 15:05-0500 Systolic blood pressure 142 mm[Hg] Puneet Shea MD Work Phone: [facility] 01-02-2024 14:12-0400 Body height 162.6 cm Puneet Shea MD Work Phone: [facility] 01-02-2024 14:12-0400 Body mass index (BMI) [Ratio] 26.61 kg/m2 Puneet Shea MD Work Phone: [facility] 01-02-2024 14:12-0400 Body weight 70.31 kg Puneet Shea MD Work Phone: [facility] 01-02-2024 14:12-0400 Diastolic blood pressure 68 mm[Hg] Puneet Shea MD Work Phone: [facility] 01-02-2024 14:12-0400 Heart rate 98 /min Puneet Shea MD Work Phone: [facility] 01-02-2024 14:12-0400 SaO2% (BldA) [Mass fraction] 100 % Puneet Shea MD Work Phone: [facility] 01-02-2024 14:12-0400 Systolic blood pressure 103 mm[Hg] Puneet Shea MD Work Phone: [facility] 11-20-2023 11:55-0400 Body height 162.[address] Wing Johnson Work Phone: [facility] 11-20-2023 11:55-0400 Body mass index (BMI) [Ratio] 26.2 kg/m2 Dr. Wing Johnson Work Phone: [facility] 11-20-2023 11:55-0400 Body weight 69.[address] Wing Johnson Work Phone: [facility] 11-20-2023 11:55-0400 Diastolic blood pressure 81 mm[Hg] Dr. Wing Johnson Work Phone: [facility] 11-20-2023 11:55-0400 Heart rate 65 /min Dr. Wing Johnson Work Phone: [facility] 11-20-2023 11:55-0400 Respiratory rate 18 /min Dr. Wing Johnson Work Phone: [facility] 11-20-2023 11:55-0400 Systolic blood pressure 119 mm[Hg] Dr. Wing Johnson Work Phone: [facility] 12-27-2017 10:06-0400 BMI (Body Mass Index) 25.21 kg/m2 Poornima Goncalves RN [facility] Work Phone: 12-27-2017 10:06-0400 Body weight 67.13 kg Poornima Goncalves RN [facility] Work Phone: 12-27-2017 10:06-0400 BP Diastolic 80 mm[Hg] Poornima Goncalves RN [facility] Work Phone: Comment on above: Patient Position: Sitting; Cuff Location : Left Arm; Cuff Size: Standard 12-27-2017 10:06-0400 BP Systolic 122 mm[Hg] Poornima Goncalves RN [facility] Work Phone: Comment on above: Patient Position: Sitting; Cuff Location : Left Arm; Cuff Size: Standard 12-27-2017 10:06-0400 BSA (Body Surface Area) 1.73 m2 Poornima Goncalves RN [facility] Work Phone: 12-27-2017 10:06-0400 Height 163.19 cm Poornima Goncalves RN [facility] Work Phone: 12-27-2017 10:06-0400 Pulse (Heart Rate) 88 /min Poornima Goncalves RN [facility] Work Phone: Comment on above: Pattern: Regular 12-27-2017 10:06-0400 Pulse Oximetry 99 % An Hosea [facility] Work Phone: Comment on above: Room air 12-27-2017 10:06-0400 Respiratory Rate 18 /min Poornima Goncalves RN [facility] Work Phone: Comment on above: Pattern: Unlabored 12-27-2017 10:06-0400 SaO2% (BldA) [Mass fraction] 99 % Poornima Goncalves RN [facility]; [facility] Work Phone: Comment on above: Room air 12-06-2016 12:28-0400 BMI (Body Mass Index) 27.25 kg/m2 Poornima Goncalves RN [facility] Work Phone: 12-06-2016 12:28-0400 Body weight 72.58 kg Poornima Goncalves RN [facility] Work Phone: 12-06-2016 12:28-0400 BP Diastolic 60 mm[Hg] Poornima Goncalves RN [facility] Work Phone: Comment on above: Patient Position: Sitting; Cuff Location : Right Arm; Cuff Size: Standard 12-06-2016 12:28-0400 BP Systolic 102 mm[Hg] Poornima Goncalves RN [facility] Work Phone: Comment on above: Patient Position: Sitting; Cuff Location : Right Arm; Cuff Size: Standard 12-06-2016 12:28-0400 BSA (Body Surface Area) 1.78 m2 Poornima Goncalves RN [facility] Work Phone: 12-06-2016 12:280400 Height 163.19 cm Poornima Goncalves RN [facility] Work Phone: 12-06-2016 12:28-0400 Pulse (Heart Rate) 77 /min Poornima Goncalves RN [facility] Work Phone: Comment on above: Pattern: Regular 12-06-2016 12:28-0400 Pulse Oximetry 99 % An Jc [facility] Work Phone: Comment on above: Room air 12-06-2016 12:28-0400 Respiratory Rate 18 /min Poornima Goncalves RN [facility] Work Phone: Comment on above: Pattern: Unlabored 12-06-2016 12:28-0400 SaO2% (BldA) [Mass fraction] 99 % Poornima Goncalves RN [facility]; [facility] Work Phone: Comment on above: Room air 06-20-2016 08:33-0400 BMI (Body Mass Index) 27.29 kg/m2 [place] [facility] Internal Medicine Work Phone: 06-20-2016 08:33-0400 Body Temperature 98 [degF] [facility] Internal Medicine Work Phone: 06-20-2016 08:33-0400 Body weight 72.69 kg [facility] Internal Medicine Work Phone: 06-20-2016 08:33-0400 BP Diastolic 72 mm[Hg] [facility] Internal Medicine Work Phone: Comment on above: Patient Position: Sitting; Cuff Location : Left Arm; Cuff Size: Standard 06-20-2016 08:33-0400 BP Systolic 120 mm[Hg] [facility] Internal Medicine Work Phone: Comment on above: Patient Position: Sitting; Cuff Location : Left Arm; Cuff Size: Standard 06-20-2016 08:33-0400 BSA (Body Surface Area) 1.79 m2 [facility] Internal Medicine Work Phone: 06-20-2016 08:33-0400 Height 163.19 cm [facility] Internal Medicine Work Phone: 06-20-2016 08:33-0400 Pulse (Heart Rate) 73 /min [facility] Internal Medicine Work Phone: Comment on above: Pattern: Regular 06-20-2016 08:33-0400 Pulse Oximetry 99 % An Jc [facility] Work Phone: Comment on above: Room air 06-20-2016 08:33-0400 Respiratory Rate 16 /min [facility] Internal Medicine Work Phone: Comment on above: Pattern: Unlabored 06-20-2016 08:33-0400 SaO2% (BldA) [Mass fraction] 99 % [facility] Internal Medicine; [facility] Work Phone: Comment on above: Room air 06-14-2016 11:15-0400 BMI (Body Mass Index) 27.29 kg/m2 Poornima Goncalves RN [facility] Work Phone: 06-14-2016 11:15-0400 Body weight 72.69 kg Poornima Goncalves RN [facility] Work Phone: 06-14-2016 11:15-0400 BP Diastolic 76 mm[Hg] Poornima Goncalves RN [facility] Work Phone: Comment on above: Patient Position: Sitting; Cuff Location : Left Arm; Cuff Size: Standard 06-14-2016 11:15-0400 BP Systolic 118 mm[Hg] Poornima Goncalves RN [facility] Work Phone: Comment on above: Patient Position: Sitting; Cuff Location : Left Arm; Cuff Size: Standard 06-14-2016 11:15-0400 BSA (Body Surface Area) 1.79 m2 Poornima Goncalves RN [facility] Work Phone: 06-14-2016 11:15-0400 Height 163.19 cm Poornima Goncalves RN [facility] Work Phone: 06-14-2016 11:15-0400 Pulse (Heart Rate) 75 /min Poornima Gnocalves RN [facility] Work Phone: Comment on above: Pattern: Regular 06-14-2016 11:15-0400 Pulse Oximetry 98 % An Jc [facility] Work Phone: Comment on above: Room air 06-14-2016 11:15-0400 Respiratory Rate 18 /min Poornima Goncalves RN [facility] Work Phone: Comment on above: Pattern: Unlabored 06-14-2016 11:15-0400 SaO2% (BldA) [Mass fraction] 98 % Poornima Goncalves RN [facility]; [facility] Work Phone: Comment on above: Room air 08-17-2015 10:38-0500 BMI (Body Mass Index) 27.08 kg/m2 Xenia Darden [facility] Internal Medicine Work Phone: 08-17-2015 10:38-0500 Body Temperature 99.5 [degF] Xenia Darden [facility] Internal Medicine Work Phone: Comment on above: Method: Temporal 08-17-2015 10:38-0500 Body weight 72.12 kg Xenia Darden [facility] Internal Medicine Work Phone: 08-17-2015 10:38-0500 BP Diastolic 74 mm[Hg] Xenia Darden [facility] Internal Medicine Work Phone: Comment on above: Patient Position: Sitting; Cuff Location : Left Arm; Cuff Size: Standard 08-17-2015 10:38-0500 BP Systolic 108 mm[Hg] Xenia Darden [facility] Internal Medicine Work Phone: Comment on above: Patient Position: Sitting; Cuff Location : Left Arm; Cuff Size: Standard 08-17-2015 10:38-0500 BSA (Body Surface Area) 1.78 m2 Xenia Tinocokenyatta [facility] Internal Medicine Work Phone: 08-17-2015 10:38-0500 Height 163.19 cm Xenia Garciacharan [facility] Internal Medicine Work Phone: 08-17-2015 10:38-0500 Pulse (Heart Rate) 76 /min [facility] Work Phone: Comment on above: Pattern: Regular 08-17-2015 10:38-0500 Pulse Oximetry 99 % An Hosea [facility] Internal Medicine Work Phone: Comment on above: Room air 08-17-2015 10:38-0500 Respiratory Rate 16 /min Xenia Garciacharan [facility] Internal Medicine Work Phone: Comment on above: Pattern: Unlabored 08-17-2015 10:38-0500 SaO2% (BldA) [Mass fraction] 99 % Xenia Darden [facility] Internal Medicine; [facility] Work Phone: Comment on above: Room air 07-26-2015 08:12-0500 BMI (Body Mass Index) 27.08 kg/m2 Nimco Neil RN Comprehens [facility] Internal Medicine Work Phone: 07-26-2015 08:12-0500 Body Temperature 96.8 [degF] Nimco Neil RN [facility] Work Phone: Comment on above: Method: Temporal 07-26-2015 08:12-0500 Body weight 72.12 kg Nimco Neil RN [facility] Work Phone: 07-26-2015 08:12-0500 BP Diastolic 80 mm[Hg] Nimco Neil RN [facility] Work Phone: Comment on above: Patient Position: Sitting; Cuff Location : Left Arm; Cuff Size: Standard 07-26-2015 08:12-0500 BP Systolic 142 mm[Hg] Nimco Neil RN [facility] Work Phone: Comment on above: Patient Position: Sitting; Cuff Location : Left Arm; Cuff Size: Standard 07-26-2015 08:12-0500 BSA (Body Surface Area) 1.78 m2 Nimco Neil RN [facility] Work Phone: 07-26-2015 08:12-0500 Height 163.19 cm Nimco Neil RN [facility] Work Phone: 07-26-2015 08:12-0500 Pulse (Heart Rate) 71 /min Nimco Neil RN [facility] Work Phone: Comment on above: Pattern: Regular 07-26-2015 08:12-0500 Pulse Oximetry 99 % An Jc [facility] Work Phone: Comment on above: Room air 07-26-2015 08:12-0500 Respiratory Rate 71 /min Nimco Neil RN [facility] Work Phone: Comment on above: Pattern: Unlabored 07-26-2015 08:12-0500 SaO2% (BldA) [Mass fraction] 99 % Nimco Neil RN [facility]; [facility] Work Phone: Comment on above: Room air 01-11-2015 15:19-0400 BMI (Body Mass Index) 27.78 kg/m2 Mayela Godfrey CMA [facility] Internal Medicine Work Phone: 01-11-2015 15:19-0400 Body Temperature 97.9 [degF] Mayela Godfrey [facility] Work Phone: Comment on above: Method: Temporal 01-11-2015 15:19-0400 Body weight 73.99 kg Mayela Godfrey [facility] Internal Medicine Work Phone: 01-11-2015 15:19-0400 BP Diastolic 76 mm[Hg] Mayela Godfrey [facility] Internal Medicine Work Phone: Comment on above: Patient Position: Sitting; Cuff Location : Left Arm; Cuff Size: Standard 01-11-2015 15:19-0400 BP Systolic 122 mm[Hg] Mayela Godfrey [facility] Internal Medicine Work Phone: Comment on above: Patient Position: Sitting; Cuff Location : Left Arm; Cuff Size: Standard 01-11-2015 15:19-0400 BSA (Body Surface Area) 1.8 m2 Mayela Gdofrey [facility] Internal Medicine Work Phone: 01-11-2015 15:19-0400 Height 163.19 cm Mayela Godfrey [facility] Internal Medicine Work Phone: 01-11-2015 15:19-0400 Pulse (Heart Rate) 72 /min Mayela Godfrey [facility] Internal Medicine Work Phone: Comment on above: Pattern: Regular 01-11-2015 15:19-0400 Respiratory Rate 17 /min Mayela Godfrey [facility] Internal Medicine Work Phone: Comment on above: Pattern: Unlabored 07-07-2014 08:26-0500 BMI (Body Mass Index) 27.78 kg/m2 Poornima Goncalves RN [facility] Work Phone: 07-07-2014 08:26-0500 Body Temperature 98.3 [degF] Poornima Goncalves RN [facility] Work Phone: Comment on above: Method: Oral 07-07-2014 08:26-0500 Body weight 73.99 kg Poornima Goncalves RN [facility] Work Phone: 07-07-2014 08:26-0500 BP Diastolic 62 mm[Hg] Poornima Goncalves RN [facility] Work Phone: Comment on above: Patient Position: Sitting; Cuff Location : Left Arm; Cuff Size: Standard 07-07-2014 08:26-0500 BP Systolic 96 mm[Hg] Poornima Goncalves RN [facility] Work Phone: Comment on above: Patient Position: Sitting; Cuff Location : Left Arm; Cuff Size: Standard 07-07-2014 08:26-0500 BSA (Body Surface Area) 1.8 m2 Poornima Goncalves [facility] Work Phone: 07-07-2014 08:26-0500 Height 163.19 cm Poornima Goncalves [facility] Work Phone: 07-07-2014 08:26-0500 Pulse (Heart Rate) 72 /min Poornima Goncalves RN [facility] Work Phone: Comment on above: Pattern: Regular 07-07-2014 08:26-0500 Pulse Oximetry 99 % An Jc [facility] Internal Medicine Work Phone: Comment on above: Room air 07-07-2014 08:26-0500 Respiratory Rate 16 /min Poornima Goncalves RN [facility] Work Phone: Comment on above: Pattern: Unlabored 07-07-2014 08:26-0500 SaO2% (BldA) [Mass fraction] 99 % Poornima Goncalves RN [facility] Internal Medicine; [facility] Work Phone: Comment on above: Room air 05-24-2014 17:10-0400 BMI (Body Mass Index) 27.25 kg/m2 Xenia Buisharp [facility] Internal Medicine Work Phone: 05-24-2014 17:10-0400 Body Temperature 98.2 [degF] Xenia Darden [facility] Internal Medicine Work Phone: 05-24-2014 17:10-0400 Body weight 72.58 kg Xenia Darden [facility] Internal Medicine Work Phone: 05-24-2014 17:10-0400 BP Diastolic 68 mm[Hg] Xenia Darden [facility] Internal Medicine Work Phone: Comment on above: Patient Position: Sitting; Cuff Location : Left Arm; Cuff Size: Large 05-24-2014 17:10-0400 BP Systolic 100 mm[Hg] Xenia Darden [facility] Internal Medicine Work Phone: Comment on above: Patient Position: Sitting; Cuff Location : Left Arm; Cuff Size: Large 05-24-2014 17:10-0400 BSA (Body Surface Area) 1.78 m2 Xenia Adelso [facility] Internal Medicine Work Phone: 05-24-2014 17:10-0400 Height 163.19 cm Xenia Adelso [facility] Internal Medicine Work Phone: 05-24-2014 17:10-0400 Pulse (Heart Rate) 68 /min Xenia Adelso [facility] Internal Medicine Work Phone: Comment on above: Pattern: Regular 05-24-2014 17:10-0400 Respiratory Rate 16 /min Xenia Adelso [facility] Internal Medicine Work Phone: Comment on above: Pattern: Unlabored 05-17-2014 08:49-0400 BMI (Body Mass Index) 27.25 kg/m2 SINCERE Altamirano [employer] [facility] Internal Medicine Work Phone: 05-17-2014 08:49-0400 Body Temperature 97.6 [degF] SINCERE Altamirano [facility] Internal Medicine Work Phone: Comment on above: Method: Oral 05-17-2014 08:49-0400 Body weight 72.58 kg SINCERE Adarsh [employer] [facility] Internal Medicine Work Phone: 05-17-2014 08:49-0400 BP Diastolic 74 mm[Hg] SINCERE Adarsh [facility] Internal Medicine Work Phone: Comment on above: Patient Position: Sitting; Cuff Location : Left Arm; Cuff Size: Standard 05-17-2014 08:49-0400 BP Systolic 114 mm[Hg] SINCERE Altamirano [employer] [facility] Internal Medicine Work Phone: Comment on above: Patient Position: Sitting; Cuff Location : Left Arm; Cuff Size: Standard 05-17-2014 08:49-0400 BSA (Body Surface Area) 1.78 m2 SINCERE Altamirano [employer] [facility] Internal Medicine Work Phone: 05-17-2014 08:49-0400 Height 163.19 cm SINCERE Altamirano [facility] Internal Medicine Work Phone: 05-17-2014 08:49-0400 Pulse (Heart Rate) 70 /min SINCERE Altamirano LPN [facility] Internal Medicine Work Phone: Comment on above: Pattern: Regular 05-17-2014 08:49-0400 Respiratory Rate 18 /min SINCERE Altamirano LPN [facility] Internal Medicine Work Phone: Comment on above: Pattern: Unlabored 05-13-2014 07:30-0400 BMI (Body Mass Index) 27.25 kg/m2 SINCERE Altamirano [facility] Internal Medicine Work Phone: 05-13-2014 07:30-0400 Body Temperature 97.9 [degF] SINCERE Altamirano [facility] Internal Medicine Work Phone: Comment on above: Method: Oral 05-13-2014 07:30-0400 Body weight 72.58 kg SINCERE Altamirano [facility] Internal Medicine Work Phone: 05-13-2014 07:30-0400 BP Diastolic 76 mm[Hg] SINCERE Altamirano [facility] Internal Medicine Work Phone: Comment on above: Patient Position: Sitting; Cuff Location : Left Arm; Cuff Size: Standard 05-13-2014 07:30-0400 BP Systolic 110 mm[Hg] SINCERE Altamirano [facility] Internal Medicine Work Phone: Comment on above: Patient Position: Sitting; Cuff Location : Left Arm; Cuff Size: Standard 05-13-2014 07:30-0400 BSA (Body Surface Area) 1.78 m2 SINCERE Altamirano [facility] Internal Medicine Work Phone: 05-13-2014 07:30-0400 Height 163.19 cm SINCERE Altamirano [facility] Internal Medicine Work Phone: 05-13-2014 07:30-0400 Pulse (Heart Rate) 76 /min SINCERE Altamirano [facility] Internal Medicine Work Phone: Comment on above: Pattern: Regular 05-13-2014 07:30-0400 Respiratory Rate 20 /min SINCERE Altamirano [facility] Internal Medicine Work Phone: Comment on above: Pattern: Unlabored 09-04-2013 13:04-0500 BMI (Body Mass Index) 28.85 kg/m2 Poornima Goncalves RN [facility] Work Phone: 09-04-2013 13:04-0500 Body weight 76.83 kg Poornima Goncalves RN [facility] Work Phone: 09-04-2013 13:04-0500 BP Diastolic 60 mm[Hg] Poornima Goncalves RN [facility] Work Phone: Comment on above: Patient Position: Sitting; Cuff Location : Left Arm; Cuff Size: Standard 09-04-2013 13:04-0500 BP Systolic 102 mm[Hg] Poornima Goncalves RN [facility] Work Phone: Comment on above: Patient Position: Sitting; Cuff Location : Left Arm; Cuff Size: Standard 09-04-2013 13:04-0500 BSA (Body Surface Area) 1.83 m2 Poornima Goncalves [facility] Work Phone: 09-04-2013 13:04-0500 Height 163.19 cm Poornima Goncalves RN [facility] Work Phone: 09-04-2013 13:04-0500 Pulse (Heart Rate) 70 /min Poornima Goncalves RN [facility] Work Phone: Comment on above: Pattern: Regular 09-04-2013 13:04-0500 Pulse Oximetry 98 % An Hosea [facility] Work Phone: Comment on above: Room air 09-04-2013 13:04-0500 Respiratory Rate 16 /min Poornima Goncalves RN [facility] Work Phone: Comment on above: Pattern: Unlabored 09-04-2013 13:04-0500 SaO2% (BldA) [Mass fraction] 98 % Poornima Goncalves RN [facility]; [facility] Work Phone: Comment on above: Room air 08-11-2013 11:29-0500 BMI (Body Mass Index) 27.96 kg/m2 Poornima Goncalves [facility] Work Phone: 08-11-2013 11:29-0500 Body weight 74.48 kg Poornima Goncalves RN [facility] Work Phone: 08-11-2013 11:29-0500 BP Diastolic 80 mm[Hg] Poornima Goncalves RN [facility] Work Phone: Comment on above: Patient Position: Sitting; Cuff Location : Left Arm; Cuff Size: Large 08-11-2013 11:29-0500 BP Systolic 120 mm[Hg] Poornima Goncalves RN [facility] Work Phone: Comment on above: Patient Position: Sitting; Cuff Location : Left Arm; Cuff Size: Large 08-11-2013 11:29-0500 BSA (Body Surface Area) 1.8 m2 Poornima Goncalves RN [facility] Work Phone: 08-11-2013 11:29-0500 Height 163.19 cm Poornima Goncalves RN [facility] Work Phone: 08-11-2013 11:29-0500 Pulse (Heart Rate) 80 /min Poornima Goncalves RN [facility] Work Phone: Comment on above: Pattern: Regular 08-11-2013 11:29-0500 Respiratory Rate 16 /min Poornima Goncalves RN [facility] Work Phone: Comment on above: Pattern: Unlabored 07-28-2013 11:33-0500 BMI (Body Mass Index) 27.63 kg/m2 Poornima Goncalves RN [facility] Work Phone: 07-28-2013 11:33-0500 Body weight 73.6 kg Poornima Goncalves RN [facility] Work Phone: 07-28-2013 11:33-0500 BP Diastolic 62 mm[Hg] Poornima Goncalves RN [facility] Work Phone: Comment on above: Patient Position: Sitting; Cuff Location : Left Arm; Cuff Size: Standard 07-28-2013 11:33-0500 BP Systolic 110 mm[Hg] Poornima Goncalves RN [facility] Work Phone: Comment on above: Patient Position: Sitting; Cuff Location : Left Arm; Cuff Size: Standard 07-28-2013 11:33-0500 BSA (Body Surface Area) 1.79 m2 Poornima Goncalves RN [facility] Work Phone: 07-28-2013 11:33-0500 Height 163.19 cm Poornima Goncalves [facility] Work Phone: 07-28-2013 11:33-0500 Pulse (Heart Rate) 64 /min Poornima Goncalves RN [facility] Work Phone: Comment on above: Pattern: Regular 07-28-2013 11:33-0500 Respiratory Rate 18 /min Poornima Goncalves RN [facility] Work Phone: Comment on above: Pattern: Unlabored 12-20-2011 10:11-0400 BMI (Body Mass Index) 28.27 kg/m2 Poornima Goncalves [facility] Work Phone: 12-20-2011 10:11-0400 Body Temperature 97.6 [degF] Poornima Goncalves RN [facility] Work Phone: Comment on above: Method: Oral 12-20-2011 10:110400 Body weight 75.3 kg Poornima Goncalves RN [facility] Work Phone: 12-20-2011 10:11-0400 BP Diastolic 82 mm[Hg] Poornima Goncalves RN [facility] Work Phone: Comment on above: Patient Position: Sitting; Cuff Location : Left Arm; Cuff Size: Standard 12-20-2011 10:11-0400 BP Systolic 122 mm[Hg] Poornima Goncalves RN [facility] Work Phone: Comment on above: Patient Position: Sitting; Cuff Location : Left Arm; Cuff Size: Standard 12-20-2011 10:110400 BSA (Body Surface Area) 1.81 m2 Poornima Goncalves RN [facility] Work Phone: 12-20-2011 10:110400 Height 163.19 cm Poornima Goncalves RN [facility] Work Phone: 12-20-2011 10:11-0400 Pulse (Heart Rate) 80 /min Poornima Goncalves RN [facility] Work Phone: Comment on above: Pattern: Regular 12-20-2011 10:11-0400 Respiratory Rate 16 /min Poornima Goncalves RN [facility] Work Phone: Comment on above: Pattern: Unlabored 12-03-2011 10:21-0400 BMI (Body Mass Index) 28.27 kg/m2 Michelle Grijalva RN [facility] Internal Medicine Work Phone: 12-03-2011 10:21-0400 Body Temperature 98.2 [degF] Michelle Grijalva RN [facility] Work Phone: Comment on above: Method: Oral 12-03-2011 10:21040 Body weight 75.3 kg Michelle Grijalva RN [facility] Work Phone: 12-03-2011 10:21-0400 BP Diastolic 76 mm[Hg] Michelle Grijalva RN [facility] Work Phone: Comment on above: Patient Position: Sitting; Cuff Location : Left Arm; Cuff Size: Large 12-03-2011 10:21-0400 BP Systolic 110 mm[Hg] Michelle Grijalva RN [facility] Work Phone: Comment on above: Patient Position: Sitting; Cuff Location : Left Arm; Cuff Size: Large 12-03-2011 10:0400 BSA (Body Surface Area) 1.81 m2 Michelle Grijalva RN [facility] Work Phone: 12-03-2011 10:0400 Height 163.19 cm Michelle Grijalva RN [facility] Work Phone: 12-03-2011 10:21-0400 Pulse (Heart Rate) 60 /min Michelle Grijalva RN [facility] Work Phone: Comment on above: Pattern: Regular 12-03-2011 10:21-0400 Respiratory Rate 14 /min Michelle Grijalva RN [facility] Work Phone: Comment on above: Pattern: Unlabored 11-22-2011 11:07-0400 BMI (Body Mass Index) 28.19 kg/m2 Poornima Goncalves RN [facility] Work Phone: 11-22-2011 11:07-0400 Body Temperature 98.3 [degF] Poornima Goncalves RN [facility] Work Phone: Comment on above: Method: Oral 11-22-2011 11:070400 Body weight 75.07 kg Poornima Goncalves RN [facility] Work Phone: 11-22-2011 11:07-0400 BP Diastolic 60 mm[Hg] Poornima Goncalves RN [facility] Work Phone: Comment on above: Patient Position: Sitting; Cuff Location : Left Arm; Cuff Size: Large 11-22-2011 11:07-0400 BP Systolic 102 mm[Hg] Poornima Goncalves RN [facility] Work Phone: Comment on above: Patient Position: Sitting; Cuff Location : Left Arm; Cuff Size: Large 11-22-2011 11:07-0400 BSA (Body Surface Area) 1.81 m2 Poornima Goncalves RN [facility] Work Phone: 11-22-2011 11:07-0400 Height 163.19 cm Poornima Goncalves RN [facility] Work Phone: 11-22-2011 11:07-0400 Pulse (Heart Rate) 60 /min Poornima Goncalves RN [facility] Internal Medicine Work Phone: Comment on above: Pattern: Regular 11-22-2011 11:07-0400 Respiratory Rate 16 /min Poornima Goncalves RN [facility] Work Phone: Comment on above: Pattern: Unlabored 09-18-2011 10:47-0500 BMI (Body Mass Index) 28.73 kg/m2 Nimco Neil RN [facility] Internal Medicine Work Phone: 09-18-2011 10:47-0500 Body Temperature 97.6 [degF] Nimco Neil RN [facility] Internal Medicine Work Phone: Comment on above: Method: Oral 09-18-2011 10:47-0500 Body weight 76.52 kg Nimco Neil RN [facility] Work Phone: 09-18-2011 10:47-0500 BP Diastolic 84 mm[Hg] Nimco Neil RN [facility] Work Phone: Comment on above: Patient Position: Sitting; Cuff Location : Left Arm; Cuff Size: Standard 09-18-2011 10:47-0500 BP Systolic 104 mm[Hg] Nimco Neil RN [facility] Work Phone: Comment on above: Patient Position: Sitting; Cuff Location : Left Arm; Cuff Size: Standard 09-18-2011 10:47-0500 BSA (Body Surface Area) 1.82 m2 Nimco Neil RN [facility] Work Phone: 09-18-2011 10:47-0500 Height 163.19 cm Nimco Neil RN [facility] Internal Medicine Work Phone: 09-18-2011 10:47-0500 Pulse (Heart Rate) 62 /min Nimco Neil RN [facility] Internal Medicine Work Phone: Comment on above: Pattern: Regular 09-18-2011 10:47-0500 Respiratory Rate 16 /min Nimco Neil RN [facility] Internal Medicine Work Phone: Comment on above: Pattern: Unlabored 08-29-2011 13:32-0500 BMI (Body Mass Index) 28.27 kg/m2 Xenia Buien [facility] Internal Medicine Work Phone: 08-29-2011 13:32-0500 Body Temperature 98.8 [degF] Xenia Darden [facility] Internal Medicine Work Phone: 08-29-2011 13:32-0500 Body weight 75.3 kg Xenia Darden [facility] Internal Medicine Work Phone: 08-29-2011 13:32-0500 BP Diastolic 70 mm[Hg] Xenia Darden [facility] Internal Medicine Work Phone: Comment on above: Patient Position: Sitting; Cuff Location : Left Arm; Cuff Size: Large 08-29-2011 13:32-0500 BP Systolic 120 mm[Hg] Xenia Darden [facility] Internal Medicine Work Phone: Comment on above: Patient Position: Sitting; Cuff Location : Left Arm; Cuff Size: Large 08-29-2011 13:32-0500 BSA (Body Surface Area) 1.81 m2 Xenia Darden [facility] Internal Medicine Work Phone: 08-29-2011 13:32-0500 Height 163.19 cm Xenia Darden [facility] Internal Medicine Work Phone: 08-29-2011 13:32-0500 Pulse (Heart Rate) 72 /min Xenia Darden [facility] Work Phone: Comment on above: Pattern: Regular 08-29-2011 13:32-0500 Respiratory Rate 16 /min Xenia Garciacharan [facility] Work Phone: Comment on above: Pattern: Unlabored 08-07-2010 11:26-0500 Body weight 77.62 kg Poornima Goncalves RN [facility] Work Phone: 08-07-2010 11:26-0500 BP Diastolic 62 mm[Hg] Poornima Goncalves RN [facility] Work Phone: Comment on above: Patient Position: Sitting; Cuff Location : Left Arm; Cuff Size: Large 08-07-2010 11:26-0500 BP Systolic 104 mm[Hg] Poornima Goncalves RN [facility] Work Phone: Comment on above: Patient Position: Sitting; Cuff Location : Left Arm; Cuff Size: Large 08-07-2010 11:26-0500 Pulse (Heart Rate) 80 /min Poornima Goncalves RN [facility] Work Phone: Comment on above: Pattern: Regular 08-07-2010 11:26-0500 Respiratory Rate 20 /min Poornima Goncalves RN [facility] Work Phone: Comment on above: Pattern: Unlabored 05-11-2010 12:22-0400 Body Temperature 98.1 [degF] Paty Phan LPN [facility] Work Phone: Comment on above: Method: Oral 05-11-2010 12:22-0400 Body weight 77.17 kg Paty Phan LPN [facility] Work Phone: 05-11-2010 12:22-0400 BP Diastolic 64 mm[Hg] Paty Venegasti [employer] [facility] Work Phone: Comment on above: Patient Position: Sitting; Cuff Location : Left Arm; Cuff Size: Standard 05-11-2010 12:22-0400 BP Systolic 106 mm[Hg] Paty Phan LPN [facility] Work Phone: Comment on above: Patient Position: Sitting; Cuff Location : Left Arm; Cuff Size: Standard 05-11-2010 12:22-0400 Pulse (Heart Rate) 60 /min Paty Vitalezti [employer] [facility] Work Phone: Comment on above: Pattern: Regular 05-11-2010 12:22-0400 Respiratory Rate 18 /min Paty Phan [employer] [facility] Work Phone: Comment on above: Pattern: Unlabored 05-02-2010 09:55-0400 Body Temperature 98 [degF] An Jc [facility] Internal Medicine Work Phone: Comment on above: Method: Oral 05-02-2010 09:55-0400 Body weight 76.2 kg An Jc [facility] Internal Medicine Work Phone: 05-02-2010 09:55-0400 BP Diastolic 68 mm[Hg] An Jc [facility] Internal Medicine Work Phone: Comment on above: Patient Position: Sitting; Cuff Location : Left Arm; Cuff Size: Standard 05-02-2010 09:55-0400 BP Systolic 112 mm[Hg] An Jc [facility] Internal Medicine Work Phone: Comment on above: Patient Position: Sitting; Cuff Location : Left Arm; Cuff Size: Standard 05-02-2010 09:55-0400 Pulse (Heart Rate) 70 /min An Jc [facility] Internal Medicine Work Phone: Comment on above: Pattern: Regular 05-02-2010 09:55-0400 Respiratory Rate 17 /min An Jc [facility] Internal Medicine Work Phone: Comment on above: Pattern: Unlabored 04-10-2010 08:03-0400 Body Temperature 97.8 [degF] Michelle Grijalva RN [facility] Work Phone: Comment on above: Method: Oral 04-10-2010 08:03-0400 Body weight 76.2 kg Michelle Grijalva RN [facility] Work Phone: 04-10-2010 08:03-0400 BP Diastolic 64 mm[Hg] Michelle Grijalva RN [facility] Work Phone: Comment on above: Patient Position: Sitting; Cuff Location : Left Arm; Cuff Size: Standard 04-10-2010 08:03-0400 BP Systolic 100 mm[Hg] Michelle Grijalva RN [facility] Work Phone: Comment on above: Patient Position: Sitting; Cuff Location : Left Arm; Cuff Size: Standard 04-10-2010 08:03-0400 Pulse (Heart Rate) 68 /min Michelle Grijalva RN [facility] Work Phone: Comment on above: Pattern: Regular 04-10-2010 08:03-0400 Respiratory Rate 18 /min Michelle Grijalva RN [facility] Work Phone: Comment on above: Pattern: Unlabored 11-03-2009 09:17-0500 BMI (Body Mass Index) 29.07 kg/m2 Poornima Goncalves RN [facility] Work Phone: 11-03-2009 09:17-0500 Body weight 76.83 kg Poornima Goncalves RN [facility] Work Phone: 11-03-2009 09:17-0500 BP Diastolic 62 mm[Hg] Poornima Goncalves RN [facility] Work Phone: Comment on above: Patient Position: Sitting; Cuff Location : Left Arm; Cuff Size: Large 11-03-2009 09:17-0500 BP Systolic 122 mm[Hg] Poornima Goncalves RN [facility] Work Phone: Comment on above: Patient Position: Sitting; Cuff Location : Left Arm; Cuff Size: Large 11-03-2009 09:17-0500 BSA (Body Surface Area) 1.82 m2 Poornima Goncalves RN [facility] Work Phone: 11-03-2009 09:17-0500 Height 162.56 cm Poornima Goncalves RN [facility] Work Phone: 11-03-2009 09:17-0500 Pulse (Heart Rate) 60 /min Poornima Goncalves RN [facility] Work Phone: Comment on above: Pattern: Regular 11-03-2009 09:17-0500 Respiratory Rate 18 /min Poornima Goncalves RN [facility] Work Phone: Comment on above: Pattern: Unlabored 08-31-2009 10:36-0500 BMI (Body Mass Index) 27.85 kg/m2 Poornima Goncalves RN [facility] Work Phone: 08-31-2009 10:36-0500 Body weight 73.6 kg Poornima Goncalves RN [facility] Work Phone: 08-31-2009 10:36-0500 BP Diastolic 78 mm[Hg] Poornima Goncalves RN [facility] Work Phone: Comment on above: Patient Position: Sitting; Cuff Location : Left Arm; Cuff Size: Standard 08-31-2009 10:36-0500 BP Systolic 122 mm[Hg] Poornima Goncalves RN [facility] Work Phone: Comment on above: Patient Position: Sitting; Cuff Location : Left Arm; Cuff Size: Standard 08-31-2009 10:36-0500 BSA (Body Surface Area) 1.79 m2 Poornima Goncalves RN [facility] Work Phone: 08-31-2009 10:36-0500 Height 162.56 cm Poornima Goncalves RN [facility] Work Phone: 08-31-2009 10:36-0500 Pulse (Heart Rate) 72 /min Poornima Goncalves RN [facility] Work Phone: Comment on above: Pattern: Regular 08-31-2009 10:36-0500 Respiratory Rate 20 /min Poornima Goncalves RN [facility] Work Phone: Comment on above: Pattern: Unlabored 07-27-2009 10:07-0500 BMI (Body Mass Index) 27.49 kg/m2 Poornima Goncalves RN [facility] Work Phone: 07-27-2009 10:07-0500 Body weight 72.63 kg Poornima Goncalves RN [facility] Work Phone: 07-27-2009 10:07-0500 BP Diastolic 78 mm[Hg] Poornima Goncalves RN [facility] Work Phone: Comment on above: Patient Position: Sitting; Cuff Location : Left Arm; Cuff Size: Large 07-27-2009 10:07-0500 BP Systolic 124 mm[Hg] Poornima Goncalves RN [facility] Work Phone: Comment on above: Patient Position: Sitting; Cuff Location : Left Arm; Cuff Size: Large 07-27-2009 10:07-0500 BSA (Body Surface Area) 1.78 m2 Poornima Goncalves RN [facility] Work Phone: 07-27-2009 10:07-0500 Head Circumference 0 cm An Jc [facility] Work Phone: 07-27-2009 10:07-0500 Head Occipital-frontal circumference 0 cm Poornima Goncalves RN [facility]; [facility] Work Phone: 07-27-2009 10:07-0500 Height 162.56 cm Poornima Goncalves RN [facility] Work Phone: 07-27-2009 10:07-0500 Pulse (Heart Rate) 72 /min Poornima Goncalves RN [facility] Work Phone: Comment on above: Pattern: Regular 07-27-2009 10:07-0500 Respiratory Rate 18 /min Poornima Goncalves RN [facility] Work Phone: Comment on above: Pattern: Unlabored 06-27-2009 10:12-0500 BMI (Body Mass Index) 27.56 kg/m2 Patypascual Venegasti [employer] [facility] Work Phone: 06-27-2009 10:12-0500 Body weight 72.83 kg Patypascual Venegasti [employer] [facility] Work Phone: 06-27-2009 10:12-0500 BP Diastolic 72 mm[Hg] Patypascual Venegasti [employer] [facility] Work Phone: Comment on above: Patient Position: Sitting; Cuff Location : Left Arm; Cuff Size: Standard 06-27-2009 10:12-0500 BP Systolic 104 mm[Hg] Paty Venegasti [employer] [facility] Work Phone: Comment on above: Patient Position: Sitting; Cuff Location : Left Arm; Cuff Size: Standard 06-27-2009 10:12-0500 BSA (Body Surface Area) 1.78 m2 Paty Venegasti [employer] [facility] Work Phone: 06-27-2009 10:12-0500 Head Circumference 0 cm An Galarzaon [facility] Work Phone: 06-27-2009 10:12-0500 Head Occipital-frontal circumference 0 cm Patypascual Phan CRESENCIO [facility]; [facility] Work Phone: 06-27-2009 10:12-0500 Height 162.56 cm Paty Phan CRESENCIO [facility] Work Phone: 06-27-2009 10:12-0500 Pulse (Heart Rate) 56 /min Paty Phan CRESENCIO [facility] Work Phone: Comment on above: Pattern: Regular 06-27-2009 10:12-0500 Respiratory Rate 16 /min Patypascual Phan CRESENCIO [facility] Work Phone: Comment on above: Pattern: Unlabored 06-02-2009 08:51-0400 BMI (Body Mass Index) 27.46 kg/m2 Poornima Goncalves RN [facility] Work Phone: 06-02-2009 08:51-0400 Body weight 72.58 kg Poornima Goncalves RN [facility] Work Phone: 06-02-2009 08:51-0400 BP Diastolic 62 mm[Hg] Poornima Goncalves RN [facility] Work Phone: Comment on above: Patient Position: Sitting; Cuff Location : Left Arm; Cuff Size: Large 06-02-2009 08:51-0400 BP Systolic 118 mm[Hg] Poornima Goncalves RN [facility] Work Phone: Comment on above: Patient Position: Sitting; Cuff Location : Left Arm; Cuff Size: Large 06-02-2009 08:51-0400 BSA (Body Surface Area) 1.78 m2 Poornima Goncalves RN [facility] Work Phone: 06-02-2009 08:51-0400 Head Circumference 0 cm An Hosea [facility] Work Phone: 06-02-2009 08:51-0400 Head Occipital-frontal circumference 0 cm Poornima Goncalves RN [facility]; [facility] Work Phone: 06-02-2009 08:51-0400 Height 162.56 cm Poornima Goncalves RN [facility] Work Phone: 06-02-2009 08:51-0400 Pulse (Heart Rate) 64 /min Poornima Goncalves RN [facility] Work Phone: Comment on above: Pattern: Regular 06-02-2009 08:51-0400 Respiratory Rate 20 /min Poornima Goncalves RN [facility] Work Phone: Comment on above: Pattern: Unlabored 05-27-2009 09:20-0400 BMI (Body Mass Index) 27.46 kg/m2 An Jc [facility] Work Phone: 05-27-2009 09:20-0400 Body Temperature 98 [degF] An Jc [facility] Work Phone: Comment on above: Method: Oral 05-27-2009 09:20-0400 Body weight 72.58 kg An Jc [facility] Work Phone: 05-27-2009 09:20-0400 BP Diastolic 78 mm[Hg] An Jc [facility] Work Phone: Comment on above: Patient Position: Sitting; Cuff Location : Left Arm; Cuff Size: Standard 05-27-2009 09:20-0400 BP Systolic 136 mm[Hg] An Jc [facility] Work Phone: Comment on above: Patient Position: Sitting; Cuff Location : Left Arm; Cuff Size: Standard 05-27-2009 09:20-0400 BSA (Body Surface Area) 1.78 m2 An Jc [facility] Work Phone: 05-27-2009 09:20-0400 Head Circumference 0 cm An Jc [facility] Work Phone: 05-27-2009 09:20-0400 Head Occipital-frontal circumference 0 cm An Jc DO Work Phone: [facility]; [facility] Work Phone: 05-27-2009 09:20-0400 Height 162.56 cm An Jc [facility] Work Phone: 05-27-2009 09:20-0400 Pulse (Heart Rate) 70 /min An Jc [facility] Work Phone: Comment on above: Pattern: Regular 05-27-2009 09:20-0400 Respiratory Rate 16 /min An Jc [facility] Work Phone: Comment on above: Pattern: Unlabored Encounters Encounter Date Encounter Type Care Provider Facility Start: 09-30-2024 End: 09-30-2024 Office outpatient visit 25 minutes Puneet Shea MD Work Phone: [facility] Cardiology [place] Comment on above: Paroxysmal supravent ricular tachycardia (HCC) (Primary Dx); Paroxysmal atrial tachycardia (HCC); Palpitations Start: 09-30-2024 End: 09-30-2024 ambulatory MARZENA JOHNSON Facility:[facility] Start: 09-25-2024 End: 09-26-2024 Telephone encounter Puneet Shea MD Work Phone: [facility] Start: 09-22-2024 End: 09-22-2024 Telephone encounter Puneet Shea MD Work Phone: [facility] Cardiology [place] Comment on above: Patient Update Start: 08-12-2024 End: 08-12-2024 Telephone encounter Puneet Shea MD Work Phone: [facility] Cardiology [place] Comment on above: Patient Update; Grey Inspector - Other Start: 08-07-2024 End: 08-07-[address] Marzena Johnson MD -Outpatient Breast Imaging Work Phone: Start: 08-07-2024 End: 08-07-2024 ambulatory Marzena Johnson Facility:[facility] Start: 08-03-2024 End: 08-03-[address] [facility] Start: 08-03-2024 End: 08-03-2024 ambulatory Don Villafana Facility:[facility] Start: 07-31-2024 End: 07-31-2024 Telephone encounter Jesus Cordova APRN.CNP Work Phone: [facility] Cardiology [place] Comment on above: Orders; Appointment Start: 07-30-2024 End: 07-31-2024 ambulatory PUNEET SHEA Facility:[facility] Start: 07-09-2024 End: 07-09-2024 Telephone encounter Puneet Shea MD Work Phone: [facility] Cardiology [place] Comment on above: Preparations For Pro cedures Start: 07-08-2024 End: 07-08-2024 ambulatory [facility] Facility:[facility] Start: 07-08-2024 End: 07-08-[address] Marzena Johnson MD -Occupational Therapy Work Phone: Start: 06-08-2024 End: 06-08-2024 [facility] Facility:[facility] Start: 05-15-2024 End: 05-26-2024 Telephone encounter Puneet Shea MD Work Phone: [facility] Cardiology [place] Comment on above: Medication Problem; Appointment; Grey Inspector - Other Start: 04-23-2024 End: 04-23-2024 [facility] Facility:[facility] Start: 04-01-2024 Refill Puneet álvarez MD Work Phone: [facility] [place] Comment on above: Med Change Request Start: 03-31-2024 End: 03-31-2024 Refill Puneet Shea MD Work Phone: [facility] Cardiology [place] Comment on above: Refill Request Start: 03-10-2024 End: 03-10-2024 ambulatory [facility] Facility:[facility] Start: 03-03-2024 End: 03-03-2024 Emergency department patient visit Hussein Maharaj Facility:[facility] Start: 01-31-2024 Refill Puneet álvarez MD Work Phone: [facility] [place] Comment on above: Refill Request Start: 01-24-2024 Refill Puneet álvarez MD Work Phone: [facility] [place] Comment on above: Refill Request Start: 01-17-2024 Telephone encounter Puneet chauhan MD Work Phone: [facility] Comment on above: Patient Update Start: 01-10-2024 Telephone encounter Puneet chauhan MD Work Phone: [facility] Cardiology [place] Comment on above: Orders Start: 01-02-2024 End: 01-02-2024 Patient encounter procedure Puneet Shea MD Work Phone: [facility] Cardiology [place] Comment on above: Paroxysmal atrial ta chycardia (HCC) (Primary Dx); Paroxysmal supraventricular tachycardia (HCC); Palpitations Start: 01-02-2024 End: 01-02-2024 ambulatory MARZENA JOHNSON Facility:[facility] Start: 12-18-2023 Non-patient / Non-visit Dr. Ysabel Johnson Work Phone: [facility] Start: 12-18-2023 End: 12-18-[address] Mazrena Johnson Work Phone: [facility] Work Phone: Start: 12-18-2023 End: 12-18-[address] Marzena Johnson Work Phone: [facility]Cardiov[facility]cul[facility] Work Phone: Start: 12-18-2023 End: 12-18-2023 ambulatory Marzena Johnson Facility:[facility] Start: 11-20-2023 End: 11-20-[address] Wing Johnson Work Phone: [facility] Work Phone: Start: 11-20-2023 End: 11-20-[address] Wing Johnson Work Phone: [facility]-Laboratory Work Phone: Start: 11-20-2023 End: 11-20-[address] Wing Johnson Work Phone: [facility] Work Phone: Start: 11-20-2023 End: 11-20-2023 ambulatory [facility] Start: 11-20-2023 End: 11-20-2023 ambulatory [facility] Facility:[facility] Start: 07-24-2023 End: 07-24-2023 ambulatory [facility] Work Phone: Start: 07-24-2023 End: 07-24-2023 Patient encounter procedure [facility]-Outpatient Breast Imaging Work Phone: Start: 07-23-2022 End: 07-23-2022 ambulatory [facility] Work Phone: Start: 07-23-2022 End: 07-23-2022 Patient encounter procedure [facility]-Outpatient Breast Imaging Start: 07-11-2022 End: 07-11-2022 ambulatory [facility] Work Phone: Start: 07-11-2022 End: 07-11-2022 Patient encounter procedure [facility] Start: 12-27-2017 End: 12-27-2017 Office outpatient visit 15 minutes An Jc [facility] Start: 12-06-2016 End: 12-06-2016 Office outpatient visit 15 minutes An Jc [facility] Start: 06-20-2016 End: 06-20-2016 Office outpatient visit 10 minutes An Jc [facility] Start: 06-14-2016 End: 06-14-2016 Office outpatient visit 15 minutes An Jc [facility] Start: 08-17-2015 End: 08-21-2015 Office outpatient visit 15 minutes An Jc [facility] Start: 07-26-2015 End: 07-26-2015 Office outpatient visit 15 minutes An Jc [facility] Start: 07-26-2015 End: 07-26-2015 Office outpatient visit 15 minutes An Jc [facility] Start: 07-25-2015 End: 07-25-2015 Phone Encounter An Dillard [employer] [facility] Start: 01-11-2015 End: 01-11-2015 Office outpatient visit 15 minutes An Jc [facility] Start: 01-11-2015 End: 01-11-2015 Office outpatient visit 40 minutes An Jc [facility] Start: 07-08-2014 End: 07-08-2014 Phone Encounter An Jc [facility] [employer] [facility] Medicine Start: 07-07-2014 End: 07-07-2014 Office outpatient visit 5 minutes An Jc [facility] Start: 07-07-2014 End: 07-07-2014 Office outpatient visit 15 minutes An Jc [facility] Start: 05-24-2014 End: 05-24-2014 Office outpatient visit 15 minutes An Jc [facility] Start: 05-17-2014 End: 05-17-2014 Office outpatient visit 15 minutes An Jc [facility] Start: 05-13-2014 End: 05-13-2014 Office outpatient visit 15 minutes An Jc [facility] Start: 03-31-2014 End: 03-31-2014 Phone Encounter An Hosea [facility] al Medicine Start: 09-04-2013 End: 09-04-2013 Patient encounter procedure An Jc [facility] Start: 08-11-2013 End: 08-11-2013 Patient encounter procedure An Jc [facility] Start: 07-28-2013 End: 07-28-2013 Patient encounter procedure An Jc [facility] Start: 12-20-2011 End: 12-20-2011 Patient encounter procedure An Jc [facility] Start: 12-03-2011 End: 12-03-2011 Patient encounter procedure nA Jc [facility] Start: 11-29-2011 End: 11-29-2011 Patient encounter procedure An Jc [facility] Start: 11-27-2011 End: 11-28-2011 Patient encounter procedure An Jc [facility] Start: 11-22-2011 End: 11-22-2011 Patient encounter procedure An Jc [facility] Start: 09-18-2011 End: 09-20-2011 Patient encounter procedure An Jc [facility] Start: 08-29-2011 End: 08-30-2011 Patient encounter procedure An Jc [facility] Start: 12-20-2010 End: 12-20-2010 Erroneous Entry An Jc [facility] [employer] al Medicine Start: 08-07-2010 End: 08-07-2010 Patient encounter procedure An Jc [facility] Start: 05-11-2010 End: 05-11-2010 Patient encounter procedure An [facility] Start: 05-02-2010 End: 05-02-2010 Patient encounter procedure An Jc [facility] Start: 05-02-2010 End: 05-02-2010 Office outpatient visit 15 minutes An [facility] Start: 04-10-2010 End: 04-10-2010 Office outpatient visit 25 minutes An Jc [facility] Start: 11-03-2009 End: 11-03-2009 Patient encounter procedure An Jc [facility] Start: 08-31-2009 End: 08-31-2009 Patient encounter procedure An Jc [facility] Start: 07-27-2009 End: 07-27-2009 Patient encounter procedure An Jc [facility] Start: 06-27-2009 End: 06-27-2009 Patient encounter procedure An Jc [facility] Start: 06-02-2009 End: 06-02-2009 Patient encounter procedure An Jc [facility] Start: 05-27-2009 End: 05-27-2009 Office outpatient new 20 minutes An Jc [facility] Start: 05-23-2009 End: 05-23-2009 Historical Summary An Jc [facility] [employer] Medicine Procedures Date Procedure Procedure Detail Performing Clinician Start: 08-07-[address] Marzena Johnson MD Work Phone: Start: 01-02-2024 Ecg routine ecg w/least 12 lds w/i&r Puneet Shea MD Work Phone: Start: 07-24-2023 Screening mammography Start: 07-23-2022 Screening mammography Start: 02-01-2019 End: 02-01-2019 Emergency Department Summary Comments: See Note; NOTES: [facility] Medical Records Department [address] [place] [address] Emergency Department Summary 02/01/19 2244 MR#: [id number] Acct: [id number] Name: KAREN BLAIR Rep #: [id number] : 1970 48 From: Danish Nash MD PCP: An Jc DO Status: REG ER - ER Visit Summary Date of Service: 02/01/19 Chief Complaint: Back pain History of Present Illness: The patient is a 48 F with back pain for 3 days she has a history of disc disease. She denies any bowel or bladder compromise there is no radiation. She is worried because she had prior disc disease. Physical Examination: Otherwise normal exam she is a soft nontender abdomen without any suprapubic mass. She has L3-L5 tenderness, she has loss of lordosis. She has a negative straight leg test 1+ equal bilateral patellar and Achilles reflexes. Normal plantar flexion of both feet normal dorsiflexion of both great toes Emergency Department Course and Treatment: Patient appears well, there are no red flags, I will treat symptomatically Discharge stable condition Impression: [Lumbar strain] This note was generated with [employer] dictation software. It may contain incorrect words, spelling, and punctuation that were not noted in review of the chart prior to signing ED Disposition - Plan for ED Patient: Disposition: Home or Assisted Living Instructions: ED Low Back Pain Injury Prescriptions: Naproxen [Naprosyn] 500 mg PO BID PRN #20 tab cycloBENZAPRine HCl [Flexeril] 10 mg PO TID PRN #20 tab PRN Reason: Muscle Spasm Referrals: An Jc, [Primary Care Provider] - 3-5 Days What to do if you have Problems For any increased pain, shortness of breath, bleeding, nausea or vomiting, chest pain, or any unexpected problems, contact your Primary Care Provider. Call [facility] ([phone]) or report to the closest Emergency Room. Call 911 if necessary. 02/01/19 2246 <Electronically signed by Danish Nash MD> Date Danish Nash MD Cosigner Signature (If Indicated): Date CC: An Franco Start: 02-13-2018 End: 02-13-2018 Downtime Report Comments: See Note; NOTES: [facility] Medical Records Department [address] [place] [address] Downtime Report MR#: [id number] Acct: [id number] Name: KAREN BLAIR Rep #: [id number] : 1970 47 From: Arturo Pete PCP: An Jc DO Status: REG CLI This patient was seen during an EMR downtime January 27, 2018 - February 03, 2018. This patient may have a combination of paper and electronic documentation or all paper documentation. All documentation is viewable within the e-chart portion of [facility] for each patient visit. An Jc Start: 01-30-2018 End: 02-10-2018 SCREENING MAMM (CAD), BILAT Comments: See Note; NOTES: [facility] Imaging Services [address] [place] [address] SCREENING MAMM (CAD), BILAT MR#: [id number] Acct: [id number] Name: KAREN BLAIR Rep #: [id number] : 1970 F 47 From: Curt Allan MD PCP: An Jc DO Status: REG CLI Study: SCREENING MAMM (CAD), BILAT Date of Exam: 01/30/18 Exam# [id number] Ordering Dr: An Jc DO MAMMOGRAPHY - BILATERAL SCREENING REASON FOR EXAM: Female, 47 years old. Routine annual screening examination. PERTINENT HISTORY: Non-contributory. TECHNIQUE: Digital bilateral breast alejandra (3D mammographic acquisition) in the CC and MLO projections. 2-D mediolateral oblique (MLO) and craniocaudad (CC) views of both breasts were obtained. CAD: Full Field Digital Mammography with Computer Added Detection was performed. COMPARISON: Comparison is made with prior examination dated July 10, 2014. FINDINGS: Breast Composition: The breasts are heterogeneously dense, which may obscure small masses. There are no dominant masses or suspicious calcifications. No other significant abnormalities are identified. There has been no significant change since the prior study. BI/SCREENING MAMM (CAD), BILAT IMPRESSION: Stable bilateral screening mammogram. Yearly follow-up mammogram recommended. (A) ASSESSMENT CATEGORY: BIRADS Category 2: Benign. A letter regarding these results will be sent to the patient by the facility within 30 days. Approximately 10% of breast cancers are not detected by mammography. A normal mammogram should not delay biopsy of a clinically suspicious abnormality. [id number] Electronically Signed: Curt Allan MD at 9:01 EDT Tel [phone], Service support , CC: An Jc DO Parimutuel Clerk: Signed An Jc Work Phone: Start: 12-14-2016 End: 12-14-2016 Spine Lumbar (Routine) Comments: See Note; NOTES: [facility] Imaging Services [address] [place] [id number] [place] 4d Spine Lumbar (Routine) MR#: [id number] Acct: [id number] Name: KAREN BLAIR Rep #: [id number] : 1970 F 46 From: Ankur Lira MD PCP: An Jc DO Status: REG CLI Study: Spine Lumbar (Routine) Date of Exam: 12/14/16 Exam# [id number] Ordering Dr: An Jc DO STUDY: MRI LUMBAR SPINE WITHOUT CONTRAST REASON FOR EXAM: Female, 46 years old. Low back pain. No known injury TECHNIQUE: Standardized fat and water weighted pulse sequences were obtained in the sagittal and axial planes. COMPARISON: None FINDINGS: T12-L1: There are anterior osteophytes. Normal disc height, hydration and morphology. Normal bilateral facet joints. Normal central canal and bilateral lateral recesses. Normal bilateral intervertebral neural foramina. Normal lumbar lordosis. There is no substantial scoliosis. Normal conus medullaris that terminates at the T12-L1 level L1-2: Normal endplates. Normal disc height, hydration and morphology. Normal bilateral facet joints. Normal central canal and bilateral lateral recesses. Normal bilateral intervertebral neural foramina. L2-3: Normal endplates. There is a central and left paracentral disc herniation of extrusion type extending caudally into the left lateral recess measuring approximately by 8 mm in AP and transverse diameter (axial T2 series 5 image 16 and sagittal T2 series 2 image 6). Normal bilateral facet joints. Normal central canal and bilateral lateral recesses. Normal bilateral intervertebral neural foramina. L3-4: Normal endplates. There is an annular bulge with a posterior annular tear. There is bilateral facet arthrosis. Normal central canal and bilateral lateral recesses. Normal bilateral intervertebral neural foramina. L4-5: Normal endplates. There is an annular bulge. There is mild bilateral facet arthrosis. Normal central canal and bilateral lateral recesses. Normal bilateral intervertebral neural foramina. L5-S1: Normal endplates. Normal disc height, hydration and morphology. Normal bilateral facet joints. Normal central canal and bilateral lateral recesses. Normal bilateral intervertebral neural foramina. Normal visualized sacral ala. Normal visualized paraspinous soft tissue structures. MRI/Spine Lumbar (Routine) IMPRESSION: L2-3 central and left paracentral disc extrusion extending caudally into the left lateral recess. L3-4 annular bulge with posterior annular tear and bilateral facet arthrosis. L4-5 annular bulge with bilateral facet arthrosis Electronically Signed: Ankur Lira MD, FACR at 12:11 EDT , Service support , CC: An Jc DO Parimutuel Clerk: Signed An Jc Work Phone: Start: 12-06-2016 End: 12-07-2016 L/S Spine Min 4 Views Comments: See Note; NOTES: [facility] Imaging Services [address] [place] [id number] [place] 4d L/S Spine Min 4 Views MR#: [id number] Acct: [id number] Name: KAREN BLAIR Rep #: [id number] : 1970 F 46 From: Curt Allan MD PCP: An Jc DO Status: REG CLI Study: L/S Spine Min 4 Views Date of Exam: 12/06/16 Exam# [id number] Ordering Dr: An Jc DO STUDY: X-RAY - LUMBAR SPINE REASON FOR EXAM: Female, 46 years old. Low back pain and left leg pain. TECHNIQUE: 5 view(s) of the lumbar spine were obtained including oblique views. COMPARISON: None FINDINGS: Normal lumbar lordosis. There is no substantial scoliosis. Grade 1 anterior listhesis of L5 on S1 with spondylolysis. Anterior spondylosis at the T12-L1 level. Disc space narrowing at the L4-L5 and L5-S1 levels. A moderate amount of fecal material is seen in the colon. RAD/L/S Spine Min 4 Views IMPRESSION: Degenerative changes of the spine, as detailed above. Grade 1 spondylolisthesis of L5 on S1 with spondylolysis. Electronically Signed: Curt Allan MD at 12:42 EDT Tel [phone], Service support , CC: An Jc DO Parimutuel Clerk: Signed An Jc Work Phone: Start: 04-05-2016 History of thyroidectomy H/O thyroidectomy 2012 Puneet Shea MD Work Phone: Start: 01-25-2016 End: 01-25-2016 Echocardiogram Complete Comments: See Note; NOTES: [facility] Cardiovascular Services [address] [place] [address] Echo Complete 01/25/16 1121 MR#: [id number] Acct: [id number] Name: KAREN BLAIR Rep #: [id number] : 1970 45 From: Noah Munoz MD Attending Dr: Puneet Siegel MD Status: REG CLI Ordering Dr: Puneet Siegel MD Date: 01/25/16 Location: [facility] Sex: F C Admitted: Reason For Study: PHTN Procedure This was a 2D Doppler, Color Flow transthoracic echocardiogram. Exam performed in department. Left Ventricle Normal size and thickness. The estimated ejection fraction is 65 %. Normal diastology for age. No regional wall motion abnormalities noted. Right Ventricle Normal size and thickness. Normal systolic function. Atria The left atrium is mildly enlarged. Normal right atrium. Normal atrial septum. Mitral Valve Mild diffuse mitral valve thickening. Mild mitral valve prolapse. Trivial mitral valve insufficiency. Tricuspid Valve Normal tricuspid valve. Mild to moderate (1-2+) tricuspid valve insufficiency. Right ventricular systolic pressure estimated to be 40 mmHg. Aortic Valve Trisinus/trileaflet aortic valve. Normal aortic valve. Pulmonic Valve Normal pulmonic valve. Great Vessels Normal aortic root. Normal arch. Normal inferior vena cava. Inferior vena cava collapse with sniff. Pericardium/Pleural No pericardial effusion. MMode/2D Measurements AND Calculations LVIDd: 3.9 cm IVSd: 0.95 cm Ao root diam: 2.9 cm LVIDs: 2.6 cm LVPWd: 0.88 cm LA dimension: 2.4 cm RVDd: 3.0 cm FS: 33.7 % LAV(MOD-bp): 60.0 ml LA A4 area: 20.4 cm2 RA A4 area: 18.3 cm2 LAV(MOD-bp) Indexed: 33.9 ml/m2 LAV(MOD-sp2): 60.8 ml LAV(MOD-sp4): 57.8 ml Doppler Measurements AND Calculations MV E max cortes: 81.4 cm/sec Lat Peak E' Cortes: 16.0 cm/sec Med Peak E' Cortes: 16.3 cm/sec MV A max cortes: 43.1 cm/sec E/E' lat: 5.1 E/E' med: 5.0 MV E/A: 1.9 Ao V2 max: 197.0 cm/sec LV V1 max: 131.1 cm/sec TV V2 max: 301.9 cm/sec Ao max P.5 mmHg LV V1 max P.9 mmHg TV max P.5 mmHg PA V2 max: 115.2 cm/sec TR max cortes: 297.4 cm/sec TR max P.4 mmHg Interpretation Summary The estimated ejection fraction is 65 %. Normal diastology for age. The left atrium is mildly enlarged. Mild mitral valve prolapse. Mild to moderate (1-2+) tricuspid valve insufficiency. Right ventricular systolic pressure estimated to be 40 mmHg. Compared to echo report dated 01/24/2015, no appreciable changes noted. RVSP has decreased from 46 to 40 mm Hg. Ordering Physician: Puneet Siegel Referring Physician: An Jc M.D. Performed By: Marcela, Laura, RDCS 01/25/16 1305 Date Noah Munoz MD CC: An Jc DO; Puneet Siegel MD Date Dictated: 01/25/16 1121 Date Transcribed: 01/25/16 1305 Parimutuel Clerk: Signed An Jc Start: 07-27-2015 End: 07-27-2015 Emergency Department Summary Comments: See Note; NOTES: [facility] Medical Records Department [address] [place] [address] Emergency Department Summary MR#: [id number] Acct: [id number] Name: KAREN BLAIR Rep #: [id number] : 1970 44 From: Xenia Knott MD PCP: An Jc DO Status: [facility] ER DATE OF SERVICE: 07/26/2015 CHIEF COMPLAINT: Infected dog bite. PACHECO HISTORY: The patient is a 44-year-old female who was seen here on July 21 for a dog bite to the right hand and the left maxilla wounds were cleansed and she was placed on Augmentin for 3 days. She reports increased swelling to the left face after the antibiotics. She was seen in her PCP office today by a new doctor in the group. She was sent for blood work, IV antibiotics and the doctor wanted an I and D of her left face. Dr. Jewell was not available, so she was sent to the ER. She denies any fever. PHYSICAL EXAMINATION: VITAL SIGNS: Unremarkable. GENERAL: The patient is sitting upright in bed, reading a book. She is in no acute distress. HEAD AND NECK: Left maxilla reveals some edema with focal induration, but there is no fluctuance. There is no erythema or warmth over the skin. HEART: Regular. LUNGS: Clear. HOSPITAL COURSE: I did review the outpatient CT, the patient had prior to arrival here. This reveals soft tissue edema, but no focal abscess noted. I advised the patient, that I did not know that opening up her face would be of be benefit if there is no focal abscess to drain. I spoke with Dr. Concepcion, the new physician that she saw today. The patient is to continue IV antibiotics and oral medications as ordered. This was related to the patient, she is obviously extremely upset that she has been here at the hospital all day for tests that were not necessary. She is swearing and startling out of the Emergency Room. DISPOSITION: Discharge. IMPRESSION: Left facial infection, status post dog bite. Xenia Knott MD T: NTS JOB: [id number] 07/27/15 1714 <Electronically signed by Xenia Knott MD> Date Xenia Knott MD Cosigner Signature (If Indicated): Date CC: An Jc DO Date Dictated: 07/26/151600 Date Transcribed: 07/26/151600 Parimutuel Clerk: Signed An Jc Start: 07-26-2015 End: 07-26-2015 Discharge Instruction Comments: See Note; NOTES: [facility] Medical Records Department [address] [place] [address] Discharge Instruction 07/26/151551 MR#: [id number] Acct: [id number] Name: KAREN BLAIR Rep #: [id number] : 1970 44 From: Xenia Knott MD PCP: An Jc DO Status: PRE ER ED Disposition - Plan for ED Patient: Disposition: Home or Assisted Living Chief Complaint: Abcess Instructions: ED Cellulitis, Facial Referrals: An Jc DO [Primary Care Provider] - Additional Instructions: Continue IV antibiotics as ordered by your primary care physician. What to do if you have Problems For any increased pain, shortness of breath, bleeding, nausea or vomiting, chest pain, or any unexpected problems, contact your doctor. Call [facility] ([phone]) or report to the closest Emergency Room. Call 911 if necessary. 07/26/151552 <Electronically signed by Xenia Knott MD> Date Xenia Knott MD Cosigner Signature (If Indicated): Date CC: An Franco Start: 07-26-2015 End: 07-26-2015 Brain/Head W/WO Contrast Comments: See Note; NOTES: [facility] Imaging Services [address] [place] [address] Verdasara 4d Brain/Head W/WO Contrast MR#: [id number] Acct: [id number] Name: KAREN BLAIR Rep #: [id number] : 1970 F 44 From: Curt Allan MD PCP: An Jc DO Status: REG CLI Study: Brain/Head W/WO Contrast Date of Exam: 07/26/15 Exam# [id number] Ordering Dr: MOISES CONCEPCION STUDY: CT BRAIN WITH AND WITHOUT CONTRAST REASON FOR EXAM: Female, 44 years old. Swelling to the left maxillary region following a dog bite. RADIATION DOSAGE (If Supplied By Facility): CTDIvol = ( 48.1 ) mGy, DLP = ( 2781.20 ) mGycm TECHNIQUE: Transaxial CT imaging of the brain was performed pre and post contrast administration. The examination was performed with intravenous administration of 75 ml of Omnipaque 300 contrast material. COMPARISON: None. FINDINGS: Normal soft tissue structures. Normal calvarium. Normal size ventricles and extra-axial spaces for the patient's age. Normal white matter tracts of the cerebral hemispheres. Normal basal ganglia and thalami. Normal brainstem. Normal cerebellum. There is no intracranial hemorrhage. There are no findings of an acute ischemic infarction. Normal visualized paranasal sinuses. IMPRESSION: Normal unenhanced and enhanced CT scan of the brain. Electronically Signed: Curt Allan MD at 12:21 EST Tel [phone], Service support [phone], CC: An Jc DO; MOISES CONCEPCION Parimutuel Clerk: Signed Rufino Mackmarcellus Work Phone: Start: 07-26-2015 End: 07-26-2015 Soft Tissue Neck WITH Contrast Comments: See Note; NOTES: [facility] Imaging Services [address] [place] [address] Verrufino 4d Soft Tissue Neck WITH Contrast MR#: [id number] Acct: [id number] Name: KAREN BLAIR Rep #: [id number] : 1970 F 44 From: Curt Allan MD PCP: An Jc DO Status: REG CLI Study: Soft Tissue Neck WITH Contrast Date of Exam: 07/26/15 Exam# [id number] Ordering Dr: MOISES CONCEPCION STUDY: CT SOFT TISSUE NECK WITH CONTRAST REASON FOR EXAM: Female, 44 years old. Left-sided neck swelling following a dog bite. RADIATION DOSAGE (If Supplied By Facility): CTDIvol = ( 48.1 ) mGy, DLP = ( 2781.20 ) mGycm TECHNIQUE: The patient was scanned in a multi-detector CT scanner. High resolution transaxial imaging was performed following intravenous administration of 75 ml of Isovue 300 contrast material. Sagittal and coronal images were reconstructed. COMPARISON: None. FINDINGS: There is evidence of increased markings within the subcutaneous fat overlying the left side of the mandible and region of the mentum. No radiopaque foreign body is seen. Beam hardening artifact from the dental work limits the evaluation. Normal bilateral parotid glands. Normal bilateral chief radiology spaces. Normal bilateral parapharyngeal spaces. Normal bilateral carotid spaces. Normal bilateral sublingual and submandibular glands and spaces. Normal visualized nasopharynx. Normal retropharyngeal space. Normal perivertebral space. Normal visualized bilateral faucial tonsils. The visualized tongue, tongue base and oropharynx are normal. The visualized cervical lymph nodes (levels I-) are within normal size limits, and maintain normal morphology. There is no demonstrated solid or cystic mass lesion. There is no abnormal contrast enhancement. Normal epiglottis, bilateral vallecula and hypopharynx. The pre-epiglottic and paraglottic adipose spaces are normal. Normal visualized bilateral piriform sinuses, aryepiglottic folds, vocal cords, and arytenoid-cricoid articulations. Normal subglottic trachea. Normal bilateral lobes of the thyroid gland. Normal visualized pulmonary apices. Normal visualized paranasal sinuses. Normal visualized cervical spine. IMPRESSION: Soft tissue swelling overlying the left side of the mandible and mental region. No radiopaque foreign body is seen. Electronically Signed: Curt Allan MD at 12:23 EST Tel [phone], Service support [phone], CC: An CONCEPCION Parimutuel Clerk: Signed Rufino Olguin Work Phone: Start: 07-21-2015 End: 07-21-2015 Emergency Department Summary Comments: See Note; NOTES: [facility] Medical Records Department [address] [place] [address] Emergency Department Summary MR#: [id number] Acct: [id number] Name: KAREN BLAIR Rep #: [id number] : 1970 44 From: Xenia Knott MD PCP: An Jc DO Status: [facility] ER DATE OF SERVICE: 07/21/2015 CHIEF COMPLAINT: Dog bite. PACHECO HISTORY: The patient is a 44-year-old female who was caring for her dog who she believes is dying and is in pain and the dog bit her on the left maxilla around 4:30 this afternoon and that is prior to arrival, bit on the right hand as well. She states she heard a crunching sound when the dog bit her hand and she was concerned she may have broken something. She is unsure of her last tetanus update. PHYSICAL EXAMINATION: VITAL SIGNS: Triage include temperature of 100.2; however, it is repeated in the room and it is 97.7 orally. GENERAL: The patient is sitting upright in bed in no acute distress. HEAD AND NECK: Examination does reveal a 0.5 cm linear, very superficial abrasion to the left maxilla with very mild bleeding. She has no jaw tenderness. HEART: Regular. LUNGS: Clear. EXTREMITIES: Right upper extremity examination reveals a puncture wound to the palm of the hand over the fifth metacarpal and an abrasion with a hematoma on the dorsal aspect of the right hand. She has full range of motion. Normal cap refill. HOSPITAL COURSE: Right hand x-ray showed no fracture, no radiopaque foreign body. She will get a tetanus update and a dose of Augmentin with a prescription for 3 days. Her facial wound was cleansed and Surgifoam was placed to help control the bleeding. This will be rechecked prior to discharge. Right hand wound will also be washed out and dressed. DISPOSITION: Discharge. IMPRESSION: Dog bite to left maxilla and right hand. Xenia Knott MD T: NTS JOB: [id number] 07/21/15 2256 <Electronically signed by Xenia Knott MD> Date Xenia Knott MD Cosigner Signature (If Indicated): Date CC: An Jc DO Date Dictated: 07/21/151837 Date Transcribed: 07/21/151837 Parimutuel Clerk: Signed An Jc Start: 07-21-2015 End: 07-21-2015 Discharge Instruction Comments: See Note; NOTES: [facility] Medical Records Department [address] [place] [address] [place] [address] Discharge Instruction 07/21/151835 MR#: [id number] Acct: [id number] Name: KAREN BLAIR Rep #: [id number] : 1970 44 From: Xenia Knott MD PCP: An Jc DO Status: PRE ER ED Disposition - Plan for ED Patient: Disposition: Home or Assisted Living Chief Complaint: Bite Instructions: ED Dog Bite Prescriptions: Amox/Clavulanate Tablet [Augmentin Tablet] 875 mg PO Q12H #6 tablet Referrals: An Jc DO [Primary Care Provider] - 3-5 Days if not improving What to do if you have Problems For any increased pain, shortness of breath, bleeding, nausea or vomiting, chest pain, or any unexpected problems, contact your doctor. Call [facility] ([phone]) or report to the closest Emergency Room. Call 911 if necessary. 07/21/15 1837 <Electronically signed by Xenia Knott MD> Date Xenia Knott MD Cosigner Signature (If Indicated): Date CC: An Franco Start: 07-21-2015 End: 07-22-2015 Hand Min 3 Views Comments: See Note; NOTES: [facility] Imaging Services [address] [place] [address] Verda 4d Hand Min 3 Views MR#: [id number] Acct: [id number] Name: KAREN BLAIR Rep #: [id number] : 1970 F 44 From: Galdino Aponte MD PCP: An Jc DO Status: DEP ER Study: Hand Min 3 Views Date of Exam: 07/21/15 Exam# [id number] Ordering Dr: Xenia Knott MD STUDY: X-RAY - RIGHT HAND REASON FOR EXAM: Female, 44 years old. dog bite anterior and posterior puncture chavez at level of Right marker TECHNIQUE: 3 view(s) of the hand. COMPARISON: None. FINDINGS: Normal visualized carpal bones and carpal articulations. Normal carpometacarpal articulation of the thumb. Normal second through fifth carpometacarpal joints. Normal metacarpi. Normal metacarpophalangeal (MCP) joints. There is deformity of the distal phalanx of the index finger likely due to a previous old injury. The soft tissue structures are unremarkable. IMPRESSION: There is no evidence of fracture. There is no evidence of radiopaque foreign body. Electronically Signed: Pineda Aponte MD at 8:59 EST Tel , Service support [phone], RAD/Hand Min 3 Views IMPRESSION: There is no evidence of fracture. There is no evidence of radiopaque foreign body. Electronically Signed: Pineda Aponte MD at 8:59 EST Tel , Service support [phone], CC: Xenia Knott MD; An Jc DO Parimutuel Clerk: Signed An Jc Start: 01-24-2015 End: 01-24-2015 Echocardiogram Complete Comments: See Note; NOTES: [facility] Cardiovascular Services [address] [place] [address] Echo Complete 01/24/15 1000 MR#: [id number] Acct: [id number] Name: KAREN BLAIR Rep #: [id number] : 1970 44 From: Danish Green MD Attending Dr: Puneet Siegel MD Status: REG CLI Ordering Dr: Puneet Siegel MD Date: 01/24/15 Location: [facility] Sex: F C Admitted: Procedure This was a 2D Doppler, Color Flow transthoracic echocardiogram. The exam was of adequate technical quality. Exam performed in department. Left Ventricle Normal LV size. Apical false tendon noted. Left ventricular systolic function is normal. The estimated ejection fraction is 65 %. No regional wall motion abnormalities noted. Right Ventricle Normal RV size. Normal systolic function. Atria The left atrium is mildly enlarged. Normal right atrium. No doppler evidence for ASD. Bubble contrast study negative for right to left interatrial shunt. Mitral Valve There is no mitral annular calcification. Mild diffuse mitral valve thickening. Mild mitral valve prolapse. Mild (1+) mitral valve insufficiency. Tricuspid Valve Normal tricuspid valve. Moderate (2+) tricuspid valve insufficiency. Right ventricular systolic pressure estimated to be 46 mmHg. Aortic Valve Trisinus/trileaflet aortic valve. Normal aortic valve. Pulmonic Valve The pulmonic valve is not well visualized. Great Vessels Normal sized aortic root. Pericardium/Pleural No pericardial effusion. Medication 22 gauge I.V. with prn adaptor inserted into right arm. Performed a rapid injection of agitated mix of 9 cc saline and 1cc air to assess for atrial septal defect. MMode/2D Measurements AND Calculations LVIDd: 4.3 cm IVSd: 1.1 cm Ao root diam: 2.7 cm LAV(MOD-bp): 62.5 ml LVIDs: 2.5 cm LVPWd: 1.1 cm Ao root area: 5.5 cm2 LAV(MOD-bp) Indexed: 35.2 ml /m2 RVDd: 3.5 cm FS: 40.9 % LA dimension: 3.8 cm LAV(MOD-sp2): 75.9 ml LAV(MOD-sp4): 50.7 ml LA A4 area: 19.2 cm2 RA A4 area: 18.9 cm2 Doppler Measurements AND Calculations MV E max cortes: Lat Peak E' Cortes: Med Peak E' Cortes: Ao V2 max: 92.4 cm/sec 15.4 cm/sec 15.7 cm/sec 176.1 cm/sec MV A max cortes: Ao max P.4 mmHg 56.0 cm/sec MV E/A: 1.6 LV V1 max: 149.2 cm/sec PA V2 max: 115.4 cm/sec TR max cortes: 298.6 cm/sec E/E' lat: 6.0 LV V1 max P.9 mmHg PA max P.3 mmHg TR max P.2 mmHg E/E' med: 5.9 Interpretation Summary Left ventricular systolic function is normal. The estimated ejection fraction is 65 %. Apical false tendon noted. The left atrium is mildly enlarged. Mild mitral valve prolapse. Mild diffuse mitral valve thickening. Mild (1+) mitral valve insufficiency. Moderate (2+) tricuspid valve insufficiency. Right ventricular systolic pressure estimated to be 46 mmHg. Bubble contrast study negative for right to left interatrial shunt. Ordering Physician: Puneet Siegel Referring Physician: An Jc M.D. Performed By: Eden An RDCS 01/24/15 1304 Date Danish Green MD CC: An Jc DO; Puneet Siegel MD Date Dictated: 01/24/15 1000 Date Transcribed: 01/24/15 1304 Parimutuel Clerk: Signed An Jc Start: 07-15-2014 End: 07-15-2014 Chest WITH Contrast Comments: See Note; NOTES: [facility] Imaging Services [address] [place] [address] CAT Scan Report MR#: [id number] Acct: [id number] Name: KAREN BLAIR Rep #: [id number] : 1970 F 43 From: Curt Allan MD PCP: An Jc DO Status: REG CLI Study: Chest WITH Contrast Date of Exam: 07/15/14 Exam# [id number] Ordering Dr: An Jc DO STUDY: CT CHEST WITH CONTRAST REASON FOR EXAM: Female, 43 years old. Left axillary mass. The patient has a history of thyroid cancer. RADIATION DOSAGE (If Supplied By Facility): CTDIvol = ( 14.57 ) mGy, DLP = ( 503.81 ) mGycm TECHNIQUE: High resolution transaxial imaging was performed following intravenous administration of 100 ml of Isovue 300 contrast material. Multiplanar coronal and sagittal images were reformatted. COMPARISON: Comparison is made with prior study dated January 25, 2012.Around 250uci FINDINGS: The lungs are normal. There is no demonstrated pleural abnormality. Normal heart and pericardium. Normal mediastinum. Normal hilar regions. Normal enhanced pulmonary arteries. Normal aorta arch and descending thoracic aorta. There are mild degenerative changes of the thoracic spine. There is no demonstrated abnormality of the visualized upper abdomen. IMPRESSION: Normal enhanced CT Chest examination. Electronically Signed: Curt Allan MD at 10:18 EST Tel [phone], Service support [phone], CC: An Jc DO Parimutuel Clerk: Signed An Jc Work Phone: Start: 07-10-2014 End: 07-19-2014 Bilat Scrn Digital & CAD Comments: See Note; NOTES: [facility] Imaging Services [address] [facility] [address] Breast Imaging Report MR#: [id number] Acct: [id number] Name: KAREN BLAIR Rep #: [id number] : 1970 F 43 From: Curt Allan MD PCP: An Jc DO Status: REG CLI Exam# [id number] Ordering Dr: An Jc DO MAMMOGRAPHY - BILATERAL SCREENING REASON FOR EXAM: Female, 43 years old. Routine annual screening examination. PERTINENT HISTORY: Non-contributory. TECHNIQUE: Digital examination. Mediolateral oblique (MLO) and craniocaudad (CC) views of both breasts were obtained. CAD: CAD was performed on this study. COMPARISON: Comparison is made with prior outside examination dated October 27, 2008. FINDINGS: Breast Composition: The breasts are heterogeneously dense, which may obscure small masses. There are no dominant masses or suspicious calcifications. No other significant abnormalities are identified. There has been no significant change since the prior study. IMPRESSION: Stable bilateral screening mammogram. Yearly follow-up recommended. (A) ASSESSMENT CATEGORY: BIRADS Category 2: Benign. A letter regarding these results will be sent to the patient by the facility within 30 days. Approximately 10% of breast cancers are not detected by mammography. A normal mammogram should not delay biopsy of a clinically suspicious abnormality. Electronically Signed: Curt Allan MD at 11:35 EST Tel [phone], Service support [phone], CC: An Jc DO Parimutuel Clerk: Signed An Jc Work Phone: Abdominal hysterectomy Poornima Ivanna Comment on above: 09/01 Dilation and curetta ge of uterus Poornima Goncalves Comment on above: , H/O: tubal ligation Poornima chiu Comment on above: 01/25 heart cath Poornima Goncalves Comment on above: 04/10 Ligation of fallopia n tube Poornima Goncalves Comment on above: 01/25 Thyroid carcinoma Poornima cabrera Thyroid carcinoma (193) Komal Goncalves Total thyroidectomy Poornima chiu Comment on above: 02/21/12 Plan of Treatment Date Care Activity Detail Author Start: 07-31-2027 Diabetes Screening Diabetes Screening [facility] Start: 07-21-2025 Urine microalbumin profile DTaP,Tdap,Td Vaccine (2 - Td or Tdap) [facility] Start: 01-01-2025 End: 01-01-2025 Patient encounter procedure 01/01/2025 1:30 PM EDT Office Visit [facility] [address] [place], [place] [phone] Kimberly Sanchez APRN.LEGAL COORDINATOR [address] [place], [place] [phone] (Fax) 3mo f/u. branch coordinator [facility] Comment on above: 3mo f/u. branch coordinator Start: 09-30-2024 End: 09-30-2024 Patient encounter procedure 09/30/2024 3:20 PM EST Office Visit [facility] [address] [place] [address] Puneet Shea MD [address] [address] (Fax) hospital follow up; montior results. EKG/eo [facility] Comment on above: hospital follow up; montior results. EKG/eo Start: 09-29-2024 End: 09-29-2024 Patient encounter procedure 09/29/2024 11:00 AM EST Office Visit [facility] 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 PATCH EXTENDED [employer] MANAGER PATCH ECG Routine Paroxysmal supraventricular tachycardia (HCC) Expected: 08/31/2024, Expires: 07/31/2025 [facility] Work Phone: Comment on above: Expected: 08/31/2024, Expires: Start: 07-30-2024 End: 07-30-2024 Admission to same day surgery center 07/30/2024 7:45 AM EST - 07/30/2024 1:32 PM EST [facility] [address] [place] [address] Puneet Shea MD [address] [place] [phone] COMPLETE EPS W/SVT ABL W/WO 3D MAP LA PACE REC [facility] Comment on above: COMPLETE EPS W/SVT ABL W/WO 3D MAP LA PA CE REC Start: 07-30-2024 End: 07-30-2024 Percutaneous transluminal ablation of atrioventricular node COMPLETE EPS W/SVT ABL W/WO 3D MAP LA PACE REC Paroxysmal atrial tachycardia (HCC) Paroxysmal supraventricular tachycardia (HCC) Palpitations 07/30/2024 7:45 AM EST [facility] Start: 07-30-2024 Subsequent hospital visit by physician [facility] Comment on above: Paroxysmal atrial tachycardia (HCC) [I47 .19] Paroxysmal atrial ta chycardia (HCC) [I47.19], Paroxysmal supraventricular tachycardia (HCC) [I47.10], Palpitations [R00.2] Start: 06-29-2024 Subsequent hospital visit by physician 06/29/2024 Hospital Encounter [facility] [address] [place] [address] Puneet Shea MD [address] [place] [address] (Fax) Paroxysmal atrial tachycardia (HCC) [I47.19] [facility] Comment on above: Paroxysmal atrial tachycardia (HCC) [I47 .19] Start: 06-08-2024 Subsequent hospital visit by physician 06/08/2024 Hospital Encounter [facility] [address] [place] [address] Puneet Shea MD [address] [place] [address] (Fax) Paroxysmal atrial tachycardia (HCC) [I47.19] [facility] Comment on above: Paroxysmal atrial tachycardia (HCC) [I47 .19] Start: 05-14-2024 Subsequent hospital visit by physician 05/14/2024 Hospital Encounter [facility] [address] [place] [address] Puneet Shea MD [address] [place] [address] (Fax) Paroxysmal atrial tachycardia (HCC) [I47.19] [facility] Comment on above: Paroxysmal atrial tachycardia (HCC) [I47 .19] Start: 04-26-2024 Covid-19 Vaccine ( season) Covid-19 Vaccine ( season) [facility] Start: 04-26-2024 Influenza vaccination [facility] Start: 04-07-2024 Subsequent hospital visit by physician 04/07/2024 Hospital Encounter [facility] [place] [address] Puneet Shea MD [address] [place] [address] (Fax) Paroxysmal atrial tachycardia (HCC) [I47.19] [facility] Comment on above: Paroxysmal atrial tachycardia (HCC) [I47 .19] Start: 11-20-2023 Patient referral [facility] Work Phone: Start: 08-26-2023 Behavioral Health Screening Behavioral Health Screening [facility] Start: 04-26-2023 Covid-19 Vaccine ( season) Covid-19 Vaccine ( season) [facility] Start: 2022 Pneumococcal Vaccine: 50+ (1 of 1 - PCV) Pneumococcal Vaccine: 50+ (1 of 1 - PCV) [facility] Start: 2022 Shingrix Vaccine (1 of 2) Shingrix Vaccine (1 of 2) [facility] Start: 04-12-2019 Diabetes Screening Diabetes Screening [facility] Start: 12-27-2017 Provider Instructions for Treatment [facility] Work Phone: Start: 12-27-2017 Lipid panel LIPID PANEL (96316) [facility] Work Phone: Start: 2017 Lipid panel Lipid Screening [facility] Start: 2017 Screening for malignant neoplasm of colon [facility] Start: 12-06-2016 Procedure Education Eprescribed prescriptions (G8553) [facility] Work Phone: Start: 06-20-2016 Procedure Education Eprescribed prescriptions (G8553) [facility] Work Phone: Start: 06-20-2016 Provider Instructions for Treatment Skin Infection - Signs and Symptoms [facility] Work Phone: Start: 08-17-2015 Procedure Education Eprescribed prescriptions (G8553) [facility] Work Phone: Start: 07-26-2015 Procedure Education Eprescribed prescriptions (G8553) [facility] Work Phone: Start: 01-11-2015 Bacteria identified Aer cx Nom (Unsp spec) Aerobic Bacterial Culture (59186) [facility] Work Phone: Start: 01-11-2015 Cul bact xcpt urine blood/stool aerobic isol [facility] Work Phone: Start: 01-11-2015 Procedure Education Eprescribed prescriptions (G8553) [facility] Work Phone: Start: 01-11-2015 Provider Instructions for Treatment I/D Cyst/Abscess [facility] Work Phone: Start: 07-07-2014 Provider Instructions for Treatment Follow up - Make appt after diagnostic tests [facility] Work Phone: Start: 07-07-2014 Antibody rodo-malhotra eb virus nuclear ag ebna EB ANTIBODY NUCLR ANTIGN (01248) [facility] Work Phone: Start: 05-13-2014 Cul bact xcpt urine blood/stool aerobic isol CUAUHTEMOC CULTURE-OTHER (77590) [facility] Work Phone: Start: 03-31-2014 Assay of thyroglobulin THYROGLOBULIN (87172) [facility] Work Phone: Start: 09-04-2013 Provider Instructions for Treatment [facility] Work Phone: Start: 08-11-2013 Provider Instructions for Treatment [facility] Work Phone: Start: 07-28-2013 Provider Instructions for Treatment [facility] Work Phone: Start: 2012 Screening for malignant neoplasm of breast Mammogram Screening [facility] Start: 12-20-2011 Provider Instructions for Treatment [facility] Work Phone: Start: 12-03-2011 Provider Instructions for Treatment [facility] Work Phone: Start: 11-22-2011 Skin test tuberculosis intradermal PPD (68070) [facility]; [facility] Work Phone: Start: 11-22-2011 Heterophile antibodies screen MONOSPOT TEST (61748) [facility]; [facility] Work Phone: Start: 11-22-2011 Lymphocytes (Bld) [#/Vol] [facility] Work Phone: Start: 08-29-2011 Provider Instructions for Treatment *Antibiotic Usage Education - Female [facility] Work Phone: Start: 05-11-2010 Provider Instructions for Treatment Reviewed Box Coverer Hand Letter [facility] Work Phone: Start: 04-10-2010 Provider Instructions for Treatment [facility] Work Phone: Start: 11-03-2009 Cortisol total CORTISOL TOTAL (37585) [facility] Work Phone: Comment on above: 24 hr urine collection Start: 11-03-2009 Assay of thyroid stimulating hormone tsh TSH (15038) [facility]; [facility] Work Phone: Start: 11-03-2009 TSH Qn TSH (99374) [facility] Work Phone: Start: 11-03-2009 Assay of free thyroxine T4, FREE (THYROXINE) (76796) [facility]; [facility] Work Phone: Start: 11-03-2009 Free T4 [Mass/Vol] T4, FREE (THYROXINE) (39906) [facility] Work Phone: Start: 11-03-2009 Assay of triiodothyronine t3 free T3, FREE (TRIDOTHYRONINE) (62800) [facility]; [facility] Work Phone: Start: 11-03-2009 Free T3 [Mass/Vol] T3, FREE (TRIDOTHYRONINE) (36909) [facility] Work Phone: Start: 08-31-2009 Provider Instructions for Treatment Continue Current Prescription(s) [facility] Work Phone: Start: 07-27-2009 Provider Instructions for Treatment FOLLOW UP IN 1 MONTH [facility] Work Phone: Start: 06-27-2009 Provider Instructions for Treatment [facility] Work Phone: Start: 06-02-2009 Provider Instructions for Treatment [facility] Work Phone: Start: 2002 Screening for malignant neoplasm of cervix HPV Testing [facility] Start: 1993 Screening for malignant neoplasm of cervix [facility] Start: 1991 Hepatitis B Vaccine (1 of 3 - 19+ 3-dose series) Hepatitis B Vaccine (1 of 3 - 19+ 3-dose series) [facility] Start: 1990 Annual PCP Team Chronic Disease Visit Annual PCP Team Chronic Disease Visit [facility] Start: 1990 Anxiety Screening Anxiety Screening [facility] Start: 1990 Depression Screening Depression Screening [facility] Start: 1990 Hepatitis C screening Hepatitis C Screening [facility] Start: 1990 HIV screening HIV Screening [facility] Patient referral [facility] Work Phone: Percutaneous transluminal ablation of atrioventricular node COMPLETE EPS W/SVT ABL W/WO 3D MAP LA PACE REC Paroxysmal atrial tachycardia (HCC) Paroxysmal supraventricular tachycardia (HCC) Palpitations [facility] Percutaneous transluminal ablation of atrioventricular node COMPLETE EPS W/SVT ABL W/WO 3D MAP LA PACE REC Paroxysmal atrial tachycardia (HCC) Paroxysmal supraventricular tachycardia (HCC) Palpitations [facility] US [facility] Work Phone: [facility] Work Phone: [facility] Work Phone: [facility] Work Phone: [facility] Work Phone: [facility] Work Phone: [facility] Work Phone: [facility] Work Phone: [facility] Work Phone[facility] Work Phone[facility] Work Phone: [facility] Work Phone: [facility] Work Phone: [facility] Work Phone: Immunizations Immunization Date Immunization Notes Care Provider [facility] 07-21-2015 tetanus toxoid, reduced diphtheria toxoid, and acellular pertussis vaccine, adsorbed [facility] 06-26-2015 TD(adult) unspecifie d formulation Puneet Shea MD Work Phone: [facility] 06-26-2015 tetanus and diphtheria toxoids, adsorbed, preservative free, for adult use (2 Lf of tetanus toxoid and 2 Lf of diphtheria toxoid) An Jc [facility] Work Phone: Payers Date Payer Category Payer Unknown [id number] 2023 Self-pay [id number] 2023 Unknown 2023 Unknown [id number] 2006 Unknown ANTHEM [id number] Private Health Insurance [employer]ET[employer] [id number] Unknown [employer] [id number] Unknown [employer] [id number] Unknown [id number] 2.16.8 [id number] Unknown [id number] 2.16.8 [id number] Unknown [id number] 2.16.8 [id number] Unknown [id number] 2.16.8 [id number] Unknown [id number] 2.16.8 [id number] Unknown [id number] 2.16.8 [id number] Unknown [id number] 2.16.8 [id number] Unknown [id number] 2.16.8 [id number] Unknown [id number] 2.16.8 [id number] Unknown [id number] 2.16.8 [id number] Unknown [id number] 2.16.8 [id number] Unknown [id number] 2.16.8 [id number] Unknown [id number] 2.16.8 [id number] Unknown [id number] 2.16.8 [id number] Unknown [id number] 2.16.8 [id number] Social History Date Type Detail Facility Start: 01-02-2024 End: 07-31-2024 Exercise History Exercise History [facility] Work Phone: Comment on above: QD, Mon-Fri 1 hr. 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 Tobacco use: Tobacco use: [facility] Work Phone: Tobacco use: Tobacco use: [facility]; [facility] Work Phone: Start: 02-01-2019 End: 11-20-2023 Tobacco smoking status TXIS Unknown if ever smoked [facility] Start: 1970 Sex Assigned At Female [facility] Start: 04-05-2016 End: 03-03-2024 Tobacco smoking status TXIS Never smoked tobacco [facility] Start: 04-05-2016 Tobacco use and exposure Smokeless tobacco non-user [facility] Start: 01-02-2024 End: 09-30-2024 Alcohol intake Current non-drinker of alcohol (finding) [facility] Start: 01-02-2024 End: 07-31-2024 Tobacco use panel [facility] National Score (1-10 0), lower number is lower risk 71 [facility] Start: 1970 Sex Assigned At Not on file C [facility] Has the Plored, [employer] s, [employer], or water company threatened to shut off services in your home in past 12Mo No [facility] (I/We) worried sheryl er (my/our) food would run out before (I/we) got money to buy more. Never true [facility] Start: 11-05-2024 Sex Female (finding) [facility] Goals Date Patient Goal Desired Activity /State Personal health goal Clinical Notes 01-02-2024 to 09-30-2024 Puneet Shea MD - 09/30/2024 3:20 PM ESTTelephone Encounter - Puneet Shea MD - 09/26/2024 12:03 PM ESTTelephone Encounter - Puneet Shea MD - 09/26/2024 12:03 PM EST Note Date & Type Note Facility 09-30-2024 History of Presen t illness Narrative PRIMARY CARE PHYSICIAN: Marzena Johnson ([facility]) [address] [place] [address] Patient Care Team: Marzena Johnson MD as PCP - General (Family Medicine) KirbyLinda MD as Specialty Box Coverer Hand (Cardiology) Puneet Shea MD as Specialty Box Coverer Hand (Cardiology) CHIEF COMPLAINT: Follow up for arrhythmia HISTORY OF PRESENT ILLNESS: Ms. Blair is a 54 year old female who presents today for a cardiovascular medicine follow-up visit. History copied from previous notes, edited as needed: Summary of previous notes: Ms. Blair has a history of symptomatic arrhythmia. First started having palpitations many years ago, but has changed over the years. She experiences palpitations every day, many times throughout the day. No obvious trigger. She avoids caffeine. A lot of the episodes are brief, a few minutes, she had an episode on 12/26/2023 that lasted over an hour, heart rates 190s - 200s bpm range. Another episode on 12/24/2023 with duration 30 minutes, heart rates 180s - 190s bpm range. Sometimes with episodes she has lightheadedness and her vision might change, might go all white or all colors. No syncope. Treated with metoprolol since beginning of November 2023, no improvement and possibly worse. IMPRESSION: Ms. Blair has symptomatic SVT, seems to be an atrial tachycardia. Quite frequently occurring, at times incessant even during this office visit. Medical therapy has not been ineffective. I had a discussion with Ms. Blair regarding SVT and management options. The atrial tachycardia might be challenging to treat from multiple perspectives. Discussed medical therapy and catheter ablation options. She could try an antiarrhythmic drug such as flecainide, even as short-term option. Catheter ablation could be quite effective if the atrial tachycardia can be provoked or induced at the time of EP study. This [facility]. I recommend EP study with goal of curative catheter ablation, and in the meantime while awaiting scheduling of the procedure she can try antiarrhythmic drug flecainide. Interim History Dr. Shea 09/30/2024: Ms. Blair presents for follow-up evaluation for arrhythmia, accompanied by her . As noted above, she has history of different forms of SVT, some of which appears to be atrial tachycardia and others that might represent reentrant SVT. 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 Blair not tolerating the brake engineer levels of sedation required to avoid suppression of the SVT (particularly the atrial tachycardia). No consistent focal atrial tachycardia was demonstrated to target for ablation. She reports not having much improvement after the ablation procedure 07/2024. She continues to experience frequent palpitations. She underwent cardiac monitoring 08/31/2024 - : see Epic report --- this study reveals episodes of paroxysmal atrial tachycardia as well as at least one episode of very rapid SVT that might represent recurrence of the AVNRT as well. I did review the cardiac monitoring rhythm strips with Ms. Blair and her . On 08/31/2024 she had SVT at 198 bpm, appears to be consistent with AVNRT, she was seated at the time, after exercising. Another episode that is either sinus tachycardia or atrial tachycardia at 158 bpm, she states she was exercising, probably jogging or working out on the [employer] machine (so likely this was sinus tachycardia). She still feels bothersome symptoms. She feels hiccup and heart rate increases to 100s - 120s bpm range, sometimes 140s bpm or even as low as 90s bpm. Flecainide that she took prior to catheter ablation made her symptoms worse, she had more frequent episodes. So she is not very enthusiastic about taking flecainide again. I have confirmed and edited as necessary, the PFSH and ROS obtained by others. 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 Shea RIGHT HEART CATH 04/12/2016 normal study, in particular no evidence for pulmonary hypertension THYROIDECTOMY TOTAL/COMPLETE TOTAL ABDOMINAL HYSTERECT W/WO RMVL TUBE OVARY TUBAL LIGATION HX SOCIAL HISTORY Social History Tobacco Use Smoking status: Never Smokeless tobacco: Never Substance Use Topics Alcohol use: No FAMILY HISTORY Problem Relation Age of Onset Arrhythmia Mother atrial fibrillation in her 60s Lymphoma Mother Diabetes Mother Arrhythmia Father atrial fibrillation in his 70s Hypertension Father Parkinson s Disease Father Heart Brother congenital aortic stenosis (? bicuspid valve) Arrhythmia Brother SVT, had ablation performed No Known Problems Half-sister No Known Problems Half-sister ALLERGIES: ALLERGIES Allergen Reactions Sulfa (Sulfonamide * Rash Vancomycin Itching Face got red MEDICATIONS: acetaminophen (TYLENOL) 500 mg tablet TAKE 2 TABLETS BY MOUTH EVERY 8 HOURS FOR PAIN SYNTHROID 100 mcg tablet Take 100 mcg by mouth daily before breakfast. metoprolol succinate ER (TOPROL XL) 25 mg 24 hr tablet Take 1 tablet by mouth once daily. Review of Systems Respiratory: Negative for cough, hemoptysis, sputum production and shortness of breath. Cardiovascular: Positive for palpitations. Negative for chest pain, orthopnea, claudication, leg swelling and PND. Neurological: Negative for focal weakness, seizures and loss of consciousness. PHYSICAL EXAMINATION: BP 142/86 Pulse 74 Wt 154 lb (69.9kg) SpO2 100% Physical Exam Vitals reviewed. Constitutional: General: She is not in acute distress. Appearance: Normal appearance. HENT: Head: Normocephalic and atraumatic. Cardiovascular: Rate and Rhythm: Normal rate and regular rhythm. Heart sounds: Normal heart sounds, S1 normal and S2 normal. No murmur heard. No friction rub. Pulmonary: Effort: Pulmonary effort is normal. No respiratory distress. Breath sounds: Normal breath sounds. No wheezing, rhonchi or rales. Musculoskeletal: Cervical back: Neck supple. Right lower leg: No edema. Left lower leg: No edema. Skin: General: Skin is warm and dry. Neurological: General: No focal deficit present. Mental Status: She is alert and oriented to person, place, and time. Psychiatric: Mood and Affect: Mood normal. Behavior: Behavior normal. Thought Content: Thought content normal. CARDIOVASCULAR MEDICINE TESTING: No testing today 09/30/2024 I spent a total of 45 minutes on the date of the service which included preparing to see the patient, [id number] patient care, completing clinical documentation, obtaining and/or reviewing separately obtained history, performing a medically appropriate examination, counseling and educating the patient/family/caregiver, ordering medications, tests, or procedures, communicating with other HCPs (not separately reported), independently interpreting results (not separately reported), communicating results to the patient/family/caregiver, and care coordination (not separately reported). 1. Paroxysmal supraventricular tachycardia (HCC) - ICD9: 427.0, ICD10: I47.10 (primary diagnosis) 2. Paroxysmal atrial tachycardia (HCC) - ICD9: 427.0, ICD10: I47.19 3. Palpitations - ICD9: 785.1, ICD10: R00.2 IMPRESSION: Ms. Blair is still experiencing symptomatic arrhythmia, various forms of SVT as documented by recent cardiac monitoring, despite the catheter ablation procedure in early July 2024. That procedure did target the AVNRT and was at least acutely successful although challenging procedure. The recent cardiac monitoring reveals at least one brief episode of rapid SVT at nearly 200 bpm that is likely brief recurrence of the AVNRT. Otherwise there appears to be frequent atrial ectopy and runs of paroxysmal atrial tachycardia. At the time of the EP study there was not a dominant focus for the atrial ectopy or atrial tachycardia that could be targeted for ablation. She was not tolerating the procedure very well, particularly the brake engineer levels of sedation that were required to try to avoid the suppression of the arrhythmia with the sedation. She is not likely to very to undergo another procedure unless she is under general anesthesia. I do wonder whether she is having the early stages of atrial fibrillation, with multifocal atrial foci and atrial tachycardia, that might respond to catheter ablation at the left atrial pulmonary veins. She has not been documented to have atrial fibrillation at this point, so I am hesitant to have her undergo catheter ablation for pulmonary veins isolation at this stage. I suppose we could consider placing her under general anesthesia and administering high-dose isoproterenol, such as 10 - 20 mcg/min intravenously, as this would typically provoke PACs and atrial tachycardia for patients with atrial fibrillation. I think at this point we could start conservatively and see how she does. One option would be for her to give more time to see if her symptoms improve as she has further healing after the ablation procedure from last month. If she is still experiencing excessively bothersome symptoms despite more time, I think we could consider trying the beta-foster metoprolol again. If this fails, we could consider an alternative antiarrhythmic drug, as she did not tolerate flecainide, so perhaps we could consider propafenone (Rythmol). She was less enthusiastic about the prospect of inpatient hospitalization for 3 days of cardiac monitoring for Class III antiarrhythmic drug loading, as with sotalol or dofetilide. As mentioned, she is definitely not in favor of undergoing another EP study/catheter ablation procedure unless she is under general anesthesia. I had a detailed discussion with Ms. Blair and her regarding my evaluation and recommendations. After our discussion, Ms. Blair and her expressed understanding and I answered all questions to their apparent satisfaction. PLAN AND RECOMMENDATIONS: 1) Try metoprolol succinate 25 mg daily. RX sent to her pharmacy. 2) If beta-foster ineffective or not tolerated at optimal dosages, try propafenone. 3) At some point might revisit catheter ablation with left atrial mapping including high dose isoproterenol to try to induce/provoke the atrial ectopy and atrial tachycardia, determine if pulmonary veins isolation would be warranted as we would do with atrial fibrillation catheter ablation. We could also at that time redo the AVNRT ablation if it is inducible. Return in about 3 months (around 12/28/2024) for Minda Sanchez CNP, POB office. Puneet Shea MD 09/30/2024 Medical Decision Making: Problems: Low: Stable chronic illness Data: Unique source(s) for external note(s) reviewed: 1 Unique test result(s) reviewed: 3+ Risk: Moderate: Moderate risk from testing/treatment, Drug management and Decision on minor surgery w/ risk factors Medical Decision Making Level: 4 - Moderate documented in this encounter [facility] 09-30-2024 Note HNO ID: [id number] Author: PUNEET SHEA MD Service: ? Author Type: Physician Type: Progress Notes Filed: 09/30/2024 18:58 Note Text: PRIMARY CARE PHYSICIAN: Marzena Johnson ([facility]) [address] [place] [address] Patient Care Team: Marzena Johnson MD as PCP - General (Family Medicine) Linda Orr MD as Specialty Box Coverer Hand (Cardiology) Puneet Shea MD as Specialty Box Coverer Hand (Cardiology) CHIEF COMPLAINT: Follow up for arrhythmia HISTORY OF PRESENT ILLNESS: Ms. Blair is a 54 year old female who presents today for a cardiovascular medicine follow-up visit. History copied from previous notes, edited as needed: Summary of previous notes: Ms. Blair has a history of symptomatic arrhythmia. First started having palpitations many years ago, but has changed over the years. She experiences palpitations every day, many times throughout the day. No obvious trigger. She avoids caffeine. A lot of the episodes are brief, a few minutes, she had an episode on 12/26/2023 that lasted over an hour, heart rates 190s - 200s bpm range. Another episode on 12/24/2023 with duration 30 minutes, heart rates 180s - 190s bpm range. Sometimes with episodes she has lightheadedness and her vision might change, might go all white or all colors. No syncope. Treated with metoprolol since beginning of November 2023, no improvement and possibly worse. IMPRESSION: Ms. Blair has symptomatic SVT, seems to be an atrial tachycardia. Quite frequently occurring, at times incessant even during this office visit. Medical therapy has not been ineffective. I had a discussion with Ms. Blair regarding SVT and management options. The atrial tachycardia might be challenging to treat from multiple perspectives. Discussed medical therapy and catheter ablation options. She could try an antiarrhythmic drug such as flecainide, even as short-term option. Catheter ablation could be quite effective if the atrial tachycardia can be provoked or induced at the time of EP study. This might be her best option in the press tender long goods. I recommend EP study with goal of curative catheter ablation, and in the meantime while awaiting scheduling of the procedure she can try antiarrhythmic drug flecainide. Interim History Dr. Shea 09/30/2024: Ms. Blair presents for follow-up evaluation for arrhythmia, accompanied by her . As noted above, she has history of different forms of SVT, some of which appears to be atrial tachycardia and others that might represent reentrant SVT. 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 Blair not tolerating the brake engineer levels of sedation required to avoid suppression of the SVT (particularly the atrial tachycardia). No consistent focal atrial tachycardia was demonstrated to target for ablation. She reports not having much improvement after the ablation procedure 07/2024. She continues to experience frequent palpitations. She underwent cardiac monitoring 08/31/2024 - : see Epic report --- this study reveals episodes of paroxysmal atrial tachycardia as well as at least one episode of very rapid SVT that might represent recurrence of theAVNRT as well. I did review the cardiac monitoring rhythm strips with Ms. Blair and her . On 08/31/2024 she had SVT at 198 bpm, appears to be consistent with AVNRT, she was seated at the time, after exercising. Another episode that is either sinus tachycardia or atrial tachycardia at 158 bpm, she states she was exercising, probably jogging or working out on the elliptical machine (so likely this was sinus tachycardia). She still feels bothersome symptoms. She feels hiccup and heart rate increases to 100s - 120s bpm range, sometimes 140s bpm or even as low as 90s bpm. Flecainide that she took prior to catheter ablation made her symptoms worse, she had more frequent episodes. So she is not very enthusiastic about taking flecainide again. I have confirmed and edited as necessary, the PFSH and ROS obtained by others. 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 Shea RIGHT HEART CATH 04/12/2016 normal stud (more content not included)... [facility] 09-26-2024 Telephone encounter Note [facility] General Electrophysiology (EP) By the time you call her with my comments about the monitor it will be Saturday and as stated she has an appointment with me on Saturday09/30/2024! I will discuss the monitor results with her at the appointment. Puneet Shea MD September 26, 2024 12:04 PM [facility] 09-26-2024 Miscellaneous Notes [facility] General Electrophysiology (EP) By the time you call her with my comments about the monitor it will be Saturday and as stated she has an appointment with me on Saturday09/30/2024! I will discuss the monitor results with her at the appointment. Puneet Shea MD September 26, 2024 12:04 PM Karen Blair called and stated she would like to know results of heart monitor. Patient is aware she has follow-up appointment on 09/30/24. Earline Montelongo LPN documented in this encounter [facility] 09-25-2024 Telephone encounter Note Karen Blair called and stated she would like to know results of heart monitor. Patient is aware she has follow-up appointment on 09/30/24. Earline Montelongo LPN [facility] 09-22-2024 Telephone encounter Note Called and spoke to patient to verify monitor was worn. Patient stated she wore it and mailed it in on 09/15 and said it was received on 09/17. Severo Nicole [facility] 09-22-2024 Miscellaneous Notes Called and spoke to patient to verify monitor was worn. Patient stated she wore it and mailed it in on 09/15 and said it was received on 09/17. Severo Nicole documented in this encounter [facility] 08-12-2024 Telephone encounter Note Spoke with Karen Blair on August 12, 2024. Informed of instructions as stated above. Patient voiced understanding at this time. Yanick Whitney LPN [facility] 08-12-2024 Miscellaneous Notes Spoke with Karen Blair on August 12, 2024. Informed of instructions as stated above. Patient voiced understanding at this time. Yanick Whitney LPN Covering for Jesus Cordova CNP, it is not unusual to have brief episodes the first month or so following ablation, she was instructed to wear a monitor after a month so we can see if she is still having episodes and what the arrhythmia is during the monitoring period. Kimberly Sanchez APRN.GARRY Ms. Blair states she had a recent heart rate over 200 beats per min on 08/07/2024 for approximately 10 minutes. Patient notes rest of the day for several hours she was in low 100's to 80's beats per minute. Patient notes then on 08/11/2024 patient had several runs of 122 beats per minute Patient notes she has been going back to exercising every day recently. But the numbers she is presenting with do not occur while exercising. Patient was not sure if she should be concerned with recently having her Ablation on 07/30/2024. Yanick Whitney LPN documented in this encounter [facility] 08-12-2024 Telephone encounter Note Covering for Jesus Cordova CNP, it is not unusual to have brief episodes the first month or so following ablation, she was instructed to wear a monitor after a month so we can see if she is still having episodes and what the arrhythmia is during the monitoring period. Kimberly Sanchez APRN.GARRY [facility] Work Phone: 08-12-2024 Telephone encounter Note Ms. Blair states she had a recent heart rate over 200 beats per min on 08/07/2024 for approximately 10 minutes. Patient notes rest of the day for several hours she was in low 100's to 80's beats per minute. Patient notes then on 08/11/2024 patient had several runs of 122 beats per minute Patient notes she has been going back to exercising every day recently. But the numbers she is presenting with do not occur while exercising. Patient was not sure if she should be concerned with recently having her Ablation on 07/30/2024. Yanick Whitney LPN [facility] 07-31-2024 Telephone encounter Note Scheduled Severo Nicole [facility] 07-31-2024 Miscellaneous Notes Scheduled Severo Nicole Patient underwent radiofrequency AVNRT ablation with Dr. Shea on 07/30/2024. As discussed with patient 14-day extended senior net web developer ordered to be hooked up in 1 month. Patient will need office visit with Dr. Shea or STEVE in 2 months and results will need to be available. Thanks, Jesus Cordova APRN.GARRY July 31, 2024 12:40 PM documented in this encounter [facility] 07-31-2024 Telephone encounter Note Patient underwent radiofrequency AVNRT ablation with Dr. Shea on 07/30/2024. As discussed with patient 14-day extended senior net web developer ordered to be hooked up in 1 month. Patient will need office visit with Dr. Shea or STEVE in 2 months and results will need to be available. Thanks, Jesus Cordova APRN.CNP July 31, 2024 12:40 PM [facility] 07-31-2024 Note HNO ID: [id number] Author: RADHA CAMPOS RN Service: Care Management Author Type: Registered Nurse Type: Care Mgt Initial Assessment Filed: 07/31/2024 13:32 Note Text: CARE MANAGEMENT: ASSESSMENT AND DISCHARGE PLAN SERVICE DATE: July 31, 2024 SERVICE TIME: 11:51 AM PCP: Marzena Johnson MD Primary Contact: Extended Emergency Contact Information Primary Emergency Contact: Puneet Blair Jr Address: [address] [place] [id number] Relation: Significant other Admission Status: Extended Recovery Insurance Provider: O [facility] PPO Discharge Planning requested by: Per Department Practice Potential Transition Plans Home Advance Directives Current Advance Directive: None Telemetry Technician Attempted to Assist with AD Completion: Yes Action: Education Provided Current Living Arrangements and Support Lives with: Children, Spouse/significant other Type of Residence: Private Residence (House) Does the patient have to climb stairs at home?: Yes;stairs outside the home;stairs within the home Support: Children, Family members, Friends/neighbors, Spouse/significant other How do you manage to accomplish the following: Independent: Ambulation;Bathe/Shower;Dress;Me als/Meal Prep;Going to the bathroom;Medication Management;Transportation to appointments/community Current Services/Equipment Current Post-Acute Service(s): None Discharge Planning Patient Goal(s): General wellness, Be able to go home [place] of Choice Explained: [place] of Choice Given: No Reason Not Given: No placements necessary Are you interested in bedside delivery of your medications? No Discharge Planning Participant(s): Spouse/significant other;Patient Patient/Family Comments: Caregiver Assessment: Caregiver is ready, willing and able to meet the patient's needs as recommended by the inter-professional team: No Caregiver needed Transport at Discharge: Transportation Arrangements: Car Needs Prior to Discharge: Needs Prior to Discharge: None Post-Acute Discharge Plan: Per chart review, patient is a pleasant 53 year old female who presents today for atrial tachycardia ablation with Dr. Shea. Met with patient at bedside; introduced self and CM role. Prior to admission, patient was independent with ADLs. The patient declined using any assistive equipment. She lives with and child who is available to assist if needed. Patient drives and works full-time. At this time, the patient has no skilled needs. CM will continue to follow for post-acute needs based on hospital course. The patient will be transported home at d/c by via private auto. Update 1:30 pm - Patient is discharged with no skilled needs. SIGNATURE: Radha Campos RN PATIENT NAME: Karen Blair DATE: July 31, 2024 TIME: 11:51 AM CONTACT #: [phone] [facility] 07-09-2024 Telephone encounter Note Pt's name has been added to cavazos procedure board. Cindi Alvarado RN [facility] 07-09-2024 Miscellaneous Notes Pt's name has been added to gile procedure board. Cindi Alvarado, RN Patient is scheduled for an SVT Ablation on 07/[address] Shea. The hospital will call the day before between 2-5pm with your arrival time. You should not eat or drink after midnight the day before the procedure. You will need a lifter/driver when released from the hospital and you will stay overnight for observation. You should continue to take medications as prescribed the morning of the procedure with just a sip of water but stop flecainide and metoprolol at least one week prior to procedure H&P morning of Spoke with Karen Blair on July 09, 2024. Informed of instructions as stated above. Patient verbalized understanding. Severo Nicole documented in this encounter [facility] 07-09-2024 Telephone encounter Note Patient is scheduled for an SVT Ablation on 07/[address] Shea. The hospital will call the day before between 2-5pm with your arrival time. You should not eat or drink after midnight the day before the procedure. You will need a lifter/driver when released from the hospital and you will stay overnight for observation. You should continue to take medications as prescribed the morning of the procedure with just a sip of water but stop flecainide and metoprolol at least one week prior to procedure H&P morning of Spoke with Karen Blair on July 09, 2024. Informed of instructions as stated above. Patient verbalized understanding. Severo Nicole [facility] 05-15-2024 Telephone encounter Note Ms. Blair is calling in about her possible ablation date in the future. Patient voiced that she will only do the ablation if its done by July. Patient states if she is scheduled for anything later then this she will not do the ablation. Yanick Whitney LPN [facility] 05-15-2024 Miscellaneous Notes Ms. Blair is calling in about her possible ablation date in the future. Patient voiced that she will only do the ablation if its done by July. Patient states if she is scheduled for anything later then this she will not do the ablation. Yanick Whitney LPN documented in this encounter [facility] 04-02-2024 Telephone encounter Note Patient's request for medication is as follows: Requested Prescriptions Pending Prescriptions Disp Refills metoprolol tartrate, short acting, (LOPRESSOR) 25 mg tablet [Pharmacy Med Name: METOPROLOL TARTRATE, SHORT ACTING,] 90 tablet 3 Sig: Take 0.5 tablets by mouth two times a day. Spoke to patient and she confirmed taking 0.5 tab+12.5 mg twice daily. Script adjusted accordingly. Last seen 01/02/2024. Prescription(s) as above. Please process accordingly. Sonali Shahid LPN [facility] 04-02-2024 Miscellaneous Notes Patient's request for medication is as follows: Requested Prescriptions Pending Prescriptions Disp Refills metoprolol tartrate, short acting, (LOPRESSOR) 25 mg tablet [Pharmacy Med Name: METOPROLOL TARTRATE, SHORT ACTING,] 90 tablet 3 Sig: Take 0.5 tablets by mouth two times a day. Spoke to patient and she confirmed taking 0.5 tab+12.5 mg twice daily. Script adjusted accordingly. Last seen 01/02/2024. Prescription(s) as above. Please process accordingly. Sonali Shahid LPN Patient's request for medication is as follows: Requested Prescriptions Refused Prescriptions Disp Refills metoprolol tartrate, short acting, (LOPRESSOR) 25 mg tablet [Pharmacy Med Name: METOPROLOL TARTRATE, SHORT ACTING,] 90 tablet 2 Sig: Take 1 tablet by mouth two times a day. 1/2 TAB TWICE DAILY [facility] [place] [id number] [address] [facility] - [phone] Portal to Registered [facility] SitesOrd/Sold: 04/01/2024 (O)Ordered On: 04/01/2024 Admin Instructions: 1/2 TAB TWICE DAILY Prescription(s) as above. Please process accordingly. Deni Oropeza LPN documented in this encounter [facility] 04-01-2024 Note Addended by: DENI BLOUNT on: 04/01/2024 01:21 PM Modules accepted: Orders [facility] 04-01-2024 Miscellaneous Notes Addended by: DENI OROPEZA on: 04/01/2024 01:21 PM Modules accepted: Orders Patient's request for medication is as follows: Requested Prescriptions Pending Prescriptions Disp Refills metoprolol tartrate, short acting, (LOPRESSOR) 25 mg tablet 90 tablet 2 Sig: Take 1 tablet by mouth two times a day. 0.5 or 1/2 TAB TWICE DAILY Signed Prescriptions Disp Refills metoprolol tartrate, short acting, (LOPRESSOR) 25 mg tablet 90 tablet 2 Sig: Take 1 tablet by mouth two times a day. 1/2 TAB TWICE DAILY Authorizing Provider: PUNEET SHEA Last seen 01/02/2024. Follow up scheduled for procedure. Pt requesting an update advised It is in process. Prescription(s) as above. Please process accordingly. Deni Oropeza LPN documented in this encounter [facility] 04-01-2024 Telephone encounter Note Patient's request for medication is as follows: Requested Prescriptions Refused Prescriptions Disp Refills metoprolol tartrate, short acting, (LOPRESSOR) 25 mg tablet [Pharmacy Med Name: METOPROLOL TARTRATE, SHORT ACTING,] 90 tablet 2 Sig: Take 1 tablet by mouth two times a day. 1/2 TAB TWICE DAILY Pharmacy: [facility] - [place] [address] [id number] [address] [facility] - [phone] Portal to Registered [employer] SitesOrd/Sold: 04/01/2024 (O)Ordered On: 04/01/2024 Admin Instructions: 1/2 TAB TWICE DAILY Prescription(s) as above. Please process accordingly. Deni Oropeza LPN [facility] 03-31-2024 Telephone encounter Note Patient's request for medication is as follows: Requested Prescriptions Pending Prescriptions Disp Refills metoprolol tartrate, short acting, (LOPRESSOR) 25 mg tablet 90 tablet 2 Sig: Take 1 tablet by mouth two times a day. 0.5 or 1/2 TAB TWICE DAILY Signed Prescriptions Disp Refills metoprolol tartrate, short acting, (LOPRESSOR) 25 mg tablet 90 tablet 2 Sig: Take 1 tablet by mouth two times a day. 1/2 TAB TWICE DAILY Authorizing Provider: PUNEET SHEA Last seen 01/02/2024. Follow up scheduled for procedure. Pt requesting an update advised It is in process. Prescription(s) as above. Please process accordingly. Deni Oropeza LPN [facility] 01-31-2024 Telephone encounter Note Ms. Blair is calling in to let Dr. Shea know she is still having episodes of a fast heart rate. Patient notes they are occurring about 4-5 times daily but they are not getting as high as they were being around 120 beats per minute and are much shorter in length. Yanick Whitney LPN [facility] 01-31-2024 Miscellaneous Notes Ms. Blair is calling in to let Dr. Shea know she is still having episodes of a fast heart rate. Patient notes they are occurring about 4-5 times daily but they are not getting as high as they were being around 120 beats per minute and are much shorter in length. Yanick Whitney LPN Patient's request for medication is as follows: Requested Prescriptions Pending Prescriptions Disp Refills flecainide (TAMBOCOR) 100 mg tablet 180 tablet 3 Sig: Take one tablet by mouth twice daily Patient last seen on 01/17/2024. Prescription(s) as above. Please process accordingly. Yanick Whitney LPN documented in this encounter [facility] 01-31-2024 Telephone encounter Note Patient's request for medication is as follows: Requested Prescriptions Pending Prescriptions Disp Refills flecainide (TAMBOCOR) 100 mg tablet 180 tablet 3 Sig: Take one tablet by mouth twice daily Patient last seen on 01/17/2024. Prescription(s) as above. Please process accordingly. Yanick Whitney LPN [facility] 01-24-2024 Telephone encounter Note Patient's request for medication is as follows: Requested Prescriptions Pending Prescriptions Disp Refills flecainide (TAMBOCOR) 100 mg tablet 60 tablet 1 Sig: Take one tablet by mouth twice daily Last seen on 01/02/2024- dose was increased on 01/17/2024. Prescription(s) as above. Please process accordingly. Xenia Nino LPN [facility] 01-24-2024 Miscellaneous Notes Patient's request for medication is as follows: Requested Prescriptions Pending Prescriptions Disp Refills flecainide (TAMBOCOR) 100 mg tablet 60 tablet 1 Sig: Take one tablet by mouth twice daily Last seen on 01/02/2024- dose was increased on 01/17/2024. Prescription(s) as above. Please process accordingly. Xenia Nino LPN documented in this encounter [facility] 01-17-2024 Telephone encounter Note Spoke with patient about recommendation to increase Flecainide to 100 mg twice daily. Patient verbalizes understanding and is agreeable. Xenia Nino LPN [facility] 01-17-2024 Miscellaneous Notes Spoke with patient about recommendation to increase Flecainide to 100 mg twice daily. Patient verbalizes understanding and is agreeable. Xenia Nino LPN Images from the original note were not included. Puneet Shea MD You22 minutes ago (9:57 AM) Sometimes this occurs with an in-between starting dose, she should try 100 mg twice daily Puneet Shea MD January 17, 2024 9:57 AM Patient called [facility] to report since starting Flecainide 50 mg BID on 01/13 she has experienced more frequent episodes throughout the day of fast/rapid HR. HR ranging 60-190 bpm at least 6 times a day, along with shortness of breath. Before starting Flecainide episodes of fast/rapid HR would be infrequent- not daily like it is now. Xenia Nino LPN documented in this encounter [facility] 01-17-2024 Telephone encounter Note Images from the original note were not included. Puneet Shea MD You22 minutes ago (9:57 AM) Sometimes this occurs with an in-between starting dose, she should try 100 mg twice daily Puneet Shea MD January 17, 2024 9:57 AM [facility] 01-17-2024 Telephone encounter Note Patient called [facility] to report since starting Flecainide 50 mg BID on 01/13 she has experienced more frequent episodes throughout the day of fast/rapid HR. HR ranging 60-190 bpm at least 6 times a day, along with shortness of breath. Before starting Flecainide episodes of fast/rapid HR would be infrequent- not daily like it is now. Xenia Nino LPN [facility] 01-10-2024 Telephone encounter Note Pt called in reports she was to starton a new medication. Per chart review. It appears the rx did not go through. Please review sign and send if appropriate. Patient's request for medication is as follows: Requested Prescriptions Pending Prescriptions Disp Refills flecainide (TAMBOCOR) 50 mg tablet 60 tablet 2 Sig: Take 1 tablet by mouth every 12 hours. Last seen 01/02/2024 Prescription(s) as above. Please process accordingly. Deni Oropeza LPN [facility] 01-10-2024 Miscellaneous Notes Pt called in reports she was to starton a new medication. Per chart review. It appears the rx did not go through. Please review sign and send if appropriate. Patient's request for medication is as follows: Requested Prescriptions Pending Prescriptions Disp Refills flecainide (TAMBOCOR) 50 mg tablet 60 tablet 2 Sig: Take 1 tablet by mouth every 12 hours. Last seen 01/02/2024 Prescription(s) as above. Please process accordingly. Deni Oropeza LPN documented in this encounter [facility] 01-02-2024 History of Presen t illness Narrative PRIMARY CARE PHYSICIAN: Marzena Johnson ([facility]) [address] [place] [address] REFERRING PHYSICIAN: Linda Orr [address] [facility] [id number] Patient Care Team: Marzena Johnson MD as PCP - General (Family Medicine) [facility] (Cardiology) Linda Orr MD as Specialty Box Coverer Hand (Cardiology) CHIEF COMPLAINT: Evaluation of arrhythmia HISTORY OF PRESENT ILLNESS: Ms. Blair is a 53 year old female who presents today for evaluation of arrhythmia. She is accompanied by her . First started having palpitations many years ago, but has changed over the years. She experiences palpitations every day, many times throughout the day. No obvious trigger. She avoids caffeine. A lot of the episodes are brief, a few minutes, she had an episode on 12/26/2023 that lasted over an hour, heart rates 190s - 200s bpm range. Another episode on 12/24/2023 with duration 30 minutes, heart rates 180s - 190s bpm range. Sometimes with episodes she has lightheadedness and her vision might change, might go all white or all colors. No syncope. Metoprolol since beginning of November, no improvement and possibly worse. I have confirmed and edited as necessary, the PFSH and ROS obtained by others. 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 Palpitations 01/01/2024 Papillary thyroid carcinoma (HCC) Paroxysmal atrial tachycardia (HCC) 01/01/2024 Paroxysmal supraventricular tachycardia (HCC) 01/01/2024 PAST SURGICAL HISTORY Procedure Laterality Date THYROIDECTOMY TOTAL/COMPLETE TOTAL ABDOMINAL HYSTERECT W/WO RMVL TUBE OVARY TUBAL LIGATION HX SOCIAL HISTORY Social History Tobacco Use Smoking status: Never Smokeless tobacco: Never Substance Use Topics Alcohol use: No FAMILY HISTORY Problem Relation Age of Onset Arrhythmia Mother atrial fibrillation Lymphoma Mother Diabetes Mother Arrhythmia Father atrial fibrillation Hypertension Father Parkinson s Disease Father Heart Brother congenital aortic stenosis (? bicuspid valve) Arrhythmia Brother SVT, had ablation performed No Known Problems Half-sister No Known Problems Half-sister ALLERGIES: ALLERGIES Allergen Reactions Sulfa (Sulfonamide * Rash Vancomycin Hives, Itching MEDICATIONS: metoprolol tartrate, short acting, (LOPRESSOR) 25 mg tablet Take 25 mg by mouth two times a day. 1/2 TAB TWICE DAILY SYNTHROID 100 mcg tablet Take 100 mcg by mouth daily before breakfast. flecainide (TAMBOCOR) 50 mg tablet Take 1 tablet by mouth every 12 hours. REVIEW OF SYSTEMS: Review of Systems Constitutional: Negative for chills, fever and weight loss. Respiratory: Negative for cough, hemoptysis, sputum production and shortness of breath. Cardiovascular: Positive for palpitations. Negative for chest pain, orthopnea and PND. Gastrointestinal: Negative for abdominal pain, blood in stool, melena, nausea and vomiting. Genitourinary: Negative for dysuria and hematuria. Skin: Negative for rash. Neurological: Negative for focal weakness, seizures and loss of consciousness. PHYSICAL EXAMINATION: BP 103/68 Pulse 98 Ht 5' 4 (1.63m) Wt 155 lb (70.3kg) SpO2 100% BMI 26.59 kg/(m^2). Physical Exam Vitals reviewed. Constitutional: General: She is not in acute distress. Appearance: Normal appearance. HENT: Head: Normocephalic and atraumatic. Cardiovascular: Rate and Rhythm: Normal rate and regular rhythm. Frequent Extrasystoles are present. Heart sounds: S1 normal and S2 normal. No murmur heard. No friction rub. Pulmonary: Effort: Pulmonary effort is normal. No respiratory distress. Breath sounds: Normal breath sounds. No wheezing, rhonchi or rales. Neurological: General: No focal deficit present. Mental Status: She is alert and oriented to person, place, and time. Psychiatric: Mood and Affect: Mood normal. Behavior: Behavior normal. Thought Content: Thought content normal. CARDIOVASCULAR MEDICINE TESTING: Electrocardiogram: Sinus rhythm with paroxysmal atrial tachycardia; incomplete right bundle branch block (QRS 102 ms); QTc 442 ms I have personally reviewed the Electrocardiogram. 1. Paroxysmal atrial tachycardia (HCC) - ICD9: 427.0, ICD10: I47.19 (primary diagnosis) 2. Paroxysmal supraventricular tachycardia (HCC) - ICD9: 427.0, ICD10: I47.10 3. Palpitations - ICD9: 785.1, ICD10: R00.2 IMPRESSION: Ms. Blair has symptomatic SVT, seems to be an atrial tachycardia. Quite frequently occurring, at times incessant even during this office visit. Medical therapy has not been ineffective. I had a discussion with Ms. Blair regarding SVT and management options. The atrial tachycardia might be challenging to treat from multiple perspectives. Discussed medical therapy and catheter ablation options. She could try an antiarrhythmic drug such as flecainide, even as short-term option. Catheter ablation could be quite effective if the atrial tachycardia can be provoked or induced at the time of EP study. This [facility] I had a detailed discussion with Ms. Blair regarding my evaluation and recommendations. After our discussion, Ms. Blair expressed her understanding and I answered all her questions to her apparent satisfaction. She agrees to proceed as outlined. I recommend EP study with goal of curative catheter ablation, and in the meantime while awaiting scheduling of the procedure she can try antiarrhythmic drug flecainide. INFORMED CONSENT The risks, benefits and anticipated outcomes of the procedure, the risks and benefits of the alternatives to the procedure and the roles and tasks of the personnel to be involved were discussed with the patient. Consent for the procedure and agreement to proceed has been obtained. I verify that I personally obtained the consent. PLAN AND RECOMMENDATIONS: Proceed with scheduling of EP study + catheter ablation. Hold flecainide and metoprolol one week prior to procedure. No other medications that need to be held. Echocardiogram -- if one has not been completed within past year, she needs updated study, which can be completed by [facility] Flecainide 50 mg BID -- 30 day supply to [facility] Rod Shea MD 01/02/2024 Medical Decision Making: Problems: Moderate: New problem with uncertain prognosis Data: Unique source(s) for external note(s) reviewed: 1 Unique test result(s) reviewed: 3+ Unique test(s) ordered: 1 Risk: Moderate: Moderate risk from testing/treatment, Drug management and Decision on minor surgery w/ risk factors Medical Decision Making Level: 4 - Moderate documented in this encounter [facility] 01-02-2024 Note HNO ID: [id number] Author: PUNEET SHEA MD Service: ? Author Type: Physician Type: Progress Notes Filed: 01/11/2024 22:32 Note Text: PRIMARY CARE PHYSICIAN: Marzena Johnson ([facility]) [address] [place] [address] REFERRING PHYSICIAN: Linda Orr [address] [address] [facility] [address] Patient Care Team: Marzena Johnson MD as PCP - General (Family Medicine) [facility] (Cardiology) Linda Orr MD as Specialty Box Coverer Hand (Cardiology) CHIEF COMPLAINT: Evaluation of arrhythmia HISTORY OF PRESENT ILLNESS: Ms. Blair is a 53 year old female who presents today for evaluation of arrhythmia. She is accompanied by her . First started having palpitations many years ago, but has changed over the years. She experiences palpitations every day, many times throughout the day. No obvious trigger. She avoids caffeine. A lot of the episodes are brief, a few minutes, she had an episode on 12/26/2023 that lasted over an hour, heart rates 190s - 200s bpm range. Another episode on 12/24/2023 with duration 30 minutes, heart rates 180s - 190s bpm range. Sometimes with episodes she has lightheadedness and her vision might change, might go all white or all colors. No syncope. Metoprolol since beginning of November, no improvement and possibly worse. I have confirmed and edited as necessary, the PFSH and ROS obtained by others. 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 Palpitations 01/01/2024 Papillary thyroid carcinoma (HCC) Paroxysmal atrial tachycardia (HCC) 01/01/2024 Paroxysmal supraventricular tachycardia (HCC) 01/01/2024 PAST SURGICAL HISTORY Procedure Laterality Date THYROIDECTOMY TOTAL/COMPLETE TOTAL ABDOMINAL HYSTERECT W/WO RMVL TUBE OVARY TUBAL LIGATION HX SOCIAL HISTORY Social History Tobacco Use Smoking status: Never Smokeless tobacco: Never Substance Use Topics Alcohol use: No FAMILY HISTORY Problem Relation Age of Onset Arrhythmia Mother atrial fibrillation Lymphoma Mother Diabetes Mother Arrhythmia Father atrial fibrillation Hypertension Father Parkinson?s Disease Father Heart Brother congenital aortic stenosis (? bicuspid valve) Arrhythmia Brother SVT, had ablation performed No Known Problems Half-sister No Known Problems Half-sister ALLERGIES: ALLERGIES Allergen Reactions Sulfa (Sulfonamide * Rash Vancomycin Hives, Itching MEDICATIONS: metoprolol tartrate, short acting, (LOPRESSOR) 25 mg tablet Take 25 mg by mouth two times a day. 1/2 TAB TWICE DAILY SYNTHROID 100 mcg tablet Take 100 mcg by mouth daily before breakfast. flecainide (TAMBOCOR) 50 mg tablet Take 1 tablet by mouth every 12 hours. REVIEW OF SYSTEMS: Review of Systems Constitutional: Negative for chills, fever and weight loss. Respiratory: Negative for cough, hemoptysis, sputum production and shortness of breath. Cardiovascular: Positive for palpitations. Negative for chest pain, orthopnea and PND. Gastrointestinal: Negative for abdominal pain, blood in stool, melena, nausea and vomiting. Genitourinary: Negative for dysuria and hematuria. Skin: Negative for rash. Neurological: Negative for focal weakness, seizures and loss of consciousness. PHYSICAL EXAMINATION: BP 103/68 Pulse 98 Ht 5' 4 (1.63m) Wt 155 lb (70.3kg) SpO2 100% BMI 26.59 kg/(m2). Physical Exam Vitals reviewed. Constitutional: General: She is not in acute distress. Appearance: Normal appearance. HENT: Head: Normocephalic and atraumatic. Cardiovascular: Rate and Rhythm: Normal rate and regular rhythm. Frequent Extrasystoles are present. Heart sounds: S1 normal and S2 normal. No murmur heard. No friction rub. Pulmonary: Effort: Pulmonary effort is normal. No respiratory distress. Breath sounds: Normal breath sounds. No wheezing, rhonchi or rales. Neurological: General: No focal deficit present. Mental Status: She is alert and oriented to person, place, and time. Psychiatric: Mood and Affect: Mood normal. Behavior: Behavior normal. Thought Content: Thought content normal. CARDIOVASCULAR MEDICINE TESTING: Electrocardiogram: Sinus rhythm with paroxysmal atrial tachycardia; incomplete right bundle branch block (QRS 102 ms); QTc 442 ms I have personally reviewed the Electrocardiogram. 1. Paroxysmal atrial tachycardia (HCC) - ICD9: 427.0, ICD10: I47.19 (primary diagnosis) 2. Paroxysmal supraventricular tachycardia (HCC) - ICD9: 427.0, ICD10: I47.10 3. Palpitations - ICD9: 785.1, ICD10: R00.2 IMPRESSION: Ms. Blair has symptomatic SVT, seems to be an atrial tachycardia. Quite frequently occurring, at times incessant even during this office visit. Medical therapy has not been ineffective. I had a discussion with Ms. Blair regarding (more content not included)... [facility] 01-02-2024 Nurse Note Patient denies cardiac complaints or symptoms. [facility] 01-02-2024 Nurse Note Patient denies cardiac complaints or symptoms. documented in this encounter [facility] Evaluation note No assessment inform ation available [facility] Work Phone: Evaluation note Diagnosis Onset Date Atrial tachycardia chronic Palpitations chronic Post-surgical hypothyroidism chronic [facility] Work Phone: Evaluation note* Diagnosis Paroxysmal atrial tachycardia (HCC)- Primary Paroxysmal supraventricular tachycardia Paroxysmal supraventricular tachycardia (HCC) Paroxysmal supraventricular tachycardia Palpitations [facility] Diagnosis Paroxysmal atrial tachycardia (HCC)- Primary Paroxysmal supraventricular tachycardia Paroxysmal supraventricular tachycardia (HCC) Paroxysmal supraventricular tachycardia Palpitations [facility] Diagnosis Paroxysmal atrial tachycardia (HCC) Paroxysmal supraventricular tachycardia Paroxysmal supraventricular tachycardia (HCC) Paroxysmal supraventricular tachycardia Palpitations [facility] Diagnosis Paroxysmal atrial tachycardia (HCC) Paroxysmal supraventricular tachycardia Paroxysmal supraventricular tachycardia (HCC) Paroxysmal supraventricular tachycardia Palpitations documented in this encounter [facility] note* Diagnosis Paroxysmal supraventricular tachycardia (HCC)- Primary Paroxysmal supraventricular tachycardia documented in this encounter [facility] note* Diagnosis Paroxysmal supraventricular tachycardia (HCC)- Primary Paroxysmal supraventricular tachycardia Paroxysmal atrial tachycardia (HCC) Paroxysmal supraventricular tachycardia Palpitations documented in this encounter [facility]* Name Dates Details Patient Instructions Indication:BMI 25.0-25.9,adult Start:27-Dec-2017 Instruction Type:Provider Instructions for Treatment How to access health informa tion online Indication:BMI 25.0-25.9,adult Start:27-Dec-2017 Instruction Type:Patient Education How to access health informa tion online - Detail Indication:BMI 25.0-25.9,adult Start:27-Dec-2017 Instruction Type:Patient Education How to access health informa tion online Indication:Nonsmoker Start:06-Dec-2016 Instruction Type:Patient Education How to access health informa tion online - Detail Indication:Nonsmoker Start:06-Dec-2016 Instruction Type:Patient Education Patient Instructions Indication:Nonsmoker Start:06-Dec-2016 Instruction Type:Provider Instructions for Treatment How to access health informa tion online Indication:Skin lesion of left leg Start:20-Jun-2016 Instruction Type:Patient Education How to access health informa tion online - Detail Indication:Skin lesion of left leg Start:20-Jun-2016 Instruction Type:Patient Education Patient Instructions Indication:Skin lesion of left leg Start:20-Jun-2016 Instruction Type:Provider Instructions for Treatment How to access health informa tion online Indication:Dog bite of hand, right, subsequent encounter Start:17-Aug-2015 Instruction Type:Patient Education How to access health informa tion online - Detail Indication:Dog bite of hand, right, subsequent encounter Start:17-Aug-2015 Instruction Type:Patient Education Patient Instructions Indication:Dog bite of hand, right, subsequent encounter Start:17-Aug-2015 Instruction Type:Provider Instructions for Treatment How to access health informa tion online Indication:Dog bite of hand, right, subsequent encounter Start:26-Jul-2015 Instruction Type:Patient Education How to access health informa tion online - Detail Indication:Dog bite of hand, right, subsequent encounter Start:26-Jul-2015 Instruction Type:Patient Education Patient Instructions Indication:Dog bite of hand, right, subsequent encounter Start:26-Jul-2015 Instruction Type:Provider Instructions for Treatment How to access health informa tion online Indication:Lump of axilla Start:11-Jan-2015 Instruction Type:Patient Education How to access health informa tion online - Detail Indication:Lump of axilla Start:11-Jan-2015 Instruction Type:Patient Education Patient Instructions Indication:Lump of axilla Start:11-Jan-2015 Instruction Type:Provider Instructions for Treatment Patient Instructions Indication:Red eye Start:24-May-2014 Instruction Type:Provider Instructions for Treatment Patient Instructions Indication:Sebaceous cyst Start:17-May-2014 Instruction Type:Provider Instructions for Treatment Patient Instructions Indication:Pulmonary hypertension Start:04-Sep-2013 Instruction Type:Provider Instructions for Treatment [facility] Work Phone: reason for referral (narrative)No reason for referral [facility] Work [facility]: Family History Unknown Family Member Name Dates Details First Degree Relatives Comments:Cancer, Diabetes, E motional prob. Status:Active Unknown Family Member Name Dates Details First Degree Relatives Comments:Cancer, Diabetes, E motional prob. Status:Active Relationship Condition Age at Onset Recorded Date/T catherine brother Cardiac disease Unknown father Hypertension Unknown Malignant neoplasm Unknown Atrial fibrillation Unknown mother Malignant neoplasm Unknown Instructions Name Dates Details Patient Instructions Indication:BMI 25.0-25.9,adult Start:27-Dec-2017 Instruction Type:Provider Instructions for Treatment How to access health informa tion online Indication:BMI 25.0-25.9,adult Start:27-Dec-2017 Instruction Type:Patient Education How to access health informa tion online - Detail Indication:BMI 25.0-25.9,adult Start:27-Dec-2017 Instruction Type:Patient Education How to access health informa tion online Indication:Nonsmoker Start:06-Dec-2016 Instruction Type:Patient Education How to access health informa tion online - Detail Indication:Nonsmoker Start:06-Dec-2016 Instruction Type:Patient Education Patient Instructions Indication:Nonsmoker Start:06-Dec-2016 Instruction Type:Provider Instructions for Treatment How to access health informa tion online Indication:Skin lesion of left leg Start:20-Jun-2016 Instruction Type:Patient Education How to access health informa tion online - Detail Indication:Skin lesion of left leg Start:20-Jun-2016 Instruction Type:Patient Education Patient Instructions Indication:Skin lesion of left leg Start:20-Jun-2016 Instruction Type:Provider Instructions for Treatment How to access health informa tion online Indication:Dog bite of hand, right, subsequent encounter Start:17-Aug-2015 Instruction Type:Patient Education How to access health informa tion online - Detail Indication:Dog bite of hand, right, subsequent encounter Start:17-Aug-2015 Instruction Type:Patient Education Patient Instructions Indication:Dog bite of hand, right, subsequent encounter Start:17-Aug-2015 Instruction Type:Provider Instructions for Treatment How to access health informa tion online Indication:Dog bite of hand, right, subsequent encounter Start:26-Jul-2015 Instruction Type:Patient Education How to access health informa tion online - Detail Indication:Dog bite of hand, right, subsequent encounter Start:26-Jul-2015 Instruction Type:Patient Education Patient Instructions Indication:Dog bite of hand, right, subsequent encounter Start:26-Jul-2015 Instruction Type:Provider Instructions for Treatment How to access health informa tion online Indication:Lump of axilla Start:11-Jan-2015 Instruction Type:Patient Education How to access health informa tion online - Detail Indication:Lump of axilla Start:11-Jan-2015 Instruction Type:Patient Education Patient Instructions Indication:Lump of axilla Start:11-Jan-2015 Instruction Type:Provider Instructions for Treatment Patient Instructions Indication:Red eye Start:24-May-2014 Instruction Type:Provider Instructions for Treatment Patient Instructions Indication:Sebaceous cyst Start:17-May-2014 Instruction Type:Provider Instructions for Treatment Patient Instructions Indication:Pulmonary hypertension Start:04-Sep-2013 Instruction Type:Provider Instructions for Treatment Name Dates Details Patient Instructions Indication:BMI 25.0-25.9,adult Start:27-Dec-2017 Instruction Type:Provider Instructions for Treatment How to access health informa tion online Indication:BMI 25.0-25.9,adult Start:27-Dec-2017 Instruction Type:Patient Education How to access health informa tion online - Detail Indication:BMI 25.0-25.9,adult Start:27-Dec-2017 Instruction Type:Patient Education How to access health informa tion online Indication:Nonsmoker Start:06-Dec-2016 Instruction Type:Patient Education How to access health informa tion online - Detail Indication:Nonsmoker Start:06-Dec-2016 Instruction Type:Patient Education Patient Instructions Indication:Nonsmoker Start:06-Dec-2016 Instruction Type:Provider Instructions for Treatment How to access health informa tion online Indication:Skin lesion of left leg Start:20-Jun-2016 Instruction Type:Patient Education How to access health informa tion online - Detail Indication:Skin lesion of left leg Start:20-Jun-2016 Instruction Type:Patient Education Patient Instructions Indication:Skin lesion of left leg Start:20-Jun-2016 Instruction Type:Provider Instructions for Treatment How to access health informa tion online Indication:Dog bite of hand, right, subsequent encounter Start:17-Aug-2015 Instruction Type:Patient Education How to access health informa tion online - Detail Indication:Dog bite of hand, right, subsequent encounter Start:17-Aug-2015 Instruction Type:Patient Education Patient Instructions Indication:Dog bite of hand, right, subsequent encounter Start:17-Aug-2015 Instruction Type:Provider Instructions for Treatment How to access health informa tion online Indication:Dog bite of hand, right, subsequent encounter Start:26-Jul-2015 Instruction Type:Patient Education How to access health informa tion online - Detail Indication:Dog bite of hand, right, subsequent encounter Start:26-Jul-2015 Instruction Type:Patient Education Patient Instructions Indication:Dog bite of hand, right, subsequent encounter Start:26-Jul-2015 Instruction Type:Provider Instructions for Treatment How to access health informa tion online Indication:Lump of axilla Start:11-Jan-2015 Instruction Type:Patient Education How to access health informa tion online - Detail Indication:Lump of axilla Start:11-Jan-2015 Instruction Type:Patient Education Patient Instructions Indication:Lump of axilla Start:11-Jan-2015 Instruction Type:Provider Instructions for Treatment Patient Instructions Indication:Red eye Start:24-May-2014 Instruction Type:Provider Instructions for Treatment Patient Instructions Indication:Sebaceous cyst Start:17-May-2014 Instruction Type:Provider Instructions for Treatment Patient Instructions Indication:Pulmonary hypertension Start:04-Sep-2013 Instruction Type:Provider Instructions for Treatment Advance Directives Advance Directive Response Recorded Date/ Time Advance Directives No July 27, 2015 12:36pm Living Will No February 01, 2019 9 :59pm Power of Concrete Bucket Loader No February 01, 2019 9:59pm Advance Directive Response Recorded Date/ Time Advance Directives No July 27, 2015 1:36pm Living Will No February 01, 2019 1 0:59pm Power of Concrete Bucket Loader No February 01, 2019 10:59pm Advance Directive Response Recorded Date/ Time Living Will No March 03, 2024 8 :18pm Power of Concrete Bucket Loader No March 03, 2024 8:18pm Advance Directives No July 27, 2015 1:36pm Chief Complaint and Reason for Visit Chief Complaint SCREENING Chief Complaint SCREENING Chief Complaint ABN HOLTER (ORTIZ) Reason for Visit Atrial tachycardia Palpitations Post-surgical hypothyroidism Chief Complaint ABN HOLTER (ORTIZ) ARRHYTHMIA Reason for Visit Atrial tachycardia Palpitations Post-surgical hypothyroidism Chief Complaint Admit Date FINGER FX RX HERE July 08, 2024 1:00pm SCREENING August 07, 2024 12:29pm Summary Purpose Additional Source Comments Goals (unrecognized section and content) Goals may be documented in a n alternate sectionGoals may be documented in an alternate sectionGoals may be documented in an alternate sectionGoals may be documented in an alternate sectionGoals may be documented in an alternate sectionGoals may be documented in an alternate section Care Teams (unrecognized sec tion and content) Team Status: Active Member Role Status Dates Dr. An Jc DO Family Provider Active Dr. Wing Johnson MD Primary Care Provider Activ e Team Status: Inactive Member Role Status Dates Dr. Wing Johnson MD Primary Care Provider, Attending Provider, Referring Provider Active Team Status: Inactive Member Role Status Dates Dr. Wing Johnson MD Primary Care Provider, Refe rring Provider Active Dr. Linda Orr MD Attending Provider Active Team Status: Inactive Member Role Status Dates Dr. Wing Johnson MD Primary Care Provider Activ e Dr. Linda Orr MD Attending Provider Active Team Status: Active Member Role Status Dates Dr. An Jc DO Family Provider Active Dr. Marzena Johnson MD Primary Care Provider Acti ve Team Status: Inactive Member Role Status Dates Dr. Marzena Johnson MD Primary Care Provider, Ref erring Provider Active Dr. Linda Orr MD Attending Provider Active Team Status: Active Member Role Status Dates Dr. Marzena Johnson MD Primary Care Provider Acti ve Dr. Linda Orr MD Attending Provider Active Team Status: Inactive Member Role Status Dates Dr. Marzena Johnson MD Primary Care Provider Acti ve Dr. Linda Orr MD Attending Provider, Referring Pr ovider Active Team Status: Inactive Member Role Status Dates Dr. Marzena Johnson MD Primary Care Provider Acti ve Dr. Linda Orr MD Attending Provider Active Real Estate Loan Processor Relationship Specialty Start Date End Date Marzena Johnson MD [address] [place] [address] PCP - General Family Medicine 01/01/24 Group, [facility] [address] [place] [address] Specialty Box Coverer Hand Cardiology 01/01/24 Linda Orr MD [address] [place] [address] Specialty Box Coverer Hand Cardiology 01/01/24 Real Estate Loan Processor Relationship Specialty Start Date End Date Marzena Johnson MD [address] [place] [address] PCP - General Family Medicine 01/01/24 Group, [facility] [address] [place] [address] Specialty Box Coverer Hand Cardiology 01/01/24 Linda Orr MD [address] [place] [address] Specialty Box Coverer Hand Cardiology 01/01/24 Real Estate Loan Processor Relationship Specialty Start Date End Date Marzena Johnson MD [address] [place] [address] PCP - General Family Medicine 01/01/24 Group, [facility] [address] [place] [address] Specialty [facility] 01/01/24 Linda Orr MD [address] [place] [address] Specialty [facility] 01/01/24 Real Estate Loan Processor Relationship Specialty Start Date End Date Marzena Johnson MD [address] [place] [address] PCP - General Family Medicine 01/01/24 Group, [facility] [address] [place] [address] Specialty [facility] 01/01/24 Linda Orr MD [address] [place] [address] Specialty [facility] 01/01/24 Real Estate Loan Processor Relationship Specialty Start Date End Date Marzena Johnson MD [address] [place] [address] PCP - General Family Medicine 01/01/24 [facility], [facility] [address] [place] [address] Specialty [facility] 01/01/24 Linda Orr MD [address] [place] [address] Specialty [facility] 01/01/24 Real Estate Loan Processor Relationship Specialty Start Date End Date Marzena Johnson MD [address] [place] [address] PCP - General Family Medicine 01/01/24 [facility], [facility] Specialty [facility] 01/01/24 Linda Orr MD [address] [place] [address] Specialty [facility] 01/01/24 Real Estate Loan Processor Relationship Specialty Start Date End Date Marzena Johnson MD [address] [place] [address] PCP - General Family Medicine 01/01/24 [facility], [facility] Specialty [facility] 01/01/24 Linda Orr MD [address] [place] [address] Specialty [facility] 01/01/24 [employer] Estate Loan Processor Relationship Specialty Start Date End Date Marzena Johnson MD [address] [place] [address] PCP - General Family Medicine 01/01/24 Linda Orr MD [address] [place] [address] Specialty [facility] 01/01/24 [employer] Estate Loan Processor Relationship Specialty Start Date End Date Marzena Johnson MD [address] [place] [address] PCP - General Family Medicine 01/01/24 Linda Orr MD [address] [place] [address] Specialty [facility] 01/01/24 [employer] Estate Loan Processor Relationship Specialty Start Date End Date Marzena Johnson MD [address] [place] [address] PCP - General Family Medicine 01/01/24 Linda Orr MD [address] [id number] Specialty [facility] 01/01/24 [employer] Estate Loan Processor Relationship Specialty Start Date End Date Marzena Johnson MD [address] [place] [id number] PCP - General Family Medicine 01/01/24 Linda Orr MD [address] [id number] Specialty [facility] 01/01/24 [employer]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 Marzena Johnson MD Primary Care Provider Acti ve Start: July 08, 2024 End: July 08, 2024 Dr. Marzena Johnson MD Attending Provider Active Start: July 08, 2024 End: July 08, 2024 Dr. Marzena Johnson MD Referring Provider Active Start: July 08, 2024 End: July 08, 2024 Team Status: Inactive Member Role Status Dates Dr. Marzena Johnson MD Primary Care Provider Acti ve Start: August 03, 2024 End: August 03, 2024 Dr. Don Villafana DO Attending Provider Active Start: August 03, 2024 End: August 03, 2024 Dr. Don Villafana DO Referring Provider Active Start: August 03, 2024 End: August 03, 2024 Team Status: Inactive Member Role Status Dates Dr. Marzena Johnson MD Primary Care Provider Acti ve Start: August 07, 2024 End: August 07, 2024 Dr. Marzena Johnson MD Attending Provider Active Start: August 07, 2024 End: August 07, 2024 Dr. Marzena Johnson MD Referring Provider Active Start: August 07, 2024 End: August 07, 2024 Source Comments (unrecognize d section and content) In the event this informatio n is protected by the Federal Confidentiality of Alcohol and Drug Abuse Patient Records regulations: The Federal rules restrict any use of the information to criminally investigate or prosecute any alcohol or drug abuse patient.[facility] the event this information is protected by the Federal Confidentiality of Alcohol and Drug Abuse Patient Records regulations: The Federal rules restrict any use of the information to criminally investigate or prosecute any alcohol or drug abuse patient.[facility] the event this information is protected by the Federal Confidentiality of Alcohol and Drug Abuse Patient Records regulations: The Federal rules restrict any use of the information to criminally investigate or prosecute any alcohol or drug abuse patient.[facility] the event this information is protected by the Federal Confidentiality of Alcohol and Drug Abuse Patient Records regulations: The Federal rules restrict any use of the information to criminally investigate or prosecute any alcohol or drug abuse patient.[facility] the event this information is protected by the Federal Confidentiality of Alcohol and Drug Abuse Patient Records regulations: The Federal rules restrict any use of the information to criminally investigate or prosecute any alcohol or drug abuse patient.[facility] the event this information is protected by the Federal Confidentiality of Alcohol and Drug Abuse Patient Records regulations: The Federal rules restrict any use of the information to criminally investigate or prosecute any alcohol or drug abuse patient.[facility] the event this information is protected by the Federal Confidentiality of Alcohol and Drug Abuse Patient Records regulations: The Federal rules restrict any use of the information to criminally investigate or prosecute any alcohol or drug abuse patient.[facility] the event this information is protected by the Federal Confidentiality of Alcohol and Drug Abuse Patient Records regulations: The Federal rules restrict any use of the information to criminally investigate or prosecute any alcohol or drug abuse patient.[facility] the event this information is protected by the Federal Confidentiality of Alcohol and Drug Abuse Patient Records regulations: The Federal rules restrict any use of the information to criminally investigate or prosecute any alcohol or drug abuse patient.[facility] the event this information is protected by the Federal Confidentiality of Alcohol and Drug Abuse Patient Records regulations: The Federal rules restrict any use of the information to criminally investigate or prosecute any alcohol or drug abuse patient.[facility] the event this information is protected by the Federal Confidentiality of Alcohol and Drug Abuse Patient Records regulations: The Federal rules restrict any use of the information to criminally investigate or prosecute any alcohol or drug abuse patient.[facility] the event this information is protected by the Federal Confidentiality of Alcohol and Drug Abuse Patient Records regulations: The Federal rules restrict any use of the information to criminally investigate or prosecute any alcohol or drug abuse patient.[facility] the event this information is protected by the Federal Confidentiality of Alcohol and Drug Abuse Patient Records regulations: The Federal rules restrict any use of the information to criminally investigate or prosecute any alcohol or drug abuse patient.[facility] the event this information is protected by the Federal Confidentiality of Alcohol and Drug Abuse Patient Records regulations: The Federal rules restrict any use of the information to criminally investigate or prosecute any alcohol or drug abuse patient.[facility] the event this information is protected by the Federal Confidentiality of Alcohol and Drug Abuse Patient Records regulations: The Federal rules restrict any use of the information to criminally investigate or prosecute any alcohol or drug abuse patient.[facility] Reason for Visit (unrecogniz ed section and content) Reason Comments Orders Reason Comments New Patient SVT Reason Comments Patient Update Reason Onset Date Comments Refill Request 01/24/2024 Reason Onset Date Comments Refill Request 01/31/2024 Reason Onset Date Comments Refill Request 03/31/2024 Reason Comments Med Change Request Reason Comments Medication Problem Appointment Grey Inspector - Other Reason Comments Preparations For Procedures Reason Comments Orders Appointment Reason Comments Patient Update Grey Inspector - Other Reason Comments CARD Hospital Follow Up Monitor results INFORMATION SOURCE (unrecogn ized section and content) DATE CREATED AUTHOR 10/25/2024 [facility] DATE CREATED AUTHOR AUTHOR'S ORGANIZ ATION 11/07/2024 [facility] FOR RECORDS PERTAINING TO PATIENTS WHO ARE OR HAVE BEEN ENROLLED IN A CHEMICAL DEPENDENCY/SUBSTANCEABUSE PROGRAM, SOME INFORMATION MAY BE OMITTED. This clinical summary was aggregated from multiple sources. Caution should be exercised in using it in the provision of clinical care. This summary normalizes information from multiple sources, and as a consequence, information in this document may materially change the coding, format and clinical context of patient data. In addition, data may be omitted in some cases. CLINICAL DECISIONS SHOULD BE BASED ON THE PRIMARY CLINICAL RECORDS. [employer] [facility]. provides no warranty or guarantee of the accuracy or completeness of information in this document.
[2025-08-18 15:02] LABS: Anion Gap 11 (7-18); BUN 18 mg/dL (4-19); BUN/Creat Ratio 23.1 RATIO (10-20); Calcium,Total 9.5 mg/dL (7.6-11.0); Carbon Dioxide 24.4 mmol/L (20.0-29.0); Chloride 106 mmol/L (96-106); Cholesterol 199 mg/dL (<=200); Glucose 77 mg/dL (70-99); Low Density Lipoprotein Calc. 113 mg/dL; Potassium 3.9 mmol/L (3.5-5.1); Triglycerides 33 mg/dL; Very Low Density Lipoprotein 7 mg/dL (5-40); Vitamin D,25 Hydroxy 50.2 ng/mL (30-100); cholesterol:hdl ratio screen 2.50
== END 2025-08-18 23:59 | disposition home or self-care (01) ==
LOC: MTLAB 11:36
PROVIDERS: PCP Family Medicine; Referring Provider Family Medicine; Visit Provider Family Medicine
DX: Z13.220 Encounter for screening for lipoid disorders (principal); I47.19 Other supraventricular tachycardia; E03.9 Hypothyroidism, unspecified
CPT/HCPCS: 36415; 80048; 80061; 82306; 84439; 84443